=== PATIENT | male | born 1930 | race Caucasian/White ===

== ENCOUNTER 2016-05-17 06:50 | Inpatient (IN) | payer OTHER, MEDICARE ==
[2016-05-17] VITALS (10 sets, daily range): BP systolic 137–151; BP diastolic 64–86; PULSE 81–109; RESP 20–28; TEMP 98.9–102.7; O2SAT 94–98
[~2016-05-17] VITALS: Ht 172.7 cm; Wt 82.0 kg
[~2016-05-17 06:50] MED LIST: ATOR20TA PO; LANTINJ SQ; LISI-366 PO; METF500 PO; MULTCAP3; TIMO0.2525 EACH EYE
[2016-05-17] MEDS ORDERED: AMLO5TAB2 PO (09:50)
--- NOTE | 2016-05-17 10:28 | PD.CONS ---
HPI Service Neurosurgery Consult Requested By Medicine Reason for Consult acute SDH Primary Care Physician Non-Staff History of Present Illness 85 yr old gentleman fell at home going the bathroom around midnight last night. His heard him and called the neighbor to get him back to bed. This am he was aphasic and confused. His called 911. He is diabetic but otherwise with no other known chronic medical problems. He drinks daily beers, about 3 per day. GCS [id number] = 13 Review of Systems ROS Limitations: Altered Mental Status, Hearing Impaired Constitutional: COMPLAINS OF: Fatigue, Change in appetite Respiratory: COMPLAINS OF: Cough Musculoskeletal: COMPLAINS OF: Joint pain Psychiatric: COMPLAINS OF: Confusion Past Family Social History Allergies: Coded Allergies: Contrast Media (Verified Allergy, Unknown, 12/02/14) Past Medical History HTN Chronic alcohol use Arthritis Past Surgical History none Reported Medications Reported Meds & Active Scripts Active Reported Amlodipine (Amlodipine Besylate) 5 Mg Tab 5 Mg PO DAILY Timolol Maleate 0.25 % Tia 1 Drop EACH EYE BID Multivitamins Lisinopril 40 mg (Lisinopril) 40 Mg Tab 1 Tab PO DAILY Glucophage 500 mg (Metformin HCl) 500 Mg Tab 500 Mg PO DAILY Lantus Solostar Pen (Insulin Glargine) 100 Units/Ml Pen 12 Units SQ BID Atorvastatin 20 mg tab (Atorvastatin Calcium) 20 Mg Tab 20 Mg PO DAILY 30 Days Family History Mother of old age recently, father was killed in middle ages, no fx hx of DM Social History , retired, no tob, daily ETOH Physical Exam Vital Signs Vital Signs Date Time Temp Pulse Resp B/P Pulse Ox O2 Delivery O2 Flow Rate FiO2 05/17/16 10:00 103 05/17/16 09:21 99 Physical Exam Awake and aphasic with no ability to follow verbal commands but does follow motor commands if showed what is requested. Scalp abrasion noted on the right parietal region, no acute blood in the EAM Pupils 2mm, face symmetric, speech fluent but confused, Motor at least 4/5 in both upper and lower extremities Sensory intact in the upper and lower extremities. No Berg or Babinski signs. Laboratory Na 129, Hgb 11.6, alb 1.3 at the outside hospital , WBC 12.8, ptls 103INR 1.1, CR 0.77ETOH 26, lactate 4.0 Imaging CXR: Interstitial disease Head CT showed an acute left 8mm SDH with left fronto-temporal contusion extensive SAH; diffuse cerebral atrophy and mild left to right shift are noted Assessment and Plan Diagnosis: (1) Subdural hematoma, acute Plan: The bleed and cerebral contusion will be followed radiologically. Seizure prophylaxis, DVT and PUD prophylaxis is planned as well as OT/PT. Alcohol withdrawal prophylaxis is planned. . He is full code at this time but has requested anteriorly no aggressive prolonged ventilatory support. Devonte Dunham May 17, 2016 10:27
[2016-05-17] MEDS ORDERED: SODIUM CHLORIDE 0.9% FLUSH 5 ML FLUSH IVF PRN (10:30)
[2016-05-17] MEDS ORDERED: DOCUSATE SODIUM 100 MG CAP PO PRN (10:30)
[2016-05-17] MEDS ORDERED: SODIUM CHLOR 0.9% 1000 ML INJ 1,000 ML IV SCH (10:43)
[2016-05-17] MEDS ORDERED: LORazepam 2 MG/ML VIAL IV PUSH PRN ×2 (10:45)
[2016-05-17] MEDS ORDERED: SODIUM CHLORIDE 0.9% FLUSH 5 ML FLUSH IV FLUSH PRN (10:45)
[2016-05-17] MEDS ORDERED: CHLORHEXIDINE GLUCONATE 2 % 1 PACK (2 CLOTHS) TOP PRN (10:45)
[2016-05-17] MEDS ORDERED: LORazepam 1 MG TAB PO PRN (10:45)
[2016-05-17] MEDS ORDERED: MISCELLANEOUS NURSING INFORMATION XX SCH (10:45)
[2016-05-17] MEDS ORDERED: RESP: ALBUTEROL 2.5 MG/IPRATROPIUM 0.5 MG NEB (PRN) INH (10:45)
[2016-05-17] MEDS ORDERED: ACETAMINOPHEN 325 MG TAB PO PRN (10:45)
[2016-05-17] MEDS ORDERED: ONDANSETRON HCL 4 MG/2 ML VIAL IV PRN (10:45)
[2016-05-17] MEDS ORDERED: LORazepam 2 MG TAB PO PRN (10:45)
[2016-05-17] MEDS ORDERED: FLUMAZENIL 0.5 MG/5 ML VIAL IV PUSH PRN (10:45)
[2016-05-17] MEDS ORDERED: GLUCAGON 1 MG/ML VIAL OTHER PRN (11:15)
[2016-05-17] MEDS ORDERED: DEXTROSE 50% IN WATER 50 ML VIAL(D50) IV PUSH PRN (11:15)
[2016-05-17] MEDS: SODIUM CHLOR 0.9% 1000 ML INJ 1,000 ML IV SCH (11:19)
[2016-05-17] MEDS: FOLIC ACID 1 MG TAB PO SCH (11:31)
[2016-05-17] MEDS: levETIRAcetam INJ 500 MG in SODIUM CHLORIDE 0.9% INJ 100 ML IV SCH (11:31)
[2016-05-17] MEDS: THIAMINE INJ 100 MG in SODIUM CHLORIDE 0.9% INJ 100 ML IV SCH (11:56)
[2016-05-17] MEDS: INSULIN ASPART SUPPLEMENTAL SCALE SQ SCH ×2 (12:00→18:00)
[2016-05-17] MEDS: LORazepam 2 MG/ML VIAL IV PUSH PRN ×2 (13:05→17:49)
--- NOTE | 2016-05-17 17:55 | MH ---
cc: LUZMARIA UNGER MD DATE OF ADMISSION 05/17/2016 CHIEF COMPLAINT Transfer from [facility] with acute traumatic subdural hematoma. HISTORY OF PRESENT ILLNESS This 85-year-old gentleman fell of bed last night and hit his head. He developed aphasia and confusion pretty rapidly and was seen in the emergency department in [place] with a right facial droop. Subsequent CT scan evaluation confirmed an acute left subdural hemorrhage of approximately 8 mm in width with a associated subarachnoid hemorrhage. Additionally in the frontal lobe on the right side he had a 1 cm area of hemorrhage with surrounding vasogenic edema. There was intraventricular blood as well on the right side. I met him on his arrival to [facility]. What was immediately noticeable was that he was not able to express himself well and that he was not following commands correctly. With gestures he was able to follow commands but not with verbal orders. His review of systems was positive for basically generalized weakness and aphasia. ALLERGIES NONE. MEDICATIONS His home medications include: 1. Lisinopril 40 mg daily. 2. Metformin 500 mg daily. 3. Lantus insulin 12 units twice a day. 4. Atorvastatin 20 mg daily. 5. Norvasc 5 mg daily. 6. Timolol malleate ophthalmic solution 0.25% one drop to each eye twice a day. PERTINENT LABORATORY DATA Includes hemoglobin 11.6, platelet count 103,000. INR is 1.1 with a PTT of 28.7. Electrolytes: Sodium 129, potassium 4.4, glucose 143. Renal function tests creatinine is 0.77, BUN is 15. Magnesium 1.6. Troponin is less than 0.01. Alcohol and blood was 26, it is unclear what this is from. Oxygen saturation is 93% on room air. PHYSICAL EXAMINATION GENERAL: Physical examination reveals an alert, elderly, gentleman, frail-appearing, aphasic. VITAL SIGNS: Pulse is 108 and sinus, blood pressure is 151/67, respiratory rate is 22 and nonlabored, temperature is 98.9. HEAD: Contusion right side of his scalp, lateral. NECK: Chronically stiff but nontender. Airway is widely patent. LUNGS: Clear bilaterally. No wheezes or crackles. HEART: Regular rate and rhythm, normal S1-S2, no murmur, neck veins are not distended. ABDOMEN: Large, soft, no guarding. EXTREMITIES: Warm, well-perfused. NEUROLOGICAL: He tracks with his eyes appropriately. He speaks in repeated sentences. He does not answer questions specifically. He moves four extremities to command when demonstrated visually for him. Toes downgoing both sides. ASSESSMENT 1. Acute traumatic left-sided subdural hemorrhage. 2. Traumatic subarachnoid bleed. 3. Small frontal lobe contusion, right side. 4. Diabetes mellitus, type 2, controlled. 5. Mild hypertension. PLAN 1. Repeat CT scan head in a.m. or earlier if change in mental status. 2. Neurological checks q.1-hour. 3. Isotonic fluid only. 4. Head of bed up 30 degrees. 5. Bed rest tonight. 6. Labetalol for a blood pressure greater than 170. 7. Keppra for potential seizure complications. 8. Protonix for GI ulcer prophylaxis. 9. [facility] protocol for alcohol withdrawal OVERALL IMPRESSION This gentleman fell out of bed twice actually last night. The second time he had developed aphasia with a right facial droop and was seen in the emergency department [place] where a moderate size left subdural hemorrhage was evaluated, along with an adjacent right-sided frontal lobe contusion and some scattered subarachnoid blood. He was transferred here for neurosurgical evaluation and will be admitted to the Intensive Care Unit. He is hemodynamically stable at this time and protects his airway well. His potential for deterioration is high. P. Justice Unger MD [facility]/KK /5:09 PM /5:35 PM
[2016-05-17] MEDS: INSULIN DETEMIR 100 UNITS/ML VIAL SQ SCH (21:00)
[2016-05-17] MEDS: TIMOLOL MALEATE 0.25% OPHT SOLN 5 ML BTL EACH EYE SCH (21:00)
[2016-05-17] MEDS ORDERED: SODIUM CHLORIDE 0.9% FLUSH 5 ML FLUSH IV FLUSH SCH (21:00)
[2016-05-17] MEDS: SODIUM CHLORIDE 0.9% FLUSH 5 ML FLUSH IVF SCH (21:00)
[2016-05-17] MEDS: ACETAMINOPHEN 1000 MG/100 ML VIAL IV PRN (22:30)
[2016-05-17 23:30] LABS: BLOOD, URINE LARGE (NEG); GLUCOSE,URINE NEG (NEG); KETONE, URINE 10 mg/dL (NEG); MUCUS URINE FEW /lpf (OCC); NITRITE,URINE NEG (NEG); PH, URINE 5.5 (5.0-8.5); SQUAMOUS EPITHELIAL CELL URINE 1 /hpf (0-5); TRANSITIONAL EPI CELLS, URINE <1 /hpf; URINE COLOR YELLOW (YELLW/STRAW)
[2016-05-17 23:33] LABS: COMMENT (UR) CULTURE INDICATED; CULTURE IF INDICATED CULTURE INDICATED
[2016-05-18] VITALS (14 sets, daily range): BP systolic 113–154; BP diastolic 60–79; PULSE 78–118; RESP 18–30; TEMP 98.9–101.4; O2SAT 93–100
[2016-05-18] MEDS: niCARdipine INJ 25 MG in SODIUM CHLOR 0.9% 250 ML INJ 250 ML IV SCH ×3 (00:15→17:50)
[2016-05-18] MEDS: SODIUM CHLOR 0.9% 1000 ML INJ 1,000 ML IV SCH ×2 (00:41→13:19)
[2016-05-18] MEDS: LORazepam 2 MG/ML VIAL IV PUSH PRN ×3 (02:42→13:15)
[2016-05-18 03:33] LABS: AUTOMATED NEUTROPHIL # 10.4 TH/MM3 (1.8-7.7); BASOPHIL % 0.1 % (0.0-2.0); EOSINOPHIL % 0.1 % (0.0-4.0); HEMATOCRIT 29.4 % (39.0-51.0); HEMO FLAGS DIFF FINAL; LYMPH % 9.1 % (9.0-44.0); LYMPHOCYTE # 1.2 TH/MM3 (1.0-4.8); MEAN CELL VOLUME 92.5 FL (80.0-100.0); MEAN CORPUSCULAR HEMOGLOBIN 30.6 PG (27.0-34.0); MEAN CORPUSCULAR HGB CONC 33.1 % (32.0-36.0); MONO % 12.9 % (0.0-8.0); NEUT % 77.8 % (16.0-70.0); PLATELET COUNT 100 TH/MM3 (150-450); RED BLOOD COUNT 3.18 MIL/MM3 (4.50-5.90); RED CELL DISTRIBUTION WIDTH 13.4 % (11.6-17.2); WHITE BLOOD COUNT 13.3 TH/MM3 (4.0-11.0)
[2016-05-18 03:44] LABS: INTERNATIONAL NORMALIZED RATIO 1.1 RATIO; PROTHROMBIN TIME - PATIENT 11.8 SEC (9.8-11.6)
[2016-05-18 03:51] LABS: BICARBONATE 26.5 MEQ/L (21.0-32.0); MAGNESIUM 1.6 MG/DL (1.5-2.5); POTASSIUM 3.8 MEQ/L (3.5-5.1)
[2016-05-18 03:54] LABS: INDIRECT BILIRUBIN 0.7 MG/DL (0.0-0.8); TOTAL BILIRUBIN ADULT 0.9 MG/DL (0.2-1.0)
[2016-05-18] MEDS: CHLORHEXIDINE GLUCONATE 2 % 1 PACK (2 CLOTHS) TOP SCH (04:00)
[2016-05-18] MEDS: INSULIN ASPART SUPPLEMENTAL SCALE SQ SCH ×4 (05:50→18:00)
--- NOTE | 2016-05-18 06:49 | RADRPT ---
EXAM DATE/TIME: 05/18/2016 04:47 [facility] COMPARISON: No previous studies available for comparison. INDICATIONS : Fall last night, evaluate for hemorrhagic stroke. RADIATION DOSE: 44.43 CTDIvol (mGy) MEDICAL HISTORY : Hypertension. glaucoma SURGICAL HISTORY : None. ENCOUNTER: Initial ACUITY: 1 day PAIN SCALE: Non-responsive LOCATION: cranial TECHNIQUE: Multiple contiguous axial images were obtained of the head. Using automated exposure control and adj ustment of the mA and/or kV according to patient size, radiation dose was kept as low as reasonably a chievable to obtain optimal diagnostic quality images. FINDINGS: There is thin subdural hematoma overlying the left convexity with maximum thickness of about 6 mm. Pa tchy subarachnoid blood is present bilaterally most significantly in the left temporal region. Small right orbitofrontal contusions are present. There is minimal intraventricular blood in occipital horn s there is a there is no significant brain shift. No evidence of skull fracture. CONCLUSION: Multifocal intracranial hemorrhages. Valdez Rivera MD on May 18, 2016 at 6:45 Board Certified Radiologist. This report was verified electronically.
[2016-05-18] MEDS ORDERED: PANTOPRAZOLE SODIUM 40 MG VIAL IVP SCH (09:00)
[2016-05-18] MEDS: TIMOLOL MALEATE 0.25% OPHT SOLN 5 ML BTL EACH EYE SCH ×2 (09:00→21:41)
[2016-05-18] MEDS: ATORVASTATIN 20 MG TAB PO SCH (09:00)
[2016-05-18] MEDS: SODIUM CHLORIDE 0.9% FLUSH 5 ML FLUSH IVF SCH ×2 (09:00→21:00)
[2016-05-18] MEDS: amLODIPine BESYLATE 5 MG TAB PO SCH (09:00)
[2016-05-18] MEDS: FOLIC ACID 1 MG TAB PO SCH (09:00)
[2016-05-18] MEDS: LISINOPRIL 20 MG TAB PO SCH (09:00)
--- NOTE | 2016-05-18 09:02 | HHI.NSPN ---
Subjective History 85 yr old fell at home. He is generally very sedentary but alert and interactive. He suffered a significant left 8mm acute SDH with mass effect. He became very agitated and is delirious but the bleed has been stable. Vitals . Vital Signs Date Time Temp Pulse Resp B/P Pulse Ox O2 Delivery O2 Flow Rate FiO2 05/18/16 06:00 106 05/18/16 04:00 100.4 89 26 154/65 93 05/18/16 04:00 89 05/18/16 02:00 78 05/18/16 00:00 103 05/18/16 00:00 101.2 103 30 147/62 95 05/17/16 22:00 92 05/17/16 20:00 102.7 104 28 148/66 94 05/17/16 20:00 104 05/17/16 19:49 98 21 05/17/16 18:00 109 05/17/16 16:00 99.3 82 27 137/64 97 05/17/16 16:00 83 05/17/16 14:00 93 05/17/16 12:00 81 05/17/16 12:00 98.9 88 22 140/86 97 05/17/16 10:00 103 05/17/16 09:21 99 05/17/16 09:00 99.0 108 20 151/67 95 05/17/16 05/17/16 05/18/16 15:00 23:00 07:00 Intake Total 526 ml 711 ml 608 ml Output Total 875 ml 450 ml 500 ml Balance -349 ml 261 ml 108 ml Physical Exam Head Head: Abrasions (right parietal scalp abrasion) Eyes Eyes: Pupils Equal Neuro Mental Status: Confused, Agitated Pupils: Reactive Bilaterally [place] Coma Scale Best Eye Openin - To speech Best Verbal: 2 - Incomprehensible Best Motor: 5 - Localizes pain Respiratory Respiratory: Rhonchi Gastrointestinal Gastrointestinal: Soft Bowel Sounds: Present Genitourinary Genitourinary: Moreno Catheter In Place Musculoskeletal Musculoskeletal: Moves all extrem with 5/5 strength Extremities Upper Extremities Deltoid Bicep Tricep HI W. Ext Right Left Lower Extremeties Ilio Quad Plantar Dorsi EHL Right Left Objective Infectious Disease Cultures Microbiology Date/Time Procedure Status Source Growth 05/17/16 23:00 Urine Culture Received Urine Clean Catch Pending 05/18/16 03:19 Aerobic Blood Culture Received Blood Peripheral Pending 05/18/16 03:19 Anaerobic Blood Culture Received Blood Peripheral Pending 05/18/16 03:25 Aerobic Blood Culture Received Blood Peripheral Pending 05/18/16 03:25 Anaerobic Blood Culture Received Blood Peripheral Pending Labs Laboratory Tests 05/18/16 03:19 Laboratory Tests Test 05/18/16 03:19 Sodium Level 136 MEQ/L Potassium Level 3.8 MEQ/L Chloride Level 101 MEQ/L Carbon Dioxide Level 26.5 MEQ/L Anion Gap 9 MEQ/L Blood Urea Nitrogen 13 MG/DL Creatinine 0.77 MG/DL Estimat Glomerular Filtration 96 ML/MIN Rate Random Glucose 135 MG/DL Calcium Level 7.9 MG/DL Magnesium Level 1.6 MG/DL Total Bilirubin 0.9 MG/DL Direct Bilirubin 0.2 MG/DL Indirect Bilirubin 0.7 MG/DL Aspartate Amino Transf 22 U/L (AST/SGOT) Alanine Aminotransferase 20 U/L (ALT/SGPT) Alkaline Phosphatase 41 U/L Total Protein 6.4 GM/DL Albumin 3.3 GM/DL Imaging Remarks Last Impressions Head CT 05/18/16 0600 Signed Impressions: Service Date/Time: April 04:47 - CONCLUSION: Multifocal intracranial hemorrhages. Valdez Rivera MD Assessment & Plan Diagnosis: (1) Subdural hematoma, acute Plan: The bleed and cerebral contusion will be followed radiologically, they are mostly left hemispheric 8mm SDH and bilateral SAH. Seizure prophylaxis, DVT and PUD prophylaxis is planned as well as OT/PT. Alcohol withdrawal prophylaxis is planned. . He is full code at this time but has requested anteriorly no aggressive prolonged ventilatory support. Critical Care Time (minutes): 10 Devonte Dunham May 18, 2016 09:02
[2016-05-18] MEDS ORDERED: MIDAZOLAM 100 MG/ML INJ 100 ML IV SCH (09:15)
[2016-05-18] MEDS: PANTOPRAZOLE SODIUM 40 MG VIAL IV SCH (11:15)
[2016-05-18] MEDS: ACETAMINOPHEN 1000 MG/100 ML VIAL IV PRN (11:15)
[2016-05-18] MEDS: levETIRAcetam INJ 500 MG in SODIUM CHLORIDE 0.9% INJ 100 ML IV SCH ×3 (11:15)
[2016-05-18] MEDS: INSULIN DETEMIR 100 UNITS/ML VIAL SQ SCH ×2 (11:17→21:41)
[2016-05-18] MEDS: THIAMINE INJ 100 MG in SODIUM CHLORIDE 0.9% INJ 100 ML IV SCH (11:34)
--- NOTE | 2016-05-18 13:50 | HHI.CCPN ---
Subjective Remarks/Hospital Course Traumatic SDH. 05/17: This 85-year-old gentleman fell of bed last night and hit his head. He developed aphasia and confusion pretty rapidly and was seen in the emergency department in [place] with a right facial droop. Subsequent CT scan evaluation confirmed an acute left subdural hemorrhage of approximately 8 mm in width with a associated subarachnoid hemorrhage. Additionally in the frontal lobe on the right side he had a 1 cm area of hemorrhage with surrounding vasogenic edema. There was intraventricular blood as well on the right side. I met him on his arrival to [facility]. What was immediately noticeable was that he was not able to express himself well and that he was not following commands correctly. With gestures he was able to follow commands but not with verbal orders. 05/18: Deteriorating mental status, nasal trumpet placed for airway control, and will require intubation. Objective Vital Signs Date Time Temp Pulse Resp B/P Pulse Ox O2 Delivery O2 Flow Rate FiO2 05/18/16 12:00 118 05/18/16 12:00 99.8 28 142/67 94 05/17/16 19:49 21 Intake and Output 05/17/16 05/17/16 05/18/16 08:00 16:00 00:00 Intake Total 526 ml 711 ml Output Total 875 ml 450 ml Balance -349 ml 261 ml Result Diagram: 05/18/1631805/18/16318 Objective Remarks PHYSICAL EXAMINATION GENERAL: Physical examination reveals an obtunded, elderly, gentleman, frail-appearing. VITAL SIGNS: Pulse is 110 and sinus, blood pressure is 158/77, respiratory rate is 32 and nonlabored. HEAD: Contusion right side of his scalp, lateral. NECK: Chronically stiff but nontender. Airway is widely patent. LUNGS: Ptronounced snoring and obstruction. No wheezes or crackles. HEART: Regular rate and rhythm, normal S1-S2, no murmur, no JVD. ABDOMEN: Large, soft, no guarding. BS active. EXTREMITIES: Warm, well-perfused. NEUROLOGICAL: Unresponsive. Groans to painful stimulation. A/P Assessment and Plan ASSESSMENT: 1. Acute traumatic left-sided subdural hemorrhage. 2. Traumatic subarachnoid bleed. 3. Small frontal lobe contusion, right side. 4. Diabetes mellitus, type 2, controlled. 5. Mild hypertension. 6. Respiratory Failure PLAN: 1. nasal trumpet, probable intubation. 2. Neurological checks q.1-hour. 3. Isotonic fluid only. 4. Head of bed up 30 degrees. 5. Bed rest tonight. 6. Labetalol for a blood pressure greater than 170. 7. Keppra for potential seizure complications. 8. Protonix for GI ulcer prophylaxis. OVERALL IMPRESSION: Deteriorating mental status, now critically ill with hypoxemic respiratory failure requiring ventilator support. Critical care 44 mins aside from procedures Jong Abreu MD May 18, 2016 13:49
--- NOTE | 2016-05-18 13:50 | RADRPT ---
EXAM DATE/TIME: 05/18/2016 08:12 [facility] COMPARISON: No previous studies available for comparison. INDICATIONS : Intracranial hemorrhage. MEDICAL HISTORY : Hypertension. Arthritis. Glaucoma. Neurologic problems. Head trauma. Confusion. Renl disease. UTI. Diabetes. Chronic alcohol use. SURGICAL HISTORY : None. ENCOUNTER: Initial ACUITY: 2 days PAIN SCORE: Nonresponsive. LOCATION: Cranial. TIME -AVERAGED MAXIMAL VELOCITIES: MCA (1): Right: 55 Left: 26 MCA (2): Right: 44 Left: 36 ALENA (1): Right: 57 Left: 34 ALENA (2): Right: 28 Left: Unable to obtain. RABBIT FANCIER (1): Right: 57 Left: 81 RABBIT FANCIER (2): Right: 46 Left: 48 Opthalmic Artery: Right: 19 Left: 9 VERTEBRAL: Right: 22 antegrade Left: 22 antegrade BASILAR: 30 ICA: Right: 15 Left: 18 [place] Ratio: Right: 3.6 Left: 2.0 Solo Ratio: Right: 3.8 Left: 1.9 FINDINGS: Examination performed at bedside. Real-time ultrasound with the assistance of color and spectral Dop pler was utilized to evaluate the intracerebral circulation. Time-averaged maximal velocities are ca lculated in cm/s. The velocities are within normal limits and are no findings of vasospasm. CONCLUSION: 1. No evidence of vasospasm Bill Means MD on May 18, 2016 at 11:54 Board Certified Radiologist. This report was verified electronically.
[2016-05-18] MEDS ORDERED: ROCURONIUM INJ 100 MG/10 ML VIAL IV ONE (15:30)
[2016-05-18] MEDS ORDERED: MIDAZOLAM HCL 5 MG/ML VIAL (1 ML) IV ONE (15:30)
[2016-05-18] MEDS ORDERED: MIDAZOLAM HCL 5 MG/ML VIAL (1 ML) ONE (15:39)
[2016-05-18] MEDS ORDERED: ROCURONIUM INJ 50 MG/5 ML VIAL ONE (15:39)
[2016-05-18] MEDS ORDERED: ROCURONIUM INJ 50 MG/5 ML VIAL IV ONE (15:45)
[2016-05-18] MEDS ORDERED: PROPOFOL 1000 MG/100 ML INJ 100 ML ONE (15:58)
--- NOTE | 2016-05-18 16:16 | PD.PROCEDR ---
Procedure Note Procedure DX: Respiratory Failure (J96.01) OP: Orotracheal Intubation (09564) Procedure: Bag mask ventilation. Versed 5 mg and rocuronium 100 mg. Intubated orally with 8.0 tube. Position confirmed with CO2 detection, breath sounds Jong Abreu MD May 18, 2016 16:16
[2016-05-18 17:11] LABS: BLOOD GAS BASE EXCESS -3.1 mmol/L (-2-2); BLOOD GAS CARBOXYHEMOGLOBIN 1.2 % (0-4); BLOOD GAS HCO3 21 mmol/L (22-26); BLOOD GAS METHEMOGLOBIN 0.8 % (0-2); BLOOD GAS O2 HGB SATURATION 98 % (90-100); BLOOD GAS OXYGEN CONTENT 14.3 Vol % (12.0-20.0); BLOOD GAS PCO2 31 mmHg (38-42); BLOOD GAS PO2 257 mmHg (61-120); BLOOD GAS TOTAL HGB 9.9 G/DL (12.0-16.0); CRITICAL VALUE NO; DRAW SITE RT RADIAL; FIO2 100 %; NUMBER OF ARTERIAL PUNCTURES 1; OXYGEN DEVICE VENTILATOR; STAT NO; TEMP CORR TO 98.6; ULNAR PULSE PRESENT; VENT SETTINGS PRVC/AC
--- NOTE | 2016-05-18 17:25 | RADRPT ---
EXAM DATE/TIME: 05/18/2016 16:17 [facility] COMPARISON: No previous studies available for comparison. INDICATIONS : Evaluate ET tube placement MEDICAL HISTORY : Hypertension. glaucoma SURGICAL HISTORY : None. ENCOUNTER: Initial ACUITY: 1 day PAIN SCORE: Non-responsive. LOCATION: Bilateral chest FINDINGS: 2 AP portable views of the chest were obtained and demonstrate abnormal opacity at the left lung bas e with partial obscuration of left hemidiaphragm. The left costophrenic angle may be mildly blunted. The heart size is within normal limits. The right lung is clear. An endotracheal tube is present with the tip approximately 2 cm above the tony. CONCLUSION: 1. Endotracheal tube present with the tip 2 cm above the tony. 2. Hazy opacity in the left lung base which may represent infiltrate and/or effusion. The findings co uld indicate pneumonia. Donny Cabrera MD on May 18, 2016 at 17:22 Board Certified Radiologist. This report was verified electronically.
[2016-05-18] MEDS: PROPOFOL 1000 MG/100 ML INJ 100 ML IV SCH (17:50)
--- NOTE | 2016-05-18 19:04 | RADRPT ---
EXAM DATE/TIME: 05/18/2016 18:38 [facility] COMPARISON: CHEST SINGLE AP, May 18, 2016, 16:17. INDICATIONS : Evaluate OG tube placement MEDICAL HISTORY : Hypertension. glaucoma SURGICAL HISTORY : None. ENCOUNTER: Subsequent ACUITY: 1 day PAIN SCORE: Non-responsive. LOCATION: Bilateral chest FINDINGS: Perihilar and left base consolidation slightly worse in the interim. No large effusion seen. No pneum othorax. There is a nasogastric tube with tip at the gastric outlet. Patient remains intubated. Endotracheal t ube tip is about 4 cm above the tony. CONCLUSION: Gastric tube tip at the outlet. Unchanged endotracheal tube tip about 4 cm above the tony. Modest w orsening perihilar and left base consolidation. Valdez Solano MD on May 18, 2016 at 19:02 Board Certified Radiologist. This report was verified electronically.
[2016-05-18] MEDS: CHLORHEXIDINE 0.12% (ORAL KIT) 15 ML CUP MT SCH (20:00)
[2016-05-19] VITALS (19 sets, daily range): BP systolic 97–142; BP diastolic 59–85; PULSE 66–95; RESP 16–24; TEMP 99–101.1; O2SAT 99–100
[2016-05-19] MEDS: levETIRAcetam INJ 500 MG in SODIUM CHLORIDE 0.9% INJ 100 ML IV SCH ×2 (00:05→12:00)
[2016-05-19] MEDS: ACETAMINOPHEN 1000 MG/100 ML VIAL IV PRN (01:26)
[2016-05-19] MEDS: PROPOFOL 1000 MG/100 ML INJ 100 ML IV SCH ×3 (01:26→21:16)
[2016-05-19] MEDS: CHLORHEXIDINE GLUCONATE 2 % 1 PACK (2 CLOTHS) TOP SCH (04:00)
[2016-05-19 04:06] LABS: AUTOMATED NEUTROPHIL # 10.4 TH/MM3 (1.8-7.7); BASOPHIL % 0.1 % (0.0-2.0); EOSINOPHIL % 0.1 % (0.0-4.0); HEMATOCRIT 27.8 % (39.0-51.0); HEMO FLAGS DIFF FINAL; LYMPH % 9.1 % (9.0-44.0); LYMPHOCYTE # 1.2 TH/MM3 (1.0-4.8); MEAN CELL VOLUME 93.7 FL (80.0-100.0); MEAN CORPUSCULAR HGB CONC 33.1 % (32.0-36.0); NEUT % 79.7 % (16.0-70.0); PLATELET COUNT 100 TH/MM3 (150-450); RED BLOOD COUNT 2.97 MIL/MM3 (4.50-5.90); RED CELL DISTRIBUTION WIDTH 13.4 % (11.6-17.2)
[2016-05-19 04:33] LABS: MAGNESIUM 1.6 MG/DL (1.5-2.5); POTASSIUM 3.4 MEQ/L (3.5-5.1)
[2016-05-19 04:48] LABS: CALCIUM-PROTEIN CORRECTED 7.9 MG/DL (8.5-10.1)
[2016-05-19] MEDS: SODIUM CHLOR 0.9% 1000 ML INJ 1,000 ML IV SCH ×2 (05:23→19:41)
[2016-05-19] MEDS: INSULIN ASPART SUPPLEMENTAL SCALE SQ SCH ×4 (06:00→17:10)
[2016-05-19] MEDS ORDERED: POTASSIUM CHLOR 20 MEQ PREMIX 100 ML IV PRN (07:00)
[2016-05-19] MEDS ORDERED: POTASSIUM CL 40 MEQ/30 ML LIQ UDC PO/TUBE PRN (07:00)
[2016-05-19] MEDS ORDERED: POTASSIUM PHOSPHATE MONOBASIC 500 MG TAB PO/TUBE PRN (07:00)
[2016-05-19] MEDS ORDERED: POTASSIUM CHLOR 40 MEQ PREMIX 100 ML IV PRN ×2 (07:00)
[2016-05-19] MEDS ORDERED: SODIUM PHOSPHATE INJ 30 MMOL in SODIUM CHLOR 0.9% 250 ML INJ 240 ML IV PRN (07:00)
[2016-05-19] MEDS ORDERED: MAGNESIUM SULFATE INJ 2 GM in SODIUM CHLORIDE 0.9% INJ 96 ML IV PRN (07:00)
[2016-05-19] MEDS ORDERED: POTASSIUM PHOSPHATE MONOBASIC 500 MG TAB PO PRN (07:00)
[2016-05-19] MEDS ORDERED: MAGNESIUM OXIDE 400 MG TAB PO PRN (07:00)
[2016-05-19] MEDS ORDERED: MAGNESIUM SULFATE INJ 4 GM in SODIUM CHLORIDE 0.9% INJ 92 ML IV PRN (07:00)
[2016-05-19] MEDS ORDERED: POTASSIUM PHOSPHATE INJ 30 MMOL in SODIUM CHLOR 0.9% 250 ML INJ 250 ML IV PRN (07:00)
--- NOTE | 2016-05-19 07:07 | HHI.CCPN ---
Subjective Remarks/Hospital Course Traumatic SDH. 05/17: This 85-year-old gentleman fell of bed last night and hit his head. He developed aphasia and confusion pretty rapidly and was seen in the emergency department in [place] with a right facial droop. Subsequent CT scan evaluation confirmed an acute left subdural hemorrhage of approximately 8 mm in width with a associated subarachnoid hemorrhage. Additionally in the frontal lobe on the right side he had a 1 cm area of hemorrhage with surrounding vasogenic edema. There was intraventricular blood as well on the right side. I met him on his arrival to [facility]. What was immediately noticeable was that he was not able to express himself well and that he was not following commands correctly. With gestures he was able to follow commands but not with verbal orders. 05/18: Deteriorating mental status, nasal trumpet placed for airway control, and will require intubation. 05/19: Ventilator dependent now. Family needs to clarify goals if possible/ practical. Objective Vital Signs Date Time Temp Pulse Resp B/P Pulse Ox O2 Delivery O2 Flow Rate FiO2 05/19/16 06:00 66 05/19/16 04:18 100 40 05/19/16 04:00 99.0 24 97/64 Intake and Output 05/18/16 05/18/16 05/19/16 08:00 16:00 00:00 Intake Total 608 ml 1026 ml 998 ml Output Total 500 ml 450 ml 225 ml Balance 108 ml 576 ml 773 ml Result Diagram: 05/19/16 0246 05/19/16 0246 Other Results Laboratory Tests Test 05/18/16 17:02 Blood Gas Puncture Site RT RADIAL Blood Gas Patient Temperature 98.6 Blood Gas HCO3 21 mmol/L (22-26) Blood Gas Base Excess -3.1 mmol/L (-2-2) Blood Gas Oxygen Saturation 98 % (90-100) Arterial Blood pH 7.43 (7.380-7.420) Arterial Blood Partial 31 mmHg (38-42) Pressure CO2 Arterial Blood Partial 257 mmHg Pressure O2 (61-120) Arterial Blood Oxygen Content 14.3 Vol % (12.0-20.0) Arterial Blood 1.2 % (0-4) Carboxyhemoglobin Arterial Blood Methemoglobin 0.8 % (0-2) Blood Gas Hemoglobin 9.9 G/DL (12.0-16.0) Oxygen Delivery Device VENTILATOR Blood Gas Ventilator Setting PRVC/AC Blood Gas Inspired Oxygen 100 % Objective Remarks PHYSICAL EXAMINATION GENERAL: Physical examination reveals an obtunded, elderly, gentleman, frail-appearing. VITAL SIGNS: Pulse is 78 and sinus, blood pressure is 97/67, respiratory rate is 16. HEAD: Contusion right side of his scalp, lateral. NECK: Chronically stiff but nontender. Orally intubated. LUNGS: Good air movement. No wheezes or crackles. HEART: Regular rate and rhythm, normal S1-S2, no murmur, no JVD. ABDOMEN: Large, soft, no guarding. BS active. EXTREMITIES: Warm, well-perfused. NEUROLOGICAL: Unresponsive. A/P Assessment and Plan ASSESSMENT: 1. Acute traumatic left-sided subdural hemorrhage. 2. Traumatic subarachnoid bleed. 3. Small frontal lobe contusion, right side. 4. Diabetes mellitus, type 2, controlled. 5. Mild hypertension. 6. Respiratory Failure PLAN: 1. PRVC vent mode. 2. Neurological checks q.1-hour. 3. Isotonic fluid only. 4. Head of bed up 30 degrees. 5. No chemical DVT px. 6. Labetalol for a blood pressure greater than 170. 7. Keppra for potential seizure complications. 8. Protonix for GI ulcer prophylaxis. 9. SCDs. 10. Clarify family goals. 11. Start TFs. OVERALL IMPRESSION: Deteriorating mental status, now critically ill with hypoxemic respiratory failure requiring ventilator support. Unable to wean ventilator. Critical care 36 mins aside from procedures Jong Abreu MD May 19, 2016 07:07
[2016-05-19] MEDS: CHLORHEXIDINE 0.12% (ORAL KIT) 15 ML CUP MT SCH ×2 (08:00→20:00)
[2016-05-19] MEDS: TIMOLOL MALEATE 0.25% OPHT SOLN 5 ML BTL EACH EYE SCH ×2 (09:00→20:43)
[2016-05-19] MEDS: SODIUM CHLORIDE 0.9% FLUSH 5 ML FLUSH IVF SCH ×2 (09:00→20:00)
[2016-05-19] MEDS: THIAMINE INJ 100 MG in SODIUM CHLORIDE 0.9% INJ 100 ML IV SCH (09:00)
[2016-05-19] MEDS: LISINOPRIL 20 MG TAB PO SCH (09:12)
[2016-05-19] MEDS: FOLIC ACID 1 MG TAB PO SCH (09:12)
[2016-05-19] MEDS: amLODIPine BESYLATE 5 MG TAB PO SCH (09:12)
[2016-05-19] MEDS: PANTOPRAZOLE SODIUM 40 MG VIAL IV SCH (09:12)
[2016-05-19] MEDS: ATORVASTATIN 20 MG TAB PO SCH (09:13)
[2016-05-19] MEDS: INSULIN DETEMIR 100 UNITS/ML VIAL SQ SCH ×2 (09:13→20:44)
--- NOTE | 2016-05-19 16:17 | HHI.NSPN ---
Subjective History 85 yr old fell at home. He is generally very sedentary but alert and interactive. He suffered a significant left 8mm acute SDH with mass effect. He became very agitated and is delirious but the bleed has been stable. 05/19/16 He is intubated and sedated, appears peaceful at this time. Vitals . Vital Signs Date Time Temp Pulse Resp B/P Pulse Ox O2 Delivery O2 Flow Rate FiO2 05/19/16 14:00 87 05/19/16 12:03 100 40 05/19/16 12:00 60 05/19/16 12:00 99.3 81 17 136/71 100 05/19/16 12:00 88 05/19/16 10:00 81 05/19/16 08:00 60 05/19/16 08:00 75 05/19/16 08:00 99.7 85 18 124/59 100 05/19/16 07:48 99 40 05/19/16 06:00 66 05/19/16 04:18 100 40 05/19/16 04:00 99.0 78 24 97/64 100 05/19/16 04:00 40 05/19/16 04:00 78 05/19/16 02:00 76 05/19/16 01:10 100 50 05/19/16 00:00 101.1 85 20 125/85 100 05/19/16 00:00 85 05/19/16 00:00 60 05/18/16 22:00 94 05/18/16 20:00 99.7 99 19 116/60 100 05/18/16 20:00 99 05/18/16 20:00 60 05/18/16 19:45 97 60 05/18/16 18:00 91 05/18/16 05/18/16 05/19/16 15:00 23:00 07:00 Intake Total 1026 ml 998 ml 1003 ml Output Total 450 ml 225 ml 385 ml Balance 576 ml 773 ml 618 ml Maximum Temperature: 101.1 Physical Exam Eyes Eyes: Pupils Equal (1-2mm) Neuro Mental Status: Sedated Drips: Diprivan @ Face: Symmetric Tat[place] Coma Scale Best Eye Openin - None Best Verbal: 1 - None Best Motor: 5 - Localizes pain Total Glascow Coma Scale (GCS): 7 Cardiac Cardiac: Regular Rate & Rhythm Gastrointestinal Gastrointestinal: Soft Musculoskeletal Extremities Upper Extremities Deltoid Bicep Tricep HI W. Ext Right Left Lower Extremeties Ilio Quad Plantar Dorsi EHL Right Left Musculoskeletal Remarks Moves all extremities and is purposeful with the left hand. No Berg or Babinski noted Objective Infectious Disease Cultures Microbiology Date/Time Procedure Status Source Growth 05/18/16 21:00 Gram Stain - Final Resulted Sputum Expectorated Sputum 05/18/16 21:00 Sputum Culture - Preliminary Resulted Sputum Expectorated Sputum IMMATURE GROWTH - REINCUBATE Labs Laboratory Tests 05/19/16 02:46 Laboratory Tests Test 05/19/16 02:46 Sodium Level 137 MEQ/L Potassium Level 3.4 MEQ/L Chloride Level 105 MEQ/L Carbon Dioxide Level 21.0 MEQ/L Anion Gap 11 MEQ/L Blood Urea Nitrogen 19 MG/DL Creatinine 0.87 MG/DL Estimat Glomerular Filtration 83 ML/MIN Rate Random Glucose 121 MG/DL Calcium Level 7.3 MG/DL Protein Corrected Calcium 7.9 MG/DL Phosphorus Level 1.9 MG/DL Magnesium Level 1.6 MG/DL Total Protein 5.9 GM/DL Imaging Remarks Last Impressions Chest X-Ray 05/18/16 1823 Signed Impressions: Service Date/Time: April 18:38 - CONCLUSION: Gastric tube tip at the outlet. Unchanged endotracheal tube tip about 4 cm above the tony. Modest worsening perihilar and left base consolidation. Valdez Solano MD Transcranial Doppler Study Complete 05/18/16 0730 Signed Impressions: Service Date/Time: April 08:12 - CONCLUSION: 1. No evidence of vasospasm Bill Means MD Head CT 05/18/16 0600 Signed Impressions: Service Date/Time: April 04:47 - CONCLUSION: Multifocal intracranial hemorrhages. Valdez Rivera MD Assessment & Plan Diagnosis: (1) Subdural hematoma, acute Plan: The bleed and cerebral contusion will be followed radiologically, they are mostly left hemispheric 8mm SDH and bilateral SAH. Seizure prophylaxis, DVT and PUD prophylaxis is planned as well as OT/PT. Alcohol withdrawal prophylaxis is planned. . He is full code at this time but has requested anteriorly no aggressive prolonged ventilatory support. 05/19/16 Supportive care is continued, sedation holiday is planned in the morning. No new focal findings. Cultures are pending Critical Care Time (minutes): 10 Devonte Dunham May 19, 2016 16:17
[2016-05-19 21:34] LABS: POTASSIUM 3.6 MEQ/L (3.5-5.1)
[2016-05-19 21:42] LABS: MAGNESIUM 2.3 MG/DL (1.5-2.5)
--- NOTE | 2016-05-19 22:05 | PD.CONS ---
HPI Service Rehabilitation Medicine Consult Requested By [facility] Trauma Service Reason for Consult Comprehensive rehabilitation evaluation. Primary Care Physician Non-Staff History of Present Illness Ted Richard is an 85 year old male who sustained a fall out of bed 05/16/16. He was noted to be aphasic with right facial droop. Head CT showed left SDH and SAH and right frontal 1 cm hemorrhage with surrounding vasogenic edema. He required intubation and ventilation. Keppra was started for seizure prophylaxis. Review of Systems ROS Limitations: Intubated, Altered Mental Status Past Family Social History Allergies: Coded Allergies: Contrast Media (Verified Allergy, Unknown, 12/02/14) Past Medical History Diabetes Mellitus Type 2 Mild HTN Past Surgical History None noted Current Medications Current Medications Medications (Trade) Dose Ordered Sig/Gus Route Start Time Stop Time Status Last Admin (Norvasc) 5 mg DAILY PO 05/18/16 09:00 05/19/16 09:12 (Lipitor) 20 mg DAILY PO 05/18/16 09:00 05/19/16 09:13 (Timoptic 0.25% Opth Soln) 1 drop BID EACH EYE 05/17/16 21:00 05/19/16 20:43 Lisinopril 40 mg 40 mg DAILY PO 05/18/16 09:00 05/19/16 09:12 (NS 1000 ml Inj) 1,000 ml @ 70 mls/hr [id number] IV 05/17/16 10:29 05/19/16 19:41 (NS Flush) 2 ml UNSCH PRN IVF 05/17/16 10:30 IV Flush 2 ml 2 ml BID IVF 05/17/16 21:00 05/17/16 21:00 Nicardipine HCl 25 mg/Sodium Chloride 260 ml @ 0 mls/hr TITRATE IV 05/17/16 10:30 05/18/16 17:50 (Keppra Inj/NS Inj) 105 ml @ 400 mls/hr Q12H IV 05/17/16 12:00 05/19/16 12:00 (Colace) 100 mg BID PRN PO 05/17/16 10:30 (Ativan) 1 mg Q4H PRN PO 05/17/16 10:45 (Ativan Inj) 1 mg Q4H PRN IV PUSH 05/17/16 10:45 05/18/16 02:42 (Ativan) 2 mg Q2H PRN PO 05/17/16 10:45 (Ativan Inj) 2 mg Q2H PRN IV PUSH 05/17/16 10:45 05/18/16 13:15 (Ativan Inj) 2 mg Q1H PRN IV PUSH 05/17/16 10:45 Lorazepam 2 mg 2 mg Q15M PRN IV PUSH 05/17/16 10:45 (Thiamine Inj/NS Inj) 101 ml @ 101 mls/hr DAILY IV 05/17/16 12:00 05/19/16 09:00 (Folate) 1 mg DAILY PO 05/17/16 10:45 05/19/16 09:12 (Tylenol) 650 mg Q6H PRN PO 05/17/16 10:45 (Protonix Inj) 40 mg DAILY IV 05/18/16 09:00 05/19/16 09:12 (Zofran Inj) 4 mg Q6H PRN IV 05/17/16 10:45 Miscellaneous Information 1 [id number] XX 05/17/16 10:45 05/17/16 11:34 (Chlorhexidine 2% Cloth) 3 pack Taper DAILY@04 TOP 05/18/16 04:00 05/14/17 03:59 05/19/16 04:00 (Chlorhexidine 2% Cloth) 3 pack UNSCH PRN TOP 05/17/16 10:45 (Levemir Inj) 8 units Q12HR SQ 05/17/16 21:00 05/19/16 09:13 (D50w (Vial) Inj) 25 ml UNSCH PRN IV PUSH 05/17/16 11:15 (Glucagon Inj) 1 mg UNSCH PRN OTHER 05/17/16 11:15 (NovoLOG SUPPLEMENTAL SCALE) 1 Q6H SQ 05/17/16 12:00 05/18/16 05:50 Acetaminophen 1000 mg 1,000 mg Q8H PRN IV 05/17/16 22:00 05/19/16 01:26 (Versed Inj) 100 ml @ 0 mls/hr CONTINUOUS IV 05/18/16 09:15 Chlorhexidine Gluconate 15 ml 15 ml BID@08,20 MT 05/18/16 20:00 05/19/16 20:00 Propofol 100 ml @ 0 mls/hr TITRATE IV 05/18/16 16:15 05/19/16 21:16 Potassium Chloride 100 ml @ 50 mls/hr Q2H PRN IV 05/19/16 07:00 (KCl 20 Meq Premix Inj) 100 ml @ 50 mls/hr Q2H PRN IV 05/19/16 07:00 Potassium Chloride 40 meq 40 meq UNSCH PRN PO/TUBE 05/19/16 07:00 Potassium Chloride 100 ml @ 25 mls/hr UNSCH PRN IV 05/19/16 07:00 Potassium Chloride 100 ml @ 50 mls/hr Q2H PRN IV 05/19/16 07:00 (Magnesium Sulfate Inj/NS Inj) 100 ml @ 50 mls/hr UNSCH PRN IV 05/19/16 07:00 Magnesium Oxide 800 mg 800 mg UNSCH PRN PO 05/19/16 07:00 (Magnesium Sulfate Inj/NS Inj) 100 ml @ 50 mls/hr UNSCH PRN IV 05/19/16 07:00 05/19/16 13:49 Potassium Phosphate 2000 mg 2,000 mg Q4H PRN PO 05/19/16 07:00 (Sodium Phosphate Inj/NS 250 ml Inj) 250 ml @ 42 mls/hr UNSCH PRN IV 05/19/16 07:00 (KCl 40 Meq/30 ml Liq) 40 meq UNSCH PRN PO/TUBE 05/19/16 07:00 Potassium Phosphate 2000 mg 2,000 mg UNSCH PRN PO/TUBE 05/19/16 07:00 (Potassium Phosphate Inj/NS 250 ml Inj) 260 ml @ 42 mls/hr UNSCH PRN IV 05/19/16 07:00 Family History Unable to obtain Social History Prior to admission lived in [place], [place]. Positive ETOH use. Exam I&O / VS 05/18/16 05/18/16 05/19/16 15:00 23:00 07:00 Intake Total 1026 ml 998 ml 1003 ml Output Total 450 ml 225 ml 385 ml Balance 576 ml 773 ml 618 ml IV Total 1026 ml 998 ml 1003 ml Output Urine Total 450 ml 225 ml 185 ml Gastric Drainage Total 200 ml # Bowel Movements 0 0 0 Vital Signs Date Time Temp Pulse Resp B/P Pulse Ox O2 Delivery O2 Flow Rate FiO2 05/19/16 20:03 100 35 05/19/16 18:00 87 05/19/16 17:00 99 40 05/19/16 16:00 100.4 95 16 132/71 100 05/19/16 16:00 95 05/19/16 16:00 40 05/19/16 14:00 87 05/19/16 12:03 100 40 05/19/16 12:00 60 05/19/16 12:00 99.3 81 17 136/71 100 05/19/16 12:00 88 05/19/16 10:00 81 05/19/16 08:00 60 05/19/16 08:00 75 05/19/16 08:00 99.7 85 18 124/59 100 05/19/16 07:48 99 40 05/19/16 06:00 66 05/19/16 04:18 100 40 05/19/16 04:00 99.0 78 24 97/64 100 05/19/16 04:00 40 05/19/16 04:00 78 05/19/16 02:00 76 05/19/16 01:10 100 50 05/19/16 00:00 101.1 85 20 125/85 100 05/19/16 00:00 85 05/19/16 00:00 60 General: Intubated, Sedated Respiratory: Non-labored respirations, BS equal Gastrointestinal: Positive Bowel Sounds Cardiovascular: Normal rate, Regular Rhythm Musculoskeletal: Other (SCD's in place) Orientation: unable to asses Self, unable to asses Place, unable to asses Time , unable to asses Situation Neurologic: Pupils (PERRLA), Other (Withdraws both UE and left LE) DTRs: Normal (1+) Clonus: Negative Assessment and Plan Diagnosis: (1) Subdural hematoma, acute Assessment 1. Fall out of bed 05/16/15 with traumatic left SDH/SAH and right frontal hemorrhage treated nonsurgically 2. DM type 2 3. History of mild HTN Plan 1. PT providing ROM. Advance as medically and neurologically feasible 2. OT for ADL"s and currently dependent 3. ST following for swallow evaluation when appropriate 4. Case management addressing discharge planning including ongoing rehabilitation needs 5. Will follow while hospitalized and at discharge as appropriate. Thank you for this consult. Charity Hernandez MD May 19, 2016 22:05
[2016-05-20] VITALS (19 sets, daily range): BP systolic 117–165; BP diastolic 57–74; PULSE 70–103; RESP 14–20; TEMP 98.3–100.5; O2SAT 97–100
[2016-05-20] MEDS: levETIRAcetam INJ 500 MG in SODIUM CHLORIDE 0.9% INJ 100 ML IV SCH ×3 (00:22→23:56)
[2016-05-20] MEDS: PROPOFOL 1000 MG/100 ML INJ 100 ML IV SCH ×3 (00:31→18:54)
[2016-05-20] MEDS: CHLORHEXIDINE GLUCONATE 2 % 1 PACK (2 CLOTHS) TOP SCH (04:00)
[2016-05-20 04:35] LABS: AUTOMATED NEUTROPHIL # 9.1 TH/MM3 (1.8-7.7); BASOPHIL % 0.3 % (0.0-2.0); EOSINOPHIL % 0.3 % (0.0-4.0); HEMATOCRIT 27.3 % (39.0-51.0); HEMO FLAGS DIFF FINAL; LYMPHOCYTE # 1.2 TH/MM3 (1.0-4.8); MEAN CELL VOLUME 93.1 FL (80.0-100.0); MEAN CORPUSCULAR HGB CONC 33.3 % (32.0-36.0); MONO % 11.5 % (0.0-8.0); NEUT % 77.9 % (16.0-70.0); PLATELET COUNT 134 TH/MM3 (150-450); RED BLOOD COUNT 2.93 MIL/MM3 (4.50-5.90); RED CELL DISTRIBUTION WIDTH 13.4 % (11.6-17.2); WHITE BLOOD COUNT 11.7 TH/MM3 (4.0-11.0)
[2016-05-20 04:50] LABS: BICARBONATE 22.5 MEQ/L (21.0-32.0); POTASSIUM 3.5 MEQ/L (3.5-5.1)
[2016-05-20] MEDS: INSULIN ASPART SUPPLEMENTAL SCALE SQ SCH ×4 (06:00→18:00)
[2016-05-20] MEDS ORDERED: METOCLOPRAMIDE HCL 10 MG/2 ML VIAL IM SCH (06:30)
--- NOTE | 2016-05-20 06:41 | HHI.CCPN ---
Subjective Remarks/Hospital Course Traumatic SDH. 05/17: This 85-year-old gentleman fell of bed last night and hit his head. He developed aphasia and confusion pretty rapidly and was seen in the emergency department in [place] with a right facial droop. Subsequent CT scan evaluation confirmed an acute left subdural hemorrhage of approximately 8 mm in width with a associated subarachnoid hemorrhage. Additionally in the frontal lobe on the right side he had a 1 cm area of hemorrhage with surrounding vasogenic edema. There was intraventricular blood as well on the right side. I met him on his arrival to [facility]. What was immediately noticeable was that he was not able to express himself well and that he was not following commands correctly. With gestures he was able to follow commands but not with verbal orders. 05/18: Deteriorating mental status, nasal trumpet placed for airway control, and will require intubation. 05/19: Ventilator dependent now. Family needs to clarify goals if possible/ practical. 05/20: A little more alert. Breathes well on CPAP. Objective Vital Signs Date Time Temp Pulse Resp B/P Pulse Ox O2 Delivery O2 Flow Rate FiO2 05/20/16 04:00 40 05/20/16 03:53 98 05/20/16 02:00 76 05/20/16 00:00 98.6 16 117/58 Intake and Output 05/19/16 05/19/16 05/20/16 08:00 16:00 00:00 Intake Total 1003 ml 769 ml 1336 ml Output Total 385 ml 400 ml 525 ml Balance 618 ml 369 ml 811 ml Result Diagram: 05/20/16 0354 05/20/16 0354 Other Results Microbiology Date/Time Procedure Status Source Growth 05/17/16 23:00 Urine Culture - Final Complete Urine Clean Catch NO GROWTH IN 48 HOURS. Objective Remarks PHYSICAL EXAMINATION GENERAL: Physical examination reveals an obtunded, elderly, gentleman, frail-appearing. VITAL SIGNS: Pulse is 78 and sinus, blood pressure is 97/67, respiratory rate is 16. HEAD: Contusion right side of his scalp, lateral. NECK: Chronically stiff but nontender. Orally intubated. LUNGS: Good air movement. No wheezes or crackles. HEART: Regular rate and rhythm, normal S1-S2, no murmur, no JVD. ABDOMEN: Large, soft, no guarding. BS active. EXTREMITIES: Warm, well-perfused. NEUROLOGICAL: Opens eyes, moves extemities to stimulation. A/P Assessment and Plan ASSESSMENT: 1. Acute traumatic left-sided subdural hemorrhage. 2. Traumatic subarachnoid bleed. 3. Small frontal lobe contusion, right side. 4. Diabetes mellitus, type 2, controlled. 5. Mild hypertension. 6. Respiratory Failure PLAN: 1. PRVC vent mode. 2. Neurological checks q.1-hour. 3. Isotonic fluid only. 4. Head of bed up 30 degrees. 5. No chemical DVT px. 6. Labetalol for a blood pressure greater than 170. 7. Keppra for potential seizure complications. 8. Protonix for GI ulcer prophylaxis. 9. SCDs. 10. Clarify family goals. 11. Start TFs. 12. Daily SBTs. 13. RASS 0 OVERALL IMPRESSION: Improved mental status, try CPAP. Jong Abreu MD May 20, 2016 06:41
[2016-05-20] MEDS: SODIUM CHLORIDE 0.9% FLUSH 5 ML FLUSH IVF SCH ×2 (09:00→21:04)
[2016-05-20] MEDS: BENEPROTEIN POWDER 1 PACK G-TUBE SCH ×3 (09:00→17:58)
[2016-05-20] MEDS: LISINOPRIL 20 MG TAB PO SCH (09:04)
[2016-05-20] MEDS: PANTOPRAZOLE SODIUM 40 MG VIAL IV SCH (09:04)
[2016-05-20] MEDS: amLODIPine BESYLATE 5 MG TAB PO SCH (09:04)
[2016-05-20] MEDS: THIAMINE INJ 100 MG in SODIUM CHLORIDE 0.9% INJ 100 ML IV SCH (09:04)
[2016-05-20] MEDS: FOLIC ACID 1 MG TAB PO SCH (09:04)
[2016-05-20] MEDS: ATORVASTATIN 20 MG TAB PO SCH (09:04)
[2016-05-20] MEDS: SODIUM CHLOR 0.9% 1000 ML INJ 1,000 ML IV SCH (09:05)
[2016-05-20] MEDS: CHLORHEXIDINE 0.12% (ORAL KIT) 15 ML CUP MT SCH ×2 (09:05→20:00)
[2016-05-20] MEDS: TIMOLOL MALEATE 0.25% OPHT SOLN 5 ML BTL EACH EYE SCH ×2 (09:05→21:04)
[2016-05-20] MEDS: METOCLOPRAMIDE HCL 10 MG/2 ML VIAL IV SCH ×2 (13:41→20:59)
[2016-05-20] MEDS: POTASSIUM CL 40 MEQ/30 ML LIQ UDC PO/TUBE PRN (13:42)
[2016-05-21] VITALS (15 sets, daily range): BP systolic 130–154; BP diastolic 62–72; PULSE 75–104; RESP 16–28; TEMP 99.2–99.8; O2SAT 96–100
[2016-05-21] MEDS: SODIUM CHLOR 0.9% 1000 ML INJ 1,000 ML IV SCH ×2 (00:17→14:02)
[2016-05-21] MEDS: PROPOFOL 1000 MG/100 ML INJ 100 ML IV SCH ×3 (02:49→18:12)
[2016-05-21] MEDS: CHLORHEXIDINE GLUCONATE 2 % 1 PACK (2 CLOTHS) TOP SCH (04:00)
[2016-05-21 04:09] LABS: BASOPHIL # 0.1 TH/MM3 (0-0.2); BASOPHIL % 0.6 % (0.0-2.0); EOSINOPHIL % 0.4 % (0.0-4.0); HEMATOCRIT 28.7 % (39.0-51.0); HEMO FLAGS DIFF FINAL; LYMPH % 8.8 % (9.0-44.0); LYMPHOCYTE # 0.9 TH/MM3 (1.0-4.8); MEAN CELL VOLUME 91.8 FL (80.0-100.0); MEAN CORPUSCULAR HEMOGLOBIN 31.3 PG (27.0-34.0); MEAN CORPUSCULAR HGB CONC 34.1 % (32.0-36.0); MONO % 11.8 % (0.0-8.0); NEUT % 78.4 % (16.0-70.0); PLATELET COUNT 183 TH/MM3 (150-450); RED BLOOD COUNT 3.12 MIL/MM3 (4.50-5.90); RED CELL DISTRIBUTION WIDTH 13.6 % (11.6-17.2); WHITE BLOOD COUNT 10.2 TH/MM3 (4.0-11.0)
[2016-05-21 04:28] LABS: BICARBONATE 22.7 MEQ/L (21.0-32.0); POTASSIUM 4.1 MEQ/L (3.5-5.1)
[2016-05-21 04:32] LABS: BICARBONATE 22.6 MEQ/L (21.0-32.0)
--- NOTE | 2016-05-21 04:53 | RADRPT ---
EXAM DATE/TIME: 05/21/2016 04:17 [facility] COMPARISON: CT BRAIN W/O CONTRAST, May 18, 2016, 4:47. INDICATIONS : Follow up bleed. RADIATION DOSE: 56.35 CTDIvol (mGy) MEDICAL HISTORY : Hypertension. Diabetes mellitus type 2. SURGICAL HISTORY : None. ENCOUNTER: Subsequent ACUITY: 3 days PAIN SCALE: Non-responsive LOCATION: cranial TECHNIQUE: Multiple contiguous axial images were obtained of the head. Using automated exposure control and adj ustment of the mA and/or kV according to patient size, radiation dose was kept as low as reasonably a chievable to obtain optimal diagnostic quality images. FINDINGS: Stable size of the left subdural hematoma measuring up to 6 mm in thickness. This extends from tempo ral to high convexity. Diffuse subarachnoid hemorrhage in the left temporal and parietal region and in the right posterior occipital region is stable from prior. Parenchymal hemorrhages in the frontal orbital (bilateral and in the low convexity lateral temporal region is stable in size. Intraventric ular blood layering in the occipital horns and layering products in the superior for interhemispheric fissure. All these findings are stable when compared to prior. Ventricles are symmetric in size. No evidence of midline shift. No new blood products seen. The calvarium is intact. CONCLUSION: Stable multifocal hemorrhages including left subdural, bilateral subarachnoid, bifrontal and left tem poral parenchymal hemorrhages and intraventricular blood. Eleazar Solorio MD on May 21, 2016 at 4:47 Board Certified Radiologist. This report was verified electronically.
[2016-05-21] MEDS: niCARdipine INJ 25 MG in SODIUM CHLOR 0.9% 250 ML INJ 250 ML IV SCH ×6 (04:54→23:46)
[2016-05-21] MEDS: METOCLOPRAMIDE HCL 10 MG/2 ML VIAL IV SCH ×3 (05:05→20:40)
[2016-05-21] MEDS: INSULIN ASPART SUPPLEMENTAL SCALE SQ SCH ×5 (05:24→23:59)
--- NOTE | 2016-05-21 05:59 | HHI.CCPN ---
Subjective Remarks/Hospital Course Traumatic SDH. 05/17: This 85-year-old gentleman fell of bed last night and hit his head. He developed aphasia and confusion pretty rapidly and was seen in the emergency department in [place] with a right facial droop. Subsequent CT scan evaluation confirmed an acute left subdural hemorrhage of approximately 8 mm in width with a associated subarachnoid hemorrhage. Additionally in the frontal lobe on the right side he had a 1 cm area of hemorrhage with surrounding vasogenic edema. There was intraventricular blood as well on the right side. I met him on his arrival to [facility]. What was immediately noticeable was that he was not able to express himself well and that he was not following commands correctly. With gestures he was able to follow commands but not with verbal orders. 05/18: Deteriorating mental status, nasal trumpet placed for airway control, and will require intubation. 05/19: Ventilator dependent now. Family needs to clarify goals if possible/ practical. 05/20: A little more alert. Breathes well on CPAP. 05/21: Tolerating CPAP trials with good respiratory drive. Objective Vital Signs Date Time Temp Pulse Resp B/P Pulse Ox O2 Delivery O2 Flow Rate FiO2 05/21/16 04:30 100 40 05/21/16 02:00 75 05/21/16 00:00 99.3 18 147/67 Intake and Output 05/20/16 05/20/16 05/21/16 08:00 16:00 00:00 Intake Total 701 ml 652 ml 735 ml Output Total 400 ml 645 ml 450 ml Balance 301 ml 7 ml 285 ml Result Diagram: 05/21/16 0342 05/21/16 0342 Other Results Microbiology Date/Time Procedure Status Source Growth 05/18/16 21:00 Gram Stain - Final Complete Sputum Expectorated Sputum 05/18/16 21:00 Sputum Culture - Final Complete Sputum Expectorated Sputum HEAVY GROWTH NORMAL RESPIRATORY SANDRA Objective Remarks PHYSICAL EXAMINATION GENERAL: Physical examination reveals an obtunded, elderly, gentleman, frail-appearing. VITAL SIGNS: Pulse is 75 and sinus, blood pressure is 147/67, respiratory rate is 16. HEAD: Contusion right side of his scalp, lateral. Clean dry. NECK: Chronically stiff. Orally intubated. LUNGS: Good air movement. No wheezes or crackles. HEART: Regular rate and rhythm, normal S1-S2, no murmur, no JVD. ABDOMEN: Large, soft, no guarding. BS active. Nondistended. EXTREMITIES: Warm, well-perfused. NEUROLOGICAL: Opens eyes, moves extremities to stimulation. Squeezes hands to command weakly A/P Assessment and Plan ASSESSMENT: 1. Acute traumatic left-sided subdural hemorrhage. 2. Traumatic subarachnoid bleed. 3. Small frontal lobe contusion, right side. 4. Diabetes mellitus, type 2, controlled. 5. Mild hypertension. 6. Respiratory Failure PLAN: 1. PRVC vent mode. Daily PSV trials. 2. Neurological checks q.1-hour. 3. Isotonic fluid only. 4. Head of bed up 30 degrees. 5. No chemical DVT px. 6. Labetalol for a blood pressure greater than 170. 7. Keppra for potential seizure complications. 8. Protonix for GI ulcer prophylaxis. 9. SCDs. 10. Clarify family goals. 11. Goal TFs. 12. Daily SBTs. 13. RASS 0 14. Weaning trials. 15. Laxatives OVERALL IMPRESSION: Improved mental status, tolerating CPAP. Looking at long- term rehab. Jong Abreu MD May 21, 2016 05:59
--- NOTE | 2016-05-21 06:33 | RADRPT ---
EXAM DATE/TIME: 05/21/2016 04:04 [facility] COMPARISON: CHEST SINGLE AP, May 18, 2016, 18:38. INDICATIONS : Shortness of breath. MEDICAL HISTORY : Hypertension. SURGICAL HISTORY : None. ENCOUNTER: Subsequent ACUITY: 4 - 6 days PAIN SCORE: Non-responsive. LOCATION: Bilateral chest FINDINGS: Endotracheal tube tip well above the tony. Gastric tube traverses the [id number]. The small ar ea of consolidation in the medial left lung base, unchanged from prior. The remainder of the lungs a re clear. Moderate tortuosity descending thoracic aorta. Heart size is normal.. CONCLUSION: Stable medial left lower lung consolidation. Eleazra Solorio MD on May 21, 2016 at 6:30 Board Certified Radiologist. This report was verified electronically.
[2016-05-21] MEDS: CHLORHEXIDINE 0.12% (ORAL KIT) 15 ML CUP MT SCH ×2 (08:00→20:44)
[2016-05-21] MEDS: amLODIPine BESYLATE 5 MG TAB PO SCH (08:37)
[2016-05-21] MEDS: FOLIC ACID 1 MG TAB PO SCH (08:37)
[2016-05-21] MEDS: LISINOPRIL 20 MG TAB PO SCH (08:37)
[2016-05-21] MEDS: PANTOPRAZOLE SODIUM 40 MG VIAL IV SCH (08:37)
[2016-05-21] MEDS: ATORVASTATIN 20 MG TAB PO SCH (08:37)
[2016-05-21] MEDS: THIAMINE INJ 100 MG in SODIUM CHLORIDE 0.9% INJ 100 ML IV SCH (08:38)
[2016-05-21] MEDS: BENEPROTEIN POWDER 1 PACK G-TUBE SCH ×3 (08:38→18:00)
[2016-05-21] MEDS: LACTULOSE SYRUP 20 GM/30 ML CUP PO SCH ×2 (08:56→18:00)
[2016-05-21] MEDS: TIMOLOL MALEATE 0.25% OPHT SOLN 5 ML BTL EACH EYE SCH ×2 (09:00→20:44)
[2016-05-21] MEDS: SODIUM CHLORIDE 0.9% FLUSH 5 ML FLUSH IVF SCH ×2 (09:00→20:44)
--- NOTE | 2016-05-21 11:32 | HHI.NSPN ---
Subjective History 85 yr old fell at home. He is generally very sedentary but alert and interactive. He suffered a significant left 8mm acute SDH with mass effect. He became very agitated and is delirious but the bleed has been stable. 05/20/16 He is intubated and sedated, appears peaceful at this time. 05/21/16 He has a low grade fever but the sedation is being weaned. Vitals . Vital Signs Date Time Temp Pulse Resp B/P Pulse Ox O2 Delivery O2 Flow Rate FiO2 05/21/16 10:20 97 35 05/21/16 09:40 35 05/21/16 09:40 35 05/21/16 08:00 99.4 104 20 137/65 100 05/21/16 08:00 104 05/21/16 08:00 35 05/21/16 06:00 88 05/21/16 04:30 100 40 05/21/16 04:00 84 05/21/16 04:00 99.5 84 16 154/72 97 05/21/16 04:00 35 05/21/16 04:00 100 100 05/21/16 02:00 75 05/21/16 01:03 100 40 05/21/16 00:00 35 05/21/16 00:00 83 05/21/16 00:00 99.3 83 18 147/67 100 05/20/16 22:27 100 40 05/20/16 22:00 83 05/20/16 20:12 100 40 05/20/16 20:00 100.5 103 20 154/71 99 05/20/16 20:00 35 05/20/16 20:00 103 05/20/16 18:00 86 05/20/16 16:00 90 05/20/16 16:00 35 05/20/16 16:00 100.0 90 16 160/67 99 05/20/16 15:50 100 35 05/20/16 14:00 96 05/20/16 12:00 35 05/20/16 12:00 93 05/20/16 12:00 99.2 93 14 165/74 97 05/20/16 11:51 97 35 05/20/16 05/20/16 05/21/16 15:00 23:00 07:00 Intake Total 652 ml 735 ml 1016 ml Output Total 645 ml 450 ml 350 ml Balance 7 ml 285 ml 666 ml Maximum Temperature: 100.5 Physical Exam Eyes Eyes: Pupils Equal Neuro Mental Status: Sedated (lightly) Pupils: Reactive Bilaterally Face: Symmetric [place] Coma Scale Best Eye Openin - To pain Best Verbal: 1 - None Best Motor: 6 - Obeys Total Glascow Coma Scale (GCS): 9 Sensation: Intact Cardiac Cardiac: Regular Rate & Rhythm Respiratory Respiratory: CTA Gastrointestinal Gastrointestinal: Soft Genitourinary Genitourinary: Moreno Catheter In Place Musculoskeletal Extremities Upper Extremities Deltoid Bicep Tricep HI W. Ext Right Left Lower Extremeties Ilio Quad Plantar Dorsi EHL Right Left Musculoskeletal Remarks Moves all extremities and is purposeful with the left hand.He was able to grasp with both hands to commands. No Berg or Babinski noted Extremities Edema: Edematous, SCDs Objective Labs Laboratory Tests 05/21/16 03:42 Laboratory Tests Test 05/21/16 03:42 Sodium Level 141 MEQ/L Potassium Level 4.0 MEQ/L Chloride Level 110 MEQ/L Carbon Dioxide Level 22.6 MEQ/L Anion Gap 8 MEQ/L Blood Urea Nitrogen 23 MG/DL Creatinine 0.86 MG/DL Estimat Glomerular Filtration 84 ML/MIN Rate Random Glucose 200 MG/DL Calcium Level 7.9 MG/DL Imaging Remarks Last Impressions Head CT 05/21/16 0600 Signed Impressions: Service Date/Time: Saturday, May 21, 2016 04:17 - CONCLUSION: Stable multifocal hemorrhages including left subdural, bilateral subarachnoid, bifrontal and left temporal parenchymal hemorrhages and intraventricular blood. Eleazar Solorio MD Chest X-Ray 05/21/16 0400 Signed Impressions: Service Date/Time: Saturday, May 21, 2016 04:04 - CONCLUSION: Stable medial left lower lung consolidation. Eleazar Solorio MD Transcranial Doppler Study Complete 05/18/16 0730 Signed Impressions: Service Date/Time: April 08:12 - CONCLUSION: 1. No evidence of vasospasm Bill Means MD Assessment & Plan Diagnosis: (1) Subdural hematoma, acute Plan: The bleed and cerebral contusion will be followed radiologically, they are mostly left hemispheric 8mm SDH and bilateral SAH. Seizure prophylaxis, DVT and PUD prophylaxis is planned as well as OT/PT. Alcohol withdrawal prophylaxis is planned. . He is full code at this time but has requested anteriorly no aggressive prolonged ventilatory support. 05/20/16 Supportive care is continued, sedation holiday is planned in the morning. No new focal findings. Cultures are pending 05/21/16 The SDH is stable and he has small cerebral contusion in the gyri recti bilaterally and in the left frontal/inferior temporal regions. No increased bleeding or shift is appreciated. Supportive care is continued with the goal of extubation. Critical Care Time (minutes): 10 Devonte Dunham May 21, 2016 11:32
[2016-05-21] MEDS: levETIRAcetam INJ 500 MG in SODIUM CHLORIDE 0.9% INJ 100 ML IV SCH ×2 (11:45→23:46)
[2016-05-22] VITALS (20 sets, daily range): BP systolic 118–162; BP diastolic 56–72; PULSE 58–113; RESP 16–24; TEMP 98.8–101.6; O2SAT 93–98
[2016-05-22 03:44] LABS: AUTOMATED NEUTROPHIL # 7.8 TH/MM3 (1.8-7.7); BASOPHIL % 0.4 % (0.0-2.0); EOSINOPHIL # 0.1 TH/MM3 (0-0.4); EOSINOPHIL % 0.5 % (0.0-4.0); HEMO FLAGS DIFF FINAL; LYMPHOCYTE # 0.9 TH/MM3 (1.0-4.8); MEAN CORPUSCULAR HEMOGLOBIN 30.8 PG (27.0-34.0); MEAN CORPUSCULAR HGB CONC 33.2 % (32.0-36.0); MONO % 12.3 % (0.0-8.0); NEUT % 77.8 % (16.0-70.0); PLATELET COUNT 199 TH/MM3 (150-450); RED BLOOD COUNT 2.91 MIL/MM3 (4.50-5.90); RED CELL DISTRIBUTION WIDTH 13.6 % (11.6-17.2)
[2016-05-22] MEDS: PROPOFOL 1000 MG/100 ML INJ 100 ML IV SCH (03:53)
[2016-05-22 04:01] LABS: BICARBONATE 22.7 MEQ/L (21.0-32.0); POTASSIUM 3.9 MEQ/L (3.5-5.1)
[2016-05-22] MEDS: LACTULOSE SYRUP 20 GM/30 ML CUP PO SCH ×2 (05:56→18:20)
[2016-05-22] MEDS: CHLORHEXIDINE GLUCONATE 2 % 1 PACK (2 CLOTHS) TOP SCH (05:56)
[2016-05-22] MEDS: METOCLOPRAMIDE HCL 10 MG/2 ML VIAL IV SCH ×3 (05:57→20:58)
[2016-05-22] MEDS: INSULIN ASPART SUPPLEMENTAL SCALE SQ SCH ×4 (06:00→23:38)
[2016-05-22] MEDS: THIAMINE INJ 100 MG in SODIUM CHLORIDE 0.9% INJ 100 ML IV SCH (09:13)
[2016-05-22] MEDS: LISINOPRIL 20 MG TAB PO SCH (09:13)
[2016-05-22] MEDS: PANTOPRAZOLE SODIUM 40 MG VIAL IV SCH (09:13)
[2016-05-22] MEDS: FOLIC ACID 1 MG TAB PO SCH (09:14)
[2016-05-22] MEDS: SODIUM CHLORIDE 0.9% FLUSH 5 ML FLUSH IVF SCH ×2 (09:14→20:58)
[2016-05-22] MEDS: ATORVASTATIN 20 MG TAB PO SCH (09:14)
[2016-05-22] MEDS: amLODIPine BESYLATE 5 MG TAB PO SCH (09:14)
[2016-05-22] MEDS: CHLORHEXIDINE 0.12% (ORAL KIT) 15 ML CUP MT SCH ×2 (09:14→20:58)
[2016-05-22] MEDS: BENEPROTEIN POWDER 1 PACK G-TUBE SCH ×3 (09:15→18:21)
[2016-05-22] MEDS: TIMOLOL MALEATE 0.25% OPHT SOLN 5 ML BTL EACH EYE SCH ×2 (09:15→20:58)
[2016-05-22] MEDS: SODIUM CHLOR 0.9% 1000 ML INJ 1,000 ML IV SCH (09:15)
--- NOTE | 2016-05-22 09:15 | HHI.NSPN ---
Subjective History 85 yr old fell at home. He is generally very sedentary but alert and interactive. He suffered a significant left 8mm acute SDH with mass effect. He became very agitated and is delirious but the bleed has been stable. 05/20/16 He is intubated and sedated, appears peaceful at this time. 05/21/16 He has a low grade fever but the sedation is being weaned. 05/22/16 He is agitated on CPAP this am. He is moving all extremities but not following commands. Precedex is ordered. Vitals . Vital Signs Date Time Temp Pulse Resp B/P Pulse Ox O2 Delivery O2 Flow Rate FiO2 05/22/16 08:03 93 35 05/22/16 07:54 35 05/22/16 06:00 90 05/22/16 04:20 96 35 05/22/16 04:00 98.8 79 16 118/56 96 05/22/16 04:00 79 05/22/16 04:00 35 05/22/16 02:00 73 05/22/16 01:06 96 35 05/22/16 00:00 113 05/22/16 00:00 35 05/22/16 00:00 99.3 113 24 149/72 93 05/21/16 22:00 87 05/21/16 20:30 97 35 05/21/16 20:00 94 05/21/16 20:00 99.3 89 23 140/64 98 05/21/16 20:00 35 05/21/16 16:00 98 05/21/16 16:00 99.2 98 21 130/62 96 05/21/16 15:50 96 35 05/21/16 13:37 96 35 05/21/16 12:00 98 05/21/16 12:00 99.8 98 28 137/65 96 05/21/16 10:20 97 35 05/21/16 09:40 35 05/21/16 09:40 35 05/21/16 05/21/16 05/22/16 15:00 23:00 07:00 Intake Total 1439 ml 1141 ml 1246 ml Output Total 500 ml 320 ml 350 ml Balance 939 ml 821 ml 896 ml Physical Exam Eyes Eyes: Pupils Equal Neuro Mental Status: Agitated Pupils: Reactive Bilaterally [place] Coma Scale Best Eye Openin - Spontaneous Best Verbal: 1 - None Best Motor: 5 - Localizes pain Total [place] Coma Scale (GCS): 10 Cardiac Cardiac: Regular Rate & Rhythm Genitourinary Genitourinary: Moreno Catheter In Place Musculoskeletal Extremities Upper Extremities Deltoid Bicep Tricep HI W. Ext Right Left Lower Extremeties Ilio Quad Plantar Dorsi EHL Right Left Musculoskeletal Remarks Moves all extremities and is purposeful with the left hand.He was able to grasp with both hands to commands. No Berg or Babinski noted Extremities Edema: SCDs Objective Labs Laboratory Tests 05/22/16 03:20 Laboratory Tests Test 05/22/16 03:20 Sodium Level 144 MEQ/L Potassium Level 3.9 MEQ/L Chloride Level 113 MEQ/L Carbon Dioxide Level 22.7 MEQ/L Anion Gap 8 MEQ/L Blood Urea Nitrogen 24 MG/DL Creatinine 0.87 MG/DL Estimat Glomerular Filtration 83 ML/MIN Rate Random Glucose 201 MG/DL Calcium Level 7.7 MG/DL Assessment & Plan Diagnosis: (1) Subdural hematoma, acute Plan: The bleed and cerebral contusion will be followed radiologically, they are mostly left hemispheric 8mm SDH and bilateral SAH. Seizure prophylaxis, DVT and PUD prophylaxis is planned as well as OT/PT. Alcohol withdrawal prophylaxis is planned. He is full code at this time but has requested anteriorly no aggressive prolonged ventilatory support. 05/20/16 Supportive care is continued, sedation holiday is planned in the morning. No new focal findings. Cultures are pending 05/21/16 The SDH is stable and he has small cerebral contusion in the gyri recti bilaterally and in the left frontal/inferior temporal regions. No increased bleeding or shift is appreciated. Supportive care is continued with the goal of extubation. 05/22/16 CPAP trials are continued, sedation with precedex as tolerated. Critical Care Time (minutes): Devonte Staples May 22, 2016 09:15
[2016-05-22] MEDS ORDERED: DEXMEDETOMIDINE INJ 200 MCG in SODIUM CHLORIDE 0.9% INJ 48 ML IV SCH (10:00)
--- NOTE | 2016-05-22 10:04 | HHI.CCPN ---
Subjective Remarks/Hospital Course Traumatic SDH. 05/17: This 85-year-old gentleman fell of bed last night and hit his head. He developed aphasia and confusion pretty rapidly and was seen in the emergency department in [place] with a right facial droop. Subsequent CT scan evaluation confirmed an acute left subdural hemorrhage of approximately 8 mm in width with a associated subarachnoid hemorrhage. Additionally in the frontal lobe on the right side he had a 1 cm area of hemorrhage with surrounding vasogenic edema. There was intraventricular blood as well on the right side. I met him on his arrival to [facility]. What was immediately noticeable was that he was not able to express himself well and that he was not following commands correctly. With gestures he was able to follow commands but not with verbal orders. 05/18: Deteriorating mental status, nasal trumpet placed for airway control, and will require intubation. 05/19: Ventilator dependent now. Family needs to clarify goals if possible/ practical. 05/20: A little more alert. Breathes well on CPAP. 05/21: Tolerating CPAP trials with good respiratory drive. 05/22: Agitated. Start precedex for attempted weaning trial and possible extubation. Objective Vital Signs Date Time Temp Pulse Resp B/P Pulse Ox O2 Delivery O2 Flow Rate FiO2 05/22/16 08:03 93 35 05/22/16 06:00 90 05/22/16 04:00 98.8 16 118/56 Intake and Output 05/21/16 05/21/16 05/22/16 08:00 16:00 00:00 Intake Total 1016 ml 1439 ml 1141 ml Output Total 350.0 ml 500.0 ml 320 ml Balance 666.0 ml 939.0 ml 821 ml Result Diagram: 05/22/16 0320 05/22/16 0320 Objective Remarks PHYSICAL EXAMINATION GENERAL: Physical examination reveals an obtunded, elderly, gentleman, frail-appearing. VITAL SIGNS: Pulse is 78 and sinus, blood pressure is 156/69, respiratory rate is 17. HEAD: Contusion right side of his scalp, lateral. Clean dry. NECK: Orally intubated. LUNGS: Good air movement. No wheezes or crackles. Tachypnea. HEART: Regular rate and rhythm, normal S1-S2, no murmur, no JVD. ABDOMEN: Large, soft, no guarding. BS active. Nondistended. EXTREMITIES: Warm, well-perfused. No edema. NEUROLOGICAL: Opens eyes, moves extremities to stimulation. Squeezes hands to command weakly. Agitated using all 4 limbs today. A/P Assessment and Plan ASSESSMENT: 1. Acute traumatic left-sided subdural hemorrhage. 2. Traumatic subarachnoid bleed. 3. Small frontal lobe contusion, right side. 4. Diabetes mellitus, type 2, controlled. 5. Mild hypertension. 6. Respiratory Failure PLAN: 1. PRVC vent mode. Daily PSV trials. 2. Neurological checks q.1-hour. 3. Isotonic fluid only. 4. Head of bed up 30 degrees. 5. No chemical DVT px. 6. Labetalol for a blood pressure greater than 170. 7. Keppra for potential seizure complications. 8. Protonix for GI ulcer prophylaxis. 9. SCDs. 10. Clarify family goals. 11. Goal TFs. 12. Daily SBTs. 13. RASS 0 14. Weaning trials. 15. Laxatives 16. Precedex infusion. OVERALL IMPRESSION: Improved mental status, tolerating CPAP. Looking at long- term rehab. Requires sedation protocol. Jong Abreu MD May 22, 2016 10:03
[2016-05-22] MEDS: DEXMEDETOMIDINE 200 MCG/50 ML NS IV SCH ×5 (10:17→23:39)
[2016-05-22] MEDS: levETIRAcetam INJ 500 MG in SODIUM CHLORIDE 0.9% INJ 100 ML IV SCH ×2 (12:38→23:39)
[2016-05-22] MEDS: ACETAMINOPHEN 1000 MG/100 ML VIAL IV PRN (16:17)
[2016-05-22] MEDS: niCARdipine INJ 25 MG in SODIUM CHLOR 0.9% 250 ML INJ 250 ML IV SCH (16:45)
[2016-05-22] MEDS ORDERED: FUROSEMIDE 40 MG/4 ML VIAL IV PUSH ONE (17:45)
[2016-05-23] VITALS (20 sets, daily range): BP systolic 119–154; BP diastolic 59–72; PULSE 63–100; RESP 16–21; TEMP 99–101.8; O2SAT 93–100
[2016-05-23] MEDS: LORazepam 2 MG/ML VIAL IV PUSH PRN (02:40)
[2016-05-23] MEDS: CHLORHEXIDINE GLUCONATE 2 % 1 PACK (2 CLOTHS) TOP SCH (04:00)
[2016-05-23] MEDS: LACTULOSE SYRUP 20 GM/30 ML CUP PO SCH ×2 (05:31→17:19)
[2016-05-23] MEDS: METOCLOPRAMIDE HCL 10 MG/2 ML VIAL IV SCH ×3 (05:31→21:04)
[2016-05-23] MEDS: niCARdipine INJ 25 MG in SODIUM CHLOR 0.9% 250 ML INJ 250 ML IV SCH ×5 (05:32→21:04)
[2016-05-23] MEDS: INSULIN ASPART SUPPLEMENTAL SCALE SQ SCH ×4 (05:43→23:57)
[2016-05-23] MEDS: DEXMEDETOMIDINE 200 MCG/50 ML NS IV SCH ×3 (06:20→21:05)
[2016-05-23] MEDS: TIMOLOL MALEATE 0.25% OPHT SOLN 5 ML BTL EACH EYE SCH ×2 (09:00→21:05)
[2016-05-23] MEDS: BENEPROTEIN POWDER 1 PACK G-TUBE SCH ×3 (09:00→17:19)
[2016-05-23] MEDS: FOLIC ACID 1 MG TAB PO SCH (09:00)
[2016-05-23] MEDS: PANTOPRAZOLE SODIUM 40 MG VIAL IV SCH (09:21)
[2016-05-23] MEDS: CHLORHEXIDINE 0.12% (ORAL KIT) 15 ML CUP MT SCH ×2 (09:21→21:04)
[2016-05-23] MEDS: SODIUM CHLORIDE 0.9% FLUSH 5 ML FLUSH IVF SCH ×2 (09:21→21:05)
[2016-05-23] MEDS: ATORVASTATIN 20 MG TAB PO SCH (09:22)
[2016-05-23] MEDS: LISINOPRIL 20 MG TAB PO SCH (09:22)
[2016-05-23] MEDS: amLODIPine BESYLATE 5 MG TAB PO SCH (09:23)
--- NOTE | 2016-05-23 09:23 | HHI.CCPN ---
Subjective Remarks/Hospital Course Traumatic SDH. 05/17: This 85-year-old gentleman fell of bed last night and hit his head. He developed aphasia and confusion pretty rapidly and was seen in the emergency department in [place] with a right facial droop. Subsequent CT scan evaluation confirmed an acute left subdural hemorrhage of approximately 8 mm in width with a associated subarachnoid hemorrhage. Additionally in the frontal lobe on the right side he had a 1 cm area of hemorrhage with surrounding vasogenic edema. There was intraventricular blood as well on the right side. I met him on his arrival to [facility]. What was immediately noticeable was that he was not able to express himself well and that he was not following commands correctly. With gestures he was able to follow commands but not with verbal orders. 05/18: Deteriorating mental status, nasal trumpet placed for airway control, and will require intubation. 05/19: Ventilator dependent now. Family needs to clarify goals if possible/ practical. 05/20: A little more alert. Breathes well on CPAP. 05/21: Tolerating CPAP trials with good respiratory drive. 05/22: Agitated. Start precedex for attempted weaning trial and possible extubation. 05/23: Attempt weaning trial again today with low dose precedex for control of agitation. Objective Vital Signs Date Time Temp Pulse Resp B/P Pulse Ox O2 Delivery O2 Flow Rate FiO2 05/23/16 07:45 96 40 05/23/16 06:00 67 05/23/16 04:00 99.0 16 144/71 Intake and Output 05/22/16 05/22/16 05/23/16 08:00 16:00 00:00 Intake Total 1246 ml 1231 ml 1171 ml Output Total 350 ml 380 ml 900 ml Balance 896 ml 851 ml 271 ml Result Diagram: 05/22/16 0320 05/22/16 0320 Objective Remarks PHYSICAL EXAMINATION GENERAL: Intermittently agitated, elderly, gentleman. VITAL SIGNS: Pulse is 67 and sinus, blood pressure is 144/71, respiratory rate is 16. HEAD: Contusion right side of his scalp, lateral. Clean dry. NECK: Orally intubated. Supple. LUNGS: Good air movement. No wheezes or crackles. Tachypnea. HEART: Regular rate and rhythm, normal S1-S2, no murmur, no JVD. ABDOMEN: Large, soft, no guarding. BS active. Nondistended. EXTREMITIES: Warm, well-perfused. No edema. NEUROLOGICAL: Opens eyes, moves extremities to stimulation. Squeezes hands to command weakly. A/P Assessment and Plan ASSESSMENT: 1. Acute traumatic left-sided subdural hemorrhage. 2. Traumatic subarachnoid bleed. 3. Small frontal lobe contusion, right side. 4. Diabetes mellitus, type 2, controlled. 5. Mild hypertension. 6. Respiratory Failure PLAN: 1. PRVC vent mode. Daily PSV trials. 2. Neurological checks. 3. Isotonic fluid only. 4. Head of bed up 30 degrees. 5. No chemical DVT px. 6. Labetalol for a blood pressure greater than 170. 7. Keppra for potential seizure complications. 8. Protonix for GI ulcer prophylaxis. 9. SCDs. 10. Clarify family goals. 11. Goal TFs. 12. Daily SBTs. 13. RASS 0 14. Weaning trials. 15. Laxatives 16. Precedex infusion. 17. Sputum culture. OVERALL IMPRESSION: Improved mental status, tolerating CPAP but gets agitated. Looking at long-term rehab. Requires sedation protocol. Jong Abreu MD May 23, 2016 09:22
[2016-05-23] MEDS: THIAMINE INJ 100 MG in SODIUM CHLORIDE 0.9% INJ 100 ML IV SCH (09:33)
[2016-05-23] MEDS: levETIRAcetam INJ 500 MG in SODIUM CHLORIDE 0.9% INJ 100 ML IV SCH ×2 (10:58→23:58)
[2016-05-23] MEDS: ACETAMINOPHEN 1000 MG/100 ML VIAL IV PRN ×2 (10:58→21:49)
[2016-05-23] MEDS: POLYETHYLENE GLYCOL 17 GM PKG PO SCH (11:33)
--- NOTE | 2016-05-23 11:50 | HHI.NSPN ---
Subjective History 85 yr old fell at home. He is generally very sedentary but alert and interactive. He suffered a significant left 8mm acute SDH with mass effect. He became very agitated and is delirious but the bleed has been stable. 05/20/16 He is intubated and sedated, appears peaceful at this time. 05/21/16 He has a low grade fever but the sedation is being weaned. 05/22/16 He is agitated on CPAP this am. He is moving all extremities but not following commands. Precedex is ordered. 05/23/16 He is less agitated on precedex. there is no evidence of DT Vitals . Vital Signs Date Time Temp Pulse Resp B/P Pulse Ox O2 Delivery O2 Flow Rate FiO2 05/23/16 09:47 100 40 05/23/16 09:47 40 05/23/16 07:45 96 40 05/23/16 06:00 67 05/23/16 04:10 100 40 05/23/16 04:00 99.0 70 16 144/71 98 05/23/16 04:00 65 05/23/16 04:00 40 05/23/16 02:00 66 05/23/16 00:33 99 40 05/23/16 00:00 40 05/23/16 00:00 67 05/23/16 00:00 99.3 63 16 154/72 99 05/22/16 22:00 66 05/22/16 20:04 96 40 05/22/16 20:00 99.3 58 16 146/63 98 05/22/16 20:00 40 05/22/16 20:00 58 05/22/16 18:00 62 05/22/16 16:09 96 40 05/22/16 16:00 84 05/22/16 16:00 101.6 84 23 131/60 96 05/22/16 16:00 40 05/22/16 14:00 81 05/22/16 13:30 40 05/22/16 13:26 93 40 05/22/16 13:01 95 55 05/22/16 13:00 55 05/22/16 12:26 95 35 05/22/16 12:00 75 05/22/16 12:00 35 05/22/16 12:00 100.1 75 16 162/71 94 05/22/16 05/22/16 05/23/16 15:00 23:00 07:00 Intake Total 1231 ml 1171 ml 753 ml Output Total 380 ml 900 ml 800 ml Balance 851 ml 271 ml -47 ml Physical Exam Eyes Eyes: Pupils Equal Neuro Mental Status: Sedated Pupils: Reactive Bilaterally [place] Coma Scale Best Eye Openin - To speech Best Verbal: 1 - None Best Motor: 5 - Localizes pain Cardiac Cardiac: Regular Rate & Rhythm Respiratory Respiratory: Rhonchi Gastrointestinal Gastrointestinal: Soft Genitourinary Genitourinary: Moreno Catheter In Place Musculoskeletal Extremities Upper Extremities Deltoid Bicep Tricep HI W. Ext Right Left Lower Extremeties Ilio Quad Plantar Dorsi EHL Right Left Musculoskeletal Remarks Moves all extremities and is purposeful with the left hand.He was able to grasp with both hands to commands. No Berg or Babinski noted Objective Infectious Disease Cultures Microbiology Date/Time Procedure Status Source Growth 05/22/16 19:38 Gram Stain - Final Resulted Sputum Endotracheal 05/22/16 19:38 Sputum Culture Resulted Sputum Endotracheal Pending 05/22/16 19:38 Urine Culture Received Urine Catheterized Urine Pending 05/22/16 20:20 Aerobic Blood Culture - Preliminary Resulted Blood Peripheral NO GROWTH IN 1 DAY 05/22/16 20:20 Anaerobic Blood Culture - Preliminary Resulted Blood Peripheral NO GROWTH IN 1 DAY 05/22/16 20:25 Aerobic Blood Culture - Preliminary Resulted Blood Peripheral NO GROWTH IN 1 DAY 05/22/16 20:25 Anaerobic Blood Culture - Preliminary Resulted Blood Peripheral NO GROWTH IN 1 DAY Labs Na 144 Assessment & Plan Diagnosis: (1) Subdural hematoma, acute Plan: The bleed and cerebral contusion will be followed radiologically, they are mostly left hemispheric 8mm SDH and bilateral SAH. Seizure prophylaxis, DVT and PUD prophylaxis is planned as well as OT/PT. Alcohol withdrawal prophylaxis is planned. He is full code at this time but has requested anteriorly no aggressive prolonged ventilatory support. 05/20/16 Supportive care is continued, sedation holiday is planned in the morning. No new focal findings. Cultures are pending 05/21/16 The SDH is stable and he has small cerebral contusion in the gyri recti bilaterally and in the left frontal/inferior temporal regions. No increased bleeding or shift is appreciated. Supportive care is continued with the goal of extubation. 05/22/16 CPAP trials are continued, sedation with precedex as tolerated. 05/23/16 Evolving cerebral contusions and left small SDH, weaning with the goal of extubation today. Rehab services will follow. Pulmonary toilet, DVT and PUD as well as seizure prophylaxis is continued. Plan 10 Devonte Dunham May 23, 2016 11:50
--- NOTE | 2016-05-23 11:58 | PD.HHIRCNE ---
Patient History Record/History Review Medical Information Review: Pre-episode setting, Hx of present illness, Prior Medical Hx Reason for Referral: The patient is a 85 year old right handed male status post traumatic injury secondary to a fall sustained on 05/17/2016, from which he developed language impairment, confusion and right facial droop. Head CT showed acute left subdural hematoma and associated subarachnoid hemorrhage. Initially, he was tracking with his eyes and would speak in repeated sentences, and since his admission, he has developed agitation, moving all his extremities and recently was reported to have a GCS score of 10. He was referred for baseline neurobehavioral evaluation per Trauma protocol to assess cognitive, behavioral and emotional aspects of the injury. Past Surgical/Medical History Past Surgery: Yes Major surgery in last 100 days: Unknown Hx Anesthesia Reactions: No Hx Orthopedic Surgery: No Hx Cardiac Surgery: No Hx Chest Surgery: No Hx Abdominal Surgery: No Hx Genitourinary Surgery: No Hx Endocrine Surgery: No Hx Eye Surgery: Yes (Cataract) Hx Ear Surgery: No Hx Oral Surgery: No History of Transplant: No Hx of Neuro Prob: Yes Hx Seizures: No Cephalgia (Headaches): No Hx Migraines: No Hx Head Injury: Yes (Fall ) Hx Falls: Yes Hx Cerebrovascular Accident: No Hx Dizziness: No Hx Numbness: No Hx of Musculoskeletal Pro: Yes Hx Arthritis: Yes Hx Osteoporosis: No Hx Neck Problems: No Hx Back Problem: No Hx of Cardiovascular Prob: Yes Hypertension (High Blood Press: Yes Hx Clotting Problems: No Venous Thromboembolism Present: No Hx Chest Pain: No Hx Lightheadedness: No Hx Congestive Heart Failure: No Syncope (Fainting): No Hx of Respiratory Problem: No Hx of GI Problems: No Hx Heartburn: No Hx Gastroesophageal Reflux: No Hx Hiatal Hernia: No Hx Ulcer: No Hx Liver Disease: No Hx Gallbladder Disease: No Hx Inflammatory Bowel Disease: No Hx of Problems: No Hx of Immuno Disor: Yes 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) Hx of Endocrine Problems: Yes (Diabetes) Hx Thyroid Disease: No Hx Diabetes: Yes Does Patient Currently Take Gl: No Diabetic Diagnosed 3 Months Or: No Hx of Eye Probl: Yes (Cataracts) Hx of Glaucoma: Bilateral Hx of Cataracts: Bilateral Hx of Hearing or Ear Problems: No Hx Dental Problems: No Hx Psychiatric Problems: No Hx Anxiety: No Hx Depression: No Hx Blood Dyscrasias: No Hx of MDRO: No Hx of MRSA: No Hx of VRE: No Hx of CDIFF: No Hx of Tuberculosis: No Hx Chicken Pox: Yes If No, Have You Been Exposed W: No Hx Measles: Yes Hx of Body/Medical Devices: No Blood Transfusion History Will receive Blood /Blood prod: Yes Hx Blood Transfusions: No Medication Active Medications Furosemide (Lasix Inj) 40 mg NOW ONCE IV PUSH Last administered on 05/22/16 18 :21; Admin Dose 40 MG; Start 05/22/16 at 17:45; Stop 05/22/16 at 17:46; Status DC Polyethylene Glycol (Miralax) 17 gm DAILY PO Last administered on 05/23/16 11: 33; Admin Dose 17 GM; Start 05/23/16 at 10:45 Mental Status Assessment Orientation: unable to asses Self, unable to asses Place, unable to asses Time , unable to asses Situation Observation The patient is unresponsive and intubated at present, and thus was unable to be evaluated at this time. Adjustment/Coping Assessment Adjustment/Coping: Not Assessed: Depression, Anxiety, Pain, Apathy, Awareness, Insight Observation Unable to be assessed at this time. LTG Status: Deferred STG Status: Deferred Team Members: Neuropsychologist Behavior Assessment Agitation: Mild Observation Unable to be assessed at this time. 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 It is anticipated that as he improves medically, he will improve in terms of his ability to use and understand language. Diagnosis: (1) Major neurocognitive disorder as late effect of traumatic brain injury with behavioral disturbance Status: Acute [facility] Level: IV:Confused/Agitated-maximal assist Maximizing acute care outcome It is recommended that the patient be monitored for emergent behavioral impulsivity as the medical condition evolves. This patients neuropathological challenges may limit their rehabilitation potential going forward, and these challenges will require specialized therapeutic skills to maximize outcome. Additionally, the patients family is experiencing ongoing issues of adjustment given the traumatic nature of the injury, and they may benefit from ongoing psychological assistance, for which I will provide. Discharge Planning Anticipated Problems Ongoing areas of concern will include behavioral impulsivity, lack of insight and judgment, which is expected to improve with time and treatment. Treatment Plan This clinician will continue to follow with you throughout the course of this patients rehabilitation treatment, and I will be available to meet with the patients family/support system to facilitate their understanding and the ongoing care of their family member. The goals of neuropsychological intervention shall be both educational and supportive to the family/support system as is deemed clinically appropriate. I have spoken at length with the patient's and daughter about diagnosis and expected prognosis issues from a neurobehavioral standpoint. I will continue to follow with you. Discharge Needs To be determined. Session Attendance Variance 1 hour, which included record review, behavioral observations, discussions with family, and report write up. Thank you Thank you for the opportunity to assist in this patients care. Shemar Dudley, Ph.D., ABPP Board Certified in Clinical Neuropsychology [place] [employer] [place] Licensed Psychologist #[id number] Shemar Dudley PhD May 23, 2016 11:58 am
[2016-05-23] MEDS ORDERED: MIDAZOLAM HCL 5 MG/ML VIAL (1 ML) ONE (14:44)
[2016-05-23] MEDS ORDERED: ROCURONIUM INJ 50 MG/5 ML VIAL ONE (14:45)
--- NOTE | 2016-05-23 16:22 | RADRPT ---
EXAM DATE/TIME: 05/23/2016 15:38 [facility] COMPARISON: CHEST SINGLE AP, May 21, 2016, 4:04. INDICATIONS : ET and OG tube placement. MEDICAL HISTORY : Hypertension. Diabetes mellitus type 2. SURGICAL HISTORY : None. ENCOUNTER: Subsequent ACUITY: 3 days PAIN SCORE: Non-responsive. LOCATION: Bilateral chest FINDINGS: Portable AP views of the chest demonstrate a normal-sized cardiac silhouette. Endotracheal tube has m gafrield since the prior examination and distal tip extends slightly into the right main bronchus. Nasoga stric tube courses beyond the GE junction and distal tip is in the distal stomach. There is a moderat e size left basilar pleural-parenchymal opacity and hazy opacity at the right lung base. No pneumotho rax is visualized. CONCLUSION: 1. The endotracheal tube tip slightly extends into the right main bronchus and should be retracted at least 4 cm. 2. Small left pleural effusion with associated volume loss and/or airspace consolidation. 3. Hazy opacity at the right lung base could represent mild airspace consolidation versus a small ple ural effusion. The above findings concerning endotracheal tube location were discussed with the patient's nurse, Sheree , via telephone at 4: 20 PM. Valdez Richardson MD on May 23, 2016 at 16:17 Board Certified Radiologist. This report was verified electronically.
[2016-05-23] MEDS: cefTRIAXone INJ 1,000 MG in SODIUM CHLORIDE 0.9% INJ 100 ML IV SCH (16:29)
[2016-05-24] VITALS (20 sets, daily range): BP systolic 112–159; BP diastolic 56–74; PULSE 55–75; RESP 14–19; TEMP 98.8–101.3; O2SAT 93–100
[2016-05-24] MEDS: DEXMEDETOMIDINE 200 MCG/50 ML NS IV SCH ×5 (03:44→20:48)
[2016-05-24] MEDS: CHLORHEXIDINE GLUCONATE 2 % 1 PACK (2 CLOTHS) TOP SCH (03:44)
[2016-05-24] MEDS: INSULIN ASPART SUPPLEMENTAL SCALE SQ SCH ×4 (05:17→23:25)
[2016-05-24] MEDS: METOCLOPRAMIDE HCL 10 MG/2 ML VIAL IV SCH ×3 (05:18→20:47)
[2016-05-24] MEDS: LACTULOSE SYRUP 20 GM/30 ML CUP PO SCH ×2 (05:18→17:22)
--- NOTE | 2016-05-24 07:05 | HHI.CCPN ---
Subjective Remarks/Hospital Course Traumatic SDH. 05/17: This 85-year-old gentleman fell of bed last night and hit his head. He developed aphasia and confusion pretty rapidly and was seen in the emergency department in [place] with a right facial droop. Subsequent CT scan evaluation confirmed an acute left subdural hemorrhage of approximately 8 mm in width with a associated subarachnoid hemorrhage. Additionally in the frontal lobe on the right side he had a 1 cm area of hemorrhage with surrounding vasogenic edema. There was intraventricular blood as well on the right side. I met him on his arrival to [facility]. What was immediately noticeable was that he was not able to express himself well and that he was not following commands correctly. With gestures he was able to follow commands but not with verbal orders. 05/18: Deteriorating mental status, nasal trumpet placed for airway control, and will require intubation. 05/19: Ventilator dependent now. Family needs to clarify goals if possible/ practical. 05/20: A little more alert. Breathes well on CPAP. 05/21: Tolerating CPAP trials with good respiratory drive. 05/22: Agitated. Start precedex for attempted weaning trial and possible extubation. 05/23: Attempt weaning trial again today with low dose precedex for control of agitation. 05/24: Extubated yesterday but could not protect his airway, could not cough up secretions. Quickly failed and required re-intubation. Objective Vital Signs Date Time Temp Pulse Resp B/P Pulse Ox O2 Delivery O2 Flow Rate FiO2 05/24/16 06:00 57 05/24/16 04:13 100 55 05/24/16 04:00 99.0 16 112/56 05/23/16 14:13 Non-Rebreather 15 Intake and Output 05/23/16 05/23/16 05/24/16 08:00 16:00 00:00 Intake Total 753 ml 1412 ml 1468 ml Output Total 800 ml 375 ml 400 ml Balance -47 ml 1037 ml 1068 ml Result Diagram: 05/22/16 0320 05/22/16 0320 Objective Remarks PHYSICAL EXAMINATION GENERAL: Intermittently agitated, elderly, gentleman. VITAL SIGNS: Pulse is 60 and sinus, blood pressure is 147/75, respiratory rate is 16. HEAD: Clean dry incision/laceration. NECK: Orally intubated. Supple. LUNGS: Good air movement. No wheezes or crackles. Few mobile secretions. HEART: Regular rate and rhythm, normal S1-S2, no murmur, no JVD. ABDOMEN: Large, soft, no guarding. BS active. Nondistended. EXTREMITIES: Warm, well-perfused. 1+ generalized edema. NEUROLOGICAL: Opens eyes, moves extremities to stimulation. Nonverbal when extubated. A/P Assessment and Plan ASSESSMENT: 1. Acute traumatic left-sided subdural hemorrhage. 2. Traumatic subarachnoid bleed. 3. Small frontal lobe contusion, right side. 4. Diabetes mellitus, type 2, controlled. 5. Mild hypertension. 6. Respiratory Failure, ventilator dependent. PLAN: 1. PRVC vent mode. Daily PSV trials. 2. Neurological checks. 3. Isotonic fluid only. 4. Head of bed up 30 degrees. 5. No chemical DVT px. 6. Labetalol for a blood pressure greater than 170. 7. Keppra for potential seizure complications. 8. Protonix for GI ulcer prophylaxis. 9. SCDs. 10. Clarify family goals. 11. Increase goal TFs to 55.. 12. Daily SBTs. 13. RASS 0 14. Weaning trials. 15. Laxatives 16. Precedex infusion. 17. Sputum culture -> pending 18. Probable tracheostomy. OVERALL IMPRESSION: Improved mental status, tolerating CPAP but gets agitated. Looking at long-term rehab. Will need trach if family elects to continue aggressive care. Jong Abreu MD May 24, 2016 07:05
[2016-05-24] MEDS: PANTOPRAZOLE SODIUM 40 MG VIAL IV SCH (08:53)
[2016-05-24] MEDS: ATORVASTATIN 20 MG TAB PO SCH (08:54)
[2016-05-24] MEDS: amLODIPine BESYLATE 5 MG TAB PO SCH ×2 (08:54→20:48)
[2016-05-24] MEDS: FOLIC ACID 1 MG TAB PO SCH (08:54)
[2016-05-24] MEDS: LISINOPRIL 20 MG TAB PO SCH (08:54)
[2016-05-24] MEDS: BENEPROTEIN POWDER 1 PACK G-TUBE SCH ×3 (08:56→17:19)
[2016-05-24] MEDS: TIMOLOL MALEATE 0.25% OPHT SOLN 5 ML BTL EACH EYE SCH ×2 (08:56→20:48)
[2016-05-24] MEDS: SODIUM CHLORIDE 0.9% FLUSH 5 ML FLUSH IVF SCH ×2 (08:56→20:48)
[2016-05-24] MEDS: FUROSEMIDE 40 MG/4 ML VIAL IV PUSH SCH ×2 (08:56→17:22)
[2016-05-24] MEDS: CHLORHEXIDINE 0.12% (ORAL KIT) 15 ML CUP MT SCH ×2 (08:56→20:48)
[2016-05-24] MEDS: POLYETHYLENE GLYCOL 17 GM PKG PO SCH (09:00)
[2016-05-24] MEDS: THIAMINE INJ 100 MG in SODIUM CHLORIDE 0.9% INJ 100 ML IV SCH (09:00)
[2016-05-24 09:22] LABS: AUTOMATED NEUTROPHIL # 10.9 TH/MM3 (1.8-7.7); BASOPHIL # 0.1 TH/MM3 (0-0.2); BASOPHIL % 1.1 % (0.0-2.0); EOSINOPHIL # 0.2 TH/MM3 (0-0.4); EOSINOPHIL % 1.5 % (0.0-4.0); HEMATOCRIT 27.5 % (39.0-51.0); HEMO FLAGS DIFF FINAL; LYMPH % 7.9 % (9.0-44.0); LYMPHOCYTE # 1.1 TH/MM3 (1.0-4.8); MEAN CELL VOLUME 91.7 FL (80.0-100.0); MEAN CORPUSCULAR HEMOGLOBIN 30.2 PG (27.0-34.0); MONO % 11.1 % (0.0-8.0); NEUT % 78.4 % (16.0-70.0); PLATELET COUNT 273 TH/MM3 (150-450); RED CELL DISTRIBUTION WIDTH 13.4 % (11.6-17.2); WHITE BLOOD COUNT 13.9 TH/MM3 (4.0-11.0)
[2016-05-24 10:14] LABS: BICARBONATE 22.5 MEQ/L (21.0-32.0)
[2016-05-24 10:33] LABS: CALCIUM-PROTEIN CORRECTED 8.6 MG/DL (8.5-10.1)
--- NOTE | 2016-05-24 11:59 | HHI.PR ---
Neuropsych Emotional Emotional: UnabletoAssess: Emotional, Anxious/Fearful, Depressed/Sad, Hostile/ Resentful, Irritable/Angry/Frustrate, Labile, Constricted/Blunted Behavior Behavior: Unable to Asses: Behavior, Coping/Acceptance, Cooperative w/ Treatment, Motivation, Frustration Tolerance/[place], Impulsive/Agitated, Suicidal/ Homicidal Risk Cognitive Cognitive: Unable to Asses: Cognitive, Attention/Concentration, Confused/ Orientation, Insight/Awareness, Judgement/Problem-Solving, Memory Psychosocial Psychosocial: Intact: Psychosocial, Family/Other Adjustment, Realistic Expectation Progress Notes/Response to Tx Contents of Sessions: Adjustment, Level of Consciousness Time with Patient: 15 minutes Premorbid psychological status Premorbid Cognitive, Emotional and Behavioral Status: Stable. The patient is retired from a solid work history and long-term . The patient has no psychiatric difficulties. Substance abuse history is unremarkable. Behavioral Reactions of Patient and Family/Support System: Stable. The patient s family has a clear understanding of the issues inherent in his present medical condition. As expected, the family is experiencing ongoing issues of adjustment given the nature of the injury, and this aspect of recovery will require ongoing monitoring. Emotional/Behavioral Status of Patient and Family/Support System: Stable. Pertinent issues, if appropriate to this patients clinical care, are described in detail above. Maximizing acute care outcome This patient's present needs are respiratory in nature. His neurobehavioral impairments stemming from his injury is not able to be fully appreciated at this point in time. Anticipated Problems Ongoing areas of concern will include expressive and possible receptive language impairment, which would be expected to improve with time and treatment. Presently, the patient is inconsistently following commands. Treatment Plan This clinician will continue to follow with you throughout the course of this patients rehabilitation treatment, and I will be available to meet with the patients family/support system to facilitate their understanding and the ongoing care of their family member. The goals of neuropsychological intervention shall be both educational and supportive to the family/support system as is deemed clinically appropriate. 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 It is anticipated that as he improves medically, he will improve in terms of his ability to use and understand language. Diagnosis: (1) Major neurocognitive disorder as late effect of traumatic brain injury with behavioral disturbance Status: Acute Progress Note Narrative Ongoing follow-up of patient, who was receiving physical therapy treatments at the time. I met with his to provide neuropsychological support. The patient's expresses good understanding of the issues related to his respiratory challenges. I will continue to follow with you. Shemar Dudley PhD May 24, 2016 11:59 am
[2016-05-24] MEDS: hydrALAZINE HCL 25 MG TAB PO SCH ×2 (12:12→20:47)
[2016-05-24] MEDS: levETIRAcetam INJ 500 MG in SODIUM CHLORIDE 0.9% INJ 100 ML IV SCH ×2 (12:12→23:26)
[2016-05-24] MEDS: cefTRIAXone INJ 1,000 MG in SODIUM CHLORIDE 0.9% INJ 100 ML IV SCH (14:19)
[2016-05-24] MEDS: ACETAMINOPHEN 1000 MG/100 ML VIAL IV PRN (20:47)
[2016-05-25] VITALS (17 sets, daily range): BP systolic 139–158; BP diastolic 63–72; PULSE 59–75; RESP 16–23; TEMP 98.2–100.9; O2SAT 94–100
[2016-05-25] MEDS: CHLORHEXIDINE GLUCONATE 2 % 1 PACK (2 CLOTHS) TOP SCH (04:00)
[2016-05-25 04:41] LABS: AUTOMATED NEUTROPHIL # 9.8 TH/MM3 (1.8-7.7); BASOPHIL % 0.3 % (0.0-2.0); EOSINOPHIL # 0.4 TH/MM3 (0-0.4); HEMATOCRIT 27.6 % (39.0-51.0); HEMO FLAGS DIFF FINAL; LYMPHOCYTE # 1.1 TH/MM3 (1.0-4.8); MEAN CELL VOLUME 90.9 FL (80.0-100.0); MEAN CORPUSCULAR HEMOGLOBIN 30.9 PG (27.0-34.0); MONO % 10.3 % (0.0-8.0); NEUT % 77.4 % (16.0-70.0); PLATELET COUNT 283 TH/MM3 (150-450); RED BLOOD COUNT 3.04 MIL/MM3 (4.50-5.90); RED CELL DISTRIBUTION WIDTH 13.3 % (11.6-17.2); WHITE BLOOD COUNT 12.6 TH/MM3 (4.0-11.0)
[2016-05-25 04:56] LABS: BICARBONATE 25.7 MEQ/L (21.0-32.0); MAGNESIUM 2.1 MG/DL (1.5-2.5); POTASSIUM 3.3 MEQ/L (3.5-5.1)
[2016-05-25] MEDS: LACTULOSE SYRUP 20 GM/30 ML CUP PO SCH ×2 (05:39→18:00)
[2016-05-25] MEDS: hydrALAZINE HCL 25 MG TAB PO SCH ×3 (05:39→22:17)
[2016-05-25] MEDS: METOCLOPRAMIDE HCL 10 MG/2 ML VIAL IV SCH ×3 (05:39→22:17)
[2016-05-25] MEDS: INSULIN ASPART SUPPLEMENTAL SCALE SQ SCH ×4 (05:40→23:32)
[2016-05-25] MEDS: FUROSEMIDE 40 MG/4 ML VIAL IV PUSH SCH ×2 (06:21→18:00)
[2016-05-25] MEDS: CHLORHEXIDINE 0.12% (ORAL KIT) 15 ML CUP MT SCH ×2 (08:08→19:57)
[2016-05-25] MEDS: PANTOPRAZOLE SODIUM 40 MG VIAL IV SCH (08:08)
[2016-05-25] MEDS: FOLIC ACID 1 MG TAB PO SCH (08:08)
[2016-05-25] MEDS: ATORVASTATIN 20 MG TAB PO SCH (08:08)
[2016-05-25] MEDS: amLODIPine BESYLATE 5 MG TAB PO SCH ×2 (08:08→19:56)
[2016-05-25] MEDS: BENEPROTEIN POWDER 1 PACK G-TUBE SCH ×3 (08:09→17:01)
[2016-05-25] MEDS: LISINOPRIL 20 MG TAB PO SCH (08:09)
[2016-05-25] MEDS: THIAMINE INJ 100 MG in SODIUM CHLORIDE 0.9% INJ 100 ML IV SCH (08:09)
[2016-05-25] MEDS: POLYETHYLENE GLYCOL 17 GM PKG PO SCH (08:09)
[2016-05-25] MEDS: SODIUM CHLORIDE 0.9% FLUSH 5 ML FLUSH IVF SCH ×2 (08:10→19:57)
[2016-05-25] MEDS: TIMOLOL MALEATE 0.25% OPHT SOLN 5 ML BTL EACH EYE SCH ×2 (08:10→19:57)
[2016-05-25] MEDS: POTASSIUM CL 40 MEQ/30 ML LIQ UDC PO/TUBE PRN (08:19)
[2016-05-25] MEDS: DEXMEDETOMIDINE INJ 1,000 MCG in SODIUM CHLOR 0.9% 250 ML INJ 250 ML IV SCH ×2 (10:20→18:38)
--- NOTE | 2016-05-25 11:42 | HHI.PR ---
Neuropsych Emotional Emotional: UnabletoAssess: Emotional, Anxious/Fearful, Depressed/Sad, Hostile/ Resentful, Irritable/Angry/Frustrate, Labile, Constricted/Blunted Behavior Behavior: Unable to Asses: Behavior, Coping/Acceptance, Cooperative w/ Treatment, Motivation, Frustration Tolerance/[place], Impulsive/Agitated, Suicidal/ Homicidal Risk Cognitive Cognitive: Severe: Confused/Orientation Psychosocial Psychosocial: Intact: Psychosocial, Family/Other Adjustment, Realistic Expectation Progress Notes/Response to Tx Contents of Sessions: Level of Consciousness Time with Patient: 15 minutes Premorbid psychological status Premorbid Cognitive, Emotional and Behavioral Status: Stable. The patient is retired from a solid work history and long-term . The patient has no psychiatric difficulties. Substance abuse history is unremarkable. Behavioral Reactions of Patient and Family/Support System: Stable. The patient s family has a clear understanding of the issues inherent in his present medical condition. As expected, the family is experiencing ongoing issues of adjustment given the nature of the injury, and this aspect of recovery will require ongoing monitoring. Emotional/Behavioral Status of Patient and Family/Support System: Stable. Pertinent issues, if appropriate to this patients clinical care, are described in detail above. Maximizing acute care outcome This patient's present needs are respiratory in nature. His neurobehavioral impairments stemming from his injury is not able to be fully appreciated at this point in time. Anticipated Problems Ongoing areas of concern will include expressive and possible receptive language impairment, which would be expected to improve with time and treatment. Presently, the patient is inconsistently following commands. Treatment Plan This clinician will continue to follow with you throughout the course of this patients rehabilitation treatment, and I will be available to meet with the patients family/support system to facilitate their understanding and the ongoing care of their family member. The goals of neuropsychological intervention shall be both educational and supportive to the family/support system as is deemed clinically appropriate. 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 It is anticipated that as he improves medically, he will improve in terms of his ability to use and understand language. Diagnosis: (1) Major neurocognitive disorder as late effect of traumatic brain injury with behavioral disturbance Status: Acute Progress Note Narrative Ongoing follow-up of patient, who was seen bedside with patient's . Patient was able to be awakened, grasps hand when requested. Unclear his ability to understand verbal commands in light of his neuropathology. I discussed patient's care with his , and provided psychosocial support. I will continue to follow with you. Shemar Dudley PhD May 25, 2016 11:42 am
[2016-05-25] MEDS: levETIRAcetam INJ 500 MG in SODIUM CHLORIDE 0.9% INJ 100 ML IV SCH ×2 (12:25→23:32)
--- NOTE | 2016-05-25 12:40 | HHI.CCPN ---
Subjective Remarks/Hospital Course Traumatic SDH. 05/17: This 85-year-old gentleman fell of bed last night and hit his head. He developed aphasia and confusion pretty rapidly and was seen in the emergency department in [place] with a right facial droop. Subsequent CT scan evaluation confirmed an acute left subdural hemorrhage of approximately 8 mm in width with a associated subarachnoid hemorrhage. Additionally in the frontal lobe on the right side he had a 1 cm area of hemorrhage with surrounding vasogenic edema. There was intraventricular blood as well on the right side. I met him on his arrival to [facility]. What was immediately noticeable was that he was not able to express himself well and that he was not following commands correctly. With gestures he was able to follow commands but not with verbal orders. 05/18: Deteriorating mental status, nasal trumpet placed for airway control, and will require intubation. 05/19: Ventilator dependent now. Family needs to clarify goals if possible/ practical. 05/20: A little more alert. Breathes well on CPAP. 05/21: Tolerating CPAP trials with good respiratory drive. 05/22: Agitated. Start precedex for attempted weaning trial and possible extubation. 05/23: Attempt weaning trial again today with low dose precedex for control of agitation. 05/24: Extubated yesterday but could not protect his airway, could not cough up secretions. Quickly failed and required re-intubation. 05/25: Will need trach if family wishes to continue with aggressive care. Worsening glucose intolerance. Will start BID levemir Objective Vital Signs Date Time Temp Pulse Resp B/P Pulse Ox O2 Delivery O2 Flow Rate FiO2 05/25/16 12:00 35 05/25/16 12:00 99.0 66 23 144/65 96 05/23/16 14:13 Non-Rebreather 15 Intake and Output 05/24/16 05/24/16 05/25/16 08:00 16:00 00:00 Intake Total 997 ml 798 ml 973 ml Output Total 400 ml 1450 ml 2000 ml Balance 597 ml -652 ml -1027 ml Result Diagram: 05/25/16 0355 05/25/16 0355 Other Results Microbiology Date/Time Procedure Status Source Growth 05/22/16 19:38 Gram Stain - Final Complete Sputum Endotracheal 05/22/16 19:38 Sputum Culture - Final Complete Beta Strep Not Group A 05/22/16 19:38 Urine Culture - Final Complete Urine Catheterized Urine Escherichia Coli Enterococcus Faecalis 05/23/16 15:40 Gram Stain - Final Complete Sputum Endotracheal 05/23/16 15:40 Sputum Culture - Final Complete Strep Not A,B D Objective Remarks PHYSICAL EXAMINATION GENERAL: Intermittently agitated, elderly, gentleman. VITAL SIGNS: Pulse is 62 and sinus, blood pressure is 142/75, respiratory rate is 17. HEAD: Clean dry incision/laceration. NECK: Orally intubated. Supple. LUNGS: Good air movement. No wheezes or crackles. HEART: Regular rate and rhythm, normal S1-S2, no murmur, no JVD. ABDOMEN: Large, soft, no guarding. BS active. Nondistended. EXTREMITIES: Warm, well-perfused. 1+ generalized edema. NEUROLOGICAL: Opens eyes, moves extremities to stimulation. A/P Assessment and Plan ASSESSMENT: 1. Acute traumatic left-sided subdural hemorrhage. 2. Traumatic subarachnoid bleed. 3. Small frontal lobe contusion, right side. 4. Diabetes mellitus, type 2, controlled. 5. Mild hypertension. 6. Respiratory Failure, ventilator dependent. PLAN: 1. PRVC vent mode. Daily PSV trials. 2. Neurological checks. 3. Isotonic fluid only. 4. Head of bed up 30 degrees. 5. No chemical DVT px. 6. Labetalol for a blood pressure greater than 170. 7. Keppra for potential seizure complications. 8. Protonix for GI ulcer prophylaxis. 9. SCDs. 10. Clarify family goals. 11. Increase goal TFs to 55.. 12. Daily SBTs. 13. RASS 0 14. Weaning trials. 15. Laxatives 16. Precedex infusion. 17. Sputum culture -> pending 18. Probable tracheostomy. 19. Levemir 5 sq q12h OVERALL IMPRESSION: Improved mental status, tolerating CPAP but gets agitated. Looking at long-term rehab. Will need trach if family elects to continue aggressive care. Jong Abreu MD May 25, 2016 12:40
[2016-05-25] MEDS: INSULIN DETEMIR 100 UNITS/ML VIAL SQ SCH ×2 (13:24→19:56)
--- NOTE | 2016-05-25 14:16 | HHI.NSPN ---
Subjective History 85 yr old fell at home. He is generally very sedentary but alert and interactive. He suffered a significant left 8mm acute SDH with mass effect. He became very agitated and is delirious but the bleed has been stable. 05/20/16 He is intubated and sedated, appears peaceful at this time. 05/21/16 He has a low grade fever but the sedation is being weaned. 05/22/16 He is agitated on CPAP this am. He is moving all extremities but not following commands. Precedex is ordered. 05/23/16 He is less agitated on precedex. there is no evidence of DT 05/25/16 On precedex, exam limited, awaiting decision for tracheostomy Vitals . Vital Signs Date Time Temp Pulse Resp B/P Pulse Ox O2 Delivery O2 Flow Rate FiO2 05/25/16 12:00 35 05/25/16 12:00 99.0 66 23 144/65 96 05/25/16 12:00 66 05/25/16 11:41 94 35 05/25/16 10:00 72 05/25/16 08:19 100 35 05/25/16 08:00 65 05/25/16 08:00 99.3 64 19 141/68 99 05/25/16 08:00 35 05/25/16 06:00 64 05/25/16 04:27 97 35 05/25/16 04:00 99.8 62 16 144/64 98 05/25/16 04:00 35 05/25/16 04:00 62 05/25/16 02:00 59 05/25/16 01:30 98 35 05/25/16 00:00 35 05/25/16 00:00 63 05/25/16 00:00 99.0 63 16 145/67 98 05/24/16 23:20 97 35 05/24/16 22:00 60 05/24/16 20:24 97 35 05/24/16 20:00 35 05/24/16 20:00 67 05/24/16 20:00 101.3 67 18 159/74 98 05/24/16 18:00 75 05/24/16 16:00 64 05/24/16 16:00 35 05/24/16 16:00 98.8 69 19 142/65 96 05/24/16 15:53 93 35 05/24/16 05/24/16 05/25/16 15:00 23:00 07:00 Intake Total 798 ml 973 ml 894 ml Output Total 1450 ml 2000 ml 600 ml Balance -652 ml -1027 ml 294 ml Physical Exam Eyes Eyes: Pupils Equal Neuro Mental Status: Sedated Pupils: Reactive Bilaterally Tatiana Coma Scale Best Eye Openin - None Best Verbal: 1 - None Best Motor: 5 - Localizes pain Total Glascow Coma Scale (GCS): 7 Cardiac Cardiac: Regular Rate & Rhythm Respiratory Respiratory: CTA Gastrointestinal Gastrointestinal: Soft Genitourinary Genitourinary: Moreno Catheter In Place Musculoskeletal Extremities Upper Extremities Deltoid Bicep Tricep HI W. Ext Right Left Lower Extremeties Ilio Quad Plantar Dorsi EHL Right Left Musculoskeletal Remarks Moves purposefully with the right hand, does not follow commands Extremities Edema: SCDs Objective Labs Laboratory Tests 05/25/16 03:55 Laboratory Tests Test 05/25/16 03:55 Sodium Level 143 MEQ/L Potassium Level 3.3 MEQ/L Chloride Level 109 MEQ/L Carbon Dioxide Level 25.7 MEQ/L Anion Gap 8 MEQ/L Blood Urea Nitrogen 28 MG/DL Creatinine 0.92 MG/DL Estimat Glomerular Filtration 78 ML/MIN Rate Random Glucose 248 MG/DL Calcium Level 7.6 MG/DL Phosphorus Level 3.4 MG/DL Magnesium Level 2.1 MG/DL Assessment & Plan Diagnosis: (1) Subdural hematoma, acute Plan: The bleed and cerebral contusion will be followed radiologically, they are mostly left hemispheric 8mm SDH and bilateral SAH. Seizure prophylaxis, DVT and PUD prophylaxis is planned as well as OT/PT. Alcohol withdrawal prophylaxis is planned. He is full code at this time but has requested anteriorly no aggressive prolonged ventilatory support. 05/20/16 Supportive care is continued, sedation holiday is planned in the morning. No new focal findings. Cultures are pending 05/21/16 The SDH is stable and he has small cerebral contusion in the gyri recti bilaterally and in the left frontal/inferior temporal regions. No increased bleeding or shift is appreciated. Supportive care is continued with the goal of extubation. 05/22/16 CPAP trials are continued, sedation with precedex as tolerated. 05/23/16 Evolving cerebral contusions and left small SDH, weaning with the goal of extubation today. Rehab services will follow. Pulmonary toilet, DVT and PUD as well as seizure prophylaxis is continued. 05/25/16 Extubated failed 2 days ago, sedated on precedex, awaiting decision for trachostomy. Plan 10 Devonte Dunham May 25, 2016 14:16
[2016-05-25] MEDS: cefTRIAXone INJ 1,000 MG in SODIUM CHLORIDE 0.9% INJ 100 ML IV SCH (17:01)
[2016-05-25] MEDS: ACETAMINOPHEN 1000 MG/100 ML VIAL IV PRN (19:56)
[2016-05-26] VITALS (17 sets, daily range): BP systolic 96–163; BP diastolic 51–73; PULSE 63–104; RESP 16–27; TEMP 98.9–102.7; O2SAT 93–99
[2016-05-26] MEDS: DEXMEDETOMIDINE INJ 1,000 MCG in SODIUM CHLOR 0.9% 250 ML INJ 250 ML IV SCH ×2 (03:01→09:58)
[2016-05-26] MEDS: CHLORHEXIDINE GLUCONATE 2 % 1 PACK (2 CLOTHS) TOP SCH ×2 (03:03→23:28)
[2016-05-26] MEDS: ACETAMINOPHEN 1000 MG/100 ML VIAL IV PRN ×2 (04:22→22:03)
[2016-05-26 04:38] LABS: BICARBONATE 27.6 MEQ/L (21.0-32.0); POTASSIUM 3.1 MEQ/L (3.5-5.1)
[2016-05-26] MEDS: LACTULOSE SYRUP 20 GM/30 ML CUP PO SCH ×2 (05:06→18:00)
[2016-05-26] MEDS: METOCLOPRAMIDE HCL 10 MG/2 ML VIAL IV SCH ×3 (05:06→22:00)
[2016-05-26] MEDS: hydrALAZINE HCL 25 MG TAB PO SCH ×3 (05:07→22:00)
[2016-05-26] MEDS: INSULIN ASPART SUPPLEMENTAL SCALE SQ SCH ×3 (05:10→18:30)
[2016-05-26] MEDS: POTASSIUM CHLOR 20 MEQ PREMIX 100 ML IV PRN ×4 (05:48→20:04)
[2016-05-26] MEDS: FUROSEMIDE 40 MG/4 ML VIAL IV PUSH SCH ×2 (06:05→18:31)
[2016-05-26] MEDS: SODIUM CHLORIDE 0.9% FLUSH 5 ML FLUSH IVF SCH ×2 (08:34→21:00)
[2016-05-26] MEDS: TIMOLOL MALEATE 0.25% OPHT SOLN 5 ML BTL EACH EYE SCH ×2 (08:34→20:04)
[2016-05-26] MEDS: CHLORHEXIDINE 0.12% (ORAL KIT) 15 ML CUP MT SCH ×2 (08:34→20:03)
[2016-05-26] MEDS: PANTOPRAZOLE SODIUM 40 MG VIAL IV SCH (08:34)
[2016-05-26] MEDS: FOLIC ACID 1 MG TAB PO SCH (08:36)
[2016-05-26] MEDS: ATORVASTATIN 20 MG TAB PO SCH (08:38)
[2016-05-26] MEDS: LISINOPRIL 20 MG TAB PO SCH (08:38)
[2016-05-26] MEDS: POLYETHYLENE GLYCOL 17 GM PKG PO SCH (08:38)
[2016-05-26] MEDS: amLODIPine BESYLATE 5 MG TAB PO SCH ×2 (08:38→21:00)
[2016-05-26] MEDS: BENEPROTEIN POWDER 1 PACK G-TUBE SCH ×3 (08:39→18:00)
[2016-05-26] MEDS: INSULIN DETEMIR 100 UNITS/ML VIAL SQ SCH ×2 (08:39→21:00)
[2016-05-26] MEDS: THIAMINE INJ 100 MG in SODIUM CHLORIDE 0.9% INJ 100 ML IV SCH (08:39)
[2016-05-26] MEDS: levETIRAcetam INJ 500 MG in SODIUM CHLORIDE 0.9% INJ 100 ML IV SCH (10:10)
--- NOTE | 2016-05-26 11:03 | PD.CONS ---
Consult Service Palliative Care Consult Requested By Dr. Abreu Primary Care Physician Non-Staff Reason for Consultation a. To assist with evaluation and management of symptoms including: Dyspnea, malnutrition, agitation b. To assist medical decision maker(s) with: better understanding of current medical conditions; weighing benefits/burdens of medical treatment options; making medical treatment decisions. HPI History of Present Illness Patient was apparently found in his bed unresponsive/with worsening mental status at [facility]. He presented to that facility after sustaining a fall in restroom of his home around midnight 05/17/16. At that time reported him to be aphasic, confused., notified EMS. He then went to [facility]. Findings there were : + subdural hematoma with subarachnoid hemorrhage right frontal parietal junction with right to left midline shift, EMS /transfer activated due to acute decompensation. Patient was transferred for direct admission from [facility] to [facility]. Patient arrived to [facility] around 8:30 AM 05/17/16. HOSPITAL COURSE: * At arrival noted to have small scalp abrasion right parietal. He was awake, aphasic did not follow verbal commands but could follow motor commands if demonstrated. Weakness noted to all 4 extremities. Sensation intact. CXR notable for interstitial disease. Head CT= acute left 8mm SDH with left fronto -temporal contusion extensive SAH; diffuse cerebral atrophy and mild left to right shift are noted. Patient was initiated on seizure prophylaxis, EtOH withdrawal prophylaxis, neurosurgery plan to follow imaging, clinical exam. Apparently requested to remain full code but also no prolonged ventilator support. * Initial speech therapy evaluation 05/17; tolerated liquids and solids without signs or symptoms of aspiration recommended for mechanical soft diet with chopped meat. * 05/18 transcranial ultrasound Doppler completed--no evidence of vasospasm. with deteriorating mental status, requiring nasal trumpet for airway management, + hypoxemic respiratory failure--- required intubation. * 05/19 Critical care recommends family to clarify goals of treatment; feels patient will may not be able to wean from ventilator. * 05/22-- tolerating some episodes of CPAP trials. Periods of alertness alternating with agitation. 05/22 requiring Precedex drip to attempt weaning trial and possible extubation. Patient will likely require long-term rehabilitation. Moves all 4 extremities. Not following commands. Per repeat imaging SDH stable. * 05/23 extubated, was requiring some Precedex for agitation low-dose, extubated but then later unable to protect his airway coughing up secretionsquickly required reintubation. Patient will require tracheostomy if ongoing aggressive interventions are desired/requested. CXR = Small left pleural effusion with associated volume loss and/or airspace consolidation. 3. Hazy opacity at the right lung base could represent mild airspace consolidation versus a small pleural effusion. Patient seen in room with daughters, at bedside. Met with them at length, see family conference for additional detail. Discuss with Dr. Dunham of neurosurgery. From neurological standpoint feels prognosis is good for meaningful neurologic recovery. Discussed with primary nurse. Patient has been intermittently following commands though has not followed for him today. Patient tentatively scheduled for a tracheostomy today or in the coming days. Tolerating CPAP today, not on continuous sedation today. Function/Cognitive Trajectory Lives at home with his . Independent with all ADLs. Very physically active. Was chopping wood in the backyard with an ax the week before this admission. Has not "needed" to see a doctor in 40+ years. Review of Systems ROS Limitations: Intubated, Altered Mental Status Past Family Social History Coded Allergies: Contrast Media (Verified Allergy, Unknown, 12/02/14) Past Medical History Hypertension Chronic alcohol use Arthritis Past Surgical History None . Reported Medications Amlodipine (Amlodipine Besylate) 5 Mg Tab 5 Mg PO DAILY Timolol Maleate 0.25 % Tia 1 Drop EACH EYE BID Multivitamins Lisinopril 40 mg (Lisinopril) 40 Mg Tab 1 Tab PO DAILY Glucophage 500 mg (Metformin HCl) 500 Mg Tab 500 Mg PO DAILY Lantus Solostar Pen (Insulin Glargine) 100 Units/Ml Pen 12 Units SQ BID Atorvastatin 20 mg tab (Atorvastatin Calcium) 20 Mg Tab 20 Mg PO DAILY 30 Days Current Medications Medications (Trade) Dose Ordered Sig/Gus Route Start Time Stop Time Status Last Admin (Lipitor) 20 mg DAILY PO 05/18/16 09:00 05/26/16 08:38 (Timoptic 0.25% Opth Soln) 1 drop BID EACH EYE 05/17/16 21:00 05/26/16 08:34 (Prinivil) 40 mg DAILY PO 05/18/16 09:00 05/26/16 08:38 (NS Flush) 2 ml UNSCH PRN IVF 05/17/16 10:30 IV Flush 2 ml 2 ml BID IVF 05/17/16 21:00 05/26/16 08:34 Nicardipine HCl 25 mg/Sodium Chloride 260 ml @ 0 mls/hr TITRATE IV 05/17/16 10:30 05/23/16 21:04 (Keppra Inj/NS Inj) 105 ml @ 400 mls/hr Q12H IV 05/17/16 12:00 05/26/16 10:10 Docusate Sodium 100 mg 100 mg BID PRN PO 05/17/16 10:30 (Thiamine Inj/NS Inj) 101 ml @ 101 mls/hr DAILY IV 05/17/16 12:00 05/26/16 08:39 (Folate) 1 mg DAILY PO 05/17/16 10:45 05/26/16 08:36 (Tylenol) 650 mg Q6H PRN PO 05/17/16 10:45 (Protonix Inj) 40 mg DAILY IV 05/18/16 09:00 05/26/16 08:34 (Zofran Inj) 4 mg Q6H PRN IV 05/17/16 10:45 Miscellaneous Information 1 Q361D XX 05/17/16 10:45 05/17/16 11:34 (Chlorhexidine 2% Cloth) Taper DAILY@04 TOP 05/18/16 04:00 05/14/17 03:59 05/26/16 03:03 (Chlorhexidine 2% Cloth) 3 pack UNSCH PRN TOP 05/17/16 10:45 (D50w (Vial) Inj) 25 ml UNSCH PRN IV PUSH 05/17/16 11:15 (Glucagon Inj) 1 mg UNSCH PRN OTHER 05/17/16 11:15 (NovoLOG SUPPLEMENTAL SCALE) 1 Q6H SQ 05/17/16 12:00 05/25/16 23:32 (Ofirmev Inj) 1,000 mg Q8H PRN IV 05/17/16 22:00 05/26/16 04:22 Chlorhexidine Gluconate 15 ml 15 ml BID@08,20 MT 05/18/16 20:00 05/26/16 08:34 Propofol 100 ml @ 0 mls/hr TITRATE IV 05/18/16 16:15 05/22/16 03:53 Potassium Chloride 100 ml @ 50 mls/hr Q2H PRN IV 05/19/16 07:00 (KCl 20 Meq Premix Inj) 100 ml @ 50 mls/hr Q2H PRN IV 05/19/16 07:00 05/26/16 06:51 Potassium Chloride 40 meq 40 meq UNSCH PRN PO/TUBE 05/19/16 07:00 05/25/16 08:19 Potassium Chloride 100 ml @ 25 mls/hr UNSCH PRN IV 05/19/16 07:00 Potassium Chloride 100 ml @ 50 mls/hr Q2H PRN IV 05/19/16 07:00 (Magnesium Sulfate Inj/NS Inj) 100 ml @ 50 mls/hr UNSCH PRN IV 05/19/16 07:00 Magnesium Oxide 800 mg 800 mg UNSCH PRN PO 05/19/16 07:00 (Magnesium Sulfate Inj/NS Inj) 100 ml @ 50 mls/hr UNSCH PRN IV 05/19/16 07:00 05/19/16 13:49 Potassium Phosphate 2000 mg 2,000 mg Q4H PRN PO 05/19/16 07:00 (Sodium Phosphate Inj/NS 250 ml Inj) 250 ml @ 42 mls/hr UNSCH PRN IV 05/19/16 07:00 05/20/16 01:46 (KCl 40 Meq/30 ml Liq) 40 meq UNSCH PRN PO/TUBE 05/19/16 07:00 Potassium Phosphate 2000 mg 2,000 mg UNSCH PRN PO/TUBE 05/19/16 07:00 (Potassium Phosphate Inj/NS 250 ml Inj) 260 ml @ 42 mls/hr UNSCH PRN IV 05/19/16 07:00 (Beneprotein Powder) 1 pack TID G-TUBE 05/20/16 09:00 05/26/16 08:39 (Reglan Inj) 10 mg Q8HR IV 05/20/16 14:00 05/26/16 05:06 (Lactulose Liq) 30 ml Q12H PO 05/21/16 06:00 05/26/16 05:06 Polyethylene Glycol 17 gm 17 gm DAILY PO 05/23/16 10:45 05/25/16 08:09 (Rocephin Inj/NS Inj) 100 ml @ 200 mls/hr DAILY@16 IV 05/23/16 16:00 05/25/16 17:01 (Norvasc) 5 mg Q12H PO 05/24/16 09:00 05/26/16 08:38 (Apresoline) 25 mg Q8HR PO 05/24/16 06:45 05/26/16 05:07 (Apresoline Inj) 10 mg Q4H PRN IV PUSH 05/24/16 06:45 (Lasix Inj) 40 mg BID@07,18 IV PUSH 05/24/16 07:00 05/27/16 12:00 05/26/16 06:05 Insulin Detemir 5 units 5 units Q12HR SQ 05/25/16 13:00 05/26/16 08:39 (Precedex Inj/NS 250 ml Inj) 250 ml @ 0 mls/hr TITRATE IV 05/26/16 10:12 Family History Mother recently of old age, father was killed at middle-age, no family history of diabetes Substance Use Tobacco: Nonsmoker Alcohol: Daily alcohol, reported 3 beers per day Prescription med abuse: None Illicits:none . Psychosocial History , lives at home with spouse. Retired. Has lived in [place] for 20+ years, many of those years lived in [place], originally from [facility] [place] [facility]. 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 Supported by 3 adult children, as well as his . Living Will: Copy in medical record (standard living will verbiage requesting no artificial/aggressive measures and the presence of terminal or end-stage condition) Health Care Surrogate: Copy in medical record (designates Nazanin) Ethical and Legal Issues Patient unable to participate in decision-making. Not clear if or when he will regain that ability. His Nazanin is designated as healthcare surrogate as per his living will documentation. Physical Exam Vital Signs Date Time Temp Pulse Resp B/P Pulse Ox O2 Delivery O2 Flow Rate FiO2 05/26/16 09:14 95 35 05/26/16 09:14 35 05/26/16 08:00 64 05/26/16 08:00 100.8 64 16 147/66 98 05/26/16 08:00 35 05/26/16 06:00 97 05/26/16 04:01 97 35 05/26/16 04:00 71 05/26/16 04:00 35 05/26/16 04:00 100.2 63 16 96/51 98 05/26/16 02:00 71 05/26/16 00:00 35 05/26/16 00:00 65 05/26/16 00:00 98.9 65 16 152/67 98 05/26/16 00:00 99 35 05/25/16 22:00 64 05/25/16 20:00 98 35 05/25/16 20:00 67 05/25/16 20:00 100.9 67 16 158/72 98 05/25/16 20:00 35 05/25/16 18:00 73 05/25/16 16:00 35 05/25/16 16:00 98.2 75 22 139/63 95 05/25/16 16:00 75 05/25/16 15:38 100 35 05/25/16 14:00 68 05/25/16 12:00 35 05/25/16 12:00 99.0 66 23 144/65 96 05/25/16 12:00 66 05/25/16 11:41 94 35 05/25/16 05/26/16 19:00 07:00 Intake Total 853 ml 1404 ml Output Total 1650 ml 1900 ml Balance -797 ml -496 ml Intake Oral 0 ml IV Total 471 ml 648 ml Tube Feeding 282 ml 636 ml Tube Irrigant 40 ml 120 ml Other 60 ml Output Urine Total 1650 ml 1900 ml # Bowel Movements 1 2 Exam CONSTITUTIONAL/GENERAL: This is an adequately nourished patient, on mechanical vent, no distress TUBES/LINES/DRAINS: Peripheral IV bilateral upper extremities, ET tube, OG tube , Moreno catheter, restraints, SCDs SKIN: No jaundice, rashes, or lesions. Notable areas of ecchymosis bilateral upper extremities. No wounds seen anteriorly. Skin temperature appropriate. Not diaphoretic. HEAD: Atraumatic. Normocephalic. EYES: Pupils equal and round and reactive. Extraocular motions intact. No scleral icterus. No injection or drainage. Fundi not examined. ENT: Nose without bleeding or purulent drainage. Unable to visualize oropharynx due to ET tube, OG tube. NECK: Trachea midline. Short thick neck. Supple, nontender. No palpable thyroid enlargement or nodularity. CARDIOVASCULAR: Regular rate and rhythm, no murmurs, observe sinus bradycardia on bedside monitor rate in the 50s. Peripheral pulses symmetric. RESPIRATORY/CHEST: Symmetric, unlabored respirations via mechanical vent. On CPAP,+ spontaneous respirations. Clear to auscultation, decreased air movement throughout. Breath sounds equal bilaterally. GASTROINTESTINAL: Abdomen soft, round, non-tender, nondistended. No hepato- splenomegaly, or palpable masses. No guarding. Bowel sounds hyperactive. GENITOURINARY: Without palpable bladder distension. Moreno catheter in place clear yellow urine. MUSCULOSKELETAL: Extremities without clubbing, cyanosis.trace generalized edema. No joint effusion noted. No mottling or clubbing. NEUROLOGICAL: Alert with eyes open to at times however does not remain alert for entirety of exam. Does not track examiner-- however does seem to track family members when they speak to him. Does not follow commands for me. Moves left upper, left lower spontaneously, appears to wave& gesture with left upper extremity however does not follow commands. Does not move right upper, right lower spontaneously however does withdraw all 4 extremities to pain. PSYCHIATRIC: No obvious anxiety/depression--limited assessment due to clinical condition/ventilation/unable to communicate Diagnostic Tests Laboratory Laboratory Tests Test 05/24/16 05/25/16 05/26/16 09:01 03:55 03:15 White Blood Count 13.9 TH/MM3 12.6 TH/MM3 (4.0-11.0) (4.0-11.0) Red Blood Count 3.00 MIL/MM3 3.04 MIL/MM3 (4.50-5.90) (4.50-5.90) Hemoglobin 9.1 GM/DL 9.4 GM/DL (13.0-17.0) (13.0-17.0) Hematocrit 27.5 % 27.6 % (39.0-51.0) (39.0-51.0) Mean Corpuscular Volume 91.7 FL 90.9 FL (80.0-100.0) (80.0-100.0) Mean Corpuscular Hemoglobin 30.2 PG 30.9 PG (27.0-34.0) (27.0-34.0) Mean Corpuscular Hemoglobin 33.0 % 34.0 % Concent (32.0-36.0) (32.0-36.0) Red Cell Distribution Width 13.4 % 13.3 % (11.6-17.2) (11.6-17.2) Platelet Count 273 TH/MM3 283 TH/MM3 (150-450) (150-450) Mean Platelet Volume 9.0 FL 9.0 FL (7.0-11.0) (7.0-11.0) Neutrophils (%) (Auto) 78.4 % 77.4 % (16.0-70.0) (16.0-70.0) Lymphocytes (%) (Auto) 7.9 % 9.0 % (9.0-44.0) (9.0-44.0) Monocytes (%) (Auto) 11.1 % 10.3 % (0.0-8.0) (0.0-8.0) Eosinophils (%) (Auto) 1.5 % (0.0-4.0) 3.0 % (0.0-4.0) Basophils (%) (Auto) 1.1 % (0.0-2.0) 0.3 % (0.0-2.0) Neutrophils # (Auto) 10.9 TH/MM3 9.8 TH/MM3 (1.8-7.7) (1.8-7.7) Lymphocytes # (Auto) 1.1 TH/MM3 1.1 TH/MM3 (1.0-4.8) (1.0-4.8) Monocytes # (Auto) 1.5 TH/MM3 1.3 TH/MM3 (0-0.9) (0-0.9) Eosinophils # (Auto) 0.2 TH/MM3 0.4 TH/MM3 (0-0.4) (0-0.4) Basophils # (Auto) 0.1 TH/MM3 0.0 TH/MM3 (0-0.2) (0-0.2) CBC Comment DIFF FINAL DIFF FINAL Differential Comment Sodium Level 145 MEQ/L 143 MEQ/L 145 MEQ/L (136-145) (136-145) (136-145) Potassium Level 4.0 MEQ/L 3.3 MEQ/L 3.1 MEQ/L (3.5-5.1) (3.5-5.1) (3.5-5.1) Chloride Level 113 MEQ/L 109 MEQ/L 109 MEQ/L (98-107) (98-107) (98-107) Carbon Dioxide Level 22.5 MEQ/L 25.7 MEQ/L 27.6 MEQ/L (21.0-32.0) (21.0-32.0) (21.0-32.0) Anion Gap 10 MEQ/L (5-15) 8 MEQ/L (5-15) 8 MEQ/L (5-15) Blood Urea Nitrogen 29 MG/DL (7-18) 28 MG/DL (7-18) 24 MG/DL (7-18) Creatinine 0.88 MG/DL 0.92 MG/DL 0.90 MG/DL (0.60-1.30) (0.60-1.30) (0.60-1.30) Estimat Glomerular Filtration 82 ML/MIN (>89) 78 ML/MIN (>89) 80 ML/MIN (>89) Rate Random Glucose 226 MG/DL 248 MG/DL 115 MG/DL (74-106) (74-106) (74-106) Calcium Level 7.4 MG/DL 7.6 MG/DL 7.9 MG/DL (8.5-10.1) (8.5-10.1) (8.5-10.1) Protein Corrected Calcium 8.6 MG/DL (8.5-10.1) Total Protein 4.9 GM/DL (6.4-8.2) Phosphorus Level 3.4 MG/DL 3.3 MG/DL (2.5-4.9) (2.5-4.9) Magnesium Level 2.1 MG/DL 2.0 MG/DL (1.5-2.5) (1.5-2.5) Result Diagram: 05/25/16 0355 05/26/16 0315 Microbiology Microbiology Date/Time Procedure Status Source Growth 05/23/16 15:40 Gram Stain - Final Complete Sputum Endotracheal 05/23/16 15:40 Sputum Culture - Final Complete Strep Not A,B D Imaging Last Impressions Chest X-Ray 05/23/16 2166 Signed Impressions: Service Date/Time: Monday, May 23, 2016 15:38 - CONCLUSION: 1. The endotracheal tube tip slightly extends into the right main bronchus and should be retracted at least 4 cm. 2. Small left pleural effusion with associated volume loss and/or airspace consolidation. 3. Hazy opacity at the right lung base could represent mild airspace consolidation versus a small pleural effusion. The above findings concerning endotracheal tube location were discussed with the patient's nurse, Sheree, via telephone at 4: 20 PM. Valdez Richardson MD Head CT 05/21/16 0600 Signed Impressions: Service Date/Time: Saturday, May 21, 2016 04:17 - CONCLUSION: Stable multifocal hemorrhages including left subdural, bilateral subarachnoid, bifrontal and left temporal parenchymal hemorrhages and intraventricular blood. Eleazar Solorio MD Transcranial Doppler Study Complete 05/18/16 0730 Signed Impressions: Service Date/Time: April 08:12 - CONCLUSION: 1. No evidence of vasospasm Bill Means MD Procedures 05/18intubated 05/23extubatedreintubated shortly after, same day Patient/Family Conference Present at Family Conference: To daughter's Cathi Thompson, Radha . Family Conference Time (mins): 45 Family Conference Location: Bedside, Consult Room Issues Discussed: Met with daughters, at length. Discussion included: * Palliative care role, purpose, approach * Additional medical, psychosocial, and spiritual history * Patients general health, functional status, and cognitive changes in the months leading up to the current hospitalization-they endorse he was physically active, very fit and had no cognitive deficits. * Patient/family understanding of the current medical problems-review of clinical course thus far, diagnostics, treatments in place * Patient/family understanding of prognosis--review of possible long-term trajectory that neurosurgery does feel he may make a good recovery however review potential risks/complications/setbacks related to other health issues that may affect this recovery * Patients goals of care as best understood from advance directives and/or conversations and/or values-family indicates if the patient could make a meaningful neurologic recovery would want to continue course * Current medical treatment options and benefits/burdens of those options-- review of tracheostomy, PEG, also review of long-term trajectory which may include rehabilitation though rehabilitation placement will be pending patient' s ability to participate as well as whether or not he can wean off of tracheostomy * Likely scenarios comparing ongoing aggressive care with a transition to comfort measures only- -briefly explore that if patient were family did not desire ongoing aggressive measures then they have the right to not proceed with aggressive interventions; did not further explore as patient family not open to this, goals aggressive * Questions answered to the best of my ability * Palliative care contact information provided In summary: family details that patient was very active, strong, with no medical issues prior to this admission. They understand from neurosurgery that he has a good chance of recovery from brain injury; however I have reviewed with them at length that due to the complexity including age, comorbidities, prolonged hospitalization that he does remain high risk for complications/ setbacks which might impact or decrease his ability to fully recover. All questions answered. Goals are aggressive they wish to proceed with tracheostomy and PEG and whatever measures may be indicated at this time to help patient make a full of a recovery as possible. Assessment and Plan Disease Oriented Problem List: (1) Subdural hematoma, acute (2) Arthritis (3) Hypertension (4) Acute respiratory failure (5) Diabetes type 2, controlled Symptom Scale: (1) Dyspnea (2) Agitation (3) Malnutrition Pertinent Non-Medical Issues Psychosocial:, lives at home with spouse. Retired. Has lived in [place] for 20+ years, many of those years lived in [place], originally from [facility]. 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 Supported by 3 adult children, as well as his . Spiritual: Legal:Patient unable to participate in decision-making. Not clear if or when he will regain that ability. His Nazanin is designated as healthcare surrogate as per his living will documentation. Ethical issues impacting care: Important Contacts Radha Blackman [phone] . Prognosis Suffered mechanical fall, patient sustained subdural hemorrhage with midline shift. Has not required neurosurgical intervention. Has required intubation and mechanical ventilation for airway protection, has had ongoing episodes of agitation. Neurosurgery feels patient has a good chance of functional neurologic recovery based on imaging, SDH. However, patient does remain high risk for complications/setbacks which may slow or impair any recovery and rehabilitation. Code Status: Full Code Plan * Legal decision maker: Patient is currently not capacitated to make medical decisions. Not clear if or when he will regain his ability. He has advanced directives naming his Nazanin as legal decision maker. * Goals: Met with family at length today.In summary: family details that patient was very active, strong, with no medical issues prior to this admission. They understand from neurosurgery that he has a good chance of recovery from brain injury; however I have reviewed with them at length that due to the complexity including age, comorbidities, prolonged hospitalization that he does remain high risk for complications/setbacks which might impact or decrease his ability to fully recover. All questions answered. Goals are aggressive they wish to proceed with tracheostomy and PEG and whatever measures may be indicated at this time to help patient make a full of a recovery as possible. They are hopeful for him to be placed in aggressive rehabilitation following hospitalization. * CODE STATUS: FULL * SYMPTOMS: --Dyspnea-emergently intubated for airway protection, extubated and then I emergently intubated due to unable to manage secretions; tolerating CPAP however given fluctuating mental status and concern regarding airway protection appears will require tracheostomy for ongoing aggressive treatment--planned possibly for today or the coming days. --Agitation-intermittent episodes of agitation, this is likely multifactorial both metabolic as well as related to SDH; patient with a history of daily alcohol use which likely affected the first few days of hospitalization -Malnutrition: Risk for related to prolonged hospitalization, alternative feeding required, will require PEG for long-term caloric needs * Palliative care will continue to follow during hospital course as condition evolves, to assist patient/decision-maker with understanding of medical conditions, weighing benefits/burdens of treatment options, for clarification of goals of treatment. Additionally will assist with any symptoms of palliative concern . Time Spent Total Floor Time (mins): 70 Face to Face Time (mins): 50 >50% Counseling/Coord of Care: Yes (d/w receiving barn custodian, neurosurgery, RN) Thank you for the opportunity to participate in the care of Mr. Blackman. Attestation To help prompt me to consider important information that might be impacting today's encounter and assessment, information from prior notes written by myself or my colleagues may have been "brought forward" into today's note. My signature on this note, however, is an attestation that I personally performed the exam, history, and/or decision-making noted today, and, unless otherwise indicated, the interactions with patient, family, and staff as well as the review of records all occurred today. I also attest that the listed assessment and stated plan reflect my best clinical judgment today based on the combination of historical information, prior notes, and today's exam/ interactions. When time spent is documented, it refers only to time spent today by the signer, or if indicated, combined time spent today by collaborating physician/nurse practitioner. Luciana Haro May 26, 2016 11:03
--- NOTE | 2016-05-26 11:10 | HHI.PR ---
Neuropsych Emotional Emotional: UnabletoAssess: Emotional, Anxious/Fearful, Depressed/Sad, Hostile/ Resentful, Irritable/Angry/Frustrate, Labile, Constricted/Blunted Behavior Behavior: Unable to Asses: Behavior, Coping/Acceptance, Cooperative w/ Treatment, Motivation, Frustration Tolerance/[place]aver[place], Impulsive/Agitated, Suicidal/ Homicidal Risk Cognitive Cognitive: Severe: Attention/Concentration Psychosocial Psychosocial: Mild: Psychosocial, Family/Other Adjustment, Realistic Expectation Progress Notes/Response to Tx Contents of Sessions: Level of Consciousness Time with Patient: 15 minutes Premorbid psychological status Premorbid Cognitive, Emotional and Behavioral Status: Stable. The patient is retired from a solid work history and long-term . The patient has no psychiatric difficulties. Substance abuse history is unremarkable. Behavioral Reactions of Patient and Family/Support System: Stable. The patient s family has a clear understanding of the issues inherent in his present medical condition. As expected, the family is experiencing ongoing issues of adjustment given the nature of the injury, and this aspect of recovery will require ongoing monitoring. Emotional/Behavioral Status of Patient and Family/Support System: Stable. Pertinent issues, if appropriate to this patients clinical care, are described in detail above. Maximizing acute care outcome This patient's present needs are respiratory in nature. His neurobehavioral impairments stemming from his injury is not able to be fully appreciated at this point in time. Anticipated Problems Ongoing areas of concern will include expressive and possible receptive language impairment, which would be expected to improve with time and treatment. Presently, the patient is inconsistently following commands. Treatment Plan This clinician will continue to follow with you throughout the course of this patients rehabilitation treatment, and I will be available to meet with the patients family/support system to facilitate their understanding and the ongoing care of their family member. The goals of neuropsychological intervention shall be both educational and supportive to the family/support system as is deemed clinically appropriate. 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 It is anticipated that as he improves medically, he will improve in terms of his ability to use and understand language. Diagnosis: (1) Major neurocognitive disorder as late effect of traumatic brain injury with behavioral disturbance Status: Acute Progress Note Narrative This patient is now awake, confused and appears intermittently agitated. It remains unclear the extent of any language disorder (expressive, receptive or both) stemming from his neuropathology. I spoke with the patient's and daughter, and provided support and encouragement. I will continue to follow with you. Shemar Dudley PhD May 26, 2016 11:10 am
--- NOTE | 2016-05-26 11:44 | HHI.CCPN ---
Subjective Remarks/Hospital Course Traumatic SDH. 05/17: This 85-year-old gentleman fell of bed last night and hit his head. He developed aphasia and confusion pretty rapidly and was seen in the emergency department in [place] with a right facial droop. Subsequent CT scan evaluation confirmed an acute left subdural hemorrhage of approximately 8 mm in width with a associated subarachnoid hemorrhage. Additionally in the frontal lobe on the right side he had a 1 cm area of hemorrhage with surrounding vasogenic edema. There was intraventricular blood as well on the right side. I met him on his arrival to [facility]. What was immediately noticeable was that he was not able to express himself well and that he was not following commands correctly. With gestures he was able to follow commands but not with verbal orders. 05/18: Deteriorating mental status, nasal trumpet placed for airway control, and will require intubation. 05/19: Ventilator dependent now. Family needs to clarify goals if possible/ practical. 05/20: A little more alert. Breathes well on CPAP. 05/21: Tolerating CPAP trials with good respiratory drive. 05/22: Agitated. Start precedex for attempted weaning trial and possible extubation. 05/23: Attempt weaning trial again today with low dose precedex for control of agitation. 05/24: Extubated yesterday but could not protect his airway, could not cough up secretions. Quickly failed and required re-intubation. 05/25: Will need trach if family wishes to continue with aggressive care. Worsening glucose intolerance. Will start BID levemir 05/26: No improvement in neurological function. Glucose control much improved. The family feels quite strongly about continued aggressive rehab. Therefore we will perform tracheostomy. Risk and benefits presented to and she wished to proceed. Objective Vital Signs Date Time Temp Pulse Resp B/P Pulse Ox O2 Delivery O2 Flow Rate FiO2 05/26/16 09:14 95 35 05/26/16 08:00 64 05/26/16 08:00 100.8 16 147/66 05/23/16 14:13 Non-Rebreather 15 Intake and Output 05/25/16 05/25/16 05/26/16 08:00 16:00 00:00 Intake Total 894 ml 853 ml 789 ml Output Total 600 ml 1650 ml 1000 ml Balance 294 ml -797 ml -211 ml Result Diagram: 05/25/16 0355 05/26/16 0315 Other Results Microbiology Date/Time Procedure Status Source Growth 05/23/16 15:40 Gram Stain - Final Complete Sputum Endotracheal 05/23/16 15:40 Sputum Culture - Final Complete Strep Not A,B D Objective Remarks PHYSICAL EXAMINATION GENERAL: Intermittently agitated, elderly, gentleman. VITAL SIGNS: Pulse is 63 and sinus, blood pressure is 132/74, respiratory rate is 16. HEAD: Clean dry incision/laceration clean. NECK: Orally intubated. Supple. Some oral secretions. LUNGS: Good air movement. No wheezes or crackles. Weak cough to stimulation. HEART: Regular rate and rhythm, normal S1-S2, no murmur, no JVD. ABDOMEN: Large, soft, no guarding. BS active. Nondistended. Benign. EXTREMITIES: Warm, well-perfused. tr+ generalized edema. NEUROLOGICAL: Opens eyes, moves extremities to stimulation. ? awareness. A/P Assessment and Plan ASSESSMENT: 1. Acute traumatic left-sided subdural hemorrhage. 2. Traumatic subarachnoid bleed. 3. Small frontal lobe contusion, right side. 4. Diabetes mellitus, type 2, controlled. 5. Mild hypertension. 6. Respiratory Failure, ventilator dependent. PLAN: 1. PRVC vent mode. Daily PSV trials. 2. Neurological checks. 3. Isotonic fluid only. 4. Head of bed up 30 degrees. 5. No chemical DVT px. 6. Labetalol for a blood pressure greater than 170. 7. Keppra for potential seizure complications. 8. Protonix for GI ulcer prophylaxis. 9. SCDs. 10. Clarify family goals. 11. Increase goal TFs to 55.. 12. Daily SBTs. 13. RASS 0 15. Laxatives 16. Precedex infusion, taper 17. Sputum culture -> pending 18. Probable tracheostomy. 19. Levemir 5 sq q12h 20. PT/OT OVERALL IMPRESSION: Improved mental status, tolerating CPAP but gets agitated. Looking at long-term rehab. Will need trach if family elects to continue aggressive care. Jong Abreu MD May 26, 2016 11:44
[2016-05-26] MEDS ORDERED: MIDAZOLAM HCL 5 MG/ML VIAL (1 ML) IV ONE (14:00)
[2016-05-26] MEDS ORDERED: VECURONIUM BROMIDE 10 MG VIAL IV PUSH ONE (14:00)
[2016-05-26] MEDS ORDERED: HYOSCYAMINE 0.5 MG/ML AMP IVP ONE (14:00)
--- NOTE | 2016-05-26 16:26 | PD.PROCEDR ---
Procedure Note Procedure Percutaneous Dilation Tracheostomy Tube Placement Diagnosis: Respiratory failure Indications: failure to wean Anesthesia: Midazolam, fentanyl, Neuromuscular Blockade: Vecuronium Anesthesia was provided by the bedside RN Description of the Procedure: The patient was sedated and paralyzed. The patient was positioned in the supine position with a chest roll. The patient's neck was slightly extended. Landmarks were palpated and the anatomy of the anterior neck was deemed normal. A time out procedure was performed. The patient was placed on a volume control mode of ventilation, on 100% FiO2. The patient was prepped and draped sterilely. A bronchoscope was inserted into the endotracheal tube for endoscopic guidance ( see separate bronchoscopy procedure note). After negative aspiration, 1% lidocaine with 1:100k epinephrine was injected subcutaneously in the midline neck using a 21g needle for local anesthesia. An approximately 2cm skin incision was made using a #15 blade. The cricoid cartilage, thyroid tissue, and tracheal rings were palpated in the midline. Under direct bronchoscopic guidance , the cuff of the endotracheal tube was deflated and the endotracheal tube was retracted to a level above the level of the skin incision. At this point, a 15g introducer needle/catheter was advanced midline under negative aspiration with saline filled syringe until bubbles were seen and the needle and catheter were visualized in the lumen of the trachea. The needle was withdrawn leaving the catheter in place. A 0.052 in diameter J-shaped guidewire was advanced through the catheter into the lumen of the trachea, under direct bronchoscopic visualization. Using a modified Seldinger technique, a 14 Fr, 4.5 cm introducer dilator was used, followed by a Blue Rhino Percutaneous Tracheostomy Dilator, and finally a 28 Fr tracheostomy loading catheter with 8.0 Cuffed Shiley tracheostomy tube. The loading catheter and guidewire were removed and the tracheostomy tube was confirmed in the lumen of the trachea with bronchoscopy, end-tidal CO2, and returning volumes on the ventilator. The tracheostomy was sewn to the skin with interrupted 2.0 Prolene sutures, and a tracheostomy tie was applied to the skin. There were no immediate complications. There was minimal EBL. A chest x-ray has been ordered. Citrus Fruit Packer: Justice Abreu MD I personally performed the procedure. Rut Bolden MD May 26, 2016 16:26
[2016-05-26] MEDS: cefTRIAXone INJ 1,000 MG in SODIUM CHLORIDE 0.9% INJ 100 ML IV SCH (17:04)
--- NOTE | 2016-05-26 18:26 | PD.PROCEDR ---
Procedure Note Procedure Procedure date 05/23/16 DX: Respiratory Failure OP: Orotracheal Intubation Procedure: Bag mask ventilation. Versed 5 mg and rocuronium 50 mg iv. Intubated orally with 8.0 tube. Position confirmed with CO2 detection, breath sounds, improved sats. CXR with tube in good position. Jong Abreu MD May 26, 2016 18:26
--- NOTE | 2016-05-26 18:31 | PD.PROCEDR ---
Procedure Note Procedure DX: Respiratory Failure OP: Flexible Fiberoptic Bronchoscopy Procedure: Scope passed through elbow in ventilation circuit while patient on mechanical ventilation in ICU. Tracheobronchial tree is mildly inflamed but otherwise normal. Endotracheal tube withdrawn to 15 cm from teeth while surgeon performed percutaneous tracheostomy. Insertion guided under direct visualization. Ventilation converted to new trach site when procedure completed. Sats maintained > 90% throughout procedure. Jong Abreu MD May 26, 2016 18:30
[2016-05-26] MEDS: hydrALAZINE HCL 20 MG/ML VIAL IV PUSH PRN (20:03)
--- NOTE | 2016-05-26 21:13 | RADRPT ---
EXAM DATE/TIME: 05/26/2016 20:28 [facility] COMPARISON: No previous studies available for comparison. INDICATIONS : Dobb al placement. MEDICAL HISTORY : None. SURGICAL HISTORY : None. ENCOUNTER: Initial ACUITY: 1 day PAIN SCORE: Non-responsive. LOCATION: Bilateral abdomen. FINDINGS: The tip of the Dobbhoff tube projects over the right lower chest in the right lower lobe bronchus. CONCLUSION: The tip of the Dobbhoff tube is in the right lower lobe bronchus. Findings were discussed with Afsaneh the patient's nurse on 05/26/2016 at 21:11 hours at the time of this dictation. Deanna Brennan MD on May 26, 2016 at 21:06 Board Certified Radiologist. This report was verified electronically.
[2016-05-26] MEDS: DEXMEDETOMIDINE INJ 1,000 MCG in SODIUM CHLOR 0.9% 250 ML INJ 240 ML IV SCH (22:35)
--- NOTE | 2016-05-26 22:48 | RADRPT ---
EXAM DATE/TIME: 05/26/2016 22:28 [facility] COMPARISON: ABDOMEN KUB ONLY, May 26, 2016, 20:28. INDICATIONS : Dobb al placement. MEDICAL HISTORY : None. SURGICAL HISTORY : None. ENCOUNTER: Initial ACUITY: 1 day PAIN SCORE: Non-responsive. LOCATION: Bilateral abdomen. FINDINGS: The bowel gas is nonspecific. There are no signs of obstruction or free air for technique. No defini te calcified stones are identified for technique. Dobbhoff tube is present with tip in the stomach. CONCLUSION: Nonspecific abdomen. Deanna Brennan MD on May 26, 2016 at 22:46 Board Certified Radiologist. This report was verified electronically.
[2016-05-26] MEDS: MORPHINE SULFATE 4 MG/ML INJ IV PUSH PRN (23:19)
[2016-05-27] VITALS (17 sets, daily range): BP systolic 110–162; BP diastolic 43–70; PULSE 62–91; RESP 15–21; TEMP 98.8–103.1; O2SAT 91–98
[2016-05-27] MEDS: levETIRAcetam INJ 500 MG in SODIUM CHLORIDE 0.9% INJ 100 ML IV SCH ×2 (00:23→13:20)
[2016-05-27] MEDS: INSULIN ASPART SUPPLEMENTAL SCALE SQ SCH ×4 (00:24→18:26)
[2016-05-27] MEDS: MORPHINE SULFATE 4 MG/ML INJ IV PUSH PRN ×2 (03:54→21:09)
--- NOTE | 2016-05-27 06:30 | HHI.CCPN ---
Subjective Remarks/Hospital Course Traumatic SDH. 05/17: This 85-year-old gentleman fell of bed last night and hit his head. He developed aphasia and confusion pretty rapidly and was seen in the emergency department in [place] with a right facial droop. Subsequent CT scan evaluation confirmed an acute left subdural hemorrhage of approximately 8 mm in width with a associated subarachnoid hemorrhage. Additionally in the frontal lobe on the right side he had a 1 cm area of hemorrhage with surrounding vasogenic edema. There was intraventricular blood as well on the right side. I met him on his arrival to [facility]. What was immediately noticeable was that he was not able to express himself well and that he was not following commands correctly. With gestures he was able to follow commands but not with verbal orders. 05/18: Deteriorating mental status, nasal trumpet placed for airway control, and will require intubation. 05/19: Ventilator dependent now. Family needs to clarify goals if possible/ practical. 05/20: A little more alert. Breathes well on CPAP. 05/21: Tolerating CPAP trials with good respiratory drive. 05/22: Agitated. Start precedex for attempted weaning trial and possible extubation. 05/23: Attempt weaning trial again today with low dose precedex for control of agitation. 05/24: Extubated yesterday but could not protect his airway, could not cough up secretions. Quickly failed and required re-intubation. 05/25: Will need trach if family wishes to continue with aggressive care. Worsening glucose intolerance. Will start BID levemir 05/26: No improvement in neurological function. Glucose control much improved. The family feels quite strongly about continued aggressive rehab. Therefore we will perform tracheostomy. Risk and benefits presented to and she wished to proceed. 05/27: Tracheostomy performed 05/26 at family request after discussion with Palliative Care service. Dobbhoff placed and we are now working on LTAC/rehab placement. He looks around the room and appears to recognize his family. Weak limb movements/hand grasps. Objective Vital Signs Date Time Temp Pulse Resp B/P Pulse Ox O2 Delivery O2 Flow Rate FiO2 05/27/16 04:00 69 05/27/16 04:00 50 05/27/16 03:27 97 05/27/16 00:00 103.1 16 114/58 05/23/16 14:13 Non-Rebreather 15 Intake and Output 05/26/16 05/26/16 05/27/16 08:00 16:00 00:00 Intake Total 615 ml 904 ml 824 ml Output Total 900 ml 1300 ml 2000 ml Balance -285 ml -396 ml -1176 ml Result Diagram: 05/25/16 0355 05/26/16 0315 Objective Remarks PHYSICAL EXAMINATION GENERAL: Intermittently agitated, elderly, gentleman. VITAL SIGNS: Pulse is 69 and sinus, blood pressure is 122/73, respiratory rate is 16. Tmax 103.3 HEAD: Clean dry incision/laceration clean. NECK: Orally intubated. Supple. Some oral secretions. LUNGS: Good air movement. No wheezes or crackles. Weak cough to stimulation. HEART: Regular rate and rhythm, normal S1-S2, no murmur, no JVD. ABDOMEN: Large, soft, no guarding. BS active. Nondistended. Benign. EXTREMITIES: Warm, well-perfused. tr+ generalized edema. NEUROLOGICAL: Opens eyes, moves extremities to stimulation. ? awareness. A/P Assessment and Plan ASSESSMENT: 1. Acute traumatic left-sided subdural hemorrhage. 2. Traumatic subarachnoid bleed. 3. Small frontal lobe contusion, right side. 4. Diabetes mellitus, type 2, controlled. 5. Mild hypertension. 6. Respiratory Failure, ventilator dependent. 7. UTI - Klebsiella, Enterococcus 8. Bronchitis - Strep PLAN: 1. PRVC vent mode. Daily PSV trials. 2. Neurological checks. 3. Isotonic fluid only. 4. Head of bed up 30 degrees. 5. No chemical DVT px. 6. Labetalol for a blood pressure greater than 170. 7. Keppra for potential seizure complications. 8. Protonix for GI ulcer prophylaxis. 9. SCDs. 10. Clarify family goals -> full code. 11. Increase goal TFs to 55.. 12. Daily SBTs. 13. RASS 0 15. Laxatives 16. Precedex infusion, taper 17. Sputum culture -> Strep 18. Probable tracheostomy. 19. Levemir 5 sq q12h 20. PT/OT 21: Continue ceftriaxone, add cipro OVERALL IMPRESSION: Improved mental status, tolerating CPAP but gets agitated. Looking at long-term rehab. Trach placed at family request, will work on transfer. Jong Abreu MD May 27, 2016 06:30
[2016-05-27] MEDS: LACTULOSE SYRUP 20 GM/30 ML CUP PO SCH ×2 (06:35→18:28)
[2016-05-27] MEDS: METOCLOPRAMIDE HCL 10 MG/2 ML VIAL IV SCH ×3 (06:35→22:49)
[2016-05-27] MEDS: hydrALAZINE HCL 25 MG TAB PO SCH ×3 (06:35→22:00)
--- NOTE | 2016-05-27 06:56 | RADRPT ---
EXAM DATE/TIME: 05/27/2016 06:43 [facility] COMPARISON: CHEST SINGLE AP, May 23, 2016, 15:38. INDICATIONS : Evaluate after respiratory failure. MEDICAL HISTORY : Hypertension. Diabetes mellitus type II. SURGICAL HISTORY : None. ENCOUNTER: Subsequent ACUITY: 4 - 6 days PAIN SCORE: Non-responsive. LOCATION: Bilateral chest FINDINGS: There is stable cardiomegaly. Tracheostomy tube is now placed. Feeding tube courses beneath the diaph ragm. EKG leads overlie the chest. There is consolidation in the left lower lobe. The right lung is c lear. CONCLUSION: Stable appearance of the lungs. Jv Parikh MD on May 27, 2016 at 6:54 Board Certified Radiologist. This report was verified electronically.
[2016-05-27] MEDS: FUROSEMIDE 40 MG/4 ML VIAL IV PUSH SCH (07:35)
[2016-05-27] MEDS: CIPROFLOXACIN 400 MG PREMIX 200 ML IV SCH ×2 (07:35→18:24)
[2016-05-27] MEDS: CHLORHEXIDINE 0.12% (ORAL KIT) 15 ML CUP MT SCH ×2 (08:23→21:07)
--- NOTE | 2016-05-27 08:24 | HHI.NSPN ---
Subjective History 85 yr old fell at home. He is generally very sedentary but alert and interactive. He suffered a significant left 8mm acute SDH with mass effect. He became very agitated and is delirious but the bleed has been stable. 05/20/16 He is intubated and sedated, appears peaceful at this time. 05/21/16 He has a low grade fever but the sedation is being weaned. 05/22/16 He is agitated on CPAP this am. He is moving all extremities but not following commands. Precedex is ordered. 05/23/16 He is less agitated on precedex. there is no evidence of DT 05/25/16 On precedex, exam limited, awaiting decision for tracheostomy 05/27/16 Day 1 after tracheostomy, awake and gestures to be left alone. Rhonchi present but secretions are thinner. He moves all extremities and follows with the eyes but does not follow commands. Vitals . Vital Signs Date Time Temp Pulse Resp B/P Pulse Ox O2 Delivery O2 Flow Rate FiO2 05/27/16 07:42 95 50 05/27/16 06:45 50 05/27/16 06:00 69 05/27/16 04:00 69 05/27/16 04:00 99.0 69 20 162/70 93 05/27/16 04:00 50 05/27/16 03:27 97 50 05/27/16 02:00 62 05/27/16 00:40 97 50 05/27/16 00:00 69 05/27/16 00:00 50 05/27/16 00:00 103.1 69 16 114/58 95 05/26/16 22:00 104 05/26/16 20:00 86 05/26/16 20:00 65 05/26/16 20:00 102.7 90 27 163/68 93 05/26/16 19:57 94 50 05/26/16 18:20 96 40 05/26/16 18:00 91 05/26/16 16:00 100.6 72 20 160/73 95 05/26/16 16:00 99 100 05/26/16 16:00 72 05/26/16 16:00 35 05/26/16 14:00 65 05/26/16 13:28 95 35 05/26/16 12:00 68 05/26/16 12:00 35 05/26/16 12:00 99.1 68 16 132/62 95 05/26/16 10:00 68 05/26/16 09:14 95 35 05/26/16 09:14 35 05/26/16 05/26/16 05/27/16 15:00 23:00 07:00 Intake Total 904 ml 824 ml 506 ml Output Total 1300 ml 2000 ml 350 ml Balance -396 ml -1176 ml 156 ml Maximum Temperature: 103 Physical Exam Eyes Eyes: Pupils Equal Neuro Mental Status: Lethargic Pupils: Reactive Bilaterally Face: Symmetric Tatiana Coma Scale Best Eye Openin - To speech Best Verbal: 1 - None Best Motor: 5 - Localizes pain Total Glascow Coma Scale (GCS): 9 Cardiac Cardiac: Regular Rate & Rhythm Respiratory Respiratory: Rhonchi Gastrointestinal Gastrointestinal: Soft Musculoskeletal Extremities Upper Extremities Deltoid Bicep Tricep HI W. Ext Right Left Lower Extremeties Ilio Quad Plantar Dorsi EHL Right Left Musculoskeletal Remarks Moves purposefully with the right hand, withdraws lower extremities to stimulation, no spasticity, does not follow commands Extremities Edema: SCDs Assessment & Plan Diagnosis: (1) Subdural hematoma, acute Plan: The bleed and cerebral contusion will be followed radiologically, they are mostly left hemispheric 8mm SDH and bilateral SAH. Seizure prophylaxis, DVT and PUD prophylaxis is planned as well as OT/PT. Alcohol withdrawal prophylaxis is planned. He is full code at this time but has requested anteriorly no aggressive prolonged ventilatory support. 05/20/16 Supportive care is continued, sedation holiday is planned in the morning. No new focal findings. Cultures are pending 05/21/16 The SDH is stable and he has small cerebral contusion in the gyri recti bilaterally and in the left frontal/inferior temporal regions. No increased bleeding or shift is appreciated. Supportive care is continued with the goal of extubation. 05/22/16 CPAP trials are continued, sedation with precedex as tolerated. 05/23/16 Evolving cerebral contusions and left small SDH, weaning with the goal of extubation today. Rehab services will follow. Pulmonary toilet, DVT and PUD as well as seizure prophylaxis is continued. 05/25/16 Extubated failed 2 days ago, sedated on precedex, awaiting decision for tracheostomy. 05/27/16 Day 1 after tracheostomy, more alert but does not want to be bothered. Plan weaning of sedation, sit up in bed as tolerated, OT/PT Plan 10 Devonte Dunham May 27, 2016 08:24
[2016-05-27] MEDS: BENEPROTEIN POWDER 1 PACK G-TUBE SCH ×3 (09:00→18:12)
[2016-05-27] MEDS: TIMOLOL MALEATE 0.25% OPHT SOLN 5 ML BTL EACH EYE SCH ×2 (09:00→21:08)
[2016-05-27] MEDS: LISINOPRIL 20 MG TAB PO SCH ×2 (09:00→20:00)
[2016-05-27] MEDS: INSULIN DETEMIR 100 UNITS/ML VIAL SQ SCH ×2 (09:35→21:10)
[2016-05-27] MEDS: PANTOPRAZOLE SODIUM 40 MG VIAL IV SCH (09:35)
[2016-05-27] MEDS: FOLIC ACID 1 MG TAB PO SCH (09:36)
[2016-05-27] MEDS: ATORVASTATIN 20 MG TAB PO SCH (09:36)
[2016-05-27] MEDS: POLYETHYLENE GLYCOL 17 GM PKG PO SCH (09:36)
[2016-05-27] MEDS: SODIUM CHLORIDE 0.9% FLUSH 5 ML FLUSH IVF SCH ×2 (09:36→21:08)
[2016-05-27] MEDS: amLODIPine BESYLATE 5 MG TAB PO SCH ×2 (09:36→21:00)
[2016-05-27] MEDS: DEXMEDETOMIDINE INJ 1,000 MCG in SODIUM CHLOR 0.9% 250 ML INJ 240 ML IV SCH ×2 (09:54→21:34)
[2016-05-27 10:48] LABS: BICARBONATE 27.7 MEQ/L (21.0-32.0); MAGNESIUM 2.1 MG/DL (1.5-2.5); POTASSIUM 3.9 MEQ/L (3.5-5.1)
[2016-05-27] MEDS: THIAMINE INJ 100 MG in SODIUM CHLORIDE 0.9% INJ 100 ML IV SCH (11:43)
[2016-05-27] MEDS ORDERED: MIDAZOLAM HCL 5 MG/ML VIAL (1 ML) ONE ×2 (14:37)
--- NOTE | 2016-05-27 15:12 | PD.PROCEDR ---
Procedure Note Procedure DX: Hypoxemic Respiratory Failure (J96.01) OP: Insertion Right Radial Artery Line (88860) Procedure: Raphael test normal right hand. Wrist supinated and prepped, draped. Right radial artery cannulated with 20 gauge needle and cannula easily introduced. Good waveform observed. Dressing applied. Circulation to hand intact after procedure. Jong Abreu MD May 27, 2016 15:12
[2016-05-27 15:32] LABS: AUTOMATED NEUTROPHIL # 16.5 TH/MM3 (1.8-7.7); BASOPHIL % 0.2 % (0.0-2.0); EOSINOPHIL # 0.1 TH/MM3 (0-0.4); EOSINOPHIL % 0.5 % (0.0-4.0); LYMPH % 3.7 % (9.0-44.0); LYMPHOCYTE # 0.7 TH/MM3 (1.0-4.8); MEAN CELL VOLUME 90.1 FL (80.0-100.0); MEAN CORPUSCULAR HEMOGLOBIN 30.2 PG (27.0-34.0); MEAN CORPUSCULAR HGB CONC 33.5 % (32.0-36.0); MONO % 6.2 % (0.0-8.0); NEUT % 89.4 % (16.0-70.0); PLATELET COUNT 317 TH/MM3 (150-450); RED BLOOD COUNT 2.78 MIL/MM3 (4.50-5.90); RED CELL DISTRIBUTION WIDTH 13.7 % (11.6-17.2); WHITE BLOOD COUNT 18.4 TH/MM3 (4.0-11.0)
[2016-05-27 15:32] LABS: BLOOD GAS BASE EXCESS 4.1 mmol/L (-2-2); BLOOD GAS CARBOXYHEMOGLOBIN 1.1 % (0-4); BLOOD GAS HCO3 27 mmol/L (22-26); BLOOD GAS METHEMOGLOBIN 0.7 % (0-2); BLOOD GAS O2 HGB SATURATION 95 % (90-100); BLOOD GAS OXYGEN CONTENT 13.2 Vol % (12.0-20.0); BLOOD GAS PCO2 36 mmHg (38-42); BLOOD GAS PO2 87 mmHg (61-120); BLOOD GAS TOTAL HGB 9.8 G/DL (12.0-16.0); CRITICAL VALUE NO; DRAW SITE ALINE; FIO2 70 %; OXYGEN DEVICE VENTILATOR; STAT YES; TEMP CORR TO 98.6; VENT SETTINGS PRVC/AC
[2016-05-27 15:36] LABS: HEMO FLAGS AUTO DIFF
[2016-05-27] MEDS ORDERED: MIDAZOLAM HCL 5 MG/5 ML VIAL IV ONE (16:00)
[2016-05-27 16:04] LABS: BANDS 13 % (0-6); BASOPHILS 1 % (0-2); EOSINOPHILS 1 % (0-4); NEUTROPHIL # MANUAL DIFF 16.4 TH/MM3 (1.8-7.7); POLYS (SEG NEUTROPHILS) 76 % (16-70); WBC DIFF SAMPLE 100
[2016-05-27 16:05] LABS: HOWELL-JOLLY BODIES PRESENT (NONE SEEN); PLATELET ESTIMATE SMEAR NORMAL (NORMAL); PLATELET MORPHOLOGY NORMAL (NORMAL)
[2016-05-27 16:06] LABS: SCAN/DIFF FINAL DIFF MANUAL
[2016-05-27] MEDS: cefTRIAXone INJ 1,000 MG in SODIUM CHLORIDE 0.9% INJ 100 ML IV SCH (17:01)
--- NOTE | 2016-05-27 18:57 | RADRPT ---
EXAM DATE/TIME: 05/27/2016 18:24 [facility] COMPARISON: ABDOMEN SINGLE VIEW, May 26, 2016, 22:28. INDICATIONS : Evaluate for dobbhoff placement. MEDICAL HISTORY : None. SURGICAL HISTORY : None. ENCOUNTER: Subsequent ACUITY: 1 day PAIN SCORE: Non-responsive. LOCATION: Abdomen FINDINGS: The metallic tip of the Dobbhoff catheter projects in the lower chest to the right of the thoracic sp ine. The tip of the tube is at least 5 cm above the expected location of the diaphragm. CONCLUSION: Tip of the Dobbhoff catheter is still intrathoracic. Eleazar Solorio MD on May 27, 2016 at 18:55 Board Certified Radiologist. This report was verified electronically.
--- NOTE | 2016-05-27 20:19 | RADRPT ---
EXAM DATE/TIME: 05/27/2016 19:50 [facility] COMPARISON: ABDOMEN SINGLE VIEW, May 27, 2016, 18:24. INDICATIONS : Dobbhoff advancement. MEDICAL HISTORY : Diabetes mellitus type II. SURGICAL HISTORY : None. ENCOUNTER: Subsequent ACUITY: 2 days PAIN SCORE: Non-responsive. LOCATION: Bilateral abdomen. FINDINGS: The Dobbhoff tube has been repositioned and the tip is now in the right upper quadrant 10 cm to the r ight of the spine, either in the proximal duodenum or distal stomach. CONCLUSION: Dobbhoff catheter has been advanced and is now either in the distal stomach or proximal duodenum. Eleazar Solorio MD on May 27, 2016 at 20:17 Board Certified Radiologist. This report was verified electronically.
[2016-05-27] MEDS: ACETAMINOPHEN 1000 MG/100 ML VIAL IV PRN (21:11)
[2016-05-28] VITALS (21 sets, daily range): BP systolic 100–136; BP diastolic 6–70; PULSE 57–102; RESP 14–24; TEMP 98.3–99.5; O2SAT 95–100
[2016-05-28] MEDS: CHLORHEXIDINE GLUCONATE 2 % 1 PACK (2 CLOTHS) TOP SCH ×2 (00:20→22:16)
[2016-05-28] MEDS: levETIRAcetam INJ 500 MG in SODIUM CHLORIDE 0.9% INJ 100 ML IV SCH ×3 (00:25→23:21)
[2016-05-28] MEDS: INSULIN ASPART SUPPLEMENTAL SCALE SQ SCH ×5 (00:26→23:21)
[2016-05-28] MEDS ORDERED: ATROPINE SULFATE 1 MG/10 ML SYRINGE ONE (03:44)
[2016-05-28] MEDS ORDERED: EPINEPHrine HCL (1:10,000) 1 MG/10 ML SYRINGE ONE (03:44)
[2016-05-28] MEDS ORDERED: LIDOCAINE HCL 2% 100 MG/5 ML SYRINGE ONE (03:45)
[2016-05-28 03:53] LABS: AUTOMATED NEUTROPHIL # 13.3 TH/MM3 (1.8-7.7); BASOPHIL # 0.1 TH/MM3 (0-0.2); BASOPHIL % 0.9 % (0.0-2.0); EOSINOPHIL # 0.3 TH/MM3 (0-0.4); EOSINOPHIL % 2.1 % (0.0-4.0); HEMATOCRIT 24.7 % (39.0-51.0); HEMO FLAGS DIFF FINAL; LYMPH % 7.3 % (9.0-44.0); LYMPHOCYTE # 1.2 TH/MM3 (1.0-4.8); MEAN CELL VOLUME 91.2 FL (80.0-100.0); MEAN CORPUSCULAR HEMOGLOBIN 30.7 PG (27.0-34.0); MEAN CORPUSCULAR HGB CONC 33.7 % (32.0-36.0); MONO % 5.6 % (0.0-8.0); NEUT % 84.1 % (16.0-70.0); PLATELET COUNT 281 TH/MM3 (150-450); RED BLOOD COUNT 2.71 MIL/MM3 (4.50-5.90); RED CELL DISTRIBUTION WIDTH 13.9 % (11.6-17.2); WHITE BLOOD COUNT 15.8 TH/MM3 (4.0-11.0)
[2016-05-28 04:06] LABS: BLOOD GAS BASE EXCESS 2.6 mmol/L (-2-2); BLOOD GAS CARBOXYHEMOGLOBIN 0.8 % (0-4); BLOOD GAS HCO3 26 mmol/L (22-26); BLOOD GAS METHEMOGLOBIN 0.8 % (0-2); BLOOD GAS O2 HGB SATURATION 96 % (90-100); BLOOD GAS OXYGEN CONTENT 13.3 Vol % (12.0-20.0); BLOOD GAS PCO2 38 mmHg (38-42); BLOOD GAS PO2 104 mmHg (61-120); BLOOD GAS TOTAL HGB 9.8 G/DL (12.0-16.0); CRITICAL VALUE NO; OXYGEN DEVICE VENTILATOR; TEMP CORR TO 98.6
[2016-05-28 04:07] LABS: DRAW SITE ART LINE; FIO2 60 %; STAT NO; VENT SETTINGS PRVC/AC
[2016-05-28 04:28] LABS: BICARBONATE 28.5 MEQ/L (21.0-32.0); POTASSIUM 3.7 MEQ/L (3.5-5.1)
--- NOTE | 2016-05-28 04:41 | RADRPT ---
EXAM DATE/TIME: 05/28/2016 04:15 [place] COMPARISON: CT BRAIN W/O CONTRAST, May 21, 2016, 4:17. INDICATIONS : Follow up bleed. RADIATION DOSE: 40.94 CTDIvol (mGy) MEDICAL HISTORY : Hypertension. Cardiovascular disease Diabetes mellitus type 2.Renal disease. SURGICAL HISTORY : None. ENCOUNTER: Subsequent ACUITY: 1 week PAIN SCALE: Non-responsive LOCATION: cranial TECHNIQUE: Multiple contiguous axial images were obtained of the head. Using automated exposure control and adj ustment of the mA and/or kV according to patient size, radiation dose was kept as low as reasonably a chievable to obtain optimal diagnostic quality images. FINDINGS: Previous examination demonstrated left occipital contusion, subarachnoid and subdural hemorrhage. On the current study there are bilateral hypodense subdural collections as well as a decrease in size of the hyperdense subdural hematoma on the left. There is intraventricular hemorrhage again seen in the posterior horns which is stable, and subarachnoid hemorrhage and cortical sulci is also present thou gh decreased. There are no new areas of hemorrhage seen. No midline shift. There is slight mass effec t on the frontal lobes. CONCLUSION: Bilateral subdural hematomas becoming less dense today and decreased in size on the left. Subarachnoi d and intraventricular hemorrhage again seen. Mild mass effect on the frontal lobes is present. Jv Parikh MD on May 28, 2016 at 4:38 Board Certified Radiologist. This report was verified electronically.
[2016-05-28] MEDS: hydrALAZINE HCL 25 MG TAB PO SCH ×3 (06:00→22:10)
[2016-05-28] MEDS: METOCLOPRAMIDE HCL 10 MG/2 ML VIAL IV SCH ×3 (06:34→21:15)
[2016-05-28] MEDS: CIPROFLOXACIN 400 MG PREMIX 200 ML IV SCH ×2 (06:34→17:34)
[2016-05-28] MEDS: LACTULOSE SYRUP 20 GM/30 ML CUP PO SCH ×2 (06:35→17:35)
[2016-05-28] MEDS: POLYETHYLENE GLYCOL 17 GM PKG PO SCH (09:00)
[2016-05-28] MEDS: LISINOPRIL 20 MG TAB PO SCH ×2 (09:00→19:21)
[2016-05-28] MEDS: SODIUM CHLORIDE 0.9% FLUSH 5 ML FLUSH IVF SCH ×2 (09:00→21:11)
[2016-05-28] MEDS: amLODIPine BESYLATE 5 MG TAB PO SCH ×2 (09:00→21:15)
--- NOTE | 2016-05-28 09:30 | HHI.NSPN ---
Subjective History 85 yr old fell at home. He is generally very sedentary but alert and interactive. He suffered a significant left 8mm acute SDH with mass effect. He became very agitated and is delirious but the bleed has been stable. 05/20/16 He is intubated and sedated, appears peaceful at this time. 05/21/16 He has a low grade fever but the sedation is being weaned. 05/22/16 He is agitated on CPAP this am. He is moving all extremities but not following commands. Precedex is ordered. 05/23/16 He is less agitated on precedex. there is no evidence of DT 05/25/16 On precedex, exam limited, awaiting decision for tracheostomy 05/27/16 Day 1 after tracheostomy, awake and gestures to be left alone. Rhonchi present but secretions are thinner. He moves all extremities and follows with the eyes but does not follow commands. 05/28/16 Day 2 after tracheostomy, more alert and now following commands. He pulled his a line Vitals . Vital Signs Date Time Temp Pulse Resp B/P Pulse Ox O2 Delivery O2 Flow Rate FiO2 05/28/16 09:05 99 50 05/28/16 06:00 75 05/28/16 04:41 100 100 05/28/16 04:32 98 60 05/28/16 04:00 65 05/28/16 04:00 99.2 72 16 112/53 100 134/63 05/28/16 04:00 72 05/28/16 02:00 57 05/28/16 01:52 99 60 05/28/16 00:00 65 05/28/16 00:00 99.0 63 14 100/33 98 100/51 05/28/16 00:00 63 05/27/16 22:40 65 05/27/16 22:35 98 65 05/27/16 22:00 67 05/27/16 20:00 103.0 75 15 129/43 98 110/54 05/27/16 20:00 70 05/27/16 20:00 74 05/27/16 19:32 95 70 05/27/16 18:00 70 05/27/16 18:00 75 05/27/16 17:18 98 70 05/27/16 16:00 75 05/27/16 16:00 99.1 73 18 139/43 98 05/27/16 12:17 94 50 05/27/16 10:00 71 05/27/16 05/27/16 05/28/16 15:00 23:00 07:00 Intake Total 1325 ml 987 ml Output Total 2250 ml 325 ml Balance -925 ml 662 ml Physical Exam Eyes Eyes: Pupils Equal Neuro Mental Status: Awake, Alert Pupils: Reactive Bilaterally [place] Coma Scale Best Eye Openin - Spontaneous Best Verbal: 4 - Confused Best Motor: 6 - Obeys Total [place] Coma Scale (GCS): 14 Cardiac Cardiac: Regular Rate & Rhythm Respiratory Respiratory: Rhonchi Gastrointestinal Gastrointestinal: Soft Bowel Sounds: Present Genitourinary Genitourinary: Moreno Catheter In Place Musculoskeletal Extremities Upper Extremities Deltoid Bicep Tricep HI W. Ext Right Left Lower Extremeties Ilio Quad Plantar Dorsi EHL Right Left Musculoskeletal Remarks Moves purposefully and follows commands with both hands, withdraws lower extremities to stimulation, no spasticity Objective Infectious Disease Cultures Microbiology Date/Time Procedure Status Source Growth 05/27/16 09:39 Aerobic Blood Culture Received Blood Peripheral Pending 05/27/16 09:39 Anaerobic Blood Culture Received Blood Peripheral Pending 05/27/16 09:45 Aerobic Blood Culture Received Blood Peripheral Pending 05/27/16 09:45 Anaerobic Blood Culture Received Blood Peripheral Pending Labs Laboratory Tests 05/27/16 09:39 05/27/16 15:10 05/28/16 03:10 Laboratory Tests Test 05/27/16 05/27/16 05/28/16 09:39 15:10 03:10 Sodium Level 143 MEQ/L 142 MEQ/L Potassium Level 3.9 MEQ/L 3.7 MEQ/L Chloride Level 106 MEQ/L 105 MEQ/L Carbon Dioxide Level 27.7 MEQ/L 28.5 MEQ/L Anion Gap 9 MEQ/L 9 MEQ/L Blood Urea Nitrogen 27 MG/DL 32 MG/DL Creatinine 1.00 MG/DL 1.06 MG/DL Estimat Glomerular Filtration 71 ML/MIN 66 ML/MIN Rate Random Glucose 197 MG/DL 224 MG/DL Calcium Level 7.8 MG/DL 7.7 MG/DL Phosphorus Level 3.7 MG/DL Magnesium Level 2.1 MG/DL Lactic Acid Level 0.9 mmol/L Imaging Remarks Last Impressions Head CT 05/28/16 0600 Signed Impressions: Service Date/Time: Saturday, May 28, 2016 04:15 - CONCLUSION: Bilateral subdural hematomas becoming less dense today and decreased in size on the left. Subarachnoid and intraventricular hemorrhage again seen. Mild mass effect on the frontal lobes is present. Jv Parikh MD Chest X-Ray 05/27/16 0000 Signed Impressions: Service Date/Time: Friday, May 27, 2016 06:43 - CONCLUSION: Stable appearance of the lungs. Jv Parikh MD Abdomen X-Ray 05/27/16 0000 Signed Impressions: Service Date/Time: Friday, May 27, 2016 19:50 - CONCLUSION: Dobbhoff catheter has been advanced and is now either in the distal stomach or proximal duodenum. Eleazar Solorio MD Transcranial Doppler Study Complete 05/18/16 0730 Signed Impressions: Service Date/Time: April 08:12 - CONCLUSION: 1. No evidence of vasospasm Bill Means MD Assessment & Plan Diagnosis: (1) Subdural hematoma, acute Plan: The bleed and cerebral contusion will be followed radiologically, they are mostly left hemispheric 8mm SDH and bilateral SAH. Seizure prophylaxis, DVT and PUD prophylaxis is planned as well as OT/PT. Alcohol withdrawal prophylaxis is planned. He is full code at this time but has requested anteriorly no aggressive prolonged ventilatory support. 05/20/16 Supportive care is continued, sedation holiday is planned in the morning. No new focal findings. Cultures are pending 05/21/16 The SDH is stable and he has small cerebral contusion in the gyri recti bilaterally and in the left frontal/inferior temporal regions. No increased bleeding or shift is appreciated. Supportive care is continued with the goal of extubation. 05/22/16 CPAP trials are continued, sedation with precedex as tolerated. 05/23/16 Evolving cerebral contusions and left small SDH, weaning with the goal of extubation today. Rehab services will follow. Pulmonary toilet, DVT and PUD as well as seizure prophylaxis is continued. 05/25/16 Extubated failed 2 days ago, sedated on precedex, awaiting decision for tracheostomy. 05/27/16 Day 1 after tracheostomy, more alert but does not want to be bothered. Plan weaning of sedation, sit up in bed as tolerated, OT/PT 05/28/16 The SAH is resolving. Small bilateral subdural hygromas are forming but without mass effect. He is ready to resume CPAP trials Plan 10 Devonte Dunham May 28, 2016 09:30
[2016-05-28] MEDS: THIAMINE INJ 100 MG in SODIUM CHLORIDE 0.9% INJ 100 ML IV SCH (09:45)
[2016-05-28] MEDS: ATORVASTATIN 20 MG TAB PO SCH (09:46)
[2016-05-28] MEDS: PANTOPRAZOLE SODIUM 40 MG VIAL IV SCH (09:46)
[2016-05-28] MEDS: FOLIC ACID 1 MG TAB PO SCH (09:47)
[2016-05-28] MEDS: INSULIN DETEMIR 100 UNITS/ML VIAL SQ SCH ×2 (09:47→21:11)
[2016-05-28] MEDS: TIMOLOL MALEATE 0.25% OPHT SOLN 5 ML BTL EACH EYE SCH ×2 (09:47→20:31)
[2016-05-28] MEDS: CHLORHEXIDINE 0.12% (ORAL KIT) 15 ML CUP MT SCH ×2 (09:47→19:21)
[2016-05-28] MEDS: BENEPROTEIN POWDER 1 PACK G-TUBE SCH ×3 (09:48→17:35)
[2016-05-28] MEDS: MORPHINE SULFATE 4 MG/ML INJ IV PUSH PRN ×2 (10:00→20:10)
--- NOTE | 2016-05-28 10:03 | HHI.CCPN ---
Subjective Remarks/Hospital Course Traumatic SDH. 05/17: This 85-year-old gentleman fell of bed last night and hit his head. He developed aphasia and confusion pretty rapidly and was seen in the emergency department in [place] with a right facial droop. Subsequent CT scan evaluation confirmed an acute left subdural hemorrhage of approximately 8 mm in width with a associated subarachnoid hemorrhage. Additionally in the frontal lobe on the right side he had a 1 cm area of hemorrhage with surrounding vasogenic edema. There was intraventricular blood as well on the right side. I met him on his arrival to [facility]. What was immediately noticeable was that he was not able to express himself well and that he was not following commands correctly. With gestures he was able to follow commands but not with verbal orders. 05/18: Deteriorating mental status, nasal trumpet placed for airway control, and will require intubation. 05/19: Ventilator dependent now. Family needs to clarify goals if possible/ practical. 05/20: A little more alert. Breathes well on CPAP. 05/21: Tolerating CPAP trials with good respiratory drive. 05/22: Agitated. Start precedex for attempted weaning trial and possible extubation. 05/23: Attempt weaning trial again today with low dose precedex for control of agitation. 05/24: Extubated yesterday but could not protect his airway, could not cough up secretions. Quickly failed and required re-intubation. 05/25: Will need trach if family wishes to continue with aggressive care. Worsening glucose intolerance. Will start BID levemir 05/26: No improvement in neurological function. Glucose control much improved. The family feels quite strongly about continued aggressive rehab. Therefore we will perform tracheostomy. Risk and benefits presented to and she wished to proceed. 05/27: Tracheostomy performed 05/26 at family request after discussion with Palliative Care service. Dobbhoff placed and we are now working on LTAC/rehab placement. He looks around the room and appears to recognize his family. Weak limb movements/hand grasps. 05/28: Remains on mechanical ventilation via tracheostomy. Start daily C Pap trials and will attempt transitioned to trach collar if tolerated. Objective Vital Signs Date Time Temp Pulse Resp B/P Pulse Ox O2 Delivery O2 Flow Rate FiO2 05/28/16 09:05 99 50 05/28/16 06:00 75 05/28/16 04:00 99.2 16 112/53 134/63 Intake and Output 05/27/16 05/27/16 05/28/16 08:00 16:00 00:00 Intake Total 506 ml 1325 ml Output Total 350 ml 2250 ml Balance 156 ml -925 ml Result Diagram: 05/28/16 0310 05/28/16309 Other Results Laboratory Tests Test 05/27/16 05/27/16 05/28/16 05/28/16 15:10 15:28 03:10 03:55 White Blood Count 18.4 TH/MM3 15.8 TH/MM3 Red Blood Count 2.78 MIL/MM3 2.71 MIL/MM3 Hemoglobin 8.4 GM/DL 8.3 GM/DL Hematocrit 25.0 % 24.7 % Mean Corpuscular Volume 90.1 FL 91.2 FL Mean Corpuscular Hemoglobin 30.2 PG 30.7 PG Mean Corpuscular Hemoglobin 33.5 % 33.7 % Concent Red Cell Distribution Width 13.7 % 13.9 % Platelet Count 317 TH/MM3 281 TH/MM3 Mean Platelet Volume 8.9 FL 9.5 FL Neutrophils (%) (Auto) 89.4 % 84.1 % Lymphocytes (%) (Auto) 3.7 % 7.3 % Monocytes (%) (Auto) 6.2 % 5.6 % Eosinophils (%) (Auto) 0.5 % 2.1 % Basophils (%) (Auto) 0.2 % 0.9 % Neutrophils # (Auto) 16.5 TH/MM3 13.3 TH/MM3 Lymphocytes # (Auto) 0.7 TH/MM3 1.2 TH/MM3 Monocytes # (Auto) 1.1 TH/MM3 0.9 TH/MM3 Eosinophils # (Auto) 0.1 TH/MM3 0.3 TH/MM3 Basophils # (Auto) 0.0 TH/MM3 0.1 TH/MM3 CBC Comment AUTO DIFF DIFF FINAL Differential Total Cells 100 Counted Neutrophils % (Manual) 76 % Band Neutrophils % 13 % Lymphocytes % 5 % Monocytes % 4 % Eosinophils % 1 % Basophils % 1 % Neutrophils # (Manual) 16.4 TH/MM3 Differential Comment FINAL DIFF MANUAL Platelet Estimate NORMAL Platelet Morphology Comment NORMAL [place] Bodies PRESENT Lactic Acid Level 0.9 mmol/L Blood Gas Puncture Site PATRICIA ART LINE Blood Gas Patient Temperature 98.6 98.6 Blood Gas HCO3 27 mmol/L 26 mmol/L Blood Gas Base Excess 4.1 mmol/L 2.6 mmol/L Blood Gas Oxygen Saturation 95 % 96 % Arterial Blood pH 7.50 7.46 Arterial Blood Partial 36 mmHg 38 mmHg Pressure CO2 Arterial Blood Partial 87 mmHg 104 mmHg Pressure O2 Arterial Blood Oxygen Content 13.2 Vol % 13.3 Vol % Arterial Blood 1.1 % 0.8 % Carboxyhemoglobin Arterial Blood Methemoglobin 0.7 % 0.8 % Blood Gas Hemoglobin 9.8 G/DL 9.8 G/DL Oxygen Delivery Device VENTILATOR VENTILATOR Blood Gas Ventilator Setting PRVC/AC PRVC/AC Blood Gas Inspired Oxygen 70 % 60 % Sodium Level 142 MEQ/L Potassium Level 3.7 MEQ/L Chloride Level 105 MEQ/L Carbon Dioxide Level 28.5 MEQ/L Anion Gap 9 MEQ/L Blood Urea Nitrogen 32 MG/DL Creatinine 1.06 MG/DL Estimat Glomerular Filtration 66 ML/MIN Rate Random Glucose 224 MG/DL Calcium Level 7.7 MG/DL Imaging Last [address] 05/28/16 0600 Signed Impressions: Service Date/Time: Saturday, May 28, 2016 04:15 - CONCLUSION: Bilateral subdural hematomas becoming less dense today and decreased in size on the left. Subarachnoid and intraventricular hemorrhage again seen. Mild mass effect on the frontal lobes is present. Jv Parikh MD Chest X-Ray 05/27/16 0000 Signed Impressions: Service Date/Time: Friday, May 27, 2016 06:43 - CONCLUSION: Stable appearance of the lungs. Jv Parikh MD Abdomen X-Ray 05/27/16 0000 Signed Impressions: Service Date/Time: Friday, May 27, 2016 19:50 - CONCLUSION: Dobbhoff catheter has been advanced and is now either in the distal stomach or proximal duodenum. Eleazar Solorio MD Abdomen X-Ray 05/27/16 0000 Signed Impressions: Service Date/Time: Friday, May 27, 2016 18:24 - CONCLUSION: Tip of the Dobbhoff catheter is still intrathoracic. Eleazar Solorio MD Objective Remarks PHYSICAL EXAMINATION GENERAL: Intermittently agitated, elderly, gentleman. VITAL SIGNS: Pulse is 69 and sinus, blood pressure is 122/73, respiratory rate is 16. Tmax 103.3 HEAD: Clean dry incision/laceration clean. NECK: Orally intubated. Supple. Some oral secretions. LUNGS: Good air movement. No wheezes or crackles. Weak cough to stimulation. HEART: Regular rate and rhythm, normal S1-S2, no murmur, no JVD. ABDOMEN: Large, soft, no guarding. BS active. Nondistended. Benign. EXTREMITIES: Warm, well-perfused. tr+ generalized edema. NEUROLOGICAL: Opens eyes, moves extremities to stimulation. ? awareness. A/P Assessment and Plan ASSESSMENT: 1. Acute traumatic left-sided subdural hemorrhage. 2. Traumatic subarachnoid bleed. 3. Small frontal lobe contusion, right side. 4. Diabetes mellitus, type 2, controlled. 5. Mild hypertension. 6. Respiratory Failure, ventilator dependent. 7. UTI - Klebsiella, Enterococcus 8. Bronchitis - Strep PLAN: 1. PRVC vent mode. Daily PSV trials. 2. Neurological checks. 3. Isotonic fluid only. 4. Head of bed up 30 degrees. 5. No chemical DVT px. 6. Labetalol for a blood pressure greater than 170. 7. Keppra for potential seizure complications. 8. Protonix for GI ulcer prophylaxis. 9. SCDs. 10. Clarify family goals -> full code. 11. Increase goal TFs to 55.. 12. Daily SBTs. 13. RASS 0 15. Laxatives 16. Precedex infusion, taper 17. Sputum culture -> Strep 18. Probable tracheostomy. 19. Levemir 5 sq q12h 20. PT/OT 21: Continue ceftriaxone, cipro OVERALL IMPRESSION: Improved mental status, tolerating CPAP but gets agitated. Looking at long-term rehab. Trach placed at family request, will work on transfer. Bolivar Parks MD May 28, 2016 10:02
[2016-05-28] MEDS: DEXMEDETOMIDINE INJ 1,000 MCG in SODIUM CHLOR 0.9% 250 ML INJ 240 ML IV SCH (13:23)
[2016-05-28] MEDS: cefTRIAXone INJ 1,000 MG in SODIUM CHLORIDE 0.9% INJ 100 ML IV SCH (16:12)
[2016-05-29] VITALS (18 sets, daily range): BP systolic 123–158; BP diastolic 59–67; PULSE 65–128; RESP 16–23; TEMP 98.9–103; O2SAT 77–100
[2016-05-29] MEDS: MORPHINE SULFATE 4 MG/ML INJ IV PUSH PRN ×2 (01:30→18:42)
[2016-05-29 03:46] LABS: BLOOD GAS BASE EXCESS 3.3 mmol/L (-2-2); BLOOD GAS CARBOXYHEMOGLOBIN 1.2 % (0-4); BLOOD GAS HCO3 27 mmol/L (22-26); BLOOD GAS METHEMOGLOBIN 0.8 % (0-2); BLOOD GAS O2 HGB SATURATION 93 % (90-100); BLOOD GAS OXYGEN CONTENT 11.8 Vol % (12.0-20.0); BLOOD GAS PCO2 37 mmHg (38-42); BLOOD GAS PO2 72 mmHg (61-120); CRITICAL VALUE NO; OXYGEN DEVICE VENTILATOR; TEMP CORR TO 98.6
[2016-05-29 03:47] LABS: DRAW SITE RT RADIAL; FIO2 40 %; NUMBER OF ARTERIAL PUNCTURES 1; STAT NO; ULNAR PULSE PRESENT; VENT SETTINGS PRVC/AC
[2016-05-29] MEDS: ACETAMINOPHEN 1000 MG/100 ML VIAL IV PRN ×2 (04:07→21:55)
[2016-05-29] MEDS: CIPROFLOXACIN 400 MG PREMIX 200 ML IV SCH ×2 (05:47→18:16)
[2016-05-29] MEDS: LACTULOSE SYRUP 20 GM/30 ML CUP PO SCH ×2 (05:48→17:56)
[2016-05-29] MEDS: DEXMEDETOMIDINE INJ 1,000 MCG in SODIUM CHLOR 0.9% 250 ML INJ 240 ML IV SCH (05:48)
[2016-05-29] MEDS: METOCLOPRAMIDE HCL 10 MG/2 ML VIAL IV SCH ×3 (05:48→21:24)
[2016-05-29] MEDS: hydrALAZINE HCL 25 MG TAB PO SCH ×3 (05:48→22:05)
[2016-05-29] MEDS: INSULIN ASPART SUPPLEMENTAL SCALE SQ SCH ×4 (05:49→23:58)
[2016-05-29] MEDS: CHLORHEXIDINE 0.12% (ORAL KIT) 15 ML CUP MT SCH ×2 (08:31→21:05)
[2016-05-29] MEDS: POLYETHYLENE GLYCOL 17 GM PKG PO SCH (09:00)
[2016-05-29] MEDS: PANTOPRAZOLE SODIUM 40 MG VIAL IV SCH (09:42)
[2016-05-29] MEDS: LISINOPRIL 20 MG TAB PO SCH ×2 (09:43→21:00)
[2016-05-29] MEDS: ATORVASTATIN 20 MG TAB PO SCH (09:43)
[2016-05-29] MEDS: FOLIC ACID 1 MG TAB PO SCH (09:43)
[2016-05-29] MEDS: amLODIPine BESYLATE 5 MG TAB PO SCH ×2 (09:43→21:00)
[2016-05-29] MEDS: INSULIN DETEMIR 100 UNITS/ML VIAL SQ SCH ×2 (09:44→21:24)
[2016-05-29] MEDS: TIMOLOL MALEATE 0.25% OPHT SOLN 5 ML BTL EACH EYE SCH ×2 (09:49→21:23)
[2016-05-29] MEDS: SODIUM CHLORIDE 0.9% FLUSH 5 ML FLUSH IVF SCH ×2 (09:50→21:24)
[2016-05-29] MEDS: BENEPROTEIN POWDER 1 PACK G-TUBE SCH ×3 (09:50→18:16)
[2016-05-29] MEDS: THIAMINE INJ 100 MG in SODIUM CHLORIDE 0.9% INJ 100 ML IV SCH (10:06)
--- NOTE | 2016-05-29 10:24 | HHI.CCPN ---
Subjective Remarks/Hospital Course Traumatic SDH. 05/17: This 85-year-old gentleman fell of bed last night and hit his head. He developed aphasia and confusion pretty rapidly and was seen in the emergency department in [place] with a right facial droop. Subsequent CT scan evaluation confirmed an acute left subdural hemorrhage of approximately 8 mm in width with a associated subarachnoid hemorrhage. Additionally in the frontal lobe on the right side he had a 1 cm area of hemorrhage with surrounding vasogenic edema. There was intraventricular blood as well on the right side. I met him on his arrival to [facility]. What was immediately noticeable was that he was not able to express himself well and that he was not following commands correctly. With gestures he was able to follow commands but not with verbal orders. 05/18: Deteriorating mental status, nasal trumpet placed for airway control, and will require intubation. 05/19: Ventilator dependent now. Family needs to clarify goals if possible/ practical. 05/20: A little more alert. Breathes well on CPAP. 05/21: Tolerating CPAP trials with good respiratory drive. 05/22: Agitated. Start precedex for attempted weaning trial and possible extubation. 05/23: Attempt weaning trial again today with low dose precedex for control of agitation. 05/24: Extubated yesterday but could not protect his airway, could not cough up secretions. Quickly failed and required re-intubation. 05/25: Will need trach if family wishes to continue with aggressive care. Worsening glucose intolerance. Will start BID levemir 05/26: No improvement in neurological function. Glucose control much improved. The family feels quite strongly about continued aggressive rehab. Therefore we will perform tracheostomy. Risk and benefits presented to and she wished to proceed. 05/27: Tracheostomy performed 05/26 at family request after discussion with Palliative Care service. Dobbhoff placed and we are now working on LTAC/rehab placement. He looks around the room and appears to recognize his family. Weak limb movements/hand grasps. 05/28: Remains on mechanical ventilation via tracheostomy. Start daily C Pap trials and will attempt transition to trach collar if tolerated. 05/29: Awake, on mechanical ventilation via tracheostomy. Tolerated CPAP trial yesterday. We will attempt T piece today. Objective Vital Signs Date Time Temp Pulse Resp B/P Pulse Ox O2 Delivery O2 Flow Rate FiO2 05/29/16 07:51 40 05/29/16 07:51 96 Ventilator 05/29/16 06:00 71 05/29/16 04:00 103.0 18 134/65 Intake and Output 05/28/16 05/28/16 05/29/16 08:00 16:00 00:00 Intake Total 987 ml 995 ml 1011 ml Output Total 325 ml 350 ml 325 ml Balance 662 ml 645 ml 686 ml Result Diagram: 05/28/16 0310 05/28/16 0310 Imaging Last [address] 05/28/16 0600 Signed Impressions: Service Date/Time: Saturday, May 28, 2016 04:15 - CONCLUSION: Bilateral subdural hematomas becoming less dense today and decreased in size on the left. Subarachnoid and intraventricular hemorrhage again seen. Mild mass effect on the frontal lobes is present. Jv Parikh MD Chest X-Ray 05/27/16 0000 Signed Impressions: Service Date/Time: Friday, May 27, 2016 06:43 - CONCLUSION: Stable appearance of the lungs. Jv Parikh MD Abdomen X-Ray 05/27/16 0000 Signed Impressions: Service Date/Time: Friday, May 27, 2016 19:50 - CONCLUSION: Dobbhoff catheter has been advanced and is now either in the distal stomach or proximal duodenum. Eleazar Solorio MD Abdomen X-Ray 05/27/16 0000 Signed Impressions: Service Date/Time: Friday, May 27, 2016 18:24 - CONCLUSION: Tip of the Dobbhoff catheter is still intrathoracic. Eleazar Solorio MD Objective Remarks PHYSICAL EXAMINATION GENERAL: Intermittently agitated, elderly, gentleman. HEAD: Clean dry incision/laceration clean. NECK: tracheostomy in place LUNGS: on mech ventilation, Good air movement. No wheezes or crackles. HEART: Regular rate and rhythm, normal S1-S2, no murmur, no JVD. ABDOMEN: Large, soft, no guarding. BS active. Nondistended. Benign. EXTREMITIES: Warm, well-perfused. tr+ generalized edema. NEUROLOGICAL: Opens eyes, moves extremities to stimulation. A/P Assessment and Plan ASSESSMENT: 1. Acute traumatic left-sided subdural hemorrhage. 2. Traumatic subarachnoid bleed. 3. Small frontal lobe contusion, right side. 4. Diabetes mellitus, type 2, controlled. 5. Mild hypertension. 6. Respiratory Failure, ventilator dependent. 7. UTI - Klebsiella, Enterococcus 8. Bronchitis - Strep PLAN: 1. PRVC vent mode. Daily PSV trials. 2. Neurological checks. 3. Isotonic fluid only. 4. Head of bed up 30 degrees. 5. No chemical DVT px till cleared by neurosurgery. 6. Labetalol for a blood pressure greater than 170. 7. Keppra for potential seizure complications. 8. Protonix for GI ulcer prophylaxis. 9. SCDs. 10. Clarify family goals -> full code. 11. Increase goal TFs to 55. 12. Daily CPAP trials, if tolerated then attempt T piece. 13. RASS 0 15. Laxatives 16. Precedex infusion, taper 17. Sputum culture -> Strep 18. s/p tracheostomy. 19. Levemir 5 sq q12h 20. PT/OT 21: Continue ceftriaxone, cipro OVERALL IMPRESSION: Improved mental status, tolerating CPAP but gets agitated. Looking at long-term rehab. Trach placed at family request, will work on transfer. Bolivar Parks MD May 29, 2016 10:24
[2016-05-29 11:12] LABS: AUTOMATED NEUTROPHIL # 11.2 TH/MM3 (1.8-7.7); BASOPHIL % 0.3 % (0.0-2.0); EOSINOPHIL # 0.4 TH/MM3 (0-0.4); HEMATOCRIT 26.4 % (39.0-51.0); HEMO FLAGS DIFF FINAL; LYMPH % 5.9 % (9.0-44.0); LYMPHOCYTE # 0.8 TH/MM3 (1.0-4.8); MEAN CELL VOLUME 90.8 FL (80.0-100.0); MEAN CORPUSCULAR HEMOGLOBIN 30.2 PG (27.0-34.0); MEAN CORPUSCULAR HGB CONC 33.3 % (32.0-36.0); MONO % 7.4 % (0.0-8.0); NEUT % 83.4 % (16.0-70.0); PLATELET COUNT 308 TH/MM3 (150-450); RED BLOOD COUNT 2.91 MIL/MM3 (4.50-5.90); RED CELL DISTRIBUTION WIDTH 13.6 % (11.6-17.2); WHITE BLOOD COUNT 13.4 TH/MM3 (4.0-11.0)
--- NOTE | 2016-05-29 11:13 | HHI.NSPN ---
Subjective History 85 yr old fell at home. He is generally very sedentary but alert and interactive. He suffered a significant left 8mm acute SDH with mass effect. He became very agitated and is delirious but the bleed has been stable. 05/20/16 He is intubated and sedated, appears peaceful at this time. 05/21/16 He has a low grade fever but the sedation is being weaned. 05/22/16 He is agitated on CPAP this am. He is moving all extremities but not following commands. Precedex is ordered. 05/23/16 He is less agitated on precedex. there is no evidence of DT 05/25/16 On precedex, exam limited, awaiting decision for tracheostomy 05/27/16 Day 1 after tracheostomy, awake and gestures to be left alone. Rhonchi present but secretions are thinner. He moves all extremities and follows with the eyes but does not follow commands. 05/28/16 Day 2 after tracheostomy, more alert and now following commands. He pulled his a line 05/29/15 Day 3 after tracheostomy, successful CPAP, ready to be weaned from sedation and mobilized. Vitals . Vital Signs Date Time Temp Pulse Resp B/P Pulse Ox O2 Delivery O2 Flow Rate FiO2 05/29/16 08:00 40 05/29/16 08:00 98.9 83 16 128/61 94 05/29/16 07:51 40 05/29/16 07:51 96 Ventilator 40 05/29/16 07:51 96 40 05/29/16 06:00 71 05/29/16 04:47 98 40 05/29/16 04:00 99 05/29/16 04:00 40 05/29/16 04:00 103.0 99 18 134/65 99 05/29/16 02:00 76 05/29/16 00:00 86 05/29/16 00:00 99.5 86 20 140/63 100 05/29/16 00:00 40 05/28/16 23:46 100 40 05/28/16 22:00 82 05/28/16 20:00 99.1 90 21 112/70 98 05/28/16 20:00 83 05/28/16 20:00 40 05/28/16 19:49 95 40 05/28/16 18:00 86 05/28/16 16:00 90 05/28/16 16:00 98.3 90 24 106/57 96 05/28/16 16:00 40 05/28/16 14:54 40 05/28/16 14:52 100 40 05/28/16 14:49 100 50 05/28/16 14:00 93 05/28/16 12:00 99.3 99 19 136/6 96 05/28/16 12:00 65 05/28/16 12:00 102 05/28/16 05/28/16 05/29/16 15:00 23:00 07:00 Intake Total 995 ml 1011 ml 1020 ml Output Total 350 ml 325 ml 300 ml Balance 645 ml 686 ml 720 ml Physical Exam Eyes Eyes: Pupils Equal Neuro Mental Status: Awake, Sedated Pupils: Reactive Bilaterally [place] Coma Scale Best Eye Openin - Spontaneous Best Verbal: 2 - Incomprehensible Best Motor: 6 - Obeys Total Glascow Coma Scale (GCS): 12 Cardiac Cardiac: Regular Rate & Rhythm Respiratory Respiratory: CTA Gastrointestinal Gastrointestinal: Soft Bowel Sounds: Present Musculoskeletal Extremities Upper Extremities Deltoid Bicep Tricep HI W. Ext Right Left Lower Extremeties Ilio Quad Plantar Dorsi EHL Right Left Musculoskeletal Remarks Moves purposefully and follows commands with both hands, withdraws lower extremities to stimulation, no spasticity Extremities Edema: Edematous, SCDs Objective Labs Laboratory Tests Test 05/29/16 03:35 Blood Gas Puncture Site RT RADIAL Blood Gas Patient Temperature 98.6 Blood Gas HCO3 27 mmol/L Blood Gas Base Excess 3.3 mmol/L Blood Gas Oxygen Saturation 93 % Arterial Blood pH 7.47 Arterial Blood Partial 37 mmHg Pressure CO2 Arterial Blood Partial 72 mmHg Pressure O2 Arterial Blood Oxygen Content 11.8 Vol % Arterial Blood 1.2 % Carboxyhemoglobin Arterial Blood Methemoglobin 0.8 % Blood Gas Hemoglobin 9.0 G/DL Oxygen Delivery Device VENTILATOR Blood Gas Ventilator Setting PRVC/AC Blood Gas Inspired Oxygen 40 % Assessment & Plan Diagnosis: (1) Subdural hematoma, acute Plan: The bleed and cerebral contusion will be followed radiologically, they are mostly left hemispheric 8mm SDH and bilateral SAH. Seizure prophylaxis, DVT and PUD prophylaxis is planned as well as OT/PT. Alcohol withdrawal prophylaxis is planned. He is full code at this time but has requested anteriorly no aggressive prolonged ventilatory support. 05/20/16 Supportive care is continued, sedation holiday is planned in the morning. No new focal findings. Cultures are pending 05/21/16 The SDH is stable and he has small cerebral contusion in the gyri recti bilaterally and in the left frontal/inferior temporal regions. No increased bleeding or shift is appreciated. Supportive care is continued with the goal of extubation. 05/22/16 CPAP trials are continued, sedation with precedex as tolerated. 05/23/16 Evolving cerebral contusions and left small SDH, weaning with the goal of extubation today. Rehab services will follow. Pulmonary toilet, DVT and PUD as well as seizure prophylaxis is continued. 05/25/16 Extubated failed 2 days ago, sedated on precedex, awaiting decision for tracheostomy. 05/27/16 Day 1 after tracheostomy, more alert but does not want to be bothered. Plan weaning of sedation, sit up in bed as tolerated, OT/PT 05/28/16 The SAH is resolving. Small bilateral subdural hygromas are forming but without mass effect. He is ready to resume CPAP trials 05/29/16 Improved on CPAP, less agitated, weaning from precedex. He is ready to restart PT/OT/speech rx. Plan 10 Devonte Dunham May 29, 2016 11:13
[2016-05-29 11:23] LABS: ANION GAP 8 MEQ/L (5-15); BLOOD UREA NITROGEN 27 MG/DL (7-18); CHLORIDE 101 MEQ/L (98-107); GLOMERULAR FILTRATION RATE 74 ML/MIN (>89); POTASSIUM 3.6 MEQ/L (3.5-5.1); SODIUM (NA) 136 MEQ/L (136-145)
[2016-05-29 11:27] LABS: ALKALINE PHOSPHATASE 70 U/L (45-117); ALT (GPT) 45 U/L (12-78); AST (GOT) 47 U/L (15-37); TOTAL BILIRUBIN ADULT 0.4 MG/DL (0.2-1.0)
--- NOTE | 2016-05-29 11:45 | HHI.PR ---
Neuropsych Emotional Emotional: Moderate: Depressed/Sad, Irritable/Angry/Frustrate Cognitive Cognitive: Unable to Asses: Cognitive, Attention/Concentration, Confused/ Orientation, Insight/Awareness, Judgement/Problem-Solving, Memory Psychosocial Psychosocial: Mild: Psychosocial, Family/Other Adjustment, Realistic Expectation Progress Notes/Response to Tx Contents of Sessions: Adjustment Time with Patient: 15 minutes Premorbid psychological status Premorbid Cognitive, Emotional and Behavioral Status: Stable. The patient is retired from a solid work history and long-term . The patient has no psychiatric difficulties. Substance abuse history is unremarkable. Behavioral Reactions of Patient and Family/Support System: Stable. The patient s family has a clear understanding of the issues inherent in his present medical condition. As expected, the family is experiencing ongoing issues of adjustment given the nature of the injury, and this aspect of recovery will require ongoing monitoring. Emotional/Behavioral Status of Patient and Family/Support System: Stable. Pertinent issues, if appropriate to this patients clinical care, are described in detail above. Maximizing acute care outcome This patient's present needs are respiratory in nature. His neurobehavioral impairments stemming from his injury is not able to be fully appreciated at this point in time. Anticipated Problems Ongoing areas of concern will include expressive and possible receptive language impairment, which would be expected to improve with time and treatment. Presently, the patient is inconsistently following commands. Treatment Plan This clinician will continue to follow with you throughout the course of this patients rehabilitation treatment, and I will be available to meet with the patients family/support system to facilitate their understanding and the ongoing care of their family member. The goals of neuropsychological intervention shall be both educational and supportive to the family/support system as is deemed clinically appropriate. 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 It is anticipated that as he improves medically, he will improve in terms of his ability to use and understand language. Diagnosis: (1) Major neurocognitive disorder as late effect of traumatic brain injury with behavioral disturbance Status: Acute Progress Note Narrative Ongoing follow-up of patient, who was seen bedside. Patient is awake, but it is unclear to what extent he understands language in the form of verbal commands , which appear to this professional, inconsistent at best. I had the opportunity to speak with the patient's , and asked her to address these concerns with the patient through trying to get him to respond consistently, first with responding to oral commands in a "one finger, yes; two finger, no" responding, and also to attempt to see if he will follow written commands. The patient's demonstrated good understanding of this approach. Too, the patient does appear frustrated, perhaps dysphoric, and he may have an adjustment disorder for which I will confer with his attending physician. Shemar Dudley PhD May 29, 2016 11:45 am
[2016-05-29] MEDS: levETIRAcetam INJ 500 MG in SODIUM CHLORIDE 0.9% INJ 100 ML IV SCH ×2 (12:26→23:57)
--- NOTE | 2016-05-29 13:50 | HHI.HCPN ---
Reason for visit a. To assist with evaluation and management of symptoms including: Dyspnea, malnutrition, agitation b. To assist medical decision maker(s) with: better understanding of current medical conditions; weighing benefits/burdens of medical treatment options; making medical treatment decisions. Subjective/Interval History Call received this morning (before my arrival to unit) from patient's requesting update, follow-up meeting today. Patient has remained stable over the weekend, status post tracheostomy done . Tolerated well. Tolerated CPAP trials over the weekend. Today planned for T piece trial. Has remained on and off of Precedex drip due to ongoing agitation. Over the weekend reported to pull out arterial line. Case management working on discharge placement, patient being evaluated by [facility]. Orders for PT, ST, OT. Currently receiving artificial nutrition via Dobbhoff feeding tube. If patient unable to take adequate oral diet will likely require placement of a PEG tube before discharge. CBC unremarkable, white count trending down 13.4. Chemistry unremarkable, albumin low 1.9. Patient with low- grade fevers over the past 1-2 days 99s, earlier this morning 100.3. Repeat blood culture sent. Ordered for repeat sputum culture today. Blood cultures from 05/27 negative. CXR from 05/27 stable. Nursing reports suctioning for large amounts of sputum today. Patient seen in room with and daughter present. At time of my exam is on T piece. Appears restless at times. Attempting to mouth words though very difficult to understand the most I can understand is "going out, Go" somewhere. Otherwise unable to tell what he is mouthing. Does not follow any simple commands for me even when demonstrated. When his request him to follow simple commands like opening mouth, stick out your tongue he clenches his mouth closed tightly. Does move all 4 extremities spontaneously, also localizes to touch and pain however does not follow any commands for me. Met with and daughter at length approximately 25 minutes. Explore them past few days assessments, diagnostics, neuro status. Again review with them possible trajectory and prognosis going forward tracheostomy weaning including possibility for Passy-Aura valve, capping , weaning off trach completely. They have questions regarding when patient neuro function will be maximized and he will be as recovered as he can be expected to be, review with them that the rehabilitation process would be expected to be long in the period of weeks to months not over just a few days. Review with them recent diagnostics including fever, cultures. Review with them patient still does remain at risk for potential outpatient/setbacks which could impact rehabilitation/recovery. Review with them pending ST evaluation, and that pulmonary status is still somewhat labile/fragile, and that if patient not taking in adequate orally in the coming days would expect to need PEG tube to continue aggressive course. All questions answered, they are appreciative ongoing updates. * * * * Met with family today to follow-up, goals remain aggressive. Advance Directives Living Will: Copy in medical record (standard living will verbiage requesting no artificial/aggressive measures and the presence of terminal or end-stage condition) Health Care Surrogate: Copy in medical record (designates Nazanin) Objective Vital Signs Date Time Temp Pulse Resp B/P Pulse Ox O2 Delivery O2 Flow Rate FiO2 05/29/16 08:00 40 05/29/16 08:00 98.9 83 16 128/61 94 05/29/16 07:51 40 05/29/16 07:51 96 Ventilator 40 05/29/16 07:51 96 40 05/29/16 06:00 71 05/29/16 04:47 98 40 05/29/16 04:00 99 05/29/16 04:00 40 05/29/16 04:00 103.0 99 18 134/65 99 05/29/16 02:00 76 05/29/16 00:00 86 05/29/16 00:00 99.5 86 20 140/63 100 05/29/16 00:00 40 05/28/16 23:46 100 40 05/28/16 22:00 82 05/28/16 20:00 99.1 90 21 112/70 98 05/28/16 20:00 83 05/28/16 20:00 40 05/28/16 19:49 95 40 05/28/16 18:00 86 05/28/16 16:00 90 05/28/16 16:00 98.3 90 24 106/57 96 05/28/16 16:00 40 05/28/16 14:54 40 05/28/16 14:52 100 40 05/28/16 14:49 100 50 05/28/16 14:00 93 Intake & Output 05/29/16 05/29/16 07:00 19:00 Intake Total 2031 ml Output Total 625 ml Balance 1406 ml IV Total 845 ml Tube Feeding 736 ml Tube Irrigant 450 ml Output Urine Total 625 ml # Bowel Movements 0 Physical Exam CONSTITUTIONAL/GENERAL: This is an adequately nourished patient, on mechanical vent, no distress TUBES/LINES/DRAINS: Peripheral IV bilateral upper extremities, NG tube, tracheostomy, Moreno catheter, restraints, SCDs SKIN: No jaundice, rashes, or lesions. ++ ecchymosis bilateral upper extremities. No wounds seen anteriorly. Skin temperature appropriate. Not diaphoretic. EYES: Pupils equal and round and reactive. Extraocular motions intact. No scleral icterus. No injection or drainage. Fundi not examined. ENT: Nose without bleeding or purulent drainage. Does not open mouth for oropharynx exam. CARDIOVASCULAR: Regular rate and rhythm, no murmurs, observe sinus bradycardia on bedside monitor rate in the 50s. Peripheral pulses symmetric. RESPIRATORY/CHEST: Symmetric, unlabored respirations via trach to T piece. Coarse air movement throughout. Breath sounds equal bilaterally. GASTROINTESTINAL: Abdomen soft, round, non-tender, nondistended. No hepato- splenomegaly, or palpable masses. No guarding. Bowel sounds normoactive. Tube feeding infusing via NG tube. GENITOURINARY: Without palpable bladder distension. Moreno catheter in place clear yellow urine. NEUROLOGICAL: Alert with eyes open, appears to track examiner. Mouths words though very difficult to understand. Not follow any simple commands even when demonstrated. Not follow commands when requested to do so by his . Does move all 4 extremities spontaneously, localizes to touch and pain. PSYCHIATRIC: + Restlessness, struggling against restraints and mouthing words which I cannot understand. Diagnostic Tests Laboratory Laboratory Tests Test 05/27/16 05/27/16 05/27/16 05/28/16 09:39 15:10 15:28 03:10 Sodium Level 143 MEQ/L 142 MEQ/L (136-145) (136-145) Potassium Level 3.9 MEQ/L 3.7 MEQ/L (3.5-5.1) (3.5-5.1) Chloride Level 106 MEQ/L 105 MEQ/L (98-107) (98-107) Carbon Dioxide Level 27.7 MEQ/L 28.5 MEQ/L (21.0-32.0) (21.0-32.0) Anion Gap 9 MEQ/L (5-15) 9 MEQ/L (5-15) Blood Urea Nitrogen 27 MG/DL (7-18) 32 MG/DL (7-18) Creatinine 1.00 MG/DL 1.06 MG/DL (0.60-1.30) (0.60-1.30) Estimat Glomerular Filtration 71 ML/MIN (>89) 66 ML/MIN (>89) Rate Random Glucose 197 MG/DL 224 MG/DL (74-106) (74-106) Calcium Level 7.8 MG/DL 7.7 MG/DL (8.5-10.1) (8.5-10.1) Phosphorus Level 3.7 MG/DL (2.5-4.9) Magnesium Level 2.1 MG/DL (1.5-2.5) White Blood Count 18.4 TH/MM3 15.8 TH/MM3 (4.0-11.0) (4.0-11.0) Red Blood Count 2.78 MIL/MM3 2.71 MIL/MM3 (4.50-5.90) (4.50-5.90) Hemoglobin 8.4 GM/DL 8.3 GM/DL (13.0-17.0) (13.0-17.0) Hematocrit 25.0 % 24.7 % (39.0-51.0) (39.0-51.0) Mean Corpuscular Volume 90.1 FL 91.2 FL (80.0-100.0) (80.0-100.0) Mean Corpuscular Hemoglobin 30.2 PG 30.7 PG (27.0-34.0) (27.0-34.0) Mean Corpuscular Hemoglobin 33.5 % 33.7 % Concent (32.0-36.0) (32.0-36.0) Red Cell Distribution Width 13.7 % 13.9 % (11.6-17.2) (11.6-17.2) Platelet Count 317 TH/MM3 281 TH/MM3 (150-450) (150-450) Mean Platelet Volume 8.9 FL 9.5 FL (7.0-11.0) (7.0-11.0) Neutrophils (%) (Auto) 89.4 % 84.1 % (16.0-70.0) (16.0-70.0) Lymphocytes (%) (Auto) 3.7 % 7.3 % (9.0-44.0) (9.0-44.0) Monocytes (%) (Auto) 6.2 % (0.0-8.0) 5.6 % (0.0-8.0) Eosinophils (%) (Auto) 0.5 % (0.0-4.0) 2.1 % (0.0-4.0) Basophils (%) (Auto) 0.2 % (0.0-2.0) 0.9 % (0.0-2.0) Neutrophils # (Auto) 16.5 TH/MM3 13.3 TH/MM3 (1.8-7.7) (1.8-7.7) Lymphocytes # (Auto) 0.7 TH/MM3 1.2 TH/MM3 (1.0-4.8) (1.0-4.8) Monocytes # (Auto) 1.1 TH/MM3 0.9 TH/MM3 (0-0.9) (0-0.9) Eosinophils # (Auto) 0.1 TH/MM3 0.3 TH/MM3 (0-0.4) (0-0.4) Basophils # (Auto) 0.0 TH/MM3 0.1 TH/MM3 (0-0.2) (0-0.2) CBC Comment AUTO DIFF DIFF FINAL Differential Total Cells 100 Counted Neutrophils % (Manual) 76 % (16-70) Band Neutrophils % 13 % (0-6) Lymphocytes % 5 % (9-44) Monocytes % 4 % (0-8) Eosinophils % 1 % (0-4) Basophils % 1 % (0-2) Neutrophils # (Manual) 16.4 TH/MM3 (1.8-7.7) Differential Comment FINAL DIFF MANUAL Platelet Estimate NORMAL (NORMAL) Platelet Morphology Comment NORMAL (NORMAL) Sae[place] Bodies PRESENT (NONE SEEN) Lactic Acid Level 0.9 mmol/L (0.4-2.0) Blood Gas Puncture Site PATRICIA Blood Gas Patient Temperature 98.6 Blood Gas HCO3 27 mmol/L (22-26) Blood Gas Base Excess 4.1 mmol/L (-2-2) Blood Gas Oxygen Saturation 95 % (90-100) Arterial Blood pH 7.50 (7.380-7.420) Arterial Blood Partial 36 mmHg (38-42) Pressure CO2 Arterial Blood Partial 87 mmHg Pressure O2 (61-120) Arterial Blood Oxygen Content 13.2 Vol % (12.0-20.0) Arterial Blood 1.1 % (0-4) Carboxyhemoglobin Arterial Blood Methemoglobin 0.7 % (0-2) Blood Gas Hemoglobin 9.8 G/DL (12.0-16.0) Oxygen Delivery Device VENTILATOR Blood Gas Ventilator Setting PRVC/AC Blood Gas Inspired Oxygen 70 % Test 05/28/16 05/29/16 05/29/16 03:55 03:35 10:19 Blood Gas Puncture Site ART LINE RT RADIAL Blood Gas Patient Temperature 98.6 98.6 Blood Gas HCO3 26 mmol/L 27 mmol/L (22-26) (22-26) Blood Gas Base Excess 2.6 mmol/L 3.3 mmol/L (-2-2) (-2-2) Blood Gas Oxygen Saturation 96 % (90-100) 93 % (90-100) Arterial Blood pH 7.46 7.47 (7.380-7.420) (7.380-7.420) Arterial Blood Partial 38 mmHg (38-42) 37 mmHg (38-42) Pressure CO2 Arterial Blood Partial 104 mmHg 72 mmHg Pressure O2 (61-120) (61-120) Arterial Blood Oxygen Content 13.3 Vol % 11.8 Vol % (12.0-20.0) (12.0-20.0) Arterial Blood 0.8 % (0-4) 1.2 % (0-4) Carboxyhemoglobin Arterial Blood Methemoglobin 0.8 % (0-2) 0.8 % (0-2) Blood Gas Hemoglobin 9.8 G/DL 9.0 G/DL (12.0-16.0) (12.0-16.0) Oxygen Delivery Device VENTILATOR VENTILATOR Blood Gas Ventilator Setting PRVC/AC PRVC/AC Blood Gas Inspired Oxygen 60 % 40 % White Blood Count 13.4 TH/MM3 (4.0-11.0) Red Blood Count 2.91 MIL/MM3 (4.50-5.90) Hemoglobin 8.8 GM/DL (13.0-17.0) Hematocrit 26.4 % (39.0-51.0) Mean Corpuscular Volume 90.8 FL (80.0-100.0) Mean Corpuscular Hemoglobin 30.2 PG (27.0-34.0) Mean Corpuscular Hemoglobin 33.3 % Concent (32.0-36.0) Red Cell Distribution Width 13.6 % (11.6-17.2) Platelet Count 308 TH/MM3 (150-450) Mean Platelet Volume 9.3 FL (7.0-11.0) Neutrophils (%) (Auto) 83.4 % (16.0-70.0) Lymphocytes (%) (Auto) 5.9 % (9.0-44.0) Monocytes (%) (Auto) 7.4 % (0.0-8.0) Eosinophils (%) (Auto) 3.0 % (0.0-4.0) Basophils (%) (Auto) 0.3 % (0.0-2.0) Neutrophils # (Auto) 11.2 TH/MM3 (1.8-7.7) Lymphocytes # (Auto) 0.8 TH/MM3 (1.0-4.8) Monocytes # (Auto) 1.0 TH/MM3 (0-0.9) Eosinophils # (Auto) 0.4 TH/MM3 (0-0.4) Basophils # (Auto) 0.0 TH/MM3 (0-0.2) CBC Comment DIFF FINAL Differential Comment Sodium Level 136 MEQ/L (136-145) Potassium Level 3.6 MEQ/L (3.5-5.1) Chloride Level 101 MEQ/L (98-107) Carbon Dioxide Level 27.0 MEQ/L (21.0-32.0) Anion Gap 8 MEQ/L (5-15) Blood Urea Nitrogen 27 MG/DL (7-18) Creatinine 0.96 MG/DL (0.60-1.30) Estimat Glomerular Filtration 74 ML/MIN (>89) Rate Random Glucose 211 MG/DL (74-106) Calcium Level 7.9 MG/DL (8.5-10.1) Total Bilirubin 0.4 MG/DL (0.2-1.0) Aspartate Amino Transf 47 U/L (15-37) (AST/SGOT) Alanine Aminotransferase 45 U/L (12-78) (ALT/SGPT) Alkaline Phosphatase 70 U/L (45-117) Total Protein 6.3 GM/DL (6.4-8.2) Albumin 1.9 GM/DL (3.4-5.0) Result Diagram: 05/29/16 1019 05/29/16 1019 Microbiology Microbiology Date/Time Procedure Status Source Growth 05/27/16 09:00 Gram Stain - Final Complete Sputum Endotracheal 05/27/16 09:00 Sputum Culture - Final Complete Sputum Endotracheal LIGHT GROWTH NORMAL RESPIRATORY SANDRA 05/27/16 09:39 Aerobic Blood Culture - Preliminary Resulted Blood Peripheral NO GROWTH IN 2 DAYS 05/27/16 09:39 Anaerobic Blood Culture - Preliminary Resulted Blood Peripheral NO GROWTH IN 2 DAYS 05/27/16 09:45 Aerobic Blood Culture - Preliminary Resulted Blood Peripheral NO GROWTH IN 2 DAYS 05/27/16 09:45 Anaerobic Blood Culture - Preliminary Resulted Blood Peripheral NO GROWTH IN 2 DAYS Imaging Last Impressions Head CT 05/28/16 0600 Signed Impressions: Service Date/Time: Saturday, May 28, 2016 04:15 - CONCLUSION: Bilateral subdural hematomas becoming less dense today and decreased in size on the left. Subarachnoid and intraventricular hemorrhage again seen. Mild mass effect on the frontal lobes is present. Jv Parikh MD Chest X-Ray 05/27/16 0000 Signed Impressions: Service Date/Time: Friday, May 27, 2016 06:43 - CONCLUSION: Stable appearance of the lungs. Jv Parikh MD Abdomen X-Ray 05/27/16 0000 Signed Impressions: Service Date/Time: Friday, May 27, 2016 19:50 - CONCLUSION: Dobbhoff catheter has been advanced and is now either in the distal stomach or proximal duodenum. Eleazar Solorio MD Transcranial Doppler Study Complete 05/18/16 0730 Signed Impressions: Service Date/Time: April 08:12 - CONCLUSION: 1. No evidence of vasospasm Bill Means MD Procedures 05/18intubated 05/23extubatedreintubated shortly after, same day Assessment and Plan Disease Oriented Problem List: (1) Subdural hematoma, acute (2) Arthritis (3) Hypertension (4) Acute respiratory failure (5) Diabetes type 2, controlled Symptom Scale: (1) Dyspnea (2) Agitation (3) Malnutrition Pertinent Non-Medical Issues Psychosocial:, lives at home with spouse. Retired. Has lived in [place] for 20+ years, many of those years lived in [place], originally from [facility] [place]. 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 Supported by 3 adult children, as well as his . Spiritual: Legal:Patient unable to participate in decision-making. Not clear if or when he will regain that ability. His Nazanin is designated as healthcare surrogate as per his living will documentation. Ethical issues impacting care: Important Contacts Radha Cole [phone] . Prognosis Suffered mechanical fall, patient sustained subdural hemorrhage with midline shift. Has not required neurosurgical intervention. Has required intubation and mechanical ventilation for airway protection, has had ongoing episodes of agitation. Neurosurgery feels patient has a good chance of functional neurologic recovery based on imaging, SDH. However, patient does remain high risk for complications/setbacks which may slow or impair any recovery and rehabilitation. Code Status: Full Code Plan * Legal decision maker: Patient is currently not capacitated to make medical decisions. Not clear if or when he will regain his ability. He has advanced directives naming his Nazanin as legal decision maker. * Goals: Met with family at length 05/26 .In summary: family details that patient was very active, strong, with no medical issues prior to this admission. They understand from neurosurgery that he has a good chance of recovery from brain injury; however I have reviewed with them at length that due to the complexity including age, comorbidities, prolonged hospitalization that he does remain high risk for complications/setbacks which might impact or decrease his ability to fully recover. Goals are aggressive they wish to proceed with tracheostomy and PEG. They are hopeful for him to be placed in aggressive rehabilitation following hospitalization. 05/19 -- follow-up with patient , daughter per their request. provided review of current conditions, diagnostics, trajectory and prognosis. They have many questions regarding full neurologic recovery, timeframe to reach maximum neurological recovery, explored with them that recovery process would be expected in the terms of weeks and months, possibly many months not a few days. Goals remain aggressive. * CODE STATUS: FULL * SYMPTOMS: --Dyspnea-emergently intubated for airway protection, extubated and then emergently intubated due to unable to manage secretions; status post tracheostomy 05/26. Tolerating CPAP --today on T piece trials --Agitation-intermittent episodes of agitation, this is likely multifactorial both metabolic as well as related to SDH; patient with a history of daily alcohol use which likely affected the first few days of hospitalization. Currently still requiring intermittent use of Precedex drip. Goal to maximize alertness/participation in rehabilitation. Could consider low dose PRN lorazepam via NGT, 0.25mg Ativan q 6 PRN -Malnutrition: Risk for related to prolonged hospitalization, alternative feeding required, will require likely PEG for long-term caloric needs, currently receiving tube feeding, plus protein supplement, via NG tube. Speech therapy evaluation pending. Not clear that he will be able to take in enough calories by mouth even if does well with ST evaluation. * Palliative care will continue to follow during hospital course as condition evolves, to assist patient/decision-maker with understanding of medical conditions, weighing benefits/burdens of treatment options, for clarification of goals of treatment. Additionally will assist with any symptoms of palliative concern . Time Spent Total Floor Time (mins): 35 Face to Face Time (mins): 30 >50% Counseling/Coord of Care: Yes (d/w primary nurse, critical care) Attestation To help prompt me to consider important information that might be impacting today's encounter and assessment, information from prior notes written by myself or my colleagues may have been "brought forward" into today's note. My signature on this note, however, is an attestation that I personally performed the exam, history, and/or decision-making noted today, and, unless otherwise indicated, the interactions with patient, family, and staff as well as the review of records all occurred today. I also attest that the listed assessment and stated plan reflect my best clinical judgment today based on the combination of historical information, prior notes, and today's exam/ interactions. When time spent is documented, it refers only to time spent today by the signer, or if indicated, combined time spent today by collaborating physician/nurse practitioner. Luciana Haro May 29, 2016 13:50
[2016-05-29] MEDS: cefTRIAXone INJ 1,000 MG in SODIUM CHLORIDE 0.9% INJ 100 ML IV SCH (16:44)
[2016-05-30] VITALS (19 sets, daily range): BP systolic 91–165; BP diastolic 50–80; PULSE 66–102; RESP 14–24; TEMP 99.2–100.4; O2SAT 91–100
[2016-05-30 03:42] LABS: AUTOMATED NEUTROPHIL # 10.9 TH/MM3 (1.8-7.7); BASOPHIL # 0.1 TH/MM3 (0-0.2); BASOPHIL % 0.9 % (0.0-2.0); EOSINOPHIL # 0.2 TH/MM3 (0-0.4); EOSINOPHIL % 1.8 % (0.0-4.0); HEMATOCRIT 23.7 % (39.0-51.0); HEMO FLAGS DIFF FINAL; LYMPH % 7.2 % (9.0-44.0); MEAN CELL VOLUME 90.9 FL (80.0-100.0); MEAN CORPUSCULAR HEMOGLOBIN 30.5 PG (27.0-34.0); MEAN CORPUSCULAR HGB CONC 33.6 % (32.0-36.0); MONO % 7.9 % (0.0-8.0); NEUT % 82.2 % (16.0-70.0); PLATELET COUNT 318 TH/MM3 (150-450); RED BLOOD COUNT 2.61 MIL/MM3 (4.50-5.90); RED CELL DISTRIBUTION WIDTH 13.4 % (11.6-17.2); WHITE BLOOD COUNT 13.3 TH/MM3 (4.0-11.0)
[2016-05-30] MEDS: CHLORHEXIDINE GLUCONATE 2 % 1 PACK (2 CLOTHS) TOP SCH (03:58)
[2016-05-30 04:11] LABS: ALT (GPT) 43 U/L (12-78); ANION GAP 5 MEQ/L (5-15); AST (GOT) 40 U/L (15-37); BICARBONATE 29.1 MEQ/L (21.0-32.0); BLOOD UREA NITROGEN 30 MG/DL (7-18); CHLORIDE 104 MEQ/L (98-107); GLOMERULAR FILTRATION RATE 67 ML/MIN (>89); POTASSIUM 3.8 MEQ/L (3.5-5.1); SODIUM (NA) 138 MEQ/L (136-145)
[2016-05-30 04:13] LABS: ALKALINE PHOSPHATASE 64 U/L (45-117); TOTAL BILIRUBIN ADULT 0.3 MG/DL (0.2-1.0)
[2016-05-30] MEDS: LACTULOSE SYRUP 20 GM/30 ML CUP PO SCH ×2 (05:28→18:00)
[2016-05-30] MEDS: hydrALAZINE HCL 25 MG TAB PO SCH ×3 (05:28→22:23)
[2016-05-30 06:07] LABS: BLOOD GAS BASE EXCESS 1.3 mmol/L (-2-2); BLOOD GAS CARBOXYHEMOGLOBIN 1.2 % (0-4); BLOOD GAS HCO3 25 mmol/L (22-26); BLOOD GAS METHEMOGLOBIN 0.8 % (0-2); BLOOD GAS O2 HGB SATURATION 94 % (90-100); BLOOD GAS OXYGEN CONTENT 11.7 Vol % (12.0-20.0); BLOOD GAS PCO2 36 mmHg (38-42); BLOOD GAS PO2 82 mmHg (61-120); BLOOD GAS TOTAL HGB 8.8 G/DL (12.0-16.0); CRITICAL VALUE NO; OXYGEN DEVICE VENTILATOR; TEMP CORR TO 98.6
[2016-05-30 06:09] LABS: DRAW SITE LT BRACHIAL; FIO2 40 %; NUMBER OF ARTERIAL PUNCTURES 1; STAT NO; ULNAR PULSE PRESENT
[2016-05-30] MEDS: CIPROFLOXACIN 400 MG PREMIX 200 ML IV SCH ×2 (07:05→19:01)
[2016-05-30] MEDS: DEXMEDETOMIDINE INJ 1,000 MCG in SODIUM CHLOR 0.9% 250 ML INJ 240 ML IV SCH (07:05)
[2016-05-30] MEDS: METOCLOPRAMIDE HCL 10 MG/2 ML VIAL IV SCH ×3 (07:06→21:48)
[2016-05-30] MEDS: INSULIN ASPART SUPPLEMENTAL SCALE SQ SCH ×3 (07:06→19:01)
[2016-05-30] MEDS: CHLORHEXIDINE 0.12% (ORAL KIT) 15 ML CUP MT SCH ×2 (08:37→20:00)
[2016-05-30] MEDS: amLODIPine BESYLATE 5 MG TAB PO SCH ×2 (09:00→21:22)
[2016-05-30] MEDS: LISINOPRIL 20 MG TAB PO SCH ×2 (09:00→20:00)
[2016-05-30] MEDS: POLYETHYLENE GLYCOL 17 GM PKG PO SCH (09:00)
[2016-05-30] MEDS: PANTOPRAZOLE SODIUM 40 MG VIAL IV SCH (09:57)
[2016-05-30] MEDS: BENEPROTEIN POWDER 1 PACK G-TUBE SCH ×3 (09:57→19:00)
[2016-05-30] MEDS: THIAMINE INJ 100 MG in SODIUM CHLORIDE 0.9% INJ 100 ML IV SCH (09:58)
[2016-05-30] MEDS: ATORVASTATIN 20 MG TAB PO SCH (09:58)
[2016-05-30] MEDS: FOLIC ACID 1 MG TAB PO SCH (09:58)
[2016-05-30] MEDS: SODIUM CHLORIDE 0.9% FLUSH 5 ML FLUSH IVF SCH ×2 (09:58→21:21)
[2016-05-30] MEDS: TIMOLOL MALEATE 0.25% OPHT SOLN 5 ML BTL EACH EYE SCH ×2 (09:59→21:21)
[2016-05-30] MEDS: INSULIN DETEMIR 100 UNITS/ML VIAL SQ SCH ×2 (09:59→21:22)
--- NOTE | 2016-05-30 10:04 | HHI.CCPN ---
Subjective Remarks/Hospital Course Traumatic SDH. 05/17: This 85-year-old gentleman fell of bed last night and hit his head. He developed aphasia and confusion pretty rapidly and was seen in the emergency department in [place] with a right facial droop. Subsequent CT scan evaluation confirmed an acute left subdural hemorrhage of approximately 8 mm in width with a associated subarachnoid hemorrhage. Additionally in the frontal lobe on the right side he had a 1 cm area of hemorrhage with surrounding vasogenic edema. There was intraventricular blood as well on the right side. I met him on his arrival to [facility]. What was immediately noticeable was that he was not able to express himself well and that he was not following commands correctly. With gestures he was able to follow commands but not with verbal orders. 05/18: Deteriorating mental status, nasal trumpet placed for airway control, and will require intubation. 05/19: Ventilator dependent now. Family needs to clarify goals if possible/ practical. 05/20: A little more alert. Breathes well on CPAP. 05/21: Tolerating CPAP trials with good respiratory drive. 05/22: Agitated. Start precedex for attempted weaning trial and possible extubation. 05/23: Attempt weaning trial again today with low dose precedex for control of agitation. 05/24: Extubated yesterday but could not protect his airway, could not cough up secretions. Quickly failed and required re-intubation. 05/25: Will need trach if family wishes to continue with aggressive care. Worsening glucose intolerance. Will start BID levemir 05/26: No improvement in neurological function. Glucose control much improved. The family feels quite strongly about continued aggressive rehab. Therefore we will perform tracheostomy. Risk and benefits presented to and she wished to proceed. 05/27: Tracheostomy performed 05/26 at family request after discussion with Palliative Care service. Dobbhoff placed and we are now working on LTAC/rehab placement. He looks around the room and appears to recognize his family. Weak limb movements/hand grasps. 05/28: Remains on mechanical ventilation via tracheostomy. Start daily C Pap trials and will attempt transition to trach collar if tolerated. 05/29: Awake, on mechanical ventilation via tracheostomy. Tolerated CPAP trial yesterday. We will attempt T piece today. 05/30: Awake, on mechanical ventilation via tracheostomy. Tolerated T piece for 2 hours yesterday. Objective Vital Signs Date Time Temp Pulse Resp B/P Pulse Ox O2 Delivery O2 Flow Rate FiO2 05/30/16 07:26 92 40 05/30/16 07:26 Ventilator 05/30/16 06:00 82 05/30/16 04:00 99.3 14 91/52 Intake and Output 05/29/16 05/29/16 05/30/16 08:00 16:00 00:00 Intake Total 1020 ml 1095 ml 892 ml Output Total 300 ml 675 ml 275 ml Balance 720 ml 420 ml 617 ml Result Diagram: 05/30/1631605/30/16316 Other Results Laboratory Tests Test 05/29/16 05/30/16 05/30/16 10:19 03:17 05:54 White Blood Count 13.4 TH/MM3 13.3 TH/MM3 Red Blood Count 2.91 MIL/MM3 2.61 MIL/MM3 Hemoglobin 8.8 GM/DL 8.0 GM/DL Hematocrit 26.4 % 23.7 % Mean Corpuscular Volume 90.8 FL 90.9 FL Mean Corpuscular Hemoglobin 30.2 PG 30.5 PG Mean Corpuscular Hemoglobin 33.3 % 33.6 % Concent Red Cell Distribution Width 13.6 % 13.4 % Platelet Count 308 TH/MM3 318 TH/MM3 Mean Platelet Volume 9.3 FL 9.0 FL Neutrophils (%) (Auto) 83.4 % 82.2 % Lymphocytes (%) (Auto) 5.9 % 7.2 % Monocytes (%) (Auto) 7.4 % 7.9 % Eosinophils (%) (Auto) 3.0 % 1.8 % Basophils (%) (Auto) 0.3 % 0.9 % Neutrophils # (Auto) 11.2 TH/MM3 10.9 TH/MM3 Lymphocytes # (Auto) 0.8 TH/MM3 1.0 TH/MM3 Monocytes # (Auto) 1.0 TH/MM3 1.1 TH/MM3 Eosinophils # (Auto) 0.4 TH/MM3 0.2 TH/MM3 Basophils # (Auto) 0.0 TH/MM3 0.1 TH/MM3 CBC Comment DIFF FINAL DIFF FINAL Differential Comment Sodium Level 136 MEQ/L 138 MEQ/L Potassium Level 3.6 MEQ/L 3.8 MEQ/L Chloride Level 101 MEQ/L 104 MEQ/L Carbon Dioxide Level 27.0 MEQ/L 29.1 MEQ/L Anion Gap 8 MEQ/L 5 MEQ/L Blood Urea Nitrogen 27 MG/DL 30 MG/DL Creatinine 0.96 MG/DL 1.05 MG/DL Estimat Glomerular Filtration 74 ML/MIN 67 ML/MIN Rate Random Glucose 211 MG/DL 182 MG/DL Calcium Level 7.9 MG/DL 8.1 MG/DL Total Bilirubin 0.4 MG/DL 0.3 MG/DL Aspartate Amino Transf 47 U/L 40 U/L (AST/SGOT) Alanine Aminotransferase 45 U/L 43 U/L (ALT/SGPT) Alkaline Phosphatase 70 U/L 64 U/L Total Protein 6.3 GM/DL 5.8 GM/DL Albumin 1.9 GM/DL 1.9 GM/DL Blood Gas Puncture Site LT BRACHIAL Blood Gas Patient Temperature 98.6 Blood Gas HCO3 25 mmol/L Blood Gas Base Excess 1.3 mmol/L Blood Gas Oxygen Saturation 94 % Arterial Blood pH 7.46 Arterial Blood Partial 36 mmHg Pressure CO2 Arterial Blood Partial 82 mmHg Pressure O2 Arterial Blood Oxygen Content 11.7 Vol % Arterial Blood 1.2 % Carboxyhemoglobin Arterial Blood Methemoglobin 0.8 % Blood Gas Hemoglobin 8.8 G/DL Oxygen Delivery Device VENTILATOR Blood Gas Ventilator Setting COMMENT Blood Gas Inspired Oxygen 40 % Imaging Last [address] 05/28/16 0600 Signed Impressions: Service Date/Time: Saturday, May 28, 2016 04:15 - CONCLUSION: Bilateral subdural hematomas becoming less dense today and decreased in size on the left. Subarachnoid and intraventricular hemorrhage again seen. Mild mass effect on the frontal lobes is present. Jv Parikh MD Chest X-Ray 05/27/16 0000 Signed Impressions: Service Date/Time: Friday, May 27, 2016 06:43 - CONCLUSION: Stable appearance of the lungs. Jv Parikh MD Abdomen X-Ray 05/27/16 0000 Signed Impressions: Service Date/Time: Friday, May 27, 2016 19:50 - CONCLUSION: Dobbhoff catheter has been advanced and is now either in the distal stomach or proximal duodenum. Eleazar Solorio MD Abdomen X-Ray 05/27/16 0000 Signed Impressions: Service Date/Time: Friday, May 27, 2016 18:24 - CONCLUSION: Tip of the Dobbhoff catheter is still intrathoracic. Eleazar Solorio MD Objective Remarks PHYSICAL EXAMINATION GENERAL: Elderly gentleman, laying in bed on vent via trach. . HEAD: Clean dry incision/laceration clean. NECK: tracheostomy in place LUNGS: on mech ventilation, Good air movement. No wheezes or crackles. HEART: Regular rate and rhythm, normal S1-S2, no murmur, no JVD. ABDOMEN: Large, soft, no guarding. BS active. Nondistended. Benign. EXTREMITIES: Warm, well-perfused. tr+ generalized edema. NEUROLOGICAL: Opens eyes, moves extremities to stimulation. A/P Assessment and Plan ASSESSMENT: 1. Acute traumatic left-sided subdural hemorrhage. 2. Traumatic subarachnoid bleed. 3. Small frontal lobe contusion, right side. 4. Diabetes mellitus, type 2, controlled. 5. Mild hypertension. 6. Respiratory Failure, ventilator dependent. 7. UTI - Klebsiella, Enterococcus 8. Bronchitis - Strep PLAN: 1. PRVC vent mode. Daily PSV trials/ T piece as tolerated. 2. Neurological checks. 3. Isotonic fluid only. 4. Head of bed up 30 degrees. 5. No chemical DVT px till cleared by neurosurgery. 6. Labetalol for a blood pressure greater than 170. 7. Keppra for potential seizure complications. 8. Protonix for GI ulcer prophylaxis. 9. SCDs. 10. Clarify family goals -> full code. 11. Increase goal TFs to 55. 12. Daily CPAP trials/ T piece trials. 13. RASS 0 15. Laxatives 16. Precedex infusion, taper 17. Sputum culture -> Strep 18. s/p tracheostomy. 19. Levemir 5 sq q12h 20. PT/OT 21: Continue ceftriaxone, cipro. F/u cultures sent on 05/29 for fever OVERALL IMPRESSION: Improved mental status, tolerating CPAP but gets agitated. Looking at long-term rehab. Trach placed at family request, will work on transfer. Bolivar Parks MD May 30, 2016 10:04
--- NOTE | 2016-05-30 12:41 | HHI.PR ---
Neuropsych Emotional Emotional: UnabletoAssess: Emotional, Anxious/Fearful, Depressed/Sad, Hostile/ Resentful, Irritable/Angry/Frustrate, Labile, Constricted/Blunted Behavior Behavior: Moderate: Frustration Tolerance/[place] Cognitive Cognitive: Unable to Asses: Cognitive, Attention/Concentration, Confused/ Orientation, Insight/Awareness, Judgement/Problem-Solving, Memory Psychosocial Psychosocial: Mild: Psychosocial, Family/Other Adjustment Progress Notes/Response to Tx Contents of Sessions: Adjustment Time with Patient: 15 minutes Premorbid psychological status Premorbid Cognitive, Emotional and Behavioral Status: Stable. The patient is retired from a solid work history and long-term . The patient has no psychiatric difficulties. Substance abuse history is unremarkable. Behavioral Reactions of Patient and Family/Support System: Stable. The patient s family has a clear understanding of the issues inherent in his present medical condition. As expected, the family is experiencing ongoing issues of adjustment given the nature of the injury, and this aspect of recovery will require ongoing monitoring. Emotional/Behavioral Status of Patient and Family/Support System: Stable. Pertinent issues, if appropriate to this patients clinical care, are described in detail above. Maximizing acute care outcome This patient's present needs are respiratory in nature. His neurobehavioral impairments stemming from his injury is not able to be fully appreciated at this point in time. Anticipated Problems Ongoing areas of concern will include expressive and possible receptive language impairment, which would be expected to improve with time and treatment. Presently, the patient is inconsistently following commands. Treatment Plan This clinician will continue to follow with you throughout the course of this patients rehabilitation treatment, and I will be available to meet with the patients family/support system to facilitate their understanding and the ongoing care of their family member. The goals of neuropsychological intervention shall be both educational and supportive to the family/support system as is deemed clinically appropriate. 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 It is anticipated that as he improves medically, he will improve in terms of his ability to use and understand language. Diagnosis: (1) Major neurocognitive disorder as late effect of traumatic brain injury with behavioral disturbance Status: Acute Progress Note Narrative Ongoing follow-up of patient with discussions with patient's and daughter. The patient was able to read and follow a simple command, but not verbal commands, which in addition to any possible underlying aphasic issues, could also be related to hearing impairment, as noted by the patient's family. I will continue to follow. Shemar Dudley PhD May 30, 2016 12:41 pm
[2016-05-30] MEDS ORDERED: ACETAMINOPHEN 650 MG/20.3 ML UDC PO PRN (15:00)
--- NOTE | 2016-05-30 15:44 | HHI.HCPN ---
Reason for visit a. To assist with evaluation and management of symptoms including: Dyspnea, malnutrition, agitation b. To assist medical decision maker(s) with: better understanding of current medical conditions; weighing benefits/burdens of medical treatment options; making medical treatment decisions. Subjective/Interval History Patient seen today to follow-up on comfort, goals. Seen yesterday, met at length with and daughter yesterday. Patient tolerated T piece presently 2 hours yesterday and then required resumption of ventilation with rate. Tolerating CPAP today. Nursing reports copious amount of secretions requiring suctioning. CBC today stable, no significant changes H& H continues to trend down 12/20.7. Sputum, blood Cultures sent, pending. No new imaging. ST evaluated patient notes patient with limited communication/ limited participation secondary to cognitive, unable to complete swallowing component due to copious secretions. Patient seen in room no visitors present. Seen with MICHELLE Sanchez medical student. he is awake, eyes open. Smiles at examiner. Intermittently follows commands, appears to follow better when demonstrated. Follows commands to show thumbs on upper extremities. Attempts to mouth words though I am unable to understand. Does not follow commands to open mouth or sick out tongue but does smile when requested to do this. Slower extremities some to command. + expressive aphasia. Appears comfortable no distress or restlessness observed today. . Advance Directives Living Will: Copy in medical record (standard living will verbiage requesting no artificial/aggressive measures and the presence of terminal or end-stage condition) Health Care Surrogate: Copy in medical record (designates Nazanin) Objective Vital Signs Date Time Temp Pulse Resp B/P Pulse Ox O2 Delivery O2 Flow Rate FiO2 05/30/16 12:00 40 05/30/16 12:00 99.2 100 21 118/57 92 05/30/16 12:00 100 05/30/16 11:15 92 40 05/30/16 11:15 40 05/30/16 11:15 40 05/30/16 10:00 100 05/30/16 08:00 40 05/30/16 08:00 66 05/30/16 08:00 99.7 66 14 97/50 92 05/30/16 07:26 92 40 05/30/16 07:26 92 Ventilator 40 05/30/16 06:00 82 05/30/16 04:02 99 40 05/30/16 04:00 67 05/30/16 04:00 99.3 67 14 91/52 98 05/30/16 04:00 40 05/30/16 02:00 68 05/30/16 01:43 98 40 05/30/16 00:00 84 05/30/16 00:00 100.0 84 17 91/53 100 05/30/16 00:00 40 05/29/16 22:29 97 40 05/29/16 22:00 80 05/29/16 20:00 40 05/29/16 20:00 101.7 110 23 158/63 94 05/29/16 20:00 110 05/29/16 19:52 97 40 05/29/16 18:00 115 05/29/16 16:19 100 40 05/29/16 16:00 99.5 101 21 123/59 100 05/29/16 16:00 101 05/29/16 16:00 40 Intake & Output 05/30/16 05/30/16 07:00 19:00 Intake Total 1506 ml Output Total 450 ml 0 ml Balance 1056 ml 0 ml IV Total 698 ml Tube Feeding 748 ml Tube Irrigant 60 ml Output Urine Total 450 ml Tube Feeding Residual Discard 0 ml # Bowel Movements 0 Physical Exam CONSTITUTIONAL/GENERAL: This is an adequately nourished patient, on mechanical vent, no distress TUBES/LINES/DRAINS: Peripheral IV bilateral upper extremities, NG tube, tracheostomy, Moreno catheter, restraints, SCDs SKIN: No jaundice, rashes, or lesions. ++ ecchymosis bilateral upper extremities. No wounds seen anteriorly. Skin temperature appropriate. Not diaphoretic. CARDIOVASCULAR: Regular rate and rhythm, no murmurs. Peripheral pulses symmetric. RESPIRATORY/CHEST: Symmetric, unlabored respirations via trach ventilator. Coarse air movement throughout. Breath sounds equal bilaterally. GASTROINTESTINAL: Abdomen soft, round, non-tender, nondistended. No hepato- splenomegaly, or palpable masses. No guarding. Bowel sounds normoactive. Tube feeding infusing via NG tube. GENITOURINARY: Without palpable bladder distension. Moreno catheter in place clear yellow urine. NEUROLOGICAL: Alert with eyes open, smiles at examiner, tracks examiner . Mouths words though very difficult to understand. Follows simple commands when demonstrated to do so though inconsistently. Does move all 4 extremities spontaneously, localizes to touch and pain. PSYCHIATRIC: No restlessness or obvious anxiety observed. Diagnostic Tests Laboratory Laboratory Tests Test 05/28/16 05/28/16 05/29/16 05/29/16 03:10 03:55 03:35 10:19 White Blood Count 15.8 TH/MM3 13.4 TH/MM3 (4.0-11.0) (4.0-11.0) Red Blood Count 2.71 MIL/MM3 2.91 MIL/MM3 (4.50-5.90) (4.50-5.90) Hemoglobin 8.3 GM/DL 8.8 GM/DL (13.0-17.0) (13.0-17.0) Hematocrit 24.7 % 26.4 % (39.0-51.0) (39.0-51.0) Mean Corpuscular Volume 91.2 FL 90.8 FL (80.0-100.0) (80.0-100.0) Mean Corpuscular Hemoglobin 30.7 PG 30.2 PG (27.0-34.0) (27.0-34.0) Mean Corpuscular Hemoglobin 33.7 % 33.3 % Concent (32.0-36.0) (32.0-36.0) Red Cell Distribution Width 13.9 % 13.6 % (11.6-17.2) (11.6-17.2) Platelet Count 281 TH/MM3 308 TH/MM3 (150-450) (150-450) Mean Platelet Volume 9.5 FL 9.3 FL (7.0-11.0) (7.0-11.0) Neutrophils (%) (Auto) 84.1 % 83.4 % (16.0-70.0) (16.0-70.0) Lymphocytes (%) (Auto) 7.3 % 5.9 % (9.0-44.0) (9.0-44.0) Monocytes (%) (Auto) 5.6 % (0.0-8.0) 7.4 % (0.0-8.0) Eosinophils (%) (Auto) 2.1 % (0.0-4.0) 3.0 % (0.0-4.0) Basophils (%) (Auto) 0.9 % (0.0-2.0) 0.3 % (0.0-2.0) Neutrophils # (Auto) 13.3 TH/MM3 11.2 TH/MM3 (1.8-7.7) (1.8-7.7) Lymphocytes # (Auto) 1.2 TH/MM3 0.8 TH/MM3 (1.0-4.8) (1.0-4.8) Monocytes # (Auto) 0.9 TH/MM3 1.0 TH/MM3 (0-0.9) (0-0.9) Eosinophils # (Auto) 0.3 TH/MM3 0.4 TH/MM3 (0-0.4) (0-0.4) Basophils # (Auto) 0.1 TH/MM3 0.0 TH/MM3 (0-0.2) (0-0.2) CBC Comment DIFF FINAL DIFF FINAL Differential Comment Sodium Level 142 MEQ/L 136 MEQ/L (136-145) (136-145) Potassium Level 3.7 MEQ/L 3.6 MEQ/L (3.5-5.1) (3.5-5.1) Chloride Level 105 MEQ/L 101 MEQ/L (98-107) (98-107) Carbon Dioxide Level 28.5 MEQ/L 27.0 MEQ/L (21.0-32.0) (21.0-32.0) Anion Gap 9 MEQ/L (5-15) 8 MEQ/L (5-15) Blood Urea Nitrogen 32 MG/DL (7-18) 27 MG/DL (7-18) Creatinine 1.06 MG/DL 0.96 MG/DL (0.60-1.30) (0.60-1.30) Estimat Glomerular Filtration 66 ML/MIN (>89) 74 ML/MIN (>89) Rate Random Glucose 224 MG/DL 211 MG/DL (74-106) (74-106) Calcium Level 7.7 MG/DL 7.9 MG/DL (8.5-10.1) (8.5-10.1) Blood Gas Puncture Site ART LINE RT RADIAL Blood Gas Patient Temperature 98.6 98.6 Blood Gas HCO3 26 mmol/L 27 mmol/L (22-26) (22-26) Blood Gas Base Excess 2.6 mmol/L 3.3 mmol/L (-2-2) (-2-2) Blood Gas Oxygen Saturation 96 % (90-100) 93 % (90-100) Arterial Blood pH 7.46 7.47 (7.380-7.420) (7.380-7.420) Arterial Blood Partial 38 mmHg (38-42) 37 mmHg (38-42) Pressure CO2 Arterial Blood Partial 104 mmHg 72 mmHg Pressure O2 (61-120) (61-120) Arterial Blood Oxygen Content 13.3 Vol % 11.8 Vol % (12.0-20.0) (12.0-20.0) Arterial Blood 0.8 % (0-4) 1.2 % (0-4) Carboxyhemoglobin Arterial Blood Methemoglobin 0.8 % (0-2) 0.8 % (0-2) Blood Gas Hemoglobin 9.8 G/DL 9.0 G/DL (12.0-16.0) (12.0-16.0) Oxygen Delivery Device VENTILATOR VENTILATOR Blood Gas Ventilator Setting PRVC/AC PRVC/AC Blood Gas Inspired Oxygen 60 % 40 % Total Bilirubin 0.4 MG/DL (0.2-1.0) Aspartate Amino Transf 47 U/L (15-37) (AST/SGOT) Alanine Aminotransferase 45 U/L (12-78) (ALT/SGPT) Alkaline Phosphatase 70 U/L (45-117) Total Protein 6.3 GM/DL (6.4-8.2) Albumin 1.9 GM/DL (3.4-5.0) Test 05/30/16 05/30/16 03:17 05:54 White Blood Count 13.3 TH/MM3 (4.0-11.0) Red Blood Count 2.61 MIL/MM3 (4.50-5.90) Hemoglobin 8.0 GM/DL (13.0-17.0) Hematocrit 23.7 % (39.0-51.0) Mean Corpuscular Volume 90.9 FL (80.0-100.0) Mean Corpuscular Hemoglobin 30.5 PG (27.0-34.0) Mean Corpuscular Hemoglobin 33.6 % Concent (32.0-36.0) Red Cell Distribution Width 13.4 % (11.6-17.2) Platelet Count 318 TH/MM3 (150-450) Mean Platelet Volume 9.0 FL (7.0-11.0) Neutrophils (%) (Auto) 82.2 % (16.0-70.0) Lymphocytes (%) (Auto) 7.2 % (9.0-44.0) Monocytes (%) (Auto) 7.9 % (0.0-8.0) Eosinophils (%) (Auto) 1.8 % (0.0-4.0) Basophils (%) (Auto) 0.9 % (0.0-2.0) Neutrophils # (Auto) 10.9 TH/MM3 (1.8-7.7) Lymphocytes # (Auto) 1.0 TH/MM3 (1.0-4.8) Monocytes # (Auto) 1.1 TH/MM3 (0-0.9) Eosinophils # (Auto) 0.2 TH/MM3 (0-0.4) Basophils # (Auto) 0.1 TH/MM3 (0-0.2) CBC Comment DIFF FINAL Differential Comment Sodium Level 138 MEQ/L (136-145) Potassium Level 3.8 MEQ/L (3.5-5.1) Chloride Level 104 MEQ/L (98-107) Carbon Dioxide Level 29.1 MEQ/L (21.0-32.0) Anion Gap 5 MEQ/L (5-15) Blood Urea Nitrogen 30 MG/DL (7-18) Creatinine 1.05 MG/DL (0.60-1.30) Estimat Glomerular Filtration 67 ML/MIN (>89) Rate Random Glucose 182 MG/DL (74-106) Calcium Level 8.1 MG/DL (8.5-10.1) Total Bilirubin 0.3 MG/DL (0.2-1.0) Aspartate Amino Transf 40 U/L (15-37) (AST/SGOT) Alanine Aminotransferase 43 U/L (12-78) (ALT/SGPT) Alkaline Phosphatase 64 U/L (45-117) Total Protein 5.8 GM/DL (6.4-8.2) Albumin 1.9 GM/DL (3.4-5.0) Blood Gas Puncture Site LT BRACHIAL Blood Gas Patient Temperature 98.6 Blood Gas HCO3 25 mmol/L (22-26) Blood Gas Base Excess 1.3 mmol/L (-2-2) Blood Gas Oxygen Saturation 94 % (90-100) Arterial Blood pH 7.46 (7.380-7.420) Arterial Blood Partial 36 mmHg (38-42) Pressure CO2 Arterial Blood Partial 82 mmHg Pressure O2 (61-120) Arterial Blood Oxygen Content 11.7 Vol % (12.0-20.0) Arterial Blood 1.2 % (0-4) Carboxyhemoglobin Arterial Blood Methemoglobin 0.8 % (0-2) Blood Gas Hemoglobin 8.8 G/DL (12.0-16.0) Oxygen Delivery Device VENTILATOR Blood Gas Ventilator Setting COMMENT Blood Gas Inspired Oxygen 40 % Result Diagram: 05/30/1631605/30/16316 Microbiology Microbiology Date/Time Procedure Status Source Growth 05/29/16 22:20 Gram Stain - Final Resulted Sputum Endotracheal 05/29/16 22:20 Sputum Culture - Preliminary Resulted Sputum Endotracheal NO GROWTH IN 24 HOURS. 05/30/16 03:17 Aerobic Blood Culture Received Blood Peripheral Pending 05/30/16 03:17 Anaerobic Blood Culture Received Blood Peripheral Pending 05/30/16 03:26 Aerobic Blood Culture Received Blood Peripheral Pending 05/30/16 03:26 Anaerobic Blood Culture Received Blood Peripheral Pending Imaging Last Impressions Head CT 05/28/16 0600 Signed Impressions: Service Date/Time: Saturday, May 28, 2016 04:15 - CONCLUSION: Bilateral subdural hematomas becoming less dense today and decreased in size on the left. Subarachnoid and intraventricular hemorrhage again seen. Mild mass effect on the frontal lobes is present. Jv Parikh MD Chest X-Ray 05/27/16 0000 Signed Impressions: Service Date/Time: Friday, May 27, 2016 06:43 - CONCLUSION: Stable appearance of the lungs. Jv Parikh MD Abdomen X-Ray 05/27/16 0000 Signed Impressions: Service Date/Time: Friday, May 27, 2016 19:50 - CONCLUSION: Dobbhoff catheter has been advanced and is now either in the distal stomach or proximal duodenum. Eleazar Solorio MD Transcranial Doppler Study Complete 05/18/16 0730 Signed Impressions: Service Date/Time: April 08:12 - CONCLUSION: 1. No evidence of vasospasm Bill Means MD Procedures 05/18intubated 05/23extubatedreintubated shortly after, same day Assessment and Plan Disease Oriented Problem List: (1) Subdural hematoma, acute (2) Arthritis (3) Hypertension (4) Acute respiratory failure (5) Diabetes type 2, controlled Symptom Scale: (1) Dyspnea (2) Agitation (3) Malnutrition Pertinent Non-Medical Issues Psychosocial:, lives at home with spouse. Retired. Has lived in [place] for 20+ years, many of those years lived in [place], originally from [facility]. 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 Supported by 3 adult children, as well as his . Spiritual: Legal:Patient unable to participate in decision-making. Not clear if or when he will regain that ability. His Nazanin is designated as healthcare surrogate as per his living will documentation. Ethical issues impacting care: Important Contacts Radha Cole [phone] . Prognosis Suffered mechanical fall, patient sustained subdural hemorrhage with midline shift. Has not required neurosurgical intervention. Has required intubation and mechanical ventilation for airway protection, has had ongoing episodes of agitation. Neurosurgery feels patient has a good chance of functional neurologic recovery based on imaging, SDH. However, patient does remain high risk for complications/setbacks which may slow or impair any recovery and rehabilitation. Code Status: Full Code Plan * Legal decision maker: Patient is currently not capacitated to make medical decisions. Not clear if or when he will regain his ability. He has advanced directives naming his Nazanin as legal decision maker. * Goals: Met with family at length 05/26 .In summary: family details that patient was very active, strong, with no medical issues prior to this admission. They understand from neurosurgery that he has a good chance of recovery from brain injury; however I have reviewed with them at length that due to the complexity including age, comorbidities, prolonged hospitalization that he does remain high risk for complications/setbacks which might impact or decrease his ability to fully recover. Goals are aggressive they wish to proceed with tracheostomy and PEG. They are hopeful for him to be placed in aggressive rehabilitation following hospitalization. 05/29 -- follow-up with patient , daughter per their request. provided review of current conditions, diagnostics, trajectory and prognosis. They have many questions regarding full neurologic recovery, timeframe to reach maximum neurological recovery, explored with them that recovery process would be expected in the terms of weeks and months, possibly many months not a few days. Goals remain aggressive. 05/30no family present at time of my exam. Goals have been expressed as aggressive thus far. * CODE STATUS: FULL * SYMPTOMS: --Dyspnea-emergently intubated for airway protection, extubated and then emergently intubated due to unable to manage secretions; status post tracheostomy 05/26. Tolerating CPAP --today on T piece trials --Agitation-intermittent episodes of agitation, this is likely multifactorial both metabolic as well as related to SDH; patient with a history of daily alcohol use which likely affected the first few days of hospitalization. Currently still requiring intermittent use of Precedex drip. Goal to maximize alertness/participation in rehabilitation. Could consider low dose PRN lorazepam via NGT, 0.25mg Ativan q 6 PRN . calmer, less agitation today. -Malnutrition: Risk for related to prolonged hospitalization, alternative feeding required, will require likely PEG for long-term caloric needs, currently receiving tube feeding, plus protein supplement, via NG tube. Speech therapy evaluation ongoing, limited participation today. Not clear that he will be able to take in enough calories by mouth even if does well with ST evaluation. * Palliative care will continue to follow during hospital course as condition evolves, to assist patient/decision-maker with understanding of medical conditions, weighing benefits/burdens of treatment options, for clarification of goals of treatment. Additionally will assist with any symptoms of palliative concern . Time Spent Total Floor Time (mins): 20 Attestation To help prompt me to consider important information that might be impacting today's encounter and assessment, information from prior notes written by myself or my colleagues may have been "brought forward" into today's note. My signature on this note, however, is an attestation that I personally performed the exam, history, and/or decision-making noted today, and, unless otherwise indicated, the interactions with patient, family, and staff as well as the review of records all occurred today. I also attest that the listed assessment and stated plan reflect my best clinical judgment today based on the combination of historical information, prior notes, and today's exam/ interactions. When time spent is documented, it refers only to time spent today by the signer, or if indicated, combined time spent today by collaborating physician/nurse practitioner. Luciana Haro May 30, 2016 15:44
[2016-05-30] MEDS: cefTRIAXone INJ 1,000 MG in SODIUM CHLORIDE 0.9% INJ 100 ML IV SCH (15:45)
[2016-05-30] MEDS: MORPHINE SULFATE 4 MG/ML INJ IV PUSH PRN (21:49)
[2016-05-31] VITALS (17 sets, daily range): BP systolic 102–165; BP diastolic 51–91; PULSE 66–124; RESP 15–35; TEMP 99–101; O2SAT 91–100
[2016-05-31] MEDS: INSULIN ASPART SUPPLEMENTAL SCALE SQ SCH ×3 (01:54→12:00)
[2016-05-31] MEDS: CHLORHEXIDINE GLUCONATE 2 % 1 PACK (2 CLOTHS) TOP SCH (04:58)
[2016-05-31] MEDS: METOCLOPRAMIDE HCL 10 MG/2 ML VIAL IV SCH (07:02)
[2016-05-31] MEDS: LACTULOSE SYRUP 20 GM/30 ML CUP PO SCH ×2 (07:02→17:59)
[2016-05-31] MEDS: hydrALAZINE HCL 25 MG TAB PO SCH ×3 (07:02→22:00)
[2016-05-31] MEDS: CIPROFLOXACIN 400 MG PREMIX 200 ML IV SCH ×2 (07:20→18:12)
[2016-05-31] MEDS: POLYETHYLENE GLYCOL 17 GM PKG PO SCH (09:00)
[2016-05-31] MEDS: CHLORHEXIDINE 0.12% (ORAL KIT) 15 ML CUP MT SCH ×2 (09:19→20:00)
[2016-05-31] MEDS: BENEPROTEIN POWDER 1 PACK G-TUBE SCH ×3 (09:20→18:12)
[2016-05-31] MEDS: TIMOLOL MALEATE 0.25% OPHT SOLN 5 ML BTL EACH EYE SCH ×2 (09:20→20:07)
[2016-05-31] MEDS: PANTOPRAZOLE SODIUM 40 MG VIAL IV SCH (09:27)
[2016-05-31] MEDS: SODIUM CHLORIDE 0.9% FLUSH 5 ML FLUSH IVF SCH ×2 (09:28→20:07)
[2016-05-31] MEDS: LISINOPRIL 20 MG TAB PO SCH ×2 (09:28→20:06)
[2016-05-31] MEDS: FOLIC ACID 1 MG TAB PO SCH (09:28)
[2016-05-31] MEDS: ATORVASTATIN 20 MG TAB PO SCH (09:28)
[2016-05-31] MEDS: amLODIPine BESYLATE 5 MG TAB PO SCH ×2 (09:28→21:27)
[2016-05-31] MEDS: INSULIN DETEMIR 100 UNITS/ML VIAL SQ SCH ×2 (09:29→21:28)
[2016-05-31] MEDS: THIAMINE INJ 100 MG in SODIUM CHLORIDE 0.9% INJ 100 ML IV SCH (09:29)
--- NOTE | 2016-05-31 11:35 | HHI.PR ---
Neuropsych Emotional Emotional: Moderate: Anxious/Fearful, Irritable/Angry/Frustrate Cognitive Cognitive: Unable to Asses: Cognitive, Attention/Concentration, Confused/ Orientation, Insight/Awareness, Judgement/Problem-Solving, Memory Psychosocial Psychosocial: Intact: Psychosocial, Family/Other Adjustment, Realistic Expectation Progress Notes/Response to Tx Contents of Sessions: Level of Consciousness Time with Patient: 15 minutes Premorbid psychological status Premorbid Cognitive, Emotional and Behavioral Status: Stable. The patient is retired from a solid work history and long-term . The patient has no psychiatric difficulties. Substance abuse history is unremarkable. Behavioral Reactions of Patient and Family/Support System: Stable. The patient s family has a clear understanding of the issues inherent in his present medical condition. As expected, the family is experiencing ongoing issues of adjustment given the nature of the injury, and this aspect of recovery will require ongoing monitoring. Emotional/Behavioral Status of Patient and Family/Support System: Stable. Pertinent issues, if appropriate to this patients clinical care, are described in detail above. Maximizing acute care outcome This patient's present needs are respiratory in nature. His neurobehavioral impairments stemming from his injury is not able to be fully appreciated at this point in time. Anticipated Problems Ongoing areas of concern will include expressive and possible receptive language impairment, which would be expected to improve with time and treatment. Presently, the patient is inconsistently following commands. Treatment Plan This clinician will continue to follow with you throughout the course of this patients rehabilitation treatment, and I will be available to meet with the patients family/support system to facilitate their understanding and the ongoing care of their family member. The goals of neuropsychological intervention shall be both educational and supportive to the family/support system as is deemed clinically appropriate. 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 It is anticipated that as he improves medically, he will improve in terms of his ability to use and understand language. 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 Patient was awake and alert, but it is unclear to what extent his language expression and language comprehension is compromised from his neuropathology. I discussed with his some possibilities of bridging that gap for staff members in terms of assessing through written and oral approaches to determining just what he understands and how he may communicate. I will continue to follow. Shemar Dudley PhD May 31, 2016 11:35 am
[2016-05-31] MEDS ORDERED: DEXTROSE 50% IN WATER 50 ML VIAL(D50) IV PUSH PRN (12:15)
--- NOTE | 2016-05-31 12:34 | HHI.CCPN ---
Subjective Remarks/Hospital Course Traumatic SDH. 05/17: This 85-year-old gentleman fell of bed last night and hit his head. He developed aphasia and confusion pretty rapidly and was seen in the emergency department in [place] with a right facial droop. Subsequent CT scan evaluation confirmed an acute left subdural hemorrhage of approximately 8 mm in width with a associated subarachnoid hemorrhage. Additionally in the frontal lobe on the right side he had a 1 cm area of hemorrhage with surrounding vasogenic edema. There was intraventricular blood as well on the right side. I met him on his arrival to [facility]. What was immediately noticeable was that he was not able to express himself well and that he was not following commands correctly. With gestures he was able to follow commands but not with verbal orders. 05/18: Deteriorating mental status, nasal trumpet placed for airway control, and will require intubation. 05/19: Ventilator dependent now. Family needs to clarify goals if possible/ practical. 05/20: A little more alert. Breathes well on CPAP. 05/21: Tolerating CPAP trials with good respiratory drive. 05/22: Agitated. Start precedex for attempted weaning trial and possible extubation. 05/23: Attempt weaning trial again today with low dose precedex for control of agitation. 05/24: Extubated yesterday but could not protect his airway, could not cough up secretions. Quickly failed and required re-intubation. 05/25: Will need trach if family wishes to continue with aggressive care. Worsening glucose intolerance. Will start BID levemir 05/26: No improvement in neurological function. Glucose control much improved. The family feels quite strongly about continued aggressive rehab. Therefore we will perform tracheostomy. Risk and benefits presented to and she wished to proceed. 05/27: Tracheostomy performed 05/26 at family request after discussion with Palliative Care service. Dobbhoff placed and we are now working on LTAC/rehab placement. He looks around the room and appears to recognize his family. Weak limb movements/hand grasps. 05/28: Remains on mechanical ventilation via tracheostomy. Start daily C Pap trials and will attempt transition to trach collar if tolerated. 05/29: Awake, on mechanical ventilation via tracheostomy. Tolerated CPAP trial yesterday. We will attempt T piece today. 05/30: Awake, on mechanical ventilation via tracheostomy. Tolerated T piece for 2 hours yesterday. 05/31: off precedex. awake. still failing t-piece for tachypnea. agitated at times. may be storming from cerebral insult. still low grade temps, but cultures have been persistently negative. Objective Vital Signs Date Time Temp Pulse Resp B/P Pulse Ox O2 Delivery O2 Flow Rate FiO2 05/31/16 10:50 91 45 05/31/16 10:00 120 05/31/16 08:00 99.0 26 165/70 05/30/16 07:26 Ventilator Intake and Output 05/30/16 05/30/16 05/30/16 07:59 15:59 23:59 Intake Total 614 ml 1350 ml 678 ml Output Total 175 ml 350 ml 500 ml Balance 439 ml 1000 ml 178 ml Result Diagram: 05/30/1631605/30/16316 Other Results Microbiology Date/Time Procedure Status Source Growth 05/29/16 22:20 Gram Stain - Final Complete Sputum Endotracheal 05/29/16 22:20 Sputum Culture - Final Complete Sputum Endotracheal MODERATE GROWTH NORMAL RESPIRATORY SANDRA Imaging Last [address] 05/28/16 0600 Signed Impressions: Service Date/Time: Saturday, May 28, 2016 04:15 - CONCLUSION: Bilateral subdural hematomas becoming less dense today and decreased in size on the left. Subarachnoid and intraventricular hemorrhage again seen. Mild mass effect on the frontal lobes is present. Jv Parikh MD Chest X-Ray 05/27/16 0000 Signed Impressions: Service Date/Time: Friday, May 27, 2016 06:43 - CONCLUSION: Stable appearance of the lungs. Jv Parikh MD Abdomen X-Ray 05/27/16 0000 Signed Impressions: Service Date/Time: Friday, May 27, 2016 19:50 - CONCLUSION: Dobbhoff catheter has been advanced and is now either in the distal stomach or proximal duodenum. Eleazar Solorio MD Abdomen X-Ray 05/27/16 0000 Signed Impressions: Service Date/Time: Friday, May 27, 2016 18:24 - CONCLUSION: Tip of the Dobbhoff catheter is still intrathoracic. Eleazar Solorio MD Objective Remarks PHYSICAL EXAMINATION GENERAL: Elderly gentleman, laying in bed on vent via trach. . HEAD: Clean dry incision/laceration clean. NECK: tracheostomy in place LUNGS: on [facility] ventilation, Good air movement. No wheezes or crackles. HEART: Regular rate and rhythm, normal S1-S2, no murmur, no JVD. ABDOMEN: Large, soft, no guarding. BS active. Nondistended. Benign. EXTREMITIES: Warm, well-perfused. tr+ generalized edema. NEUROLOGICAL: Opens eyes, moves extremities to stimulation. A/P Assessment and Plan ASSESSMENT: 1. Acute traumatic left-sided subdural hemorrhage. 2. Traumatic subarachnoid bleed. 3. Small frontal lobe contusion, right side. 4. Agitated Delirium 5. possible cerebral storming 6. Diabetes mellitus, type 2, controlled. 7. Mild hypertension. 8. Respiratory Failure, ventilator dependent. 9. UTI - Klebsiella, Enterococcus 10. Bronchitis - Strep PLAN: 1. PRVC vent mode. Daily PSV trials/ T piece as tolerated. 2. Neurological checks. 3. Head of bed up 30 degrees. 4. start SQH 5000 q12h. SCDs. 5. Labetalol for a blood pressure greater than 170. 6. start clonidine 0.3mg po TID for agitation as we wean precedex 7. start propranolol 10mg po q8h for hypertension/tachycardia and possible cerebral storming. 8. d/c iv protonix and start per tube pepcid. 9. continue goal TFs to 55. 10. increase Levemir to 8 units SQ q12h 11. increase SSI to high scale, q6h. 12. lasix 40mg iv x 1 for volume overload. will check afternoon BMP. goal 1L negative/24h. 13. Sputum culture -> Strep 14. s/p tracheostomy. 15. PT/OT 16: Continue ceftriaxone, cipro. F/u cultures sent on 05/30 for fever. if persistently negative by 2/2, will d/c abx. OVERALL IMPRESSION: Improved mental status, tolerating CPAP but gets agitated. Looking at long-term rehab. Trach placed at family request, will work on transfer. Domenico Harding MD May 31, 2016 12:34
[2016-05-31] MEDS ORDERED: FUROSEMIDE 40 MG/4 ML VIAL IV PUSH ONE ×2 (13:00→18:45)
[2016-05-31] MEDS: cloNIDine HCL 0.3 MG TAB PO SCH ×2 (13:08→21:27)
[2016-05-31] MEDS: PROPRANOLOL HCL 10 MG TAB PO SCH ×2 (14:00→22:00)
[2016-05-31] MEDS: METOCLOPRAMIDE HCL SYRUP 10 MG/10 ML UDC PO SCH ×2 (14:00→23:41)
--- NOTE | 2016-05-31 14:13 | HHI.HCPN ---
Reason for visit a. To assist with evaluation and management of symptoms including: Dyspnea, malnutrition, agitation b. To assist medical decision maker(s) with: better understanding of current medical conditions; weighing benefits/burdens of medical treatment options; making medical treatment decisions. Subjective/Interval History Patient seen today to follow-up on comfort, goals--received call from before my arrival to unit with questions, requesting follow up. PT initially seen in room no family present. He has been weaned off the Precedex since earlier this morning. Tolerating CPAP, possible T piece trial again. No new labs today. Continues to have fever, MAXIMUM TEMPERATURE 101. Culture obtained 05/29 with normal adam. Cultures obtained 05/30 pending. Remains on Cipro, ceftriaxone. Nursing reports intermittently following commands, more alert today. To my exam he is awake, mouthing words, though I cannot understand what he is trying to communicate. He does follow simple commands but only when demonstrated such as showing a thumb. He does not follow all simple commands such as stick out your tongue. He does not appear to be in pain or distress but he will not nod to these questions. Breathing comfortably on trach to ventilator. --- Nursing to notify when family arrives Returned to unit later in the afternoon when family present. Met at bedside with patient as well as [id number]. Review with them current assessments, rehabilitation therapies in process, discharge planning to LTAC in process, ventilator weaning, prognosis thus far, and the patient still remains at risk for complications/setbacks. [id number] request [facility] paperwork be completed for her who is taking off work to travel to [place] to support family, I will complete this for them. All questions answered, goals remain very aggressive, patient family very supportive of whatever he needs to make a full recovery. . Advance Directives Living Will: Copy in medical record (standard living will verbiage requesting no artificial/aggressive measures and the presence of terminal or end-stage condition) Health Care Surrogate: Copy in medical record (designates Nazanin) Objective Vital Signs Date Time Temp Pulse Resp B/P Pulse Ox O2 Delivery O2 Flow Rate FiO2 05/31/16 10:50 91 45 05/31/16 10:00 120 05/31/16 08:00 93 05/31/16 08:00 99.0 120 26 165/70 92 05/31/16 08:00 40 2/1/17 07:55 97 40 05/31/16 06:00 109 05/31/16 04:01 94 40 05/31/16 04:00 68 05/31/16 04:00 40 05/31/16 04:00 100.3 66 15 102/51 95 05/31/16 02:00 74 05/31/16 00:00 40 05/31/16 00:00 74 05/31/16 00:00 101.0 74 16 111/56 98 05/30/16 23:44 100 40 05/30/16 22:00 100 05/30/16 20:30 100 40 05/30/16 20:00 40 05/30/16 20:00 86 05/30/16 20:00 100.4 86 22 151/69 95 05/30/16 18:00 97 05/30/16 16:00 102 05/30/16 16:00 40 05/30/16 16:00 99.9 102 24 165/80 92 05/30/16 15:43 91 40 Intake & Output 05/31/16 05/31/16 07:00 19:00 Intake Total 1438 ml Output Total 725 ml Balance 713 ml IV Total 249 ml Tube Feeding 789 ml Tube Irrigant 400 ml Output Urine Total 725 ml # Bowel Movements 0 Physical Exam CONSTITUTIONAL/GENERAL: This is an adequately nourished patient, on mechanical vent, no distress TUBES/LINES/DRAINS: Peripheral IV bilateral upper extremities, NG tube, tracheostomy, Moreno catheter, restraints, SCDs SKIN: No jaundice, rashes, or lesions. ++ ecchymosis bilateral upper extremities. No wounds seen anteriorly. Skin temperature appropriate. Not diaphoretic. CARDIOVASCULAR: Regular rate and rhythm, no murmurs. Peripheral pulses symmetric. RESPIRATORY/CHEST: Symmetric, unlabored respirations via trach ventilator. Coarse air movement throughout. Breath sounds equal bilaterally. GASTROINTESTINAL: Abdomen soft, round, non-tender, nondistended. No hepato- splenomegaly, or palpable masses. No guarding. Bowel sounds normoactive. Tube feeding infusing via NG tube. NEUROLOGICAL: Alert with eyes open, smiles at examiner, tracks examiner . Mouths words though very difficult to understand. Follows simple commands when demonstrated to do so though inconsistently. Does move all 4 extremities spontaneously, localizes to touch and pain. Does not nod to questions PSYCHIATRIC: No restlessness or obvious anxiety observed. Diagnostic Tests Laboratory Laboratory Tests Test 05/29/16 05/29/16 05/30/16 05/30/16 03:35 10:19 03:17 05:54 Blood Gas Puncture Site RT RADIAL LT BRACHIAL Blood Gas Patient Temperature 98.6 98.6 Blood Gas HCO3 27 mmol/L 25 mmol/L (22-26) (22-26) Blood Gas Base Excess 3.3 mmol/L 1.3 mmol/L (-2-2) (-2-2) Blood Gas Oxygen Saturation 93 % (90-100) 94 % (90-100) Arterial Blood pH 7.47 7.46 (7.380-7.420) (7.380-7.420) Arterial Blood Partial 37 mmHg (38-42) 36 mmHg (38-42) Pressure CO2 Arterial Blood Partial 72 mmHg 82 mmHg Pressure O2 (61-120) (61-120) Arterial Blood Oxygen Content 11.8 Vol % 11.7 Vol % (12.0-20.0) (12.0-20.0) Arterial Blood 1.2 % (0-4) 1.2 % (0-4) Carboxyhemoglobin Arterial Blood Methemoglobin 0.8 % (0-2) 0.8 % (0-2) Blood Gas Hemoglobin 9.0 G/DL 8.8 G/DL (12.0-16.0) (12.0-16.0) Oxygen Delivery Device VENTILATOR VENTILATOR Blood Gas Ventilator Setting PRVC/AC COMMENT Blood Gas Inspired Oxygen 40 % 40 % Sodium Level 136 MEQ/L 138 MEQ/L (136-145) (136-145) Potassium Level 3.6 MEQ/L 3.8 MEQ/L (3.5-5.1) (3.5-5.1) Chloride Level 101 MEQ/L 104 MEQ/L (98-107) (98-107) Carbon Dioxide Level 27.0 MEQ/L 29.1 MEQ/L (21.0-32.0) (21.0-32.0) Anion Gap 8 MEQ/L (5-15) 5 MEQ/L (5-15) Blood Urea Nitrogen 27 MG/DL (7-18) 30 MG/DL (7-18) Creatinine 0.96 MG/DL 1.05 MG/DL (0.60-1.30) (0.60-1.30) Estimat Glomerular Filtration 74 ML/MIN (>89) 67 ML/MIN (>89) Rate Random Glucose 211 MG/DL 182 MG/DL (74-106) (74-106) Calcium Level 7.9 MG/DL 8.1 MG/DL (8.5-10.1) (8.5-10.1) Total Bilirubin 0.4 MG/DL 0.3 MG/DL (0.2-1.0) (0.2-1.0) Aspartate Amino Transf 47 U/L (15-37) 40 U/L (15-37) (AST/SGOT) Alanine Aminotransferase 45 U/L (12-78) 43 U/L (12-78) (ALT/SGPT) Alkaline Phosphatase 70 U/L (45-117) 64 U/L (45-117) Total Protein 6.3 GM/DL 5.8 GM/DL (6.4-8.2) (6.4-8.2) Albumin 1.9 GM/DL 1.9 GM/DL (3.4-5.0) (3.4-5.0) White Blood Count 13.4 TH/MM3 13.3 TH/MM3 (4.0-11.0) (4.0-11.0) Red Blood Count 2.91 MIL/MM3 2.61 MIL/MM3 (4.50-5.90) (4.50-5.90) Hemoglobin 8.8 GM/DL 8.0 GM/DL (13.0-17.0) (13.0-17.0) Hematocrit 26.4 % 23.7 % (39.0-51.0) (39.0-51.0) Mean Corpuscular Volume 90.8 FL 90.9 FL (80.0-100.0) (80.0-100.0) Mean Corpuscular Hemoglobin 30.2 PG 30.5 PG (27.0-34.0) (27.0-34.0) Mean Corpuscular Hemoglobin 33.3 % 33.6 % Concent (32.0-36.0) (32.0-36.0) Red Cell Distribution Width 13.6 % 13.4 % (11.6-17.2) (11.6-17.2) Platelet Count 308 TH/MM3 318 TH/MM3 (150-450) (150-450) Mean Platelet Volume 9.3 FL 9.0 FL (7.0-11.0) (7.0-11.0) Neutrophils (%) (Auto) 83.4 % 82.2 % (16.0-70.0) (16.0-70.0) Lymphocytes (%) (Auto) 5.9 % 7.2 % (9.0-44.0) (9.0-44.0) Monocytes (%) (Auto) 7.4 % (0.0-8.0) 7.9 % (0.0-8.0) Eosinophils (%) (Auto) 3.0 % (0.0-4.0) 1.8 % (0.0-4.0) Basophils (%) (Auto) 0.3 % (0.0-2.0) 0.9 % (0.0-2.0) Neutrophils # (Auto) 11.2 TH/MM3 10.9 TH/MM3 (1.8-7.7) (1.8-7.7) Lymphocytes # (Auto) 0.8 TH/MM3 1.0 TH/MM3 (1.0-4.8) (1.0-4.8) Monocytes # (Auto) 1.0 TH/MM3 1.1 TH/MM3 (0-0.9) (0-0.9) Eosinophils # (Auto) 0.4 TH/MM3 0.2 TH/MM3 (0-0.4) (0-0.4) Basophils # (Auto) 0.0 TH/MM3 0.1 TH/MM3 (0-0.2) (0-0.2) CBC Comment DIFF FINAL DIFF FINAL Differential Comment Result Diagram: 05/30/1631605/30/16316 Microbiology Microbiology Date/Time Procedure Status Source Growth 05/29/16 22:20 Gram Stain - Final Complete Sputum Endotracheal 05/29/16 22:20 Sputum Culture - Final Complete Sputum Endotracheal MODERATE GROWTH NORMAL RESPIRATORY ADAM 05/30/16 03:17 Aerobic Blood Culture - Preliminary Resulted Blood Peripheral NO GROWTH IN 1 DAY 05/30/16 03:17 Anaerobic Blood Culture - Preliminary Resulted Blood Peripheral NO GROWTH IN 1 DAY 05/30/16 03:26 Aerobic Blood Culture - Preliminary Resulted Blood Peripheral NO GROWTH IN 1 DAY 05/30/16 03:26 Anaerobic Blood Culture - Preliminary Resulted Blood Peripheral NO GROWTH IN 1 DAY Imaging Last Impressions Head CT 05/28/16 0600 Signed Impressions: Service Date/Time: Saturday, May 28, 2016 04:15 - CONCLUSION: Bilateral subdural hematomas becoming less dense today and decreased in size on the left. Subarachnoid and intraventricular hemorrhage again seen. Mild mass effect on the frontal lobes is present. Jv Parikh MD Chest X-Ray 05/27/16 0000 Signed Impressions: Service Date/Time: Friday, May 27, 2016 06:43 - CONCLUSION: Stable appearance of the lungs. Jv Parikh MD Abdomen X-Ray 05/27/16 0000 Signed Impressions: Service Date/Time: Friday, May 27, 2016 19:50 - CONCLUSION: Dobbhoff catheter has been advanced and is now either in the distal stomach or proximal duodenum. Eleazar Solorio MD Transcranial Doppler Study Complete 05/18/16 0730 Signed Impressions: Service Date/Time: April 08:12 - CONCLUSION: 1. No evidence of vasospasm Bill Means MD Procedures 05/18intubated 05/23extubatedreintubated shortly after, same day Assessment and Plan Disease Oriented Problem List: (1) Subdural hematoma, acute (2) Arthritis (3) Hypertension (4) Acute respiratory failure (5) Diabetes type 2, controlled Symptom Scale: (1) Dyspnea (2) Agitation (3) Malnutrition Pertinent Non-Medical Issues Psychosocial:, lives at home with spouse. Retired. Has lived in [place] for 20+ years, many of those years lived in [place], originally from [facility]. 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 Supported by 3 adult children, as well as his . Spiritual: Legal:Patient unable to participate in decision-making. Not clear if or when he will regain that ability. His Nazanin is designated as healthcare surrogate as per his living will documentation. Ethical issues impacting care: Important Contacts Radha Cole [phone] . Prognosis Suffered mechanical fall, patient sustained subdural hemorrhage with midline shift. Has not required neurosurgical intervention. Has required intubation and mechanical ventilation for airway protection, has had ongoing episodes of agitation. Neurosurgery feels patient has a good chance of functional neurologic recovery based on imaging, SDH. However, patient does remain high risk for complications/setbacks which may slow or impair any recovery and rehabilitation. Code Status: Full Code Plan * Legal decision maker: Patient is currently not capacitated to make medical decisions. Not clear if or when he will regain his ability. He has advanced directives naming his Nazanin as legal decision maker. * Goals: Met with family at length 05/26 .In summary: family details that patient was very active, strong, with no medical issues prior to this admission. They understand from neurosurgery that he has a good chance of recovery from brain injury; however I have reviewed with them at length that due to the complexity including age, comorbidities, prolonged hospitalization that he does remain high risk for complications/setbacks which might impact or decrease his ability to fully recover. Goals are aggressive they wish to proceed with tracheostomy and PEG. They are hopeful for him to be placed in aggressive rehabilitation following hospitalization. 05/29 -- follow-up with patient , daughter per their request. provided review of current conditions, diagnostics, trajectory and prognosis. They have many questions regarding full neurologic recovery, timeframe to reach maximum neurological recovery, explored with them that recovery process would be expected in the terms of weeks and months, possibly many months not a few days. Goals remain aggressive. 05/31/16- goals remain aggressive, family hopeful for full recovery, continue with all available treatments. Family requested completion of [facility] paperwork for their leave of absence to assist patient, palliative completed this for them. * CODE STATUS: FULL * SYMPTOMS: --Dyspnea-emergently intubated for airway protection, extubated and then emergently intubated due to unable to manage secretions; status post tracheostomy 05/26. Tolerating CPAP, intermittent T piece trials --Agitation-intermittent episodes of agitation, this is likely multifactorial both metabolic as well as related to SDH; patient with a history of daily alcohol use which likely affected the first few days of hospitalization. Had been on Precedex, weaned off this morning. Goal to maximize alertness/participation in rehabilitation. Could consider low dose PRN lorazepam via NGT, 0.25mg Ativan q 6 PRN . calm, less agitation today. -Malnutrition: Risk for related to prolonged hospitalization, alternative feeding required, will require likely PEG for long-term caloric needs, currently receiving tube feeding, plus protein supplement, via NG tube. Speech therapy evaluation ongoing, limited participation today. Not clear that he will be able to take in enough calories by mouth even if does well with ST evaluation--may still ultimately require PEG tube for rehabilitation placement * Palliative care will continue to follow during hospital course as condition evolves, to assist patient/decision-maker with understanding of medical conditions, weighing benefits/burdens of treatment options, for clarification of goals of treatment. Additionally will assist with any symptoms of palliative concern . Time Spent Total Floor Time (mins): 40 >50% Counseling/Coord of Care: Yes (discussed with critical care, RN) Attestation To help prompt me to consider important information that might be impacting today's encounter and assessment, information from prior notes written by myself or my colleagues may have been "brought forward" into today's note. My signature on this note, however, is an attestation that I personally performed the exam, history, and/or decision-making noted today, and, unless otherwise indicated, the interactions with patient, family, and staff as well as the review of records all occurred today. I also attest that the listed assessment and stated plan reflect my best clinical judgment today based on the combination of historical information, prior notes, and today's exam/ interactions. When time spent is documented, it refers only to time spent today by the signer, or if indicated, combined time spent today by collaborating physician/nurse practitioner. Luciana Haro May 31, 2016 14:13
[2016-05-31] MEDS: FREE WATER G-TUBE SCH ×2 (14:42→22:20)
[2016-05-31] MEDS: cefTRIAXone INJ 1,000 MG in SODIUM CHLORIDE 0.9% INJ 100 ML IV SCH (16:00)
[2016-05-31] MEDS: INSULIN NovoLIN REGULAR SUPPLEMENTAL SCALE SQ SCH ×2 (18:00→23:49)
[2016-05-31] MEDS: MORPHINE SULFATE 4 MG/ML INJ IV PUSH PRN (20:09)
[2016-05-31] MEDS: FAMOTIDINE SUSP 40 MG/5 ML NG SCH (21:00)
[2016-05-31] MEDS: MELATONIN 5 MG TAB PO SCH (21:27)
[2016-05-31] MEDS: HEPARIN SODIUM - SQ 10,000 UNITS/ML VIAL SQ SCH (21:28)
[2016-06-01] VITALS (17 sets, daily range): BP systolic 90–148; BP diastolic 50–68; PULSE 72–110; RESP 21–25; TEMP 97.6–100.6; O2SAT 94–100
[2016-06-01] MEDS: CHLORHEXIDINE GLUCONATE 2 % 1 PACK (2 CLOTHS) TOP SCH (03:49)
[2016-06-01] MEDS: cloNIDine HCL 0.3 MG TAB PO SCH ×3 (04:34→20:11)
[2016-06-01 04:56] LABS: MEAN CELL VOLUME 89.9 FL (80.0-100.0); MEAN CORPUSCULAR HGB CONC 33.4 % (32.0-36.0); PLATELET COUNT 346 TH/MM3 (150-450); RED BLOOD COUNT 2.56 MIL/MM3 (4.50-5.90); RED CELL DISTRIBUTION WIDTH 13.2 % (11.6-17.2); REVIEW FLAG FINAL; WHITE BLOOD COUNT 15.6 TH/MM3 (4.0-11.0)
[2016-06-01 05:03] LABS: BICARBONATE 28.6 MEQ/L (21.0-32.0); POTASSIUM 3.9 MEQ/L (3.5-5.1)
[2016-06-01] MEDS: PROPRANOLOL HCL 10 MG TAB PO SCH ×3 (06:00→20:11)
[2016-06-01] MEDS: hydrALAZINE HCL 25 MG TAB PO SCH ×3 (06:00→20:12)
[2016-06-01] MEDS: FREE WATER G-TUBE SCH ×3 (06:42→21:29)
[2016-06-01] MEDS: METOCLOPRAMIDE HCL SYRUP 10 MG/10 ML UDC PO SCH ×3 (06:42→20:11)
[2016-06-01] MEDS: LACTULOSE SYRUP 20 GM/30 ML CUP PO SCH ×2 (06:42→18:00)
[2016-06-01] MEDS: INSULIN NovoLIN REGULAR SUPPLEMENTAL SCALE SQ SCH ×4 (06:43→23:54)
[2016-06-01] MEDS: CIPROFLOXACIN 400 MG PREMIX 200 ML IV SCH ×2 (07:03→18:45)
[2016-06-01] MEDS: CHLORHEXIDINE 0.12% (ORAL KIT) 15 ML CUP MT SCH ×2 (08:00→20:11)
[2016-06-01] MEDS: FAMOTIDINE SUSP 40 MG/5 ML NG SCH ×2 (09:00→21:00)
[2016-06-01] MEDS: BENEPROTEIN POWDER 1 PACK G-TUBE SCH ×3 (09:00→18:00)
[2016-06-01] MEDS: SODIUM CHLORIDE 0.9% FLUSH 5 ML FLUSH IVF SCH ×2 (09:00→20:11)
[2016-06-01] MEDS: TIMOLOL MALEATE 0.25% OPHT SOLN 5 ML BTL EACH EYE SCH ×2 (09:00→20:32)
[2016-06-01] MEDS: LISINOPRIL 20 MG TAB PO SCH (09:00)
[2016-06-01] MEDS: amLODIPine BESYLATE 5 MG TAB PO SCH (09:00)
[2016-06-01] MEDS: FOLIC ACID 1 MG TAB PO SCH (09:45)
[2016-06-01] MEDS: INSULIN DETEMIR 100 UNITS/ML VIAL SQ SCH ×2 (09:45→20:11)
[2016-06-01] MEDS: THIAMINE HCL 100 MG TAB PO SCH (09:45)
[2016-06-01] MEDS: ATORVASTATIN 20 MG TAB PO SCH (09:45)
[2016-06-01] MEDS: HEPARIN SODIUM - SQ 10,000 UNITS/ML VIAL SQ SCH ×2 (09:46→20:11)
[2016-06-01] MEDS: POLYETHYLENE GLYCOL 17 GM PKG PO SCH (09:46)
[2016-06-01] MEDS ORDERED: FUROSEMIDE 40 MG/4 ML VIAL IV PUSH ONE (10:30)
--- NOTE | 2016-06-01 10:42 | HHI.CCPN ---
Subjective Remarks/Hospital Course Traumatic SDH. 05/17: This 85-year-old gentleman fell of bed last night and hit his head. He developed aphasia and confusion pretty rapidly and was seen in the emergency department in [place] with a right facial droop. Subsequent CT scan evaluation confirmed an acute left subdural hemorrhage of approximately 8 mm in width with a associated subarachnoid hemorrhage. Additionally in the frontal lobe on the right side he had a 1 cm area of hemorrhage with surrounding vasogenic edema. There was intraventricular blood as well on the right side. I met him on his arrival to [facility]. What was immediately noticeable was that he was not able to express himself well and that he was not following commands correctly. With gestures he was able to follow commands but not with verbal orders. 05/18: Deteriorating mental status, nasal trumpet placed for airway control, and will require intubation. 05/19: Ventilator dependent now. Family needs to clarify goals if possible/ practical. 05/20: A little more alert. Breathes well on CPAP. 05/21: Tolerating CPAP trials with good respiratory drive. 05/22: Agitated. Start precedex for attempted weaning trial and possible extubation. 05/23: Attempt weaning trial again today with low dose precedex for control of agitation. 05/24: Extubated yesterday but could not protect his airway, could not cough up secretions. Quickly failed and required re-intubation. 05/25: Will need trach if family wishes to continue with aggressive care. Worsening glucose intolerance. Will start BID levemir 05/26: No improvement in neurological function. Glucose control much improved. The family feels quite strongly about continued aggressive rehab. Therefore we will perform tracheostomy. Risk and benefits presented to and she wished to proceed. 05/27: Tracheostomy performed 05/26 at family request after discussion with Palliative Care service. Dobbhoff placed and we are now working on LTAC/rehab placement. He looks around the room and appears to recognize his family. Weak limb movements/hand grasps. 05/28: Remains on mechanical ventilation via tracheostomy. Start daily C Pap trials and will attempt transition to trach collar if tolerated. 05/29: Awake, on mechanical ventilation via tracheostomy. Tolerated CPAP trial yesterday. We will attempt T piece today. 05/30: Awake, on mechanical ventilation via tracheostomy. Tolerated T piece for 2 hours yesterday. 05/31: off precedex. awake. still failing t-piece for tachypnea. agitated at times. may be storming from cerebral insult. still low grade temps, but cultures have been persistently negative. 06/01: low grade fevers persist. cultures still negative. Objective Vital Signs Date Time Temp Pulse Resp B/P Pulse Ox O2 Delivery O2 Flow Rate FiO2 06/01/16 07:30 50 06/01/16 07:30 99 06/01/16 06:00 98 06/01/16 04:00 100.6 23 105/65 05/30/16 07:26 Ventilator Intake and Output 05/31/16 05/31/16 06/01/16 08:00 16:00 00:00 Intake Total 760 ml 741 ml 1140 ml Output Total 225 ml 1425 ml 2550 ml Balance 535 ml -684 ml -1410 ml Result Diagram: 06/01/16 0408 06/01/16 0408 Other Results Microbiology Date/Time Procedure Status Source Growth 05/29/16 22:20 Gram Stain - Final Complete Sputum Endotracheal 05/29/16 22:20 Sputum Culture - Final Complete Sputum Endotracheal MODERATE GROWTH NORMAL RESPIRATORY SANDRA Imaging Last [address] 05/28/16 0600 Signed Impressions: Service Date/Time: Saturday, May 28, 2016 04:15 - CONCLUSION: Bilateral subdural hematomas becoming less dense today and decreased in size on the left. Subarachnoid and intraventricular hemorrhage again seen. Mild mass effect on the frontal lobes is present. Jv Parikh MD Chest X-Ray 05/27/16 0000 Signed Impressions: Service Date/Time: Friday, May 27, 2016 06:43 - CONCLUSION: Stable appearance of the lungs. Jv Parikh MD Abdomen X-Ray 05/27/16 0000 Signed Impressions: Service Date/Time: Friday, May 27, 2016 19:50 - CONCLUSION: Dobbhoff catheter has been advanced and is now either in the distal stomach or proximal duodenum. Eleazar Solorio MD Abdomen X-Ray 05/27/16 0000 Signed Impressions: Service Date/Time: Friday, May 27, 2016 18:24 - CONCLUSION: Tip of the Dobbhoff catheter is still intrathoracic. Eleazar Solorio MD Objective Remarks PHYSICAL EXAMINATION GENERAL: Elderly gentleman, laying in bed on vent via trach. . HEAD: Clean dry incision/laceration clean. NECK: tracheostomy in place LUNGS: on mech ventilation, Good air movement. No wheezes or crackles. HEART: Regular rate and rhythm, normal S1-S2, no murmur, no JVD. ABDOMEN: Large, soft, no guarding. BS active. Nondistended. Benign. EXTREMITIES: Warm, well-perfused. tr+ generalized edema. NEUROLOGICAL: Opens eyes, moves extremities to stimulation. A/P Assessment and Plan ASSESSMENT: 1. Acute traumatic left-sided subdural hemorrhage. 2. Traumatic subarachnoid bleed. 3. Small frontal lobe contusion, right side. 4. Agitated Delirium 5. possible cerebral storming 6. Diabetes mellitus, type 2, controlled. 7. Mild hypertension. 8. Respiratory Failure, ventilator dependent. 9. UTI - Klebsiella, Enterococcus 10. Bronchitis - Strep PLAN: 1. PRVC vent mode. Daily PSV trials/ T piece as tolerated. 2. Neurological checks. 3. Head of bed up 30 degrees. 4. SQH 5000 q12h. SCDs. 5. Labetalol for a blood pressure greater than 170. 6. clonidine 0.3mg po TID for agitation as we wean precedex 7. propranolol 10mg po q8h for hypertension/tachycardia and possible cerebral storming. 8. per tube pepcid. 9. continue goal TFs to 55. 10. Levemir to 8 units SQ q12h 11. SSI high scale, q6h. 12. lasix 40mg iv x 1 for volume overload. goal 500cc negative/24h. 13. Sputum culture -> Strep 05/23, s/p full course of ceftriaxone. 14. s/p tracheostomy. 15. daily SBT/trach collar trials. fails for tachypnea daily. will continue to try. 16. PT/OT 17: if cutlures are negative today, will d/c abx. culture for new fever or clinical decline. 18. speech therapy. - working on LTAC placement. OVERALL IMPRESSION: Improved mental status, tolerating CPAP but gets agitated. Looking at long-term rehab. Trach placed at family request, will work on transfer. Domenico Harding MD Jun 01, 2016 10:42
[2016-06-01] MEDS: cefTRIAXone INJ 1,000 MG in SODIUM CHLORIDE 0.9% INJ 100 ML IV SCH (16:46)
--- NOTE | 2016-06-01 17:44 | HHI.HCPN ---
Reason for visit a. To assist with evaluation and management of symptoms including: Dyspnea, malnutrition, agitation b. To assist medical decision maker(s) with: better understanding of current medical conditions; weighing benefits/burdens of medical treatment options; making medical treatment decisions. Subjective/Interval History Patient seen and examined today to follow-up on comfort and goals. No family at bedside during my visit. He is awake and alert. He does not speak to me, smiles and holds my hand. He remains on oxygen via t-piece. Some low grade temp, Tmax 100.6. Adequate UOP. LBM 06/01/16. WBC 15.6, hemoglobin 7.7, platelets 346. Creatinine 0.94. Albumin 1.9. Tolerating tube feeding via Dobbhoff. Culture obtained 05/29 with normal adam. Cultures negative to date. Remains on Cipro, ceftriaxone. . Family/friend interactions No family at bedside. Left message for to return call should she have any questions or concerns. . Advance Directives Living Will: Copy in medical record (standard living will verbiage requesting no artificial/aggressive measures and the presence of terminal or end-stage condition) Health Care Surrogate: Copy in medical record (designates Nazanin) Advance Directive Specifics Significant change in goals: FULL CODE. Goals remain aggressive. . Objective Vital Signs Date Time Temp Pulse Resp B/P Pulse Ox O2 Delivery O2 Flow Rate FiO2 06/01/16 16:00 98.6 72 24 136/65 98 06/01/16 16:00 75 06/01/16 16:00 50 06/01/16 15:14 100 50 06/01/16 14:00 85 06/01/16 12:54 50 06/01/16 12:51 100 50 06/01/16 12:50 50 06/01/16 12:00 88 06/01/16 12:00 55 06/01/16 12:00 99.3 91 21 147/66 98 06/01/16 10:00 93 06/01/16 08:00 55 06/01/16 08:00 81 06/01/16 08:00 97.6 81 24 90/50 99 06/01/16 07:30 50 06/01/16 07:30 99 50 06/01/16 06:00 98 06/01/16 04:18 100 60 06/01/16 04:00 100.6 80 23 105/65 98 06/01/16 04:00 80 06/01/16 04:00 55 06/01/16 02:00 87 06/01/16 00:20 100 60 06/01/16 00:00 55 06/01/16 00:00 76 06/01/16 00:00 99.8 76 23 94/52 94 05/31/16 22:00 103 05/31/16 20:00 99.7 124 35 162/73 96 05/31/16 20:00 124 05/31/16 20:00 55 05/31/16 19:33 100 60 05/31/16 18:00 103 Intake & Output 06/01/16 06/01/16 07:00 19:00 Intake Total 1749 ml 540 ml Output Total 2000 ml 650 ml Balance -251 ml -110 ml IV Total 328 ml 252 ml Tube Feeding 821 ml 288 ml Tube Irrigant 200 ml Other 400 ml Output Urine Total 2000 ml 650 ml # Bowel Movements 1 2 Physical Exam CONSTITUTIONAL/GENERAL: This is an adequately nourished patient, on mechanical vent, no distress TUBES/LINES/DRAINS: Peripheral IV bilateral upper extremities, NG tube, tracheostomy, Moreno catheter, restraints, SCDs SKIN: No jaundice, rashes, or lesions. ++ ecchymosis bilateral upper extremities. No wounds seen anteriorly. Skin temperature appropriate. Not diaphoretic. CARDIOVASCULAR: Regular rate and rhythm, no murmurs. Peripheral pulses symmetric. RESPIRATORY/CHEST: Symmetric, unlabored respirations via trach ventilator. Coarse air movement throughout. Breath sounds equal bilaterally. GASTROINTESTINAL: Abdomen soft, round, non-tender, nondistended. No hepato- splenomegaly, or palpable masses. No guarding. Bowel sounds normoactive. Tube feeding infusing via NG tube. NEUROLOGICAL: Alert with eyes open, smiles at examiner, tracks examiner. DOes not mouth words for me today. Does move all 4 extremities spontaneously, localizes to touch and pain. Does not nod to questions. PSYCHIATRIC: No restlessness or obvious anxiety observed. . Diagnostic Tests Laboratory Laboratory Tests Test 05/30/16 05/30/16 05/31/16 06/01/16 03:17 05:54 17:10 04:08 White Blood Count 13.3 TH/MM3 15.6 TH/MM3 (4.0-11.0) (4.0-11.0) Red Blood Count 2.61 MIL/MM3 2.56 MIL/MM3 (4.50-5.90) (4.50-5.90) Hemoglobin 8.0 GM/DL 7.7 GM/DL (13.0-17.0) (13.0-17.0) Hematocrit 23.7 % 23.0 % (39.0-51.0) (39.0-51.0) Mean Corpuscular Volume 90.9 FL 89.9 FL (80.0-100.0) (80.0-100.0) Mean Corpuscular Hemoglobin 30.5 PG 30.0 PG (27.0-34.0) (27.0-34.0) Mean Corpuscular Hemoglobin 33.6 % 33.4 % Concent (32.0-36.0) (32.0-36.0) Red Cell Distribution Width 13.4 % 13.2 % (11.6-17.2) (11.6-17.2) Platelet Count 318 TH/MM3 346 TH/MM3 (150-450) (150-450) Mean Platelet Volume 9.0 FL 8.9 FL (7.0-11.0) (7.0-11.0) Neutrophils (%) (Auto) 82.2 % (16.0-70.0) Lymphocytes (%) (Auto) 7.2 % (9.0-44.0) Monocytes (%) (Auto) 7.9 % (0.0-8.0) Eosinophils (%) (Auto) 1.8 % (0.0-4.0) Basophils (%) (Auto) 0.9 % (0.0-2.0) Neutrophils # (Auto) 10.9 TH/MM3 (1.8-7.7) Lymphocytes # (Auto) 1.0 TH/MM3 (1.0-4.8) Monocytes # (Auto) 1.1 TH/MM3 (0-0.9) Eosinophils # (Auto) 0.2 TH/MM3 (0-0.4) Basophils # (Auto) 0.1 TH/MM3 (0-0.2) CBC Comment DIFF FINAL Differential Comment Sodium Level 138 MEQ/L 138 MEQ/L 136 MEQ/L (136-145) (136-145) (136-145) Potassium Level 3.8 MEQ/L 4.0 MEQ/L 3.9 MEQ/L (3.5-5.1) (3.5-5.1) (3.5-5.1) Chloride Level 104 MEQ/L 102 MEQ/L 100 MEQ/L (98-107) (98-107) (98-107) Carbon Dioxide Level 29.1 MEQ/L 28.0 MEQ/L 28.6 MEQ/L (21.0-32.0) (21.0-32.0) (21.0-32.0) Anion Gap 5 MEQ/L (5-15) 8 MEQ/L (5-15) 7 MEQ/L (5-15) Blood Urea Nitrogen 30 MG/DL (7-18) 24 MG/DL (7-18) 25 MG/DL (7-18) Creatinine 1.05 MG/DL 0.87 MG/DL 0.94 MG/DL (0.60-1.30) (0.60-1.30) (0.60-1.30) Estimat Glomerular Filtration 67 ML/MIN (>89) 83 ML/MIN (>89) 76 ML/MIN (>89) Rate Random Glucose 182 MG/DL 144 MG/DL 175 MG/DL (74-106) (74-106) (74-106) Calcium Level 8.1 MG/DL 8.3 MG/DL 7.8 MG/DL (8.5-10.1) (8.5-10.1) (8.5-10.1) Total Bilirubin 0.3 MG/DL (0.2-1.0) Aspartate Amino Transf 40 U/L (15-37) (AST/SGOT) Alanine Aminotransferase 43 U/L (12-78) (ALT/SGPT) Alkaline Phosphatase 64 U/L (45-117) Total Protein 5.8 GM/DL (6.4-8.2) Albumin 1.9 GM/DL (3.4-5.0) Blood Gas Puncture Site LT BRACHIAL Blood Gas Patient Temperature 98.6 Blood Gas HCO3 25 mmol/L (22-26) Blood Gas Base Excess 1.3 mmol/L (-2-2) Blood Gas Oxygen Saturation 94 % (90-100) Arterial Blood pH 7.46 (7.380-7.420) Arterial Blood Partial 36 mmHg (38-42) Pressure CO2 Arterial Blood Partial 82 mmHg Pressure O2 (61-120) Arterial Blood Oxygen Content 11.7 Vol % (12.0-20.0) Arterial Blood 1.2 % (0-4) Carboxyhemoglobin Arterial Blood Methemoglobin 0.8 % (0-2) Blood Gas Hemoglobin 8.8 G/DL (12.0-16.0) Oxygen Delivery Device VENTILATOR Blood Gas Ventilator Setting COMMENT Blood Gas Inspired Oxygen 40 % Result Diagram: 06/01/168 06/01/168 Microbiology Microbiology Date/Time Procedure Status Source Growth 05/29/16 22:20 Gram Stain - Final Complete Sputum Endotracheal 05/29/16 22:20 Sputum Culture - Final Complete Sputum Endotracheal MODERATE GROWTH NORMAL RESPIRATORY ADAM 05/30/16 03:17 Aerobic Blood Culture - Preliminary Resulted Blood Peripheral NO GROWTH IN 2 DAYS 05/30/16 03:17 Anaerobic Blood Culture - Preliminary Resulted Blood Peripheral NO GROWTH IN 2 DAYS 05/30/16 03:26 Aerobic Blood Culture - Preliminary Resulted Blood Peripheral NO GROWTH IN 2 DAYS 05/30/16 03:26 Anaerobic Blood Culture - Preliminary Resulted Blood Peripheral NO GROWTH IN 2 DAYS . Imaging Last Impressions Head CT 05/28/16 0600 Signed Impressions: Service Date/Time: Saturday, May 28, 2016 04:15 - CONCLUSION: Bilateral subdural hematomas becoming less dense today and decreased in size on the left. Subarachnoid and intraventricular hemorrhage again seen. Mild mass effect on the frontal lobes is present. Jv Parikh MD Chest X-Ray 05/27/16 0000 Signed Impressions: Service Date/Time: Friday, May 27, 2016 06:43 - CONCLUSION: Stable appearance of the lungs. Jv Parikh MD Abdomen X-Ray 05/27/16 0000 Signed Impressions: Service Date/Time: Friday, May 27, 2016 19:50 - CONCLUSION: Dobbhoff catheter has been advanced and is now either in the distal stomach or proximal duodenum. Eleazar Solorio MD Transcranial Doppler Study Complete 05/18/16 0730 Signed Impressions: Service Date/Time: April 08:12 - CONCLUSION: 1. No evidence of vasospasm Bill Means MD . Procedures 05/18intubated 1/24extubatedreintubated shortly after, same day Assessment and Plan Disease Oriented Problem List: (1) Subdural hematoma, acute (2) Arthritis (3) Hypertension (4) Acute respiratory failure (5) Diabetes type 2, controlled Symptom Scale: (1) Dyspnea 0-10 Scale: Unable to quantify (2) Agitation 0-10 Scale: Unable to quantify (3) Malnutrition 0-10 Scale: Unable to quantify Pertinent Non-Medical Issues Psychosocial:, lives at home with spouse. Retired. Has lived in [place] for 20+ years, many of those years lived in [place], originally from [facility] [place]. 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 Supported by 3 adult children, as well as his . Spiritual: Legal:Patient unable to participate in decision-making. Not clear if or when he will regain that ability. His Nazanin is designated as healthcare surrogate as per his living will documentation. Ethical issues impacting care: Important Contacts Radha Cole [phone] . Prognosis Suffered mechanical fall, patient sustained subdural hemorrhage with midline shift. Has not required neurosurgical intervention. Has required intubation and mechanical ventilation for airway protection, has had ongoing episodes of agitation. Neurosurgery feels patient has a good chance of functional neurologic recovery based on imaging, SDH. However, patient does remain high risk for complications/setbacks which may slow or impair any recovery and rehabilitation. Code Status: Full Code Plan * Legal decision maker: Patient is currently not capacitated to make medical decisions. Not clear if or when he will regain his ability. He has advanced directives naming his Nazanin as legal decision maker. * Goals: Goals remain aggressive. 05/31/16- goals remain aggressive, family hopeful for full recovery, continue with all available treatments. Family requested completion of [facility] paperwork for their leave of absence to assist patient, palliative completed this for them. 06/01/16 - left message for . * FULL CODE * SYMPTOMS: Dyspnea-emergently intubated for airway protection, extubated and then emergently intubated due to unable to manage secretions; status post tracheostomy 05/26. Tolerating CPAP, intermittent T piece trials. Agitation- intermittent episodes of agitation, this is likely multifactorial both metabolic as well as related to SDH; patient with a history of daily alcohol use which likely affected the first few days of hospitalization. Goal to maximize alertness/participation in rehabilitation. Could consider low dose PRN lorazepam via NGT, 0.25mg Ativan q 6 PRN. calm, less agitation today. Malnutrition: Risk for related to prolonged hospitalization, alternative feeding required, will require likely PEG for long-term caloric needs, currently receiving tube feeding, plus protein supplement, via NG tube. Speech therapy evaluation ongoing, limited participation today. Not clear that he will be able to take in enough calories by mouth even if does well with ST evaluation--may still ultimately require PEG tube for rehabilitation placement. * Palliative care will continue to follow during hospital course as condition evolves, to assist patient/decision-maker with understanding of medical conditions, weighing benefits/burdens of treatment options, for clarification of goals of treatment. Additionally will assist with any symptoms of palliative concern . Attestation To help prompt me to consider important information that might be impacting today's encounter and assessment, information from prior notes written by myself or my colleagues may have been "brought forward" into today's note. My signature on this note, however, is an attestation that I personally performed the exam, history, and/or decision-making noted today, and, unless otherwise indicated, the interactions with patient, family, and staff as well as the review of records all occurred today. I also attest that the listed assessment and stated plan reflect my best clinical judgment today based on the combination of historical information, prior notes, and today's exam/ interactions. When time spent is documented, it refers only to time spent today by the signer, or if indicated, combined time spent today by collaborating physician/nurse practitioner. FELTON COSBY Jun 01, 2016 17:44
[2016-06-01] MEDS: MELATONIN 5 MG TAB PO SCH (20:12)
[2016-06-02] VITALS (17 sets, daily range): BP systolic 104–146; BP diastolic 55–91; PULSE 71–95; RESP 17–26; TEMP 98.5–99.4; O2SAT 97–100
[2016-06-02] MEDS: CHLORHEXIDINE GLUCONATE 2 % 1 PACK (2 CLOTHS) TOP SCH (04:00)
[2016-06-02 04:32] LABS: HEMATOCRIT 23.6 % (39.0-51.0); MEAN CELL VOLUME 89.9 FL (80.0-100.0); MEAN CORPUSCULAR HEMOGLOBIN 29.4 PG (27.0-34.0); MEAN CORPUSCULAR HGB CONC 32.7 % (32.0-36.0); PLATELET COUNT 346 TH/MM3 (150-450); RED BLOOD COUNT 2.63 MIL/MM3 (4.50-5.90); RED CELL DISTRIBUTION WIDTH 13.6 % (11.6-17.2); REVIEW FLAG FINAL; WHITE BLOOD COUNT 15.9 TH/MM3 (4.0-11.0)
[2016-06-02] MEDS: FREE WATER G-TUBE SCH ×3 (04:49→21:04)
[2016-06-02] MEDS: PROPRANOLOL HCL 10 MG TAB PO SCH ×3 (04:50→21:03)
[2016-06-02] MEDS: LACTULOSE SYRUP 20 GM/30 ML CUP PO SCH ×2 (04:50→17:51)
[2016-06-02] MEDS: METOCLOPRAMIDE HCL SYRUP 10 MG/10 ML UDC PO SCH ×3 (04:50→21:03)
[2016-06-02 04:58] LABS: BICARBONATE 29.1 MEQ/L (21.0-32.0); POTASSIUM 4.1 MEQ/L (3.5-5.1)
[2016-06-02] MEDS: cloNIDine HCL 0.3 MG TAB PO SCH ×3 (05:00→21:03)
[2016-06-02] MEDS: hydrALAZINE HCL 25 MG TAB PO SCH ×3 (06:00→21:03)
[2016-06-02] MEDS: INSULIN NovoLIN REGULAR SUPPLEMENTAL SCALE SQ SCH ×4 (06:00→23:34)
--- NOTE | 2016-06-02 07:15 | HHI.CCPN ---
Subjective Remarks/Hospital Course Traumatic SDH. 05/17: This 85-year-old gentleman fell of bed last night and hit his head. He developed aphasia and confusion pretty rapidly and was seen in the emergency department in [place] with a right facial droop. Subsequent CT scan evaluation confirmed an acute left subdural hemorrhage of approximately 8 mm in width with a associated subarachnoid hemorrhage. Additionally in the frontal lobe on the right side he had a 1 cm area of hemorrhage with surrounding vasogenic edema. There was intraventricular blood as well on the right side. I met him on his arrival to [facility]. What was immediately noticeable was that he was not able to express himself well and that he was not following commands correctly. With gestures he was able to follow commands but not with verbal orders. 05/18: Deteriorating mental status, nasal trumpet placed for airway control, and will require intubation. 05/19: Ventilator dependent now. Family needs to clarify goals if possible/ practical. 05/20: A little more alert. Breathes well on CPAP. 05/21: Tolerating CPAP trials with good respiratory drive. 05/22: Agitated. Start precedex for attempted weaning trial and possible extubation. 05/23: Attempt weaning trial again today with low dose precedex for control of agitation. 05/24: Extubated yesterday but could not protect his airway, could not cough up secretions. Quickly failed and required re-intubation. 05/25: Will need trach if family wishes to continue with aggressive care. Worsening glucose intolerance. Will start BID levemir 05/26: No improvement in neurological function. Glucose control much improved. The family feels quite strongly about continued aggressive rehab. Therefore we will perform tracheostomy. Risk and benefits presented to and she wished to proceed. 05/27: Tracheostomy performed 05/26 at family request after discussion with Palliative Care service. Dobbhoff placed and we are now working on LTAC/rehab placement. He looks around the room and appears to recognize his family. Weak limb movements/hand grasps. 05/28: Remains on mechanical ventilation via tracheostomy. Start daily C Pap trials and will attempt transition to trach collar if tolerated. 05/29: Awake, on mechanical ventilation via tracheostomy. Tolerated CPAP trial yesterday. We will attempt T piece today. 05/30: Awake, on mechanical ventilation via tracheostomy. Tolerated T piece for 2 hours yesterday. 05/31: off precedex. awake. still failing t-piece for tachypnea. agitated at times. may be storming from cerebral insult. still low grade temps, but cultures have been persistently negative. 06/01: low grade fevers persist. cultures still negative. 06/02: WBC count stable. UO adequate. Follows commands x4 extremities. No fever Objective Vital Signs Date Time Temp Pulse Resp B/P Pulse Ox O2 Delivery O2 Flow Rate FiO2 06/02/16 04:58 100 50 06/02/16 04:00 98.7 75 23 113/55 05/30/16 07:26 Ventilator Intake and Output 06/01/16 06/01/16 06/02/16 08:00 16:00 00:00 Intake Total 709 ml 540 ml 788 ml Output Total 275 ml 650 ml 950 ml Balance 434 ml -110 ml -162 ml Result Diagram: 06/02/16 0406 06/02/16 0406 Imaging Last [address] 05/28/16 0600 Signed Impressions: Service Date/Time: Saturday, May 28, 2016 04:15 - CONCLUSION: Bilateral subdural hematomas becoming less dense today and decreased in size on the left. Subarachnoid and intraventricular hemorrhage again seen. Mild mass effect on the frontal lobes is present. Jv Parikh MD Chest X-Ray 05/27/16 0000 Signed Impressions: Service Date/Time: Friday, May 27, 2016 06:43 - CONCLUSION: Stable appearance of the lungs. Jv Parikh MD Abdomen X-Ray 05/27/16 0000 Signed Impressions: Service Date/Time: Friday, May 27, 2016 19:50 - CONCLUSION: Dobbhoff catheter has been advanced and is now either in the distal stomach or proximal duodenum. Eleazar Solorio MD Abdomen X-Ray 05/27/16 0000 Signed Impressions: Service Date/Time: Friday, May 27, 2016 18:24 - CONCLUSION: Tip of the Dobbhoff catheter is still intrathoracic. Eleazar Solorio MD Objective Remarks PHYSICAL EXAMINATION GENERAL: Elderly gentleman, laying in bed on vent via trach. . HEAD: Clean dry incision/laceration clean. ENT/NECK: tracheostomy in place, NGT in place LUNGS: on mech ventilation, Good air movement. No wheezes or crackles. HEART: Regular rate and rhythm, normal S1-S2, no murmur, no JVD. ABDOMEN: Large, soft, no guarding. BS active. Nondistended. Benign. EXTREMITIES: Warm, well-perfused. trace generalized edema. NEUROLOGICAL: Opens eyes, moves extremities to stimulation. Following commands in all 4 extremities Urinary Catheter: Yes Assessment to: Continue A/P Assessment and Plan ASSESSMENT: 1. Acute traumatic left-sided subdural hemorrhage. 2. Traumatic subarachnoid bleed. 3. Small frontal lobe contusion, right side. 4. Agitated Delirium 5. Possible cerebral storming 6. Diabetes mellitus, type 2, controlled. 7. Mild hypertension. 8. Respiratory Failure, ventilator dependent. 9. UTI - Klebsiella, Enterococcus 10. Bronchitis - Strep PLAN: 1. PRVC vent mode. Daily PSV trials/ T piece trial today 2-4 hours, check CXR. 2. Neurological checks. 3. Head of bed up 30 degrees. 4. SQH 5000 q12h. SCDs. 5. Labetalol for a blood pressure greater than 170. 6. clonidine 0.3mg po TID for agitation to facilitate Precedex wean 7. propranolol 10mg po q8h for hypertension/tachycardia and possible cerebral storming. 8. per tube pepcid. 9. continue goal TFs to 55. 10. Levemir to 8 units SQ q12h 11. SSI high scale, q6h. 12. lasix 40mg iv for volume overload as needed. goal 500cc negative/24h. 13. Sputum culture -> Strep 05/23, s/p full course of ceftriaxone. 14. s/p tracheostomy. 15. daily SBT/trach collar trials. fails for tachypnea daily. will continue to try. 16. PT/OT 17: Cutlures 05/29 sputum and 05/30 blood negative to date 18. speech therapy. - working on LTAC placement. OVERALL IMPRESSION: Improved mental status, following commands, tolerating CPAP but gets agitated. Looking at long-term rehab. palliative care following Daisy Kellogg MD Jun 02, 2016 07:15
[2016-06-02] MEDS: CHLORHEXIDINE 0.12% (ORAL KIT) 15 ML CUP MT SCH ×2 (08:00→20:00)
--- NOTE | 2016-06-02 08:29 | RADRPT ---
EXAM DATE/TIME: 06/02/2016 07:59 [facility] COMPARISON: CHEST SINGLE AP, May 27, 2016, 6:43. INDICATIONS : Respiratory Disease. MEDICAL HISTORY : Hypertension. Diabetes mellitus type 2. SURGICAL HISTORY : None. ENCOUNTER: Subsequent ACUITY: 2 weeks PAIN SCORE: Non-responsive. LOCATION: Bilateral chest FINDINGS: A tracheostomy tube has its tip 6 mm above the tony. A feeding tube is noted below the diaphragm, but the tip is not identified on this view. The heart is mildly prominent. Scattered patchiness is noted within the left mid and lower lung field consistent with atelectasis and/or infiltrates. A sma ll left pleural effusion is noted. CONCLUSION: 1. Scattered patchiness within the left mid and lower lung field consistent with atelectasis and/or i nfiltrate. Clinical correlation is recommended. 2. Cardiomegaly. Jabari De La Cruz MD on June 02, 2016 at 8:13 Board Certified Radiologist. This report was verified electronically.
[2016-06-02] MEDS: POLYETHYLENE GLYCOL 17 GM PKG PO SCH (08:44)
[2016-06-02] MEDS: BENEPROTEIN POWDER 1 PACK G-TUBE SCH ×3 (08:45→17:51)
[2016-06-02] MEDS: INSULIN DETEMIR 100 UNITS/ML VIAL SQ SCH ×2 (08:45→21:04)
[2016-06-02] MEDS: TIMOLOL MALEATE 0.25% OPHT SOLN 5 ML BTL EACH EYE SCH ×2 (08:45→21:00)
[2016-06-02] MEDS: HEPARIN SODIUM - SQ 10,000 UNITS/ML VIAL SQ SCH ×2 (08:46→21:03)
[2016-06-02] MEDS: THIAMINE HCL 100 MG TAB PO SCH (08:46)
[2016-06-02] MEDS: FOLIC ACID 1 MG TAB PO SCH (08:46)
[2016-06-02] MEDS: ATORVASTATIN 20 MG TAB PO SCH (08:46)
[2016-06-02] MEDS: LISINOPRIL 20 MG TAB PO SCH (08:47)
[2016-06-02] MEDS: SODIUM CHLORIDE 0.9% FLUSH 5 ML FLUSH IVF SCH ×2 (08:47→21:04)
[2016-06-02] MEDS: FAMOTIDINE SUSP 40 MG/5 ML NG SCH ×2 (08:47→21:00)
--- NOTE | 2016-06-02 11:30 | RADRPT ---
EXAM DATE/TIME: 06/02/2016 11:13 [facility] COMPARISON: ABDOMEN KUB ONLY, May 26, 2016, 20:28. INDICATIONS : Check dobhoff placement. MEDICAL HISTORY : Diabetes mellitus type II. SURGICAL HISTORY : None. ENCOUNTER: Initial ACUITY: 1 day PAIN SCORE: Non-responsive. LOCATION: Abdomen. FINDINGS: The bowel gas pattern appears normal. No free air is identified. No organomegaly is evident. Dobbhoff tube is in the region of the distal stomach. CONCLUSION: 1. Dobbhoff tube in the antrum of the stomach Bill Means MD on June 02, 2016 at 11:28 Board Certified Radiologist. This report was verified electronically.
--- NOTE | 2016-06-02 13:40 | HHI.HCPN ---
Reason for visit a. To assist with evaluation and management of symptoms including: Dyspnea, malnutrition, agitation b. To assist medical decision maker(s) with: better understanding of current medical conditions; weighing benefits/burdens of medical treatment options; making medical treatment decisions. Subjective/Interval History Patient seen and examined today to follow-up on comfort and goals. Remains in ICU, on mech vent, ongoing CPAP trials, alt w t-piece. No further fevers (MAXIMUM TEMPERATURE 99.4) BC from 05/30 NGTD. CXR today = left mid to lower atelectasis/infiltrate. Patient pulled out Dobbhoff feeding tube, nursing reinserted, abdominal imaging obtained to verify placement. Speech therapy evaluated earlier today, patient participated for 1-2 bites however then further refused open mouth for evaluation. No evidence of dye in secretions; however very limited exam speech therapy continues to recommend NPO. Patient seen in room at bedside. Respiratory therapy preparing to transition from CPAP to T piece. Patient in upright position in bed. He is alert he waves at examiner. He does follow simple commands when demonstrated to do so. Moves all 4 extremities. Spoke with at length at bedside review current clinical assessments, recent diagnostics, continued clinical course. Family continues to support ongoing treatments for as full of a recovery as possible. . Advance Directives Living Will: Copy in medical record (standard living will verbiage requesting no artificial/aggressive measures and the presence of terminal or end-stage condition) Health Care Surrogate: Copy in medical record (designates Nazanin) Objective Vital Signs Date Time Temp Pulse Resp B/P Pulse Ox O2 Delivery O2 Flow Rate FiO2 06/02/16 12:10 97 T-piece 6.00 40 06/02/16 12:00 99.4 74 26 141/69 98 06/02/16 12:00 28 06/02/16 12:00 73 06/02/16 11:21 98 40 06/02/16 10:00 76 06/02/16 08:00 72 06/02/16 08:00 50 06/02/16 08:00 99.2 75 25 104/63 98 06/02/16 07:40 100 40 06/02/16 07:40 40 06/02/16 04:58 100 50 06/02/16 04:00 98.7 75 23 113/55 100 06/02/16 04:00 50 06/02/16 00:44 99 50 06/02/16 00:00 98.9 71 21 117/57 100 06/02/16 00:00 50 06/01/16 20:57 97 50 06/01/16 20:00 50 06/01/16 20:00 99.3 110 25 148/68 96 06/01/16 18:00 80 06/01/16 16:00 98.6 72 24 136/65 98 06/01/16 16:00 75 06/01/16 16:00 50 06/01/16 15:14 100 50 06/01/16 14:00 85 Intake & Output 06/02/16 06/02/16 07:00 19:00 Intake Total 1384 ml Output Total 1200 ml Balance 184 ml IV Total 398 ml Tube Feeding 586 ml Other 400 ml Output Urine Total 1200 ml # Bowel Movements 0 Physical Exam CONSTITUTIONAL/GENERAL: This is an adequately nourished patient, on T piece, no distress TUBES/LINES/DRAINS: Peripheral IV bilateral upper extremities, NG tube, tracheostomy, Moreno catheter, restraints, SCDs SKIN: No jaundice, rashes, or lesions. ++ ecchymosis bilateral upper extremities. No wounds seen anteriorly. Skin temperature appropriate. Not diaphoretic. CARDIOVASCULAR: Regular rate and rhythm, no murmurs. Peripheral pulses symmetric. RESPIRATORY/CHEST: Symmetric, unlabored respirations via trach ventilator--RT in and changed to T piece. Coarse air movement throughout. Breath sounds equal bilaterally. GASTROINTESTINAL: Abdomen soft, round, non-tender, nondistended. No guarding. Bowel sounds normoactive. Tube feeding infusing via NG tube. NEUROLOGICAL: Alert with eyes open, smiles at examiner, tracks examiner. Q waves at examiner. Follows simple commands when demonstrated. Does move all 4 extremities spontaneously.Does not nod to questions. PSYCHIATRIC: No restlessness or obvious anxiety observed. . Diagnostic Tests Laboratory Laboratory Tests Test 05/31/16 06/01/16 06/02/16 17:10 04:08 04:06 Sodium Level 138 MEQ/L 136 MEQ/L 134 MEQ/L (136-145) (136-145) (136-145) Potassium Level 4.0 MEQ/L 3.9 MEQ/L 4.1 MEQ/L (3.5-5.1) (3.5-5.1) (3.5-5.1) Chloride Level 102 MEQ/L 100 MEQ/L 98 MEQ/L (98-107) (98-107) (98-107) Carbon Dioxide Level 28.0 MEQ/L 28.6 MEQ/L 29.1 MEQ/L (21.0-32.0) (21.0-32.0) (21.0-32.0) Anion Gap 8 MEQ/L (5-15) 7 MEQ/L (5-15) 7 MEQ/L (5-15) Blood Urea Nitrogen 24 MG/DL (7-18) 25 MG/DL (7-18) 24 MG/DL (7-18) Creatinine 0.87 MG/DL 0.94 MG/DL 0.81 MG/DL (0.60-1.30) (0.60-1.30) (0.60-1.30) Estimat Glomerular Filtration 83 ML/MIN (>89) 76 ML/MIN (>89) 90 ML/MIN (>89) Rate Random Glucose 144 MG/DL 175 MG/DL 129 MG/DL (74-106) (74-106) (74-106) Calcium Level 8.3 MG/DL 7.8 MG/DL 7.7 MG/DL (8.5-10.1) (8.5-10.1) (8.5-10.1) White Blood Count 15.6 TH/MM3 15.9 TH/MM3 (4.0-11.0) (4.0-11.0) Red Blood Count 2.56 MIL/MM3 2.63 MIL/MM3 (4.50-5.90) (4.50-5.90) Hemoglobin 7.7 GM/DL 7.7 GM/DL (13.0-17.0) (13.0-17.0) Hematocrit 23.0 % 23.6 % (39.0-51.0) (39.0-51.0) Mean Corpuscular Volume 89.9 FL 89.9 FL (80.0-100.0) (80.0-100.0) Mean Corpuscular Hemoglobin 30.0 PG 29.4 PG (27.0-34.0) (27.0-34.0) Mean Corpuscular Hemoglobin 33.4 % 32.7 % Concent (32.0-36.0) (32.0-36.0) Red Cell Distribution Width 13.2 % 13.6 % (11.6-17.2) (11.6-17.2) Platelet Count 346 TH/MM3 346 TH/MM3 (150-450) (150-450) Mean Platelet Volume 8.9 FL 8.5 FL (7.0-11.0) (7.0-11.0) Result Diagram: 06/02/16 0406 06/02/16 0406 Imaging Last Impressions Abdomen X-Ray 06/02/16 0000 Signed Impressions: Service Date/Time: Thursday, June 02, 2016 11:13 - CONCLUSION: 1. Dobbhoff tube in the antrum of the stomach Bill Means MD Head CT 05/28/16 0600 Signed Impressions: Service Date/Time: Saturday, May 28, 2016 04:15 - CONCLUSION: Bilateral subdural hematomas becoming less dense today and decreased in size on the left. Subarachnoid and intraventricular hemorrhage again seen. Mild mass effect on the frontal lobes is present. Jv Parikh MD Chest X-Ray 05/27/16 0000 Signed Impressions: Service Date/Time: Friday, May 27, 2016 06:43 - CONCLUSION: Stable appearance of the lungs. Jv Parikh MD Transcranial Doppler Study Complete 05/18/16 0730 Signed Impressions: Service Date/Time: April 08:12 - CONCLUSION: 1. No evidence of vasospasm Bill Means MD Procedures 05/18intubated 05/23extubatedreintubated shortly after, same day Assessment and Plan Disease Oriented Problem List: (1) Subdural hematoma, acute (2) Arthritis (3) Hypertension (4) Acute respiratory failure (5) Diabetes type 2, controlled Symptom Scale: (1) Dyspnea 0-10 Scale: Unable to quantify (2) Agitation 0-10 Scale: Unable to quantify (3) Malnutrition 0-10 Scale: Unable to quantify Pertinent Non-Medical Issues Psychosocial:, lives at home with spouse. Retired. Has lived in [place] for 20+ years, many of those years lived in [place], originally from [facility]. 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 Supported by 3 adult children, as well as his . Spiritual: Legal:Patient unable to participate in decision-making. Not clear if or when he will regain that ability. His Nazanin is designated as healthcare surrogate as per his living will documentation. Ethical issues impacting care: Important Contacts Radha Cole [phone] . Prognosis Suffered mechanical fall, patient sustained subdural hemorrhage with midline shift. Has not required neurosurgical intervention. Has required intubation and mechanical ventilation for airway protection, has had ongoing episodes of agitation. Neurosurgery feels patient has a good chance of functional neurologic recovery based on imaging, SDH. However, patient does remain high risk for complications/setbacks which may slow or impair any recovery and rehabilitation. Code Status: Full Code Plan * Legal decision maker: Patient is currently not capacitated to make medical decisions. Not clear if or when he will regain his ability. He has advanced directives naming his Nazanin as legal decision maker. * Goals: Goals remain aggressive. 06/02/16- goals remain aggressive, family hopeful for full recovery, continue with all available treatments. * FULL CODE * SYMPTOMS: * Dyspnea-emergently intubated for airway protection, extubated and then emergently intubated due to unable to manage secretions; status post tracheostomy 05/26. Tolerating CPAP, intermittent T piece trials. * Agitation- intermittent episodes of agitation, this is likely multifactorial both metabolic as well as related to SDH; patient with a history of daily alcohol use which likely affected the first few days of hospitalization. Goal to maximize alertness/participation in rehabilitation. Could consider low dose PRN lorazepam via NGT, 0.25mg Ativan q 6 PRN. calm, less agitation today. * Malnutrition: Risk for related to prolonged hospitalization, alternative feeding required, will require likely PEG for long-term caloric needs, currently receiving tube feeding, plus protein supplement, via NG tube. Speech therapy evaluation ongoing, limited participation today. Not clear that he will be able to take in enough calories by mouth even if does well with ST evaluation--may still ultimately require PEG tube for rehabilitation placement. * Palliative care will continue to follow during hospital course as condition evolves, to assist patient/decision-maker with understanding of medical conditions, weighing benefits/burdens of treatment options, for clarification of goals of treatment. Additionally will assist with any symptoms of palliative concern . Time Spent Total Floor Time (mins): 30 >50% Counseling/Coord of Care: Yes (d/w RN, critical care) Attestation To help prompt me to consider important information that might be impacting today's encounter and assessment, information from prior notes written by myself or my colleagues may have been "brought forward" into today's note. My signature on this note, however, is an attestation that I personally performed the exam, history, and/or decision-making noted today, and, unless otherwise indicated, the interactions with patient, family, and staff as well as the review of records all occurred today. I also attest that the listed assessment and stated plan reflect my best clinical judgment today based on the combination of historical information, prior notes, and today's exam/ interactions. When time spent is documented, it refers only to time spent today by the signer, or if indicated, combined time spent today by collaborating physician/nurse practitioner. Luciana Haro Jun 02, 2016 13:39
[2016-06-02] MEDS: MELATONIN 5 MG TAB PO SCH (21:03)
[2016-06-03] VITALS (16 sets, daily range): BP systolic 110–175; BP diastolic 54–87; PULSE 60–96; RESP 15–28; TEMP 97.8–98.9; O2SAT 93–100
[2016-06-03] MEDS: CHLORHEXIDINE GLUCONATE 2 % 1 PACK (2 CLOTHS) TOP SCH (04:00)
[2016-06-03] MEDS: hydrALAZINE HCL 25 MG TAB PO SCH ×3 (04:15→22:00)
[2016-06-03] MEDS: FREE WATER G-TUBE SCH ×3 (04:15→21:37)
[2016-06-03] MEDS: LACTULOSE SYRUP 20 GM/30 ML CUP PO SCH ×2 (04:15→17:15)
[2016-06-03] MEDS: cloNIDine HCL 0.3 MG TAB PO SCH ×3 (04:15→20:31)
[2016-06-03 04:48] LABS: HEMATOCRIT 25.5 % (39.0-51.0); MEAN CELL VOLUME 89.8 FL (80.0-100.0); MEAN CORPUSCULAR HEMOGLOBIN 29.9 PG (27.0-34.0); MEAN CORPUSCULAR HGB CONC 33.3 % (32.0-36.0); PLATELET COUNT 388 TH/MM3 (150-450); RED BLOOD COUNT 2.84 MIL/MM3 (4.50-5.90); RED CELL DISTRIBUTION WIDTH 13.4 % (11.6-17.2)
[2016-06-03 04:53] LABS: HEMO FLAGS AUTO DIFF
[2016-06-03] MEDS: PROPRANOLOL HCL 10 MG TAB PO SCH ×3 (04:57→21:37)
[2016-06-03] MEDS: METOCLOPRAMIDE HCL SYRUP 10 MG/10 ML UDC PO SCH ×3 (04:57→21:37)
[2016-06-03 05:11] LABS: ALT (GPT) 58 U/L (12-78); ANION GAP 7 MEQ/L (5-15); AST (GOT) 48 U/L (15-37); BICARBONATE 29.2 MEQ/L (21.0-32.0); BLOOD UREA NITROGEN 18 MG/DL (7-18); CHLORIDE 100 MEQ/L (98-107); GLOMERULAR FILTRATION RATE 108 ML/MIN (>89); POTASSIUM 4.1 MEQ/L (3.5-5.1); SODIUM (NA) 136 MEQ/L (136-145)
[2016-06-03 05:13] LABS: ALKALINE PHOSPHATASE 76 U/L (45-117); TOTAL BILIRUBIN ADULT 0.5 MG/DL (0.2-1.0)
[2016-06-03] MEDS: INSULIN NovoLIN REGULAR SUPPLEMENTAL SCALE SQ SCH ×4 (05:28→23:50)
[2016-06-03] MEDS: CHLORHEXIDINE 0.12% (ORAL KIT) 15 ML CUP MT SCH ×2 (08:00→20:30)
[2016-06-03] MEDS: TIMOLOL MALEATE 0.25% OPHT SOLN 5 ML BTL EACH EYE SCH ×2 (09:00→20:31)
[2016-06-03] MEDS: POLYETHYLENE GLYCOL 17 GM PKG PO SCH (09:00)
[2016-06-03] MEDS: BENEPROTEIN POWDER 1 PACK G-TUBE SCH ×3 (09:00→17:15)
[2016-06-03] MEDS: SODIUM CHLORIDE 0.9% FLUSH 5 ML FLUSH IVF SCH ×2 (09:00→20:30)
[2016-06-03] MEDS: LISINOPRIL 20 MG TAB PO SCH (09:00)
[2016-06-03] MEDS: FOLIC ACID 1 MG TAB PO SCH (09:00)
[2016-06-03] MEDS: HEPARIN SODIUM - SQ 10,000 UNITS/ML VIAL SQ SCH ×2 (09:47→20:31)
[2016-06-03] MEDS: ATORVASTATIN 20 MG TAB PO SCH (09:47)
[2016-06-03] MEDS: THIAMINE HCL 100 MG TAB PO SCH (09:47)
[2016-06-03] MEDS: FAMOTIDINE SUSP 40 MG/5 ML NG SCH ×2 (09:48→20:31)
[2016-06-03] MEDS: INSULIN DETEMIR 100 UNITS/ML VIAL SQ SCH ×2 (09:48→20:30)
[2016-06-03 10:44] LABS: BANDS 15 % (0-6); NEUTROPHIL # MANUAL DIFF 11.5 TH/MM3 (1.8-7.7); PLATELET ESTIMATE SMEAR NORMAL (NORMAL); PLATELET MORPHOLOGY NORMAL (NORMAL); POLYS (SEG NEUTROPHILS) 67 % (16-70); SCAN/DIFF FINAL DIFF MANUAL; WBC DIFF SAMPLE 100
--- NOTE | 2016-06-03 13:52 | HHI.CCPN ---
Subjective Remarks/Hospital Course Traumatic SDH. 05/17: This 85-year-old gentleman fell of bed last night and hit his head. He developed aphasia and confusion pretty rapidly and was seen in the emergency department in [place] with a right facial droop. Subsequent CT scan evaluation confirmed an acute left subdural hemorrhage of approximately 8 mm in width with a associated subarachnoid hemorrhage. Additionally in the frontal lobe on the right side he had a 1 cm area of hemorrhage with surrounding vasogenic edema. There was intraventricular blood as well on the right side. I met him on his arrival to [facility]. What was immediately noticeable was that he was not able to express himself well and that he was not following commands correctly. With gestures he was able to follow commands but not with verbal orders. 05/18: Deteriorating mental status, nasal trumpet placed for airway control, and will require intubation. 05/19: Ventilator dependent now. Family needs to clarify goals if possible/ practical. 05/20: A little more alert. Breathes well on CPAP. 05/21: Tolerating CPAP trials with good respiratory drive. 05/22: Agitated. Start precedex for attempted weaning trial and possible extubation. 05/23: Attempt weaning trial again today with low dose precedex for control of agitation. 05/24: Extubated yesterday but could not protect his airway, could not cough up secretions. Quickly failed and required re-intubation. 05/25: Will need trach if family wishes to continue with aggressive care. Worsening glucose intolerance. Will start BID levemir 05/26: No improvement in neurological function. Glucose control much improved. The family feels quite strongly about continued aggressive rehab. Therefore we will perform tracheostomy. Risk and benefits presented to and she wished to proceed. 05/27: Tracheostomy performed 05/26 at family request after discussion with Palliative Care service. Dobbhoff placed and we are now working on LTAC/rehab placement. He looks around the room and appears to recognize his family. Weak limb movements/hand grasps. 05/28: Remains on mechanical ventilation via tracheostomy. Start daily C Pap trials and will attempt transition to trach collar if tolerated. 05/29: Awake, on mechanical ventilation via tracheostomy. Tolerated CPAP trial yesterday. We will attempt T piece today. 05/30: Awake, on mechanical ventilation via tracheostomy. Tolerated T piece for 2 hours yesterday. 05/31: off precedex. awake. still failing t-piece for tachypnea. agitated at times. may be storming from cerebral insult. still low grade temps, but cultures have been persistently negative. 06/01: low grade fevers persist. cultures still negative. 06/02: WBC count stable. UO adequate. Follows commands x4 extremities. No fever 06/03: Tolerating TP today 50%. No fever, WBC normal. No acute events reported overnight. Family states that patient unable to hear (from time of fall) Objective Vital Signs Date Time Temp Pulse Resp B/P Pulse Ox O2 Delivery O2 Flow Rate FiO2 06/03/16 12:00 96 06/03/16 12:00 50 06/03/16 10:48 94 T-piece 7.00 06/03/16 04:00 98.7 28 146/70 Intake and Output 06/02/16 06/02/16 06/03/16 08:00 16:00 00:00 Intake Total 596 ml 421 ml 630 ml Output Total 250 ml 1000 ml 950 ml Balance 346 ml -579 ml -320 ml Result Diagram: 06/03/16 0355 06/03/16 0355 Imaging Last [address] 05/28/16 0600 Signed Impressions: Service Date/Time: Saturday, May 28, 2016 04:15 - CONCLUSION: Bilateral subdural hematomas becoming less dense today and decreased in size on the left. Subarachnoid and intraventricular hemorrhage again seen. Mild mass effect on the frontal lobes is present. Jv Parikh MD Chest X-Ray 05/27/16 0000 Signed Impressions: Service Date/Time: Friday, May 27, 2016 06:43 - CONCLUSION: Stable appearance of the lungs. Jv Parikh MD Abdomen X-Ray 05/27/16 0000 Signed Impressions: Service Date/Time: Friday, May 27, 2016 19:50 - CONCLUSION: Dobbhoff catheter has been advanced and is now either in the distal stomach or proximal duodenum. Eleazar Solorio MD Abdomen X-Ray 05/27/16 0000 Signed Impressions: Service Date/Time: Friday, May 27, 2016 18:24 - CONCLUSION: Tip of the Dobbhoff catheter is still intrathoracic. Eleazar Solorio MD Objective Remarks PHYSICAL EXAMINATION GENERAL: Elderly gentleman, on TP via trach. . HEAD: Clean dry incision/laceration clean. ENT/NECK: tracheostomy in place, NGT in place LUNGS: on mech ventilation, Good air movement. No wheezes or crackles. HEART: Regular rate and rhythm, normal S1-S2, no murmur, no JVD. ABDOMEN: Large, soft, no guarding. BS active. Nondistended. Benign. EXTREMITIES: Warm, well-perfused. trace generalized edema. NEUROLOGICAL: Opens eyes, moves extremities to stimulation. Following commands in all 4 extremities. Poor hearing Urinary Catheter: Yes Assessment to: Continue A/P Assessment and Plan ASSESSMENT: 1. Acute traumatic left-sided subdural hemorrhage. 2. Traumatic subarachnoid bleed. 3. Small frontal lobe contusion, right side. 4. Agitated Delirium 5. Possible cerebral storming 6. Diabetes mellitus, type 2, controlled. 7. Mild hypertension. 8. Respiratory Failure, ventilator dependent. 9. UTI - Klebsiella, Enterococcus 10. Bronchitis - Strep PLAN: 1. PRVC vent mode. T piece trial today 2-4 hour 2. Neurological checks. Family states hearing loss from time of fall. Request ENT consult on Sunday 3. Head of bed up 30 degrees. 4. SQH 5000 q12h. SCDs. 5. Labetalol for a blood pressure greater than 170. 6. clonidine 0.3mg po TID for agitation to facilitate Precedex wean 7. propranolol 10mg po q8h for hypertension/tachycardia and possible cerebral storming. 8. per tube pepcid. 9. continue goal TFs to 55. 10. Levemir to 8 units SQ q12h 11. SSI high scale, q6h. 12. lasix 40mg iv for volume overload as needed. goal 500cc negative/24h. 13. Sputum culture -> Strep 05/23, s/p full course of ceftriaxone. 14. s/p tracheostomy. daily SBT/TP trials. . 16. PT/OT 17: Cultures 05/29 sputum and 05/30 blood negative to date 18. speech therapy. - working on LTAC placement. OVERALL IMPRESSION: Improved mental status, following commands, tolerating CPAP but gets agitated. Looking at long-term rehab. palliative care following Daisy Kellogg MD Jun 03, 2016 13:52
[2016-06-03] MEDS: MELATONIN 5 MG TAB PO SCH (20:31)
[2016-06-04] VITALS (13 sets, daily range): BP systolic 105–190; BP diastolic 50–76; PULSE 62–114; RESP 16–28; TEMP 98–99.4; O2SAT 93–99
[2016-06-04] MEDS: CHLORHEXIDINE GLUCONATE 2 % 1 PACK (2 CLOTHS) TOP SCH (04:00)
[2016-06-04 04:22] LABS: HEMATOCRIT 25.4 % (39.0-51.0); MEAN CORPUSCULAR HEMOGLOBIN 29.5 PG (27.0-34.0); MEAN CORPUSCULAR HGB CONC 32.8 % (32.0-36.0); PLATELET COUNT 388 TH/MM3 (150-450); RED BLOOD COUNT 2.82 MIL/MM3 (4.50-5.90); RED CELL DISTRIBUTION WIDTH 13.5 % (11.6-17.2); REVIEW FLAG FINAL; WHITE BLOOD COUNT 13.6 TH/MM3 (4.0-11.0)
[2016-06-04 04:51] LABS: BICARBONATE 33.1 MEQ/L (21.0-32.0); POTASSIUM 4.2 MEQ/L (3.5-5.1)
[2016-06-04] MEDS: cloNIDine HCL 0.3 MG TAB PO SCH (05:00)
[2016-06-04] MEDS: FREE WATER G-TUBE SCH ×4 (05:29→22:00)
[2016-06-04] MEDS: hydrALAZINE HCL 25 MG TAB PO SCH ×3 (05:29→22:00)
[2016-06-04] MEDS: PROPRANOLOL HCL 10 MG TAB PO SCH ×4 (05:29→22:00)
[2016-06-04] MEDS: LACTULOSE SYRUP 20 GM/30 ML CUP PO SCH ×2 (05:30→17:58)
[2016-06-04] MEDS: INSULIN NovoLIN REGULAR SUPPLEMENTAL SCALE SQ SCH ×3 (05:30→17:58)
[2016-06-04] MEDS: METOCLOPRAMIDE HCL SYRUP 10 MG/10 ML UDC PO SCH ×3 (05:30→22:00)
[2016-06-04] MEDS: BENEPROTEIN POWDER 1 PACK G-TUBE SCH ×3 (09:00→17:58)
[2016-06-04] MEDS: POLYETHYLENE GLYCOL 17 GM PKG PO SCH (09:00)
[2016-06-04] MEDS: INSULIN DETEMIR 100 UNITS/ML VIAL SQ SCH ×2 (09:44→21:00)
[2016-06-04] MEDS: SODIUM CHLORIDE 0.9% FLUSH 5 ML FLUSH IVF SCH ×2 (09:45→22:19)
[2016-06-04] MEDS: TIMOLOL MALEATE 0.25% OPHT SOLN 5 ML BTL EACH EYE SCH ×2 (09:45→21:00)
[2016-06-04] MEDS: CHLORHEXIDINE 0.12% (ORAL KIT) 15 ML CUP MT SCH ×2 (09:45→20:00)
[2016-06-04] MEDS: FOLIC ACID 1 MG TAB PO SCH (10:03)
[2016-06-04] MEDS: HEPARIN SODIUM - SQ 10,000 UNITS/ML VIAL SQ SCH ×2 (10:03→22:18)
[2016-06-04] MEDS: THIAMINE HCL 100 MG TAB PO SCH (10:03)
[2016-06-04] MEDS: LISINOPRIL 20 MG TAB PO SCH (10:03)
[2016-06-04] MEDS: ATORVASTATIN 20 MG TAB PO SCH (10:03)
[2016-06-04] MEDS: FAMOTIDINE SUSP 40 MG/5 ML NG SCH ×2 (10:04→21:00)
--- NOTE | 2016-06-04 12:10 | HHI.CCPN ---
Subjective Remarks/Hospital Course Traumatic SDH. 05/17: This 85-year-old gentleman fell of bed last night and hit his head. He developed aphasia and confusion pretty rapidly and was seen in the emergency department in [place] with a right facial droop. Subsequent CT scan evaluation confirmed an acute left subdural hemorrhage of approximately 8 mm in width with a associated subarachnoid hemorrhage. Additionally in the frontal lobe on the right side he had a 1 cm area of hemorrhage with surrounding vasogenic edema. There was intraventricular blood as well on the right side. I met him on his arrival to [facility]. What was immediately noticeable was that he was not able to express himself well and that he was not following commands correctly. With gestures he was able to follow commands but not with verbal orders. 05/18: Deteriorating mental status, nasal trumpet placed for airway control, and will require intubation. 05/19: Ventilator dependent now. Family needs to clarify goals if possible/ practical. 05/20: A little more alert. Breathes well on CPAP. 05/21: Tolerating CPAP trials with good respiratory drive. 05/22: Agitated. Start precedex for attempted weaning trial and possible extubation. 05/23: Attempt weaning trial again today with low dose precedex for control of agitation. 05/24: Extubated yesterday but could not protect his airway, could not cough up secretions. Quickly failed and required re-intubation. 05/25: Will need trach if family wishes to continue with aggressive care. Worsening glucose intolerance. Will start BID levemir 05/26: No improvement in neurological function. Glucose control much improved. The family feels quite strongly about continued aggressive rehab. Therefore we will perform tracheostomy. Risk and benefits presented to and she wished to proceed. 05/27: Tracheostomy performed 05/26 at family request after discussion with Palliative Care service. Dobbhoff placed and we are now working on LTAC/rehab placement. He looks around the room and appears to recognize his family. Weak limb movements/hand grasps. 05/28: Remains on mechanical ventilation via tracheostomy. Start daily C Pap trials and will attempt transition to trach collar if tolerated. 05/29: Awake, on mechanical ventilation via tracheostomy. Tolerated CPAP trial yesterday. We will attempt T piece today. 05/30: Awake, on mechanical ventilation via tracheostomy. Tolerated T piece for 2 hours yesterday. 05/31: off precedex. awake. still failing t-piece for tachypnea. agitated at times. may be storming from cerebral insult. still low grade temps, but cultures have been persistently negative. 06/01: low grade fevers persist. cultures still negative. 06/02: WBC count stable. UO adequate. Follows commands x4 extremities. No fever 06/03: Tolerating TP today 50%. No fever, WBC normal. No acute events reported overnight. Family states that patient unable to hear (from time of fall) 06/04; still seems to have hearing impairment, tolerated TP several hours yesterday, but was apneic on CPAP overnight Objective Vital Signs Date Time Temp Pulse Resp B/P Pulse Ox O2 Delivery O2 Flow Rate FiO2 06/04/16 08:00 40 06/04/16 08:00 74 06/04/16 04:38 98 06/04/16 04:00 98.4 17 105/50 06/03/16 10:48 T-piece 7.00 Intake and Output 06/03/16 06/03/16 06/04/16 08:00 16:00 00:00 Intake Total 682 ml 533 ml 577 ml Output Total 350 ml 1000 ml 550 ml Balance 332 ml -467 ml 27 ml Result Diagram: 06/04/16 0332 06/04/16 0332 Imaging Last [address] 05/28/16 0600 Signed Impressions: Service Date/Time: Saturday, May 28, 2016 04:15 - CONCLUSION: Bilateral subdural hematomas becoming less dense today and decreased in size on the left. Subarachnoid and intraventricular hemorrhage again seen. Mild mass effect on the frontal lobes is present. Jv Parikh MD Chest X-Ray 05/27/16 0000 Signed Impressions: Service Date/Time: Friday, May 27, 2016 06:43 - CONCLUSION: Stable appearance of the lungs. Jv Parikh MD Abdomen X-Ray 05/27/16 0000 Signed Impressions: Service Date/Time: Friday, May 27, 2016 19:50 - CONCLUSION: Dobbhoff catheter has been advanced and is now either in the distal stomach or proximal duodenum. Eleazar Solorio MD Abdomen X-Ray 05/27/16 0000 Signed Impressions: Service Date/Time: Friday, May 27, 2016 18:24 - CONCLUSION: Tip of the Dobbhoff catheter is still intrathoracic. Eleazar Solorio MD Objective Remarks PHYSICAL EXAMINATION GENERAL: Elderly gentleman, on vent via trach. . HEAD: Clean dry incision/laceration clean. ENT/NECK: Tracheostomy in place, NGT in place LUNGS: On mech ventilation, Good air movement. No wheezes or crackles. HEART: Regular rate and rhythm, normal S1-S2, no murmur, no JVD. ABDOMEN: Large, soft, no guarding. BS active. Nondistended. Benign. EXTREMITIES: Warm, well-perfused. trace generalized edema. NEUROLOGICAL: Opens eyes, moves extremities to stimulation. Following commands in all 4 extremities. Poor hearing bilaterally A/P Assessment and Plan ASSESSMENT: Acute traumatic left-sided subdural hemorrhage. Traumatic subarachnoid bleed. Small frontal lobe contusion, right side. 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 Mild hypertension. Respiratory Failure, ventilator dependent. UTI - Klebsiella, Enterococcus Bronchitis - Strep PLAN: 1. PRVC vent mode. T piece trial yesterday tolerated up to 10 hours. But apneic though awake on CPAP today 2. Neurological checks. Family states hearing loss from time of fall. Request ENT consult on Sunday06/05/16 3. Head of bed up 30 degrees. 4. SQH 5000 q12h. SCDs. 5. Labetalol for a blood pressure greater than 170. 6. clonidine 0.3mg po TID for agitation 7. propranolol 10mg po q8h for hypertension/tachycardia and possible cerebral storming. 8. per tube pepcid. 9. continue goal TFs to 55. 10. Levemir to 8 units SQ q12h 11. SSI high scale, q6h. 12. lasix 40mg iv for volume overload as needed. goal 500cc negative/24h. 13. Sputum culture -> Strep 05/23, s/p full course of ceftriaxone. 14. s/p tracheostomy. daily SBT/TP trials as tolerated 16. PT/OT 17: Cultures 05/29 sputum and 05/30 blood negative to date 18. speech therapy. - working on LTAC placement. OVERALL IMPRESSION: Improved mental status, following commands, tolerating CPAP but gets agitated. Looking at long-term rehab. palliative care following Daisy Kellogg MD Jun 04, 2016 12:10
[2016-06-04] MEDS: cloNIDine HCL 0.2 MG TAB PO SCH ×3 (13:00→21:00)
[2016-06-04] MEDS: hydrALAZINE HCL 20 MG/ML VIAL IV PUSH PRN (18:09)
[2016-06-04] MEDS: MELATONIN 5 MG TAB PO SCH (21:00)
[2016-06-05] VITALS (16 sets, daily range): BP systolic 141–157; BP diastolic 65–78; PULSE 79–114; RESP 24–32; TEMP 98.5–101.4; O2SAT 93–100
[2016-06-05] MEDS: CHLORHEXIDINE GLUCONATE 2 % 1 PACK (2 CLOTHS) TOP SCH (04:00)
[2016-06-05 04:17] LABS: AUTOMATED NEUTROPHIL # 10.9 TH/MM3 (1.8-7.7); BASOPHIL # 0.1 TH/MM3 (0-0.2); EOSINOPHIL # 0.2 TH/MM3 (0-0.4); EOSINOPHIL % 1.3 % (0.0-4.0); HEMATOCRIT 26.5 % (39.0-51.0); HEMO FLAGS DIFF FINAL; LYMPH % 11.2 % (9.0-44.0); LYMPHOCYTE # 1.6 TH/MM3 (1.0-4.8); MEAN CELL VOLUME 88.3 FL (80.0-100.0); MEAN CORPUSCULAR HGB CONC 32.9 % (32.0-36.0); NEUT % 77.5 % (16.0-70.0); PLATELET COUNT 429 TH/MM3 (150-450); RED CELL DISTRIBUTION WIDTH 13.4 % (11.6-17.2); WHITE BLOOD COUNT 14.1 TH/MM3 (4.0-11.0)
[2016-06-05 04:45] LABS: ANION GAP 11 MEQ/L (5-15); BICARBONATE 27.2 MEQ/L (21.0-32.0); BLOOD UREA NITROGEN 16 MG/DL (7-18); CHLORIDE 100 MEQ/L (98-107); GLOMERULAR FILTRATION RATE 118 ML/MIN (>89); MAGNESIUM 2.2 MG/DL (1.5-2.5); POTASSIUM 4.5 MEQ/L (3.5-5.1); SODIUM (NA) 138 MEQ/L (136-145)
[2016-06-05 04:49] LABS: ALKALINE PHOSPHATASE 82 U/L (45-117); ALT (GPT) 53 U/L (12-78); AST (GOT) 34 U/L (15-37); TOTAL BILIRUBIN ADULT 0.6 MG/DL (0.2-1.0)
[2016-06-05] MEDS: cloNIDine HCL 0.2 MG TAB PO SCH ×3 (05:00→21:00)
--- NOTE | 2016-06-05 05:29 | RADRPT ---
EXAM DATE/TIME: 06/05/2016 04:26 [facility] COMPARISON: CHEST SINGLE AP, June 02, 2016, 7:59. INDICATIONS : Respiratory disease. MEDICAL HISTORY : Hypertension. Diabetes mellitus type II. SURGICAL HISTORY : None. ENCOUNTER: Subsequent ACUITY: 2 weeks PAIN SCORE: Non-responsive. LOCATION: Bilateral chest FINDINGS: Tracheostomy tube, bilateral parenchymal infiltrates greatest in the left lower lobe again seen. Dege nerative changes of the spine and cardiomegaly. CONCLUSION: No significant change has occurred. Jv Parikh MD on June 05, 2016 at 5:27 Board Certified Radiologist. This report was verified electronically.
[2016-06-05] MEDS: PROPRANOLOL HCL 10 MG TAB PO SCH ×3 (06:00→22:00)
[2016-06-05] MEDS: INSULIN NovoLIN REGULAR SUPPLEMENTAL SCALE SQ SCH ×4 (06:00→18:00)
[2016-06-05] MEDS: METOCLOPRAMIDE HCL SYRUP 10 MG/10 ML UDC PO SCH ×3 (06:00→22:00)
[2016-06-05] MEDS: LACTULOSE SYRUP 20 GM/30 ML CUP PO SCH ×2 (06:00→17:50)
[2016-06-05] MEDS: hydrALAZINE HCL 25 MG TAB PO SCH ×3 (06:00→22:00)
[2016-06-05] MEDS: FREE WATER G-TUBE SCH ×3 (06:00→22:00)
[2016-06-05] MEDS: hydrALAZINE HCL 20 MG/ML VIAL IV PUSH PRN (07:28)
[2016-06-05] MEDS: BENEPROTEIN POWDER 1 PACK G-TUBE SCH ×3 (08:24→17:50)
[2016-06-05] MEDS: ATORVASTATIN 20 MG TAB PO SCH (08:24)
[2016-06-05] MEDS: FAMOTIDINE SUSP 40 MG/5 ML NG SCH ×2 (08:24→21:00)
[2016-06-05] MEDS: FOLIC ACID 1 MG TAB PO SCH (08:24)
[2016-06-05] MEDS: LISINOPRIL 20 MG TAB PO SCH (08:24)
[2016-06-05] MEDS: THIAMINE HCL 100 MG TAB PO SCH (08:24)
[2016-06-05] MEDS: POLYETHYLENE GLYCOL 17 GM PKG PO SCH (08:24)
[2016-06-05] MEDS: TIMOLOL MALEATE 0.25% OPHT SOLN 5 ML BTL EACH EYE SCH ×2 (08:25→23:50)
[2016-06-05] MEDS: SODIUM CHLORIDE 0.9% FLUSH 5 ML FLUSH IVF SCH ×2 (08:25→22:16)
[2016-06-05] MEDS: CHLORHEXIDINE 0.12% (ORAL KIT) 15 ML CUP MT SCH ×2 (08:25→20:00)
[2016-06-05] MEDS: INSULIN DETEMIR 100 UNITS/ML VIAL SQ SCH ×2 (08:25→21:00)
[2016-06-05] MEDS: HEPARIN SODIUM - SQ 10,000 UNITS/ML VIAL SQ SCH ×2 (08:49→22:15)
--- NOTE | 2016-06-05 11:57 | PD.CONS ---
HPI History of Present Illness This is a 85 year old male who is here after he fell of bed and hit his head. Subsequent CT scan evaluation confirmed an acute left subdural hemorrhage of approximately 8 mm in width with a associated subarachnoid hemorrhage. He was intubated then extubated but couldn't protect his air ways requiring Tracheostomy which was performed 05/26. He was evaluated by ST and failed swallow eval, currently he is NPO. GI consulted for PEG tube placement. Patient not able to provide any information. at bed side, EGD/PEG discussed in details, risk, benefits, alternatives and she would like to proceed. (Virgen Vincent) PFSH Past Medical History Hypertension Chronic alcohol use Arthritis Past Surgical History None . (Virgen Vincent) Coded Allergies: Contrast Media (Verified Allergy, Unknown, 12/02/14) Medications Current Medications Medications (Trade) Dose Ordered Sig/Gus Route Start Time Stop Time Status Last Admin (Lipitor) 20 mg DAILY PO 05/18/16 09:00 06/04/16 10:03 (Timoptic 0.25% Opth Soln) 1 drop BID EACH EYE 05/17/16 21:00 06/05/16 08:25 (NS Flush) 2 ml UNSCH PRN IVF 05/17/16 10:30 (NS Flush) 2 ml BID IVF 05/17/16 21:00 06/05/16 08:25 (Colace) 100 mg BID PRN PO 05/17/16 10:30 (Folate) 1 mg DAILY PO 05/17/16 10:45 06/04/16 10:03 (Tylenol) 650 mg Q6H PRN PO 05/17/16 10:45 (Zofran Inj) 4 mg Q6H PRN IV 05/17/16 10:45 Miscellaneous Information 1 Q361D XX 05/17/16 10:45 05/17/16 11:34 (Chlorhexidine 2% Cloth) Taper DAILY@04 TOP 05/18/16 04:00 05/14/17 03:59 06/05/16 04:00 (Chlorhexidine 2% Cloth) 3 pack UNSCH PRN TOP 05/17/16 10:45 (D50w (Vial) Inj) 25 ml UNSCH PRN IV PUSH 05/17/16 11:15 (Glucagon Inj) 1 mg UNSCH PRN OTHER 05/17/16 11:15 Chlorhexidine Gluconate 15 ml 15 ml BID@08,20 MT 05/18/16 20:00 06/05/16 08:25 Potassium Chloride 100 ml @ 50 mls/hr Q2H PRN IV 05/19/16 07:00 (KCl 20 Meq Premix Inj) 100 ml @ 50 mls/hr Q2H PRN IV 05/19/16 07:00 05/26/16 20:04 Potassium Chloride 40 meq 40 meq UNSCH PRN PO/TUBE 05/19/16 07:00 05/25/16 08:19 Potassium Chloride 100 ml @ 25 mls/hr UNSCH PRN IV 05/19/16 07:00 Potassium Chloride 100 ml @ 50 mls/hr Q2H PRN IV 05/19/16 07:00 (Magnesium Sulfate Inj/NS Inj) 100 ml @ 50 mls/hr UNSCH PRN IV 05/19/16 07:00 Magnesium Oxide 800 mg 800 mg UNSCH PRN PO 05/19/16 07:00 (Magnesium Sulfate Inj/NS Inj) 100 ml @ 50 mls/hr UNSCH PRN IV 05/19/16 07:00 05/19/16 13:49 Potassium Phosphate 2000 mg 2,000 mg Q4H PRN PO 05/19/16 07:00 (Sodium Phosphate Inj/NS 250 ml Inj) 250 ml @ 42 mls/hr UNSCH PRN IV 05/19/16 07:00 05/20/16 01:46 (KCl 40 Meq/30 ml Liq) 40 meq UNSCH PRN PO/TUBE 05/19/16 07:00 Potassium Phosphate 2000 mg 2,000 mg UNSCH PRN PO/TUBE 05/19/16 07:00 (Potassium Phosphate Inj/NS 250 ml Inj) 260 ml @ 42 mls/hr UNSCH PRN IV 05/19/16 07:00 (Beneprotein Powder) 1 pack TID G-TUBE 05/20/16 09:00 06/03/16 17:15 (Lactulose Liq) 30 ml Q12H PO 05/21/16 06:00 06/04/16 05:30 (Miralax) 17 gm DAILY PO 05/23/16 10:45 06/01/16 09:46 (Norvasc) 5 mg Q12H PO 05/24/16 09:00 Hold 05/31/16 21:27 (Apresoline) 25 mg Q8HR PO 05/24/16 06:45 06/02/16 21:03 (Apresoline Inj) 10 mg Q4H PRN IV PUSH 05/24/16 06:45 06/05/16 07:28 (Morphine Inj) 4 mg Q3H PRN IV PUSH 05/26/16 19:45 05/31/16 20:09 (Tylenol 650 Mg/ 20 ml Liq) 650 mg Q8H PRN PO 05/30/16 15:00 (Levemir Inj) 8 units Q12HR SQ 05/31/16 21:00 06/04/16 09:44 (Vitamin B1) 100 mg DAILY PO 06/01/16 09:00 06/04/16 10:03 (Pepcid Liq) 20 mg BID NG 05/31/16 21:00 06/04/16 10:04 (Reglan Liq) 10 mg Q8HR PO 05/31/16 14:00 06/04/16 14:53 (NovoLIN R SUPPLEMENTAL SCALE) 1 Q6HR SQ 05/31/16 18:00 06/03/16 23:50 (Inderal) 10 mg Q8HR PO 05/31/16 14:00 06/04/16 05:29 (Heparin Inj) 5,000 units Q12HR SQ 05/31/16 21:00 06/05/16 08:49 (Melatonin) 5 mg HS PO 05/31/16 21:00 06/03/16 20:31 (Free Water) 100 ml Q8HR G-TUBE 06/01/16 14:00 06/04/16 05:29 (Prinivil) 20 mg DAILY PO 06/02/16 09:00 06/04/16 10:03 (Catapres) 0.2 mg Q8H PO 06/04/16 13:00 (Ativan Inj) 0.5 mg NOW ONCE IV PUSH 06/05/16 12:00 06/05/16 12:01 Family History Non contributory (Virgen Vincent) Review of Systems ROS Not able to obtain, patient on a vent (Virgen Vincent) GI Exam Vitals I&O Vital Signs Date Time Temp Pulse Resp B/P Pulse Ox O2 Delivery O2 Flow Rate FiO2 06/05/16 10:00 114 06/05/16 08:00 40 06/05/16 08:00 104 06/05/16 08:00 99.6 104 28 145/65 97 06/05/16 07:19 98 40 06/05/16 04:00 99.1 104 26 152/72 97 06/05/16 04:00 40 06/05/16 03:51 100 40 06/05/16 00:11 98 40 06/05/16 00:00 98.5 114 24 154/78 98 06/05/16 00:00 40 06/04/16 20:00 98.0 114 28 190/74 93 06/04/16 20:00 40 06/04/16 18:00 90 06/04/16 17:46 94 T-piece 6.00 40 06/04/16 16:00 92 06/04/16 16:00 98.7 92 28 156/76 96 06/04/16 16:00 40 06/04/16 14:00 86 06/04/16 13:36 99 40 06/04/16 12:00 99.2 85 28 163/70 98 06/04/16 12:00 40 06/04/16 12:00 85 I/O 06/04/16 06/04/16 06/04/16 06/05/16 06/05/16 06/05/16 07:00 15:00 23:00 07:00 15:00 23:00 Intake Total 569 ml 688 ml 0 ml 0 ml Output Total 200 ml 400 ml 2000 ml 800 ml Balance 369 ml 288 ml -2000 ml -800 ml Intake Oral 0 ml 0 ml IV Total 0 ml 0 ml 0 ml Tube Feeding 309 ml 488 ml Other 260 ml 200 ml Output Urine Total 200 ml 400 ml 2000 ml 800 ml # Bowel Movements 0 1 0 1 Imaging Last Impressions Chest X-Ray 06/05/16 0600 Signed Impressions: Service Date/Time: Sunday, June 05, 2016 04:26 - CONCLUSION: No significant change has occurred. Jv Parikh MD Abdomen X-Ray 06/02/16 0000 Signed Impressions: Service Date/Time: Thursday, June 02, 2016 11:13 - CONCLUSION: 1. Dobbhoff tube in the antrum of the stomach Bill Means MD Head CT 05/28/16 0600 Signed Impressions: Service Date/Time: Saturday, May 28, 2016 04:15 - CONCLUSION: Bilateral subdural hematomas becoming less dense today and decreased in size on the left. Subarachnoid and intraventricular hemorrhage again seen. Mild mass effect on the frontal lobes is present. Jv Parikh MD Transcranial Doppler Study Complete 05/18/16 0730 Signed Impressions: Service Date/Time: April 08:12 - CONCLUSION: 1. No evidence of vasospasm Bill Means MD Laboratory Test 06/05/16 03:14 White Blood Count 14.1 TH/MM3 Red Blood Count 3.00 MIL/MM3 Hemoglobin 8.7 GM/DL Hematocrit 26.5 % Mean Corpuscular Volume 88.3 FL Mean Corpuscular Hemoglobin 29.0 PG Mean Corpuscular Hemoglobin 32.9 % Concent Red Cell Distribution Width 13.4 % Platelet Count 429 TH/MM3 Mean Platelet Volume 8.7 FL Neutrophils (%) (Auto) 77.5 % Lymphocytes (%) (Auto) 11.2 % Monocytes (%) (Auto) 9.0 % Eosinophils (%) (Auto) 1.3 % Basophils (%) (Auto) 1.0 % Neutrophils # (Auto) 10.9 TH/MM3 Lymphocytes # (Auto) 1.6 TH/MM3 Monocytes # (Auto) 1.3 TH/MM3 Eosinophils # (Auto) 0.2 TH/MM3 Basophils # (Auto) 0.1 TH/MM3 CBC Comment DIFF FINAL Differential Comment Sodium Level 138 MEQ/L Potassium Level 4.5 MEQ/L Chloride Level 100 MEQ/L Carbon Dioxide Level 27.2 MEQ/L Anion Gap 11 MEQ/L Blood Urea Nitrogen 16 MG/DL Creatinine 0.64 MG/DL Estimat Glomerular Filtration 118 ML/MIN Rate Random Glucose 115 MG/DL Calcium Level 8.5 MG/DL Magnesium Level 2.2 MG/DL Total Bilirubin 0.6 MG/DL Aspartate Amino Transf 34 U/L (AST/SGOT) Alanine Aminotransferase 53 U/L (ALT/SGPT) Alkaline Phosphatase 82 U/L Total Protein 6.9 GM/DL Albumin 2.2 GM/DL Physical Examination HEENT: normocephalic; atraumatic; no jaundice. Throat is clear. NECK: Tracheostomy in place CHEST: On mech ventilation, Good air movement. No wheezes or crackles. CARDIAC: Regular rate and rhythm with no murmur gallop or rubs. ABDOMEN: Soft, nondistended, nontender; no hepatosplenomegaly; bowel sounds are present in all four quadrants. EXTREMITIES: No clubbing, cyanosis, or edema. SKIN: Normal; no rash; no jaundice. DIRECTOR OF BUSINESS DEVELOPMENT: Alert on a vent. (Virgen Vincent) Assessment and Plan Plan - Dysphagia- failed ST eval. who is here after he fell of bed and hit his head. Subsequent CT scan evaluation confirmed an acute left subdural hemorrhage of approximately 8 mm in width with a associated subarachnoid hemorrhage. He was intubated then extubated but couldn't protect his air ways requiring Tracheostomy which was performed 05/26. He was evaluated by ST and failed swallow eval, currently he is NPO. GI consulted for PEG tube placement. Patient not able to provide any information. at bed side, EGD/PEG discussed in details, risk, benefits, alternatives and she would like to proceed. - Acute traumatic left-sided subdural hemorrhage/respiratory failure, s/p tracheostomy per [facility] Plan: - EGD/PEG in am - NPO mn - Ancef yardage control clerk to GI lab - Hold Heparin after [place] - Supportive care - Patient seen and examined by dr. Lagos and myself and this note is written on his behalf. (Virgen Vincent) Physician Comments Seen and examined with WILLIAM, Chart reviewed, discussed with nurse. No family at bedside. EGD/PEG tomorrow. Thank you (Yoni Lagos MD) Virgen Vincent Jun 05, 2016 11:57 Yoni Lagos MD Jun 05, 2016 16:26
[2016-06-05] MEDS ORDERED: LORazepam 2 MG/ML VIAL IV PUSH ONE (12:00)
[2016-06-05] MEDS ORDERED: ceFAZolin 2 GM PREMIX 50 ML IV SCH (12:00)
--- NOTE | 2016-06-05 12:38 | HHI.CCPN ---
Subjective Remarks/Hospital Course Traumatic SDH. 05/17: This 85-year-old gentleman fell of bed last night and hit his head. He developed aphasia and confusion pretty rapidly and was seen in the emergency department in [place] with a right facial droop. Subsequent CT scan evaluation confirmed an acute left subdural hemorrhage of approximately 8 mm in width with a associated subarachnoid hemorrhage. Additionally in the frontal lobe on the right side he had a 1 cm area of hemorrhage with surrounding vasogenic edema. There was intraventricular blood as well on the right side. I met him on his arrival to [facility]. What was immediately noticeable was that he was not able to express himself well and that he was not following commands correctly. With gestures he was able to follow commands but not with verbal orders. 05/18: Deteriorating mental status, nasal trumpet placed for airway control, and will require intubation. 05/19: Ventilator dependent now. Family needs to clarify goals if possible/ practical. 05/20: A little more alert. Breathes well on CPAP. 05/21: Tolerating CPAP trials with good respiratory drive. 05/22: Agitated. Start precedex for attempted weaning trial and possible extubation. 05/23: Attempt weaning trial again today with low dose precedex for control of agitation. 05/24: Extubated yesterday but could not protect his airway, could not cough up secretions. Quickly failed and required re-intubation. 05/25: Will need trach if family wishes to continue with aggressive care. Worsening glucose intolerance. Will start BID levemir 05/26: No improvement in neurological function. Glucose control much improved. The family feels quite strongly about continued aggressive rehab. Therefore we will perform tracheostomy. Risk and benefits presented to and she wished to proceed. 05/27: Tracheostomy performed 05/26 at family request after discussion with Palliative Care service. Dobbhoff placed and we are now working on LTAC/rehab placement. He looks around the room and appears to recognize his family. Weak limb movements/hand grasps. 05/28: Remains on mechanical ventilation via tracheostomy. Start daily C Pap trials and will attempt transition to trach collar if tolerated. 05/29: Awake, on mechanical ventilation via tracheostomy. Tolerated CPAP trial yesterday. We will attempt T piece today. 05/30: Awake, on mechanical ventilation via tracheostomy. Tolerated T piece for 2 hours yesterday. 05/31: off precedex. awake. still failing t-piece for tachypnea. agitated at times. may be storming from cerebral insult. still low grade temps, but cultures have been persistently negative. 06/01: low grade fevers persist. cultures still negative. 06/02: WBC count stable. UO adequate. Follows commands x4 extremities. No fever 06/03: Tolerating TP today 50%. No fever, WBC normal. No acute events reported overnight. Family states that patient unable to hear (from time of fall) 06/04; still seems to have hearing impairment, tolerated TP several hours yesterday, but was apneic on CPAP overnight 06/05: Patient was tachypneic on vent so TP not attempted, Continues to have hearing loss, ENT consulted Objective Vital Signs Date Time Temp Pulse Resp B/P Pulse Ox O2 Delivery O2 Flow Rate FiO2 06/05/16 12:19 99 40 06/05/16 10:00 114 06/05/16 08:00 99.6 28 145/65 06/04/16 17:46 T-piece 6.00 Intake and Output 06/04/16 06/04/16 06/05/16 08:00 16:00 00:00 Intake Total 569 ml 688 ml 0 ml Output Total 200 ml 400 ml 2000 ml Balance 369 ml 288 ml -2000 ml Result Diagram: 06/05/16 0314 06/05/16 0314 Imaging Last [address] 05/28/16 0600 Signed Impressions: Service Date/Time: Saturday, May 28, 2016 04:15 - CONCLUSION: Bilateral subdural hematomas becoming less dense today and decreased in size on the left. Subarachnoid and intraventricular hemorrhage again seen. Mild mass effect on the frontal lobes is present. Jv Parikh MD Chest X-Ray 05/27/16 0000 Signed Impressions: Service Date/Time: Friday, May 27, 2016 06:43 - CONCLUSION: Stable appearance of the lungs. Jv Parikh MD Abdomen X-Ray 05/27/16 0000 Signed Impressions: Service Date/Time: Friday, May 27, 2016 19:50 - CONCLUSION: Dobbhoff catheter has been advanced and is now either in the distal stomach or proximal duodenum. Eleazar Solorio MD Abdomen X-Ray 05/27/16 0000 Signed Impressions: Service Date/Time: Friday, May 27, 2016 18:24 - CONCLUSION: Tip of the Dobbhoff catheter is still intrathoracic. Eleazar Solorio MD Objective Remarks PHYSICAL EXAMINATION GENERAL: Elderly gentleman, on vent via trach. . HEAD: Clean dry incision/laceration clean. ENT/NECK: Tracheostomy in place, NGT in place LUNGS: On mech ventilation, Good air movement. No wheezes or crackles. HEART: Regular rate and rhythm, normal S1-S2, no murmur, no JVD. ABDOMEN: Large, soft, no guarding. BS active. Nondistended. Benign. EXTREMITIES: Warm, well-perfused. trace generalized edema. NEUROLOGICAL: Opens eyes, moves extremities to stimulation. Following commands in all 4 extremities. Poor hearing bilaterally Urinary Catheter: Yes Assessment to: Continue A/P Assessment and Plan ASSESSMENT: Acute traumatic left-sided subdural hemorrhage. Traumatic subarachnoid bleed. Small frontal lobe contusion, right side. 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 Mild hypertension. Respiratory Failure, ventilator dependent. UTI - Klebsiella, Enterococcus Bronchitis - Strep PLAN: 1. PRVC vent mode. No TP trial today due to being tachypneic on vent. CXR predominantly left lower lobe infiltrate unchanged. Sputum culture requested 2. Neurological checks. Family states hearing loss from time of fall. ENT consulted on Sunday06/05/16 3. Head of bed up 30 degrees. 4. SQH 5000 q12h. SCDs. 5. Labetalol for a blood pressure greater than 170. 6. clonidine 0.3mg po TID for agitation 7. propranolol 10mg po q8h for hypertension/tachycardia and possible cerebral storming. 8. per tube pepcid. 9. continue goal TFs to 55. 10. Levemir to 8 units SQ q12h 11. SSI high scale, q6h. 12. lasix 40mg iv for volume overload as needed. goal 500cc negative/24h. 13. Sputum culture -> Strep 05/23, s/p full course of ceftriaxone. Repeat sputum cx today 14. s/p tracheostomy. daily SBT/TP trials as tolerated 16. PT/OT 17: Cultures 05/29 sputum and 05/30 blood negative to date 18. speech therapy. - working on LTAC placement. Will require senior care ventilator wean OVERALL IMPRESSION: Improved mental status, following commands, tolerating CPAP but gets agitated. Looking at long-term rehab. palliative care following Daisy Kellogg MD Jun 05, 2016 12:38
--- NOTE | 2016-06-05 12:42 | HHI.PR ---
Neuropsych Emotional Emotional: Moderate: Irritable/Angry/Frustrate Behavior Behavior: Intact: Cooperative w/ Treatment, Motivation Cognitive Cognitive: Unable to Asses: Cognitive, Attention/Concentration, Confused/ Orientation, Insight/Awareness, Judgement/Problem-Solving, Memory Psychosocial Psychosocial: Mild: Psychosocial, Family/Other Adjustment, Realistic Expectation Progress Notes/Response to Tx Contents of Sessions: Adjustment Time with Patient: 15 minutes Premorbid psychological status Premorbid Cognitive, Emotional and Behavioral Status: Stable. The patient is retired from a solid work history and long-term . The patient has no psychiatric difficulties. Substance abuse history is unremarkable. Behavioral Reactions of Patient and Family/Support System: Stable. The patient s family has a clear understanding of the issues inherent in his present medical condition. As expected, the family is experiencing ongoing issues of adjustment given the nature of the injury, and this aspect of recovery will require ongoing monitoring. Emotional/Behavioral Status of Patient and Family/Support System: Stable. Pertinent issues, if appropriate to this patients clinical care, are described in detail above. Maximizing acute care outcome This patient's present needs are respiratory in nature. His neurobehavioral impairments stemming from his injury is not able to be fully appreciated at this point in time. Anticipated Problems Ongoing areas of concern will include expressive and possible receptive language impairment, which would be expected to improve with time and treatment. Presently, the patient is inconsistently following commands. Treatment Plan This clinician will continue to follow with you throughout the course of this patients rehabilitation treatment, and I will be available to meet with the patients family/support system to facilitate their understanding and the ongoing care of their family member. The goals of neuropsychological intervention shall be both educational and supportive to the family/support system as is deemed clinically appropriate. Impression This patient suffered a traumatic brain injury secondary to a fall with resulting pathology to the left hemisphere, leaving an aphasic disorder with unknown impairment at this time. It is anticipated that as he improves medically, he will improve in terms of his ability to use and understand language. Diagnosis: (1) Major neurocognitive disorder as late effect of traumatic brain injury with behavioral disturbance Status: Acute Progress Note Narrative Ongoing follow-up of patient, which included discussions with the patient's . There is more evidence that in addition to his hearing impairment that the patient may have impairments of reading dissociated from his ability to write. At my suggestion, I asked that patient's to use a dry erase board to facilitate communication, which has been effective. However, the patient's noticed that it would appear that the patient is unable to read what is presented to him in the form of simple commands. This dissociation, which is very much neurologically possible, needs to be monitored further. I will continue to follow. Shemar Dudley PhD Jun 05, 2016 12:42 pm
--- NOTE | 2016-06-05 13:48 | HHI.HCPN ---
Reason for visit a. To assist with evaluation and management of symptoms including: Dyspnea, malnutrition, agitation b. To assist medical decision maker(s) with: better understanding of current medical conditions; weighing benefits/burdens of medical treatment options; making medical treatment decisions. Subjective/Interval History Patient seen and examined today to follow-up on comfort and goals. Palliative service received voicemail from spouse requesting update today, prior to my arrival on unit. Remains in ICU, on mech vent, ongoing CPAP trials-- not able to fully wean due to periods tachypnea/agitation. CXR unchanged still with left lower lobe infiltrates. Repeat sputum culture ordered. Still with copious tracheal secretions. WBC still mildly elevated at 14.1. Low-grade fever today 100.5. Speech therapy has been attempting to evaluate however patient with limited participation refuses to participate. Appears to have some receptive and expressive aphasia. Case management assisting for evaluation for possible LTAC placement. GI has been consulted for PEG placement, patient is nothing by mouth today for planned PEG tube. --On unit later to see patient and meet with . Patient seen in room no visitors present--nursing informs had left. Patient is on T piece, appears to be tolerating, 35% FiO2. No respiratory distress do observe copious amounts of base secretions around tracheostomy. He is sleeping soundly and does not arouse to touch or loud verbal stimuli. Following exam call to patient to provide update and answer any questions she may have--she indicates that she can sort her thoughts out better in person and requests to follow-up with me tomorrow as her daughters had many questions for her to ask. Plan to meet with her tomorrow after 10 AM per her request. . Advance Directives Living Will: Copy in medical record (standard living will verbiage requesting no artificial/aggressive measures and the presence of terminal or end-stage condition) Health Care Surrogate: Copy in medical record (designates Nazanin) Objective Vital Signs Date Time Temp Pulse Resp B/P Pulse Ox O2 Delivery O2 Flow Rate FiO2 06/05/16 13:10 95 T-piece 6.00 40 06/05/16 12:20 40 06/05/16 12:19 99 40 06/05/16 12:00 100.5 102 32 141/65 95 06/05/16 12:00 40 06/05/16 12:00 102 06/05/16 10:00 114 06/05/16 08:00 40 06/05/16 08:00 104 06/05/16 08:00 99.6 104 28 145/65 97 06/05/16 07:19 98 40 06/05/16 04:00 99.1 104 26 152/72 97 06/05/16 04:00 40 06/05/16 03:51 100 40 06/05/16 00:11 98 40 06/05/16 00:00 98.5 114 24 154/78 98 06/05/16 00:00 40 06/04/16 20:00 98.0 114 28 190/74 93 06/04/16 20:00 40 06/04/16 18:00 90 06/04/16 17:46 94 T-piece 6.00 40 06/04/16 16:00 92 06/04/16 16:00 98.7 92 28 156/76 96 06/04/16 16:00 40 06/04/16 14:00 86 Intake & Output 06/05/16 06/05/16 07:00 19:00 Intake Total 0 ml Output Total 2800 ml Balance -2800 ml Intake Oral 0 ml IV Total 0 ml Output Urine Total 2800 ml # Bowel Movements 1 Physical Exam CONSTITUTIONAL/GENERAL: This is an adequately nourished patient, on T piece, no distress, sleeping soundly does not arouse for my visit TUBES/LINES/DRAINS: Peripheral IV bilateral upper extremities, NG tube, tracheostomy, Moreno catheter, restraints, SCDs SKIN: No jaundice, rashes, or lesions. ++ ecchymosis bilateral upper extremities. No wounds seen anteriorly. Skin temperature appropriate. Not diaphoretic. CARDIOVASCULAR: Regular rate and rhythm, no murmurs. Peripheral pulses symmetric. RESPIRATORY/CHEST: Symmetric, unlabored respirations via trach to T piece 35% FiO2. Coarse scattered rhonchi. Breath sounds equal bilaterally. GASTROINTESTINAL: Abdomen soft, round, non-tender, nondistended. No guarding. Bowel sounds normoactive. Tube feeding infusing via NG tube. NEUROLOGICAL: Sleeping soundly does not arouse to touch or verbal stimuli during my exam. PSYCHIATRIC: No restlessness or obvious anxiety observed. . Diagnostic Tests Laboratory Laboratory Tests Test 06/03/16 06/04/16 06/05/16 03:55 03:32 03:14 White Blood Count 14.0 TH/MM3 13.6 TH/MM3 14.1 TH/MM3 (4.0-11.0) (4.0-11.0) (4.0-11.0) Red Blood Count 2.84 MIL/MM3 2.82 MIL/MM3 3.00 MIL/MM3 (4.50-5.90) (4.50-5.90) (4.50-5.90) Hemoglobin 8.5 GM/DL 8.3 GM/DL 8.7 GM/DL (13.0-17.0) (13.0-17.0) (13.0-17.0) Hematocrit 25.5 % 25.4 % 26.5 % (39.0-51.0) (39.0-51.0) (39.0-51.0) Mean Corpuscular Volume 89.8 FL 90.0 FL 88.3 FL (80.0-100.0) (80.0-100.0) (80.0-100.0) Mean Corpuscular Hemoglobin 29.9 PG 29.5 PG 29.0 PG (27.0-34.0) (27.0-34.0) (27.0-34.0) Mean Corpuscular Hemoglobin 33.3 % 32.8 % 32.9 % Concent (32.0-36.0) (32.0-36.0) (32.0-36.0) Red Cell Distribution Width 13.4 % 13.5 % 13.4 % (11.6-17.2) (11.6-17.2) (11.6-17.2) Platelet Count 388 TH/MM3 388 TH/MM3 429 TH/MM3 (150-450) (150-450) (150-450) Mean Platelet Volume 8.9 FL 8.9 FL 8.7 FL (7.0-11.0) (7.0-11.0) (7.0-11.0) Neutrophils (%) (Auto) % (16.0-70.0) 77.5 % (16.0-70.0) Lymphocytes (%) (Auto) % (9.0-44.0) 11.2 % (9.0-44.0) Monocytes (%) (Auto) % (0.0-8.0) 9.0 % (0.0-8.0) Eosinophils (%) (Auto) % (0.0-4.0) 1.3 % (0.0-4.0) Basophils (%) (Auto) % (0.0-2.0) 1.0 % (0.0-2.0) Neutrophils # (Auto) TH/MM3 10.9 TH/MM3 (1.8-7.7) (1.8-7.7) Lymphocytes # (Auto) TH/MM3 1.6 TH/MM3 (1.0-4.8) (1.0-4.8) Monocytes # (Auto) TH/MM3 (0-0.9) 1.3 TH/MM3 (0-0.9) Eosinophils # (Auto) TH/MM3 (0-0.4) 0.2 TH/MM3 (0-0.4) Basophils # (Auto) TH/MM3 (0-0.2) 0.1 TH/MM3 (0-0.2) CBC Comment AUTO DIFF DIFF FINAL Differential Total Cells 100 Counted Neutrophils % (Manual) 67 % (16-70) Band Neutrophils % 15 % (0-6) Lymphocytes % 10 % (9-44) Monocytes % 8 % (0-8) Neutrophils # (Manual) 11.5 TH/MM3 (1.8-7.7) Differential Comment FINAL DIFF MANUAL Platelet Estimate NORMAL (NORMAL) Platelet Morphology Comment NORMAL (NORMAL) Sodium Level 136 MEQ/L 138 MEQ/L 138 MEQ/L (136-145) (136-145) (136-145) Potassium Level 4.1 MEQ/L 4.2 MEQ/L 4.5 MEQ/L (3.5-5.1) (3.5-5.1) (3.5-5.1) Chloride Level 100 MEQ/L 99 MEQ/L 100 MEQ/L (98-107) (98-107) (98-107) Carbon Dioxide Level 29.2 MEQ/L 33.1 MEQ/L 27.2 MEQ/L (21.0-32.0) (21.0-32.0) (21.0-32.0) Anion Gap 7 MEQ/L (5-15) 6 MEQ/L (5-15) 11 MEQ/L (5-15) Blood Urea Nitrogen 18 MG/DL (7-18) 24 MG/DL (7-18) 16 MG/DL (7-18) Creatinine 0.69 MG/DL 0.88 MG/DL 0.64 MG/DL (0.60-1.30) (0.60-1.30) (0.60-1.30) Estimat Glomerular Filtration 108 ML/MIN 82 ML/MIN (>89) 118 ML/MIN Rate (>89) (>89) Random Glucose 104 MG/DL 82 MG/DL 115 MG/DL (74-106) (74-106) (74-106) Calcium Level 8.4 MG/DL 7.8 MG/DL 8.5 MG/DL (8.5-10.1) (8.5-10.1) (8.5-10.1) Total Bilirubin 0.5 MG/DL 0.6 MG/DL (0.2-1.0) (0.2-1.0) Aspartate Amino Transf 48 U/L (15-37) 34 U/L (15-37) (AST/SGOT) Alanine Aminotransferase 58 U/L (12-78) 53 U/L (12-78) (ALT/SGPT) Alkaline Phosphatase 76 U/L (45-117) 82 U/L (45-117) Total Protein 6.8 GM/DL 6.9 GM/DL (6.4-8.2) (6.4-8.2) Albumin 2.1 GM/DL 2.2 GM/DL (3.4-5.0) (3.4-5.0) Magnesium Level 2.2 MG/DL (1.5-2.5) Result Diagram: 06/05/1631306/05/16313 Imaging Last Impressions Chest X-Ray 06/05/16 06 Signed Impressions: Service Date/Time: Sunday, June 05, 2016 04:26 - CONCLUSION: No significant change has occurred. Jv Parikh MD Abdomen X-Ray 06/02/16 0000 Signed Impressions: Service Date/Time: Thursday, June 02, 2016 11:13 - CONCLUSION: 1. Dobbhoff tube in the antrum of the stomach Bill Means MD Head CT 05/28/16 0600 Signed Impressions: Service Date/Time: Saturday, May 28, 2016 04:15 - CONCLUSION: Bilateral subdural hematomas becoming less dense today and decreased in size on the left. Subarachnoid and intraventricular hemorrhage again seen. Mild mass effect on the frontal lobes is present. Jv Parikh MD Transcranial Doppler Study Complete 05/18/16 0730 Signed Impressions: Service Date/Time: April 08:12 - CONCLUSION: 1. No evidence of vasospasm Bill Means MD Procedures 05/18intubated 05/23extubatedreintubated shortly after, same day Assessment and Plan Disease Oriented Problem List: (1) Subdural hematoma, acute (2) Arthritis (3) Hypertension (4) Acute respiratory failure (5) Diabetes type 2, controlled Symptom Scale: (1) Dyspnea 0-10 Scale: Unable to quantify (2) Agitation 0-10 Scale: Unable to quantify (3) Malnutrition 0-10 Scale: Unable to quantify Pertinent Non-Medical Issues Psychosocial:, lives at home with spouse. Retired. Has lived in [place] for 20+ years, many of those years lived in [place], originally from [facility]. 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 Supported by 3 adult children, as well as his . Spiritual: Legal:Patient unable to participate in decision-making. Not clear if or when he will regain that ability. His Nazanin is designated as healthcare surrogate as per his living will documentation. Ethical issues impacting care: Important Contacts Radha Cole [phone] . Prognosis Suffered mechanical fall, patient sustained subdural hemorrhage with midline shift. Has not required neurosurgical intervention. Has required intubation and mechanical ventilation for airway protection, has had ongoing episodes of agitation. Neurosurgery feels patient has a good chance of functional neurologic recovery based on imaging, SDH. However, patient does remain high risk for complications/setbacks which may slow or impair any recovery and rehabilitation. Code Status: Full Code Plan * Legal decision maker: Patient is currently not capacitated to make medical decisions. Not clear if or when he will regain his ability. He has advanced directives naming his Nazanin as legal decision maker. * Goals: 06/05/16 -goals remain aggressive, no changes. Plan to meet again with patient at bedside tomorrow 06/06/16 per her request. * FULL CODE * SYMPTOMS: * Dyspnea-emergently intubated for airway protection, extubated and then emergently intubated due to unable to manage secretions; status post tracheostomy 05/26. Tolerating CPAP, intermittent T piece trials. * Agitation- intermittent episodes of agitation, this is likely multifactorial both metabolic as well as related to SDH; patient with a history of daily alcohol use which likely affected the first few days of hospitalization. Goal to maximize alertness/participation in rehabilitation. Could consider low dose PRN lorazepam via NGT, 0.25mg Ativan q 6 PRN. Appears calm today. * Malnutrition: Risk for related to prolonged hospitalization, alternative feeding required, will require likely PEG for long-term caloric needs, currently receiving tube feeding, plus protein supplement, via NG tube. Speech therapy evaluation ongoing, limited participation. Not clear that he will be able to take in enough calories by mouth even if does well with ST evaluation GI has been consulted, PEG tube is planned. * Palliative care will continue to follow during hospital course as condition evolves, to assist patient/decision-maker with understanding of medical conditions, weighing benefits/burdens of treatment options, for clarification of goals of treatment. Additionally will assist with any symptoms of palliative concern . Time Spent Total Floor Time (mins): 20 Attestation To help prompt me to consider important information that might be impacting today's encounter and assessment, information from prior notes written by myself or my colleagues may have been "brought forward" into today's note. My signature on this note, however, is an attestation that I personally performed the exam, history, and/or decision-making noted today, and, unless otherwise indicated, the interactions with patient, family, and staff as well as the review of records all occurred today. I also attest that the listed assessment and stated plan reflect my best clinical judgment today based on the combination of historical information, prior notes, and today's exam/ interactions. When time spent is documented, it refers only to time spent today by the signer, or if indicated, combined time spent today by collaborating physician/nurse practitioner. Luciana Haro Jun 05, 2016 13:48
[2016-06-05] MEDS ORDERED: ACETAMINOPHEN 1000 MG/100 ML VIAL IV ONE (17:15)
--- NOTE | 2016-06-05 19:05 | RADRPT ---
EXAM DATE/TIME: 06/05/2016 18:18 [facility] COMPARISON: CHEST SINGLE AP, June 05, 2016, 4:26. INDICATIONS : Respiratory distress. MEDICAL HISTORY : Hypertension. Diabetes mellitus type II. SURGICAL HISTORY : None. ENCOUNTER: Subsequent ACUITY: 2 weeks PAIN SCORE: Non-responsive. LOCATION: Bilateral chest FINDINGS: A single view of the chest demonstrates tracheostomy in satisfactory position. Patchy airspace diseas e in the lungs. Heart size mildly enlarged. No pneumothorax. Small left effusion. CONCLUSION: 1. Patchy basilar airspace disease. Tracheostomy in satisfactory position. Small left effusion. Heri Hoff MD on June 05, 2016 at 19:01 Board Certified Radiologist. This report was verified electronically.
[2016-06-05] MEDS: MELATONIN 5 MG TAB PO SCH (21:00)
[2016-06-06] VITALS (17 sets, daily range): BP systolic 155–164; BP diastolic 69–80; PULSE 77–123; RESP 26–32; TEMP 98.7–99.2; O2SAT 93–99
[2016-06-06] MEDS: CHLORHEXIDINE GLUCONATE 2 % 1 PACK (2 CLOTHS) TOP SCH (04:00)
[2016-06-06] MEDS: cloNIDine HCL 0.2 MG TAB PO SCH ×3 (05:00→20:43)
[2016-06-06 05:05] LABS: HEMATOCRIT 26.1 % (39.0-51.0); MEAN CELL VOLUME 88.8 FL (80.0-100.0); MEAN CORPUSCULAR HEMOGLOBIN 29.4 PG (27.0-34.0); MEAN CORPUSCULAR HGB CONC 33.2 % (32.0-36.0); PLATELET COUNT 389 TH/MM3 (150-450); RED BLOOD COUNT 2.94 MIL/MM3 (4.50-5.90); RED CELL DISTRIBUTION WIDTH 13.8 % (11.6-17.2); REVIEW FLAG FINAL; WHITE BLOOD COUNT 11.5 TH/MM3 (4.0-11.0)
[2016-06-06 05:24] LABS: BICARBONATE 30.3 MEQ/L (21.0-32.0); POTASSIUM 4.2 MEQ/L (3.5-5.1)
[2016-06-06] MEDS: PROPRANOLOL HCL 10 MG TAB PO SCH ×3 (06:00→20:43)
[2016-06-06] MEDS: LACTULOSE SYRUP 20 GM/30 ML CUP PO SCH ×2 (06:00→17:33)
[2016-06-06] MEDS: INSULIN NovoLIN REGULAR SUPPLEMENTAL SCALE SQ SCH ×4 (06:00→18:00)
[2016-06-06] MEDS: FREE WATER G-TUBE SCH ×3 (06:00→20:58)
[2016-06-06] MEDS: hydrALAZINE HCL 25 MG TAB PO SCH ×3 (06:00→20:44)
[2016-06-06] MEDS: METOCLOPRAMIDE HCL SYRUP 10 MG/10 ML UDC PO SCH ×3 (06:00→20:44)
[2016-06-06] MEDS: TIMOLOL MALEATE 0.25% OPHT SOLN 5 ML BTL EACH EYE SCH ×2 (07:52→20:44)
[2016-06-06] MEDS: FAMOTIDINE SUSP 40 MG/5 ML NG SCH ×2 (07:52→20:44)
[2016-06-06] MEDS: SODIUM CHLORIDE 0.9% FLUSH 5 ML FLUSH IVF SCH ×2 (07:52→20:44)
[2016-06-06] MEDS: CHLORHEXIDINE 0.12% (ORAL KIT) 15 ML CUP MT SCH ×2 (07:52→20:00)
[2016-06-06] MEDS: BENEPROTEIN POWDER 1 PACK G-TUBE SCH ×3 (07:52→17:33)
[2016-06-06] MEDS: LISINOPRIL 20 MG TAB PO SCH (07:53)
[2016-06-06] MEDS: INSULIN DETEMIR 100 UNITS/ML VIAL SQ SCH ×2 (07:53→20:58)
[2016-06-06] MEDS: THIAMINE HCL 100 MG TAB PO SCH (07:53)
[2016-06-06] MEDS: ATORVASTATIN 20 MG TAB PO SCH (07:53)
[2016-06-06] MEDS: POLYETHYLENE GLYCOL 17 GM PKG PO SCH (07:53)
[2016-06-06] MEDS: FOLIC ACID 1 MG TAB PO SCH (07:53)
[2016-06-06] MEDS: hydrALAZINE HCL 20 MG/ML VIAL IV PUSH PRN (08:30)
--- NOTE | 2016-06-06 12:40 | HHI.HCPN ---
Reason for visit a. To assist with evaluation and management of symptoms including: Dyspnea, malnutrition, agitation b. To assist medical decision maker(s) with: better understanding of current medical conditions; weighing benefits/burdens of medical treatment options; making medical treatment decisions. Subjective/Interval History Patient seen and examined today to follow-up on comfort and goals--yesterday patient requested follow-up meeting today. Remains in ICU, on mech vent, ongoing CPAP/TPs trials. No new imaging today, CXR yesterday unchanged. Still with copious tracheal secretions. Tolerating TPs 35% today at time of my exam. Febrile yesterday MAXIMUM TEMPERATURE 101.4. Repeat blood cultures pending from this morning. Repeat urine and sputum cultures from yesterday pending. Case management assisting for evaluation for possible LTAC placement--reporting [id number] evaluation was done and patient has been declined by LTAC at this time. GI has been consulted for PEG placement , PEG tube planned for today. Patient seen in room with at bedside. Alert, on 35% FiO2 piece. No apparent distress. Mouthing words I do understand "I have to go"; otherwise unable to understand him. He follows commands when demonstrated to do so. He has been able to write a few things for his does not appear able to read. Also some concern about hearing loss, ENT consult is pending. Receptive/ expressive aphasia. Met with at bedside; review of current conditions and status, treatments in place, rehabilitation planning still pending though at this time LTAC has declined. All questions answered. She indicates her daughter has additional questions and requests I call her to provide update. Goals remain aggressive. I did call daughter later, voicemail left. . Advance Directives Living Will: Copy in medical record (standard living will verbiage requesting no artificial/aggressive measures and the presence of terminal or end-stage condition) Health Care Surrogate: Copy in medical record (designates Nazanin) Objective Vital Signs Date Time Temp Pulse Resp B/P Pulse Ox O2 Delivery O2 Flow Rate FiO2 06/06/16 10:00 117 06/06/16 08:18 94 T-piece 35 06/06/16 08:00 98.7 111 32 164/74 94 06/06/16 08:00 111 06/06/16 06:00 114 06/06/16 04:00 99.2 94 26 164/80 97 06/06/16 04:00 99 06/06/16 03:10 93 40 06/06/16 02:00 100 06/06/16 00:41 99 40 06/06/16 00:00 98.9 89 26 157/69 97 06/06/16 00:00 99 06/05/16 22:00 79 06/05/16 20:56 98 40 06/05/16 20:00 99 06/05/16 20:00 98.9 89 26 157/69 97 06/05/16 18:00 96 06/05/16 16:00 101.4 108 26 149/74 93 06/05/16 16:00 108 06/05/16 14:00 114 06/05/16 13:10 95 T-piece 6.00 40 Intake & Output 06/06/16 06/06/16 07:00 19:00 Output Total 1250 ml Balance -1250 ml Output Urine Total 1250 ml # Bowel Movements 1 Physical Exam CONSTITUTIONAL/GENERAL: This is an adequately nourished patient, on T piece, no distress, awake mouthing words TUBES/LINES/DRAINS: Peripheral IV bilateral upper extremities, tracheostomy, Moreno catheter, restraints, SCDs CARDIOVASCULAR: Regular rate and rhythm, no murmurs. Peripheral pulses symmetric. RESPIRATORY/CHEST: Symmetric, unlabored respirations via trach to T piece 35% FiO2. Coarse scattered rhonchi. Breath sounds equal bilaterally.+ beige secretions around trach GASTROINTESTINAL: Abdomen soft, round, non-tender, nondistended. No guarding. Bowel sounds normoactive. NEUROLOGICAL: awake. Unable to determine orientation he does mouth words difficult to understand, receptive/expressive aphasia. moves all 4 extremities well-- though not consistently to command seems to move to command when demonstrated. PSYCHIATRIC: No restlessness or obvious anxiety observed. . Diagnostic Tests Laboratory Laboratory Tests Test 06/04/16 06/05/16 06/06/16 03:32 03:14 03:49 White Blood Count 13.6 TH/MM3 14.1 TH/MM3 11.5 TH/MM3 (4.0-11.0) (4.0-11.0) (4.0-11.0) Red Blood Count 2.82 MIL/MM3 3.00 MIL/MM3 2.94 MIL/MM3 (4.50-5.90) (4.50-5.90) (4.50-5.90) Hemoglobin 8.3 GM/DL 8.7 GM/DL 8.6 GM/DL (13.0-17.0) (13.0-17.0) (13.0-17.0) Hematocrit 25.4 % 26.5 % 26.1 % (39.0-51.0) (39.0-51.0) (39.0-51.0) Mean Corpuscular Volume 90.0 FL 88.3 FL 88.8 FL (80.0-100.0) (80.0-100.0) (80.0-100.0) Mean Corpuscular Hemoglobin 29.5 PG 29.0 PG 29.4 PG (27.0-34.0) (27.0-34.0) (27.0-34.0) Mean Corpuscular Hemoglobin 32.8 % 32.9 % 33.2 % Concent (32.0-36.0) (32.0-36.0) (32.0-36.0) Red Cell Distribution Width 13.5 % 13.4 % 13.8 % (11.6-17.2) (11.6-17.2) (11.6-17.2) Platelet Count 388 TH/MM3 429 TH/MM3 389 TH/MM3 (150-450) (150-450) (150-450) Mean Platelet Volume 8.9 FL 8.7 FL 8.3 FL (7.0-11.0) (7.0-11.0) (7.0-11.0) Sodium Level 138 MEQ/L 138 MEQ/L 138 MEQ/L (136-145) (136-145) (136-145) Potassium Level 4.2 MEQ/L 4.5 MEQ/L 4.2 MEQ/L (3.5-5.1) (3.5-5.1) (3.5-5.1) Chloride Level 99 MEQ/L 100 MEQ/L 99 MEQ/L (98-107) (98-107) (98-107) Carbon Dioxide Level 33.1 MEQ/L 27.2 MEQ/L 30.3 MEQ/L (21.0-32.0) (21.0-32.0) (21.0-32.0) Anion Gap 6 MEQ/L (5-15) 11 MEQ/L (5-15) 9 MEQ/L (5-15) Blood Urea Nitrogen 24 MG/DL (7-18) 16 MG/DL (7-18) 16 MG/DL (7-18) Creatinine 0.88 MG/DL 0.64 MG/DL 0.68 MG/DL (0.60-1.30) (0.60-1.30) (0.60-1.30) Estimat Glomerular Filtration 82 ML/MIN (>89) 118 ML/MIN 110 ML/MIN Rate (>89) (>89) Random Glucose 82 MG/DL 115 MG/DL 114 MG/DL (74-106) (74-106) (74-106) Calcium Level 7.8 MG/DL 8.5 MG/DL 8.0 MG/DL (8.5-10.1) (8.5-10.1) (8.5-10.1) Neutrophils (%) (Auto) 77.5 % (16.0-70.0) Lymphocytes (%) (Auto) 11.2 % (9.0-44.0) Monocytes (%) (Auto) 9.0 % (0.0-8.0) Eosinophils (%) (Auto) 1.3 % (0.0-4.0) Basophils (%) (Auto) 1.0 % (0.0-2.0) Neutrophils # (Auto) 10.9 TH/MM3 (1.8-7.7) Lymphocytes # (Auto) 1.6 TH/MM3 (1.0-4.8) Monocytes # (Auto) 1.3 TH/MM3 (0-0.9) Eosinophils # (Auto) 0.2 TH/MM3 (0-0.4) Basophils # (Auto) 0.1 TH/MM3 (0-0.2) CBC Comment DIFF FINAL Differential Comment Magnesium Level 2.2 MG/DL (1.5-2.5) Total Bilirubin 0.6 MG/DL (0.2-1.0) Aspartate Amino Transf 34 U/L (15-37) (AST/SGOT) Alanine Aminotransferase 53 U/L (12-78) (ALT/SGPT) Alkaline Phosphatase 82 U/L (45-117) Total Protein 6.9 GM/DL (6.4-8.2) Albumin 2.2 GM/DL (3.4-5.0) Result Diagram: 06/06/16 0349 06/06/16 0349 Microbiology Microbiology Date/Time Procedure Status Source Growth 06/05/16 16:30 Gram Stain - Final Resulted Sputum Endotracheal 06/05/16 16:30 Sputum Culture Resulted Sputum Endotracheal Pending 06/05/16 16:30 Urine Culture Received Urine Catheterized Urine Pending 06/06/16 03:49 Aerobic Blood Culture Received Blood Peripheral Pending 06/06/16 03:49 Anaerobic Blood Culture Received Blood Peripheral Pending 06/06/16 03:56 Aerobic Blood Culture Received Blood Peripheral Pending 06/06/16 03:56 Anaerobic Blood Culture Received Blood Peripheral Pending Imaging Last Impressions Chest X-Ray 06/05/16 0600 Signed Impressions: Service Date/Time: Sunday, June 05, 2016 04:26 - CONCLUSION: No significant change has occurred. Jv Parikh MD Abdomen X-Ray 06/02/16 0000 Signed Impressions: Service Date/Time: Thursday, June 02, 2016 11:13 - CONCLUSION: 1. Dobbhoff tube in the antrum of the stomach Bill Means MD Head CT 05/28/16 0600 Signed Impressions: Service Date/Time: Saturday, May 28, 2016 04:15 - CONCLUSION: Bilateral subdural hematomas becoming less dense today and decreased in size on the left. Subarachnoid and intraventricular hemorrhage again seen. Mild mass effect on the frontal lobes is present. vJ Parikh MD Transcranial Doppler Study Complete 05/18/16 0730 Signed Impressions: Service Date/Time: April 08:12 - CONCLUSION: 1. No evidence of vasospasm Bill Means MD Procedures 05/18intubated 05/23extubatedreintubated shortly after, same day Assessment and Plan Disease Oriented Problem List: (1) Subdural hematoma, acute (2) Arthritis (3) Hypertension (4) Acute respiratory failure (5) Diabetes type 2, controlled Symptom Scale: (1) Dyspnea 0-10 Scale: Unable to quantify (2) Agitation 0-10 Scale: Unable to quantify (3) Malnutrition 0-10 Scale: Unable to quantify Pertinent Non-Medical Issues Psychosocial:, lives at home with spouse. Retired. Has lived in [place] for 20+ years, many of those years lived in [place], originally from [place]. 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 Supported by 3 adult children, as well as his . Spiritual: Legal:Patient unable to participate in decision-making. Not clear if or when he will regain that ability. His Nazanin is designated as healthcare surrogate as per his living will documentation. Ethical issues impacting care: Important Contacts Radha Cole [phone] dtr [facility] [place]- [phone] . Prognosis Suffered mechanical fall, patient sustained subdural hemorrhage with midline shift. Has not required neurosurgical intervention. Has required intubation and mechanical ventilation for airway protection, has had ongoing episodes of agitation. Neurosurgery feels patient has a good chance of functional neurologic recovery based on imaging, SDH. However, patient does remain high risk for complications/setbacks which may slow or impair any recovery and rehabilitation. Code Status: Full Code Plan * Legal decision maker: Patient is currently not capacitated to make medical decisions. Not clear if or when he will regain his ability. He has advanced directives naming his Nazanin as legal decision maker. * Goals: 06/06/16 -goals remain aggressive, no changes. Met with at bedside , call to daughter per her request to provide update. Voicemail left. * FULL CODE * SYMPTOMS: * Dyspnea-emergently intubated for airway protection, extubated and then emergently intubated due to unable to manage secretions; status post tracheostomy 05/26. Tolerating CPAP, intermittent T piece trials. * Agitation- intermittent episodes of agitation, this is likely multifactorial both metabolic as well as related to SDH; patient with a history of daily alcohol use which likely affected the first few days of hospitalization. Goal to maximize alertness/participation in rehabilitation. Could consider low dose PRN lorazepam via NGT, 0.25mg Ativan q 6 PRN. Appears calm today. * Malnutrition: Risk for related to prolonged hospitalization, alternative feeding required, will require likely PEG for long-term caloric needs, currently receiving tube feeding, plus protein supplement, via NG tube. Speech therapy evaluation ongoing, limited participation. Not clear that he will be able to take in enough calories by mouth even if does well with ST evaluation GI has been consulted, PEG tube is planned. * Palliative care will continue to follow during hospital course as condition evolves, to assist patient/decision-maker with understanding of medical conditions, weighing benefits/burdens of treatment options, for clarification of goals of treatment. Additionally will assist with any symptoms of palliative concern . Attestation To help prompt me to consider important information that might be impacting today's encounter and assessment, information from prior notes written by myself or my colleagues may have been "brought forward" into today's note. My signature on this note, however, is an attestation that I personally performed the exam, history, and/or decision-making noted today, and, unless otherwise indicated, the interactions with patient, family, and staff as well as the review of records all occurred today. I also attest that the listed assessment and stated plan reflect my best clinical judgment today based on the combination of historical information, prior notes, and today's exam/ interactions. When time spent is documented, it refers only to time spent today by the signer, or if indicated, combined time spent today by collaborating physician/nurse practitioner. Luciana Haro Jun 06, 2016 12:40
[2016-06-06] MEDS ORDERED: ceFAZolin INJ 1,000 MG VIAL IV ONE (13:11)
[2016-06-06] MEDS ORDERED: PROPOFOL 200 MG/20 ML AMP IV ONE (13:13)
[2016-06-06] MEDS ORDERED: MIDAZOLAM HCL 2 MG/2 ML VIAL ONE (13:37)
--- NOTE | 2016-06-06 17:55 | HHI.CCPN ---
Subjective Remarks/Hospital Course Traumatic SDH. 05/17: This 85-year-old gentleman fell of bed last night and hit his head. He developed aphasia and confusion pretty rapidly and was seen in the emergency department in [place] with a right facial droop. Subsequent CT scan evaluation confirmed an acute left subdural hemorrhage of approximately 8 mm in width with a associated subarachnoid hemorrhage. Additionally in the frontal lobe on the right side he had a 1 cm area of hemorrhage with surrounding vasogenic edema. There was intraventricular blood as well on the right side. I met him on his arrival to [facility] [place]. What was immediately noticeable was that he was not able to express himself well and that he was not following commands correctly. With gestures he was able to follow commands but not with verbal orders. 05/18: Deteriorating mental status, nasal trumpet placed for airway control, and will require intubation. 05/19: Ventilator dependent now. Family needs to clarify goals if possible/ practical. 05/20: A little more alert. Breathes well on CPAP. 05/21: Tolerating CPAP trials with good respiratory drive. 05/22: Agitated. Start precedex for attempted weaning trial and possible extubation. 05/23: Attempt weaning trial again today with low dose precedex for control of agitation. 05/24: Extubated yesterday but could not protect his airway, could not cough up secretions. Quickly failed and required re-intubation. 05/25: Will need trach if family wishes to continue with aggressive care. Worsening glucose intolerance. Will start BID levemir 05/26: No improvement in neurological function. Glucose control much improved. The family feels quite strongly about continued aggressive rehab. Therefore we will perform tracheostomy. Risk and benefits presented to and she wished to proceed. 05/27: Tracheostomy performed 05/26 at family request after discussion with Palliative Care service. Dobbhoff placed and we are now working on LTAC/rehab placement. He looks around the room and appears to recognize his family. Weak limb movements/hand grasps. 05/28: Remains on mechanical ventilation via tracheostomy. Start daily C Pap trials and will attempt transition to trach collar if tolerated. 05/29: Awake, on mechanical ventilation via tracheostomy. Tolerated CPAP trial yesterday. We will attempt T piece today. 05/30: Awake, on mechanical ventilation via tracheostomy. Tolerated T piece for 2 hours yesterday. 05/31: off precedex. awake. still failing t-piece for tachypnea. agitated at times. may be storming from cerebral insult. still low grade temps, but cultures have been persistently negative. 06/01: low grade fevers persist. cultures still negative. 06/02: WBC count stable. UO adequate. Follows commands x4 extremities. No fever 06/03: Tolerating TP today 50%. No fever, WBC normal. No acute events reported overnight. Family states that patient unable to hear (from time of fall) 06/04; still seems to have hearing impairment, tolerated TP several hours yesterday, but was apneic on CPAP overnight 06/05: Patient was tachypneic on vent so TP not attempted, Continues to have hearing loss, ENT consulted 06/06: received PEG tube today. Due to sedation TPs not attempted. ENT cannot pursue audiometry in hospital Objective Vital Signs Date Time Temp Pulse Resp B/P Pulse Ox O2 Delivery O2 Flow Rate FiO2 06/06/16 16:12 96 T-piece 35 06/06/16 16:00 99.0 112 28 155/71 06/05/16 13:10 6.00 Intake and Output 06/05/16 06/05/16 06/06/16 08:00 16:00 00:00 Intake Total 0 ml 50 ml Output Total 800 ml 450 ml 650 ml Balance -800 ml -400 ml -650 ml Result Diagram: 06/06/16 0349 06/06/16 0349 Imaging Last [address] 05/28/16 0600 Signed Impressions: Service Date/Time: Saturday, May 28, 2016 04:15 - CONCLUSION: Bilateral subdural hematomas becoming less dense today and decreased in size on the left. Subarachnoid and intraventricular hemorrhage again seen. Mild mass effect on the frontal lobes is present. Jv Parikh MD Chest X-Ray 05/27/16 0000 Signed Impressions: Service Date/Time: Friday, May 27, 2016 06:43 - CONCLUSION: Stable appearance of the lungs. Jv Parikh MD Abdomen X-Ray 05/27/16 0000 Signed Impressions: Service Date/Time: Friday, May 27, 2016 19:50 - CONCLUSION: Dobbhoff catheter has been advanced and is now either in the distal stomach or proximal duodenum. Eleazar Solorio MD Abdomen X-Ray 05/27/16 0000 Signed Impressions: Service Date/Time: Friday, May 27, 2016 18:24 - CONCLUSION: Tip of the Dobbhoff catheter is still intrathoracic. Eleazar Solorio MD Objective Remarks PHYSICAL EXAMINATION GENERAL: Elderly gentleman, on vent via trach. . HEAD: Clean dry incision/laceration clean. ENT/NECK: Tracheostomy in place, NGT in place LUNGS: On mech ventilation, Good air movement. No wheezes or crackles. HEART: Regular rate and rhythm, normal S1-S2, no murmur, no JVD. ABDOMEN: Large, soft, no guarding. BS active. Nondistended. Benign. EXTREMITIES: Warm, well-perfused. trace generalized edema. NEUROLOGICAL: Opens eyes, moves extremities to stimulation. Following commands in all 4 extremities. Poor hearing bilaterally A/P Assessment and Plan ASSESSMENT: Acute traumatic left-sided subdural hemorrhage. Traumatic subarachnoid bleed. Small frontal lobe contusion, right side. 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 Mild hypertension. Respiratory Failure, ventilator dependent. UTI - Klebsiella, Enterococcus Bronchitis - Strep PLAN: 1. PRVC vent mode. TP as tolerated 2. Neurological checks. Family states hearing loss from time of fall. ENT consulted on Sunday06/05/16-cannot do audiometry in hospital 3. Head of bed up 30 degrees. 4. SQH 5000 q12h. SCDs. 5. Labetalol for a blood pressure greater than 170. 6. clonidine 0.3mg po TID for agitation 7. propranolol 10mg po q8h for hypertension/tachycardia and possible cerebral storming. 8. per tube pepcid. 9. continue goal TFs to 55. 10. Levemir to 8 units SQ q12h 11. SSI high scale, q6h. 12. lasix 40mg iv for volume overload as needed. goal 500cc negative/24h. 13. Sputum culture -> Strep 05/23, s/p full course of ceftriaxone. Repeat sputum cx today 14. s/p tracheostomy. daily SBT/TP trials as tolerated 16. PT/OT 17: Cultures 05/29 sputum and 05/30 blood negative to date 18. speech therapy. - working on LTAC placement. Will require longitudinal float operator ventilator wean, [employer] will consider only after 21 days OVERALL IMPRESSION: Improved mental status, following commands, tolerating CPAP but gets agitated. Looking at long-term rehab. palliative care following Daisy Kellogg MD Jun 06, 2016 17:55
[2016-06-06] MEDS: MELATONIN 5 MG TAB PO SCH (20:44)
[2016-06-07] VITALS (17 sets, daily range): BP systolic 95–138; BP diastolic 49–73; PULSE 62–97; RESP 18–25; TEMP 98.2–99; O2SAT 93–100
[2016-06-07] MEDS: CHLORHEXIDINE GLUCONATE 2 % 1 PACK (2 CLOTHS) TOP SCH (04:00)
[2016-06-07] MEDS: FREE WATER G-TUBE SCH ×3 (05:15→22:08)
[2016-06-07] MEDS: cloNIDine HCL 0.2 MG TAB PO SCH ×3 (05:15→21:30)
[2016-06-07 05:45] LABS: HEMATOCRIT 24.2 % (39.0-51.0); MEAN CELL VOLUME 89.5 FL (80.0-100.0); MEAN CORPUSCULAR HEMOGLOBIN 29.7 PG (27.0-34.0); MEAN CORPUSCULAR HGB CONC 33.2 % (32.0-36.0); PLATELET COUNT 399 TH/MM3 (150-450); RED CELL DISTRIBUTION WIDTH 13.9 % (11.6-17.2); REVIEW FLAG FINAL; WHITE BLOOD COUNT 13.1 TH/MM3 (4.0-11.0)
[2016-06-07] MEDS: INSULIN NovoLIN REGULAR SUPPLEMENTAL SCALE SQ SCH ×4 (06:00→17:36)
[2016-06-07] MEDS: hydrALAZINE HCL 25 MG TAB PO SCH ×3 (06:00→22:00)
[2016-06-07] MEDS: PROPRANOLOL HCL 10 MG TAB PO SCH ×3 (06:00→22:00)
[2016-06-07 06:09] LABS: BICARBONATE 29.1 MEQ/L (21.0-32.0); POTASSIUM 3.9 MEQ/L (3.5-5.1)
[2016-06-07] MEDS: LACTULOSE SYRUP 20 GM/30 ML CUP PO SCH ×2 (06:36→17:35)
[2016-06-07] MEDS: METOCLOPRAMIDE HCL SYRUP 10 MG/10 ML UDC PO SCH ×3 (06:36→22:08)
[2016-06-07] MEDS: POLYETHYLENE GLYCOL 17 GM PKG PO SCH (09:00)
[2016-06-07] MEDS: ATORVASTATIN 20 MG TAB PO SCH (09:15)
[2016-06-07] MEDS: THIAMINE HCL 100 MG TAB PO SCH (09:15)
[2016-06-07] MEDS: FOLIC ACID 1 MG TAB PO SCH (09:15)
[2016-06-07] MEDS: CHLORHEXIDINE 0.12% (ORAL KIT) 15 ML CUP MT SCH ×2 (09:16→19:52)
[2016-06-07] MEDS: SODIUM CHLORIDE 0.9% FLUSH 5 ML FLUSH IVF SCH ×2 (09:16→20:18)
[2016-06-07] MEDS: FAMOTIDINE SUSP 40 MG/5 ML NG SCH ×2 (09:16→20:18)
[2016-06-07] MEDS: BENEPROTEIN POWDER 1 PACK G-TUBE SCH ×3 (09:16→17:36)
[2016-06-07] MEDS: TIMOLOL MALEATE 0.25% OPHT SOLN 5 ML BTL EACH EYE SCH ×2 (09:16→20:18)
[2016-06-07] MEDS: INSULIN DETEMIR 100 UNITS/ML VIAL SQ SCH ×2 (09:16→20:19)
[2016-06-07] MEDS: LISINOPRIL 20 MG TAB PO SCH (09:20)
--- NOTE | 2016-06-07 10:20 | HHI.CCPN ---
Subjective Remarks/Hospital Course Traumatic SDH. 05/17: This 85-year-old gentleman fell of bed last night and hit his head. He developed aphasia and confusion pretty rapidly and was seen in the emergency department in [place] with a right facial droop. Subsequent CT scan evaluation confirmed an acute left subdural hemorrhage of approximately 8 mm in width with a associated subarachnoid hemorrhage. Additionally in the frontal lobe on the right side he had a 1 cm area of hemorrhage with surrounding vasogenic edema. There was intraventricular blood as well on the right side. I met him on his arrival to [facility]. What was immediately noticeable was that he was not able to express himself well and that he was not following commands correctly. With gestures he was able to follow commands but not with verbal orders. 05/18: Deteriorating mental status, nasal trumpet placed for airway control, and will require intubation. 05/19: Ventilator dependent now. Family needs to clarify goals if possible/ practical. 05/20: A little more alert. Breathes well on CPAP. 05/21: Tolerating CPAP trials with good respiratory drive. 05/22: Agitated. Start precedex for attempted weaning trial and possible extubation. 05/23: Attempt weaning trial again today with low dose precedex for control of agitation. 05/24: Extubated yesterday but could not protect his airway, could not cough up secretions. Quickly failed and required re-intubation. 05/25: Will need trach if family wishes to continue with aggressive care. Worsening glucose intolerance. Will start BID levemir 05/26: No improvement in neurological function. Glucose control much improved. The family feels quite strongly about continued aggressive rehab. Therefore we will perform tracheostomy. Risk and benefits presented to and she wished to proceed. 05/27: Tracheostomy performed 05/26 at family request after discussion with Palliative Care service. Dobbhoff placed and we are now working on LTAC/rehab placement. He looks around the room and appears to recognize his family. Weak limb movements/hand grasps. 05/28: Remains on mechanical ventilation via tracheostomy. Start daily C Pap trials and will attempt transition to trach collar if tolerated. 05/29: Awake, on mechanical ventilation via tracheostomy. Tolerated CPAP trial yesterday. We will attempt T piece today. 05/30: Awake, on mechanical ventilation via tracheostomy. Tolerated T piece for 2 hours yesterday. 05/31: off precedex. awake. still failing t-piece for tachypnea. agitated at times. may be storming from cerebral insult. still low grade temps, but cultures have been persistently negative. 06/01: low grade fevers persist. cultures still negative. 06/02: WBC count stable. UO adequate. Follows commands x4 extremities. No fever 06/03: Tolerating TP today 50%. No fever, WBC normal. No acute events reported overnight. Family states that patient unable to hear (from time of fall) 06/04; still seems to have hearing impairment, tolerated TP several hours yesterday, but was apneic on CPAP overnight 06/05: Patient was tachypneic on vent so TP not attempted, Continues to have hearing loss, ENT consulted 06/06: received PEG tube today. Due to sedation TPs not attempted. ENT cannot pursue audiometry in hospital 06/07: tolerating TP today, appears comfortable. No change in hearing status. Sputum culture from 06/05/16 negative Objective Vital Signs Date Time Temp Pulse Resp B/P Pulse Ox O2 Delivery O2 Flow Rate FiO2 06/07/16 10:00 62 06/07/16 08:00 35 06/07/16 08:00 98.5 20 130/63 94 06/07/16 07:41 T-piece 8.00 Intake and Output 06/06/16 06/06/16 06/07/16 08:00 16:00 00:00 Intake Total 250 ml 0 ml Output Total 600 ml 500 ml 300 ml Balance -600 ml -250 ml -300 ml Result Diagram: 06/07/16 0356 06/07/16 0356 Other Results Microbiology Date/Time Procedure Status Source Growth 06/05/16 16:30 Gram Stain - Final Complete Sputum Endotracheal 06/05/16 16:30 Sputum Culture - Final Complete Sputum Endotracheal LIGHT GROWTH NORMAL RESPIRATORY SANDRA 06/05/16 16:30 Urine Culture - Final Complete Urine Catheterized Urine NO GROWTH IN 48 HOURS. Imaging Last [address] 05/28/16 0600 Signed Impressions: Service Date/Time: Saturday, May 28, 2016 04:15 - CONCLUSION: Bilateral subdural hematomas becoming less dense today and decreased in size on the left. Subarachnoid and intraventricular hemorrhage again seen. Mild mass effect on the frontal lobes is present. Jv Parikh MD Chest X-Ray 05/27/16 0000 Signed Impressions: Service Date/Time: Friday, May 27, 2016 06:43 - CONCLUSION: Stable appearance of the lungs. Jv Parikh MD Abdomen X-Ray 05/27/16 0000 Signed Impressions: Service Date/Time: Friday, May 27, 2016 19:50 - CONCLUSION: Dobbhoff catheter has been advanced and is now either in the distal stomach or proximal duodenum. Eleazar Solorio MD Abdomen X-Ray 05/27/16 0000 Signed Impressions: Service Date/Time: Friday, May 27, 2016 18:24 - CONCLUSION: Tip of the Dobbhoff catheter is still intrathoracic. Eleazar Solorio MD Objective Remarks PHYSICAL EXAMINATION GENERAL: Elderly gentleman, on TP via trach. . HEAD: Clean dry incision/laceration clean. ENT/NECK: Tracheostomy in place, NGT in place LUNGS: On mech ventilation, Good air movement. No wheezes or crackles. HEART: Regular rate and rhythm, normal S1-S2, no murmur, no JVD. ABDOMEN: Large, soft, no guarding. BS active. Nondistended. Benign. EXTREMITIES: Warm, well-perfused. trace generalized edema. NEUROLOGICAL: Opens eyes, moves extremities to stimulation. Following commands in all 4 extremities. Poor hearing bilaterally Urinary Catheter: Yes Assessment to: Continue A/P Assessment and Plan ASSESSMENT: Acute traumatic left-sided subdural hemorrhage. Traumatic subarachnoid bleed. Small frontal lobe contusion, right side. 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 Mild hypertension. Respiratory Failure, ventilator dependent. UTI - Klebsiella, Enterococcus Bronchitis - Strep PLAN: 1. TP as tolerated. Leave on TP 20/11 as tolerated 2. Neurological checks. Family states hearing loss from time of fall. ENT consulted on Sunday06/05/16-cannot do audiometry in hospital 3. Head of bed up 30 degrees. 4. SQH 5000 q12h. SCDs. 5. Labetalol for a blood pressure greater than 170. 6. Clonidine 0.3mg po TID for agitation 7. Propranolol 10mg po q8h for hypertension/tachycardia and possible cerebral storming. 8. Per tube pepcid. 9. Continue goal TFs to 55. s/p PEG tube placement 10. Levemir to 8 units SQ q12h 11. SSI high scale, q6h. 12. Lasix 40mg iv for volume overload as needed. goal 500cc negative/24h. 13. Sputum culture -> Strep 05/23, s/p full course of ceftriaxone. Repeat sputum cx today 14. s/p tracheostomy. daily TP trials as tolerated 16. PT/OT OOB up to stretcher chair today 17: Cultures 05/29 sputum and 05/30 blood negative to date 18. speech therapy. - working on LTAC placement. Will require rat exterminator ventilator wean, [employer] will consider only after 21 days (day 21 today) OVERALL IMPRESSION: Improved mental status, following commands, tolerating CPAP/ TP. Looking at long-term rehab. palliative care following CXR showing large amount s/c emphysema. STAT CT chest ordered Daisy Kellogg MD Jun 07, 2016 10:20
--- NOTE | 2016-06-07 11:23 | RADRPT ---
EXAM DATE/TIME: 06/07/2016 10:47 [facility] COMPARISON: CHEST SINGLE AP, June 05, 2016, 18:18. INDICATIONS : Short of breath. MEDICAL HISTORY : Cardiovascular disease. Hypertension Diabetes mellitus type II. SURGICAL HISTORY : None. ENCOUNTER: Initial ACUITY: 4 - 6 days PAIN SCORE: Non-responsive. LOCATION: Bilateral chest FINDINGS: Trach tube is in good position. There is subcutaneous emphysema over the left chest wall without pne umothorax. The right lung is clear. The heart and pulmonary vascularity are normal. CONCLUSION: Subcutaneous emphysema over the left chest wall. Etiology is not apparent. Solomon Quintero MD FACR on June 07, 2016 at 11:06 Board Certified Radiologist. This report was verified electronically.
--- NOTE | 2016-06-07 13:52 | RADRPT ---
EXAM DATE/TIME: 06/07/2016 12:34 [facility] COMPARISON: No previous studies available for comparison. INDICATIONS : Rule out pneumothorax, subcutaneous air. RADIATION DOSE: 9.59 CTDIvol (mGy) MEDICAL HISTORY : Cardiovascular disease. Hypertension. Diabetes mellitus type 2. Renal disease SURGICAL HISTORY : None. ENCOUNTER: Initial ACUITY: 1 day PAIN SCALE: 0/10 LOCATION: Bilateral chest TECHNIQUE: Volumetric scanning of the chest was performed. Using automated exposure control and adjustment of t he mA and/or kV according to patient size, radiation dose was kept as low as reasonably achievable to obtain optimal diagnostic quality images. FINDINGS: Extensive subcutaneous emphysema is present over the left chest wall with free intraperitoneal air. This may be tracking from the G-tube site. There is no pneumothorax. Small bi lateral pleural effusions are noted. The heart is enlarged. CONCLUSION: 1. Gastrostomy tube in the left upper quadrant with trace free air and a large amount of subcutaneous emphysema that may be tracking from the gastrostomy tube site. 2. There is no pneumothorax. Solomon Quintero MD FACR on June 07, 2016 at 12:56 Board Certified Radiologist. This report was verified electronically.
--- NOTE | 2016-06-07 15:32 | HHI.GIFU ---
Subjective Remarks Resting in bed in no distress. TF started and he seems to be tolerating this well. No abdominal tenderness. (Anita Bernard) Objective Vitals I&O Vital Signs Date Time Temp Pulse Resp B/P Pulse Ox O2 Delivery O2 Flow Rate FiO2 06/07/16 14:00 76 06/07/16 12:47 95 40 06/07/16 12:00 97 06/07/16 12:00 98.9 86 25 135/63 93 06/07/16 12:00 35 06/07/16 10:00 62 06/07/16 08:00 35 06/07/16 08:00 86 06/07/16 08:00 98.5 80 20 130/63 94 06/07/16 07:41 95 T-piece 8.00 35 06/07/16 06:00 80 06/07/16 04:00 99.0 95 24 126/73 100 06/07/16 04:00 95 06/07/16 04:00 40 06/07/16 03:53 94 35 06/07/16 02:00 95 06/07/16 00:33 98 35 06/07/16 00:00 77 06/07/16 00:00 98.9 77 18 95/49 100 06/06/16 22:00 77 06/06/16 20:26 97 40 06/06/16 20:00 99.1 123 28 155/70 95 06/06/16 20:00 123 06/06/16 18:00 119 06/06/16 16:12 96 T-piece 35 06/06/16 16:00 99.0 112 28 155/71 96 06/06/16 16:00 112 I/O 06/06/16 06/06/16 06/06/16 06/07/16 06/07/16 06/07/16 07:00 15:00 23:00 07:00 15:00 23:00 Intake Total 250 ml 0 ml 200 ml 200 ml Output Total 600 ml 500 ml 300 ml 300 ml 400 ml Balance -600 ml -250 ml -300 ml -100 ml -200 ml Intake Oral 0 ml 0 ml 0 ml 0 ml IV Total 250 ml 0 ml 0 ml 0 ml Other 200 ml 200 ml Output Urine Total 600 ml 500 ml 300 ml 300 ml 400 ml # Bowel Movements 1 1 0 0 3 Laboratory Laboratory Tests Test 06/07/16 03:56 White Blood Count 13.1 Red Blood Count 2.70 Hemoglobin 8.0 Hematocrit 24.2 Mean Corpuscular Volume 89.5 Mean Corpuscular Hemoglobin 29.7 Mean Corpuscular Hemoglobin 33.2 Concent Red Cell Distribution Width 13.9 Platelet Count 399 Mean Platelet Volume 8.3 Sodium Level 138 Potassium Level 3.9 Chloride Level 99 Carbon Dioxide Level 29.1 Anion Gap 10 Blood Urea Nitrogen 19 Creatinine 0.75 Estimat Glomerular Filtration 99 Rate Random Glucose 101 Calcium Level 7.8 Date/Time Procedure Status Source Growth 06/06/16 03:56 Aerobic Blood Culture - Preliminary Resulted Blood Peripheral NO GROWTH IN 1 DAY 06/06/16 03:56 Anaerobic Blood Culture - Preliminary Resulted Blood Peripheral NO GROWTH IN 1 DAY 06/05/16 16:30 Urine Culture - Final Complete Urine Catheterized Urine NO GROWTH IN 48 HOURS. 06/05/16 16:30 Gram Stain - Final Complete Sputum Endotracheal 06/05/16 16:30 Sputum Culture - Final Complete Sputum Endotracheal LIGHT GROWTH NORMAL RESPIRATORY SANDRA Imaging Last Impressions Chest X-Ray 06/07/16 0000 Signed Impressions: Service Date/Time: Tuesday, June 07, 2016 10:47 - CONCLUSION: Subcutaneous emphysema over the left chest wall. Etiology is not apparent. Solomon Quintero MD FACR Abdomen X-Ray 06/02/16 0000 Signed Impressions: Service Date/Time: Thursday, June 02, 2016 11:13 - CONCLUSION: 1. Dobbhoff tube in the antrum of the stomach Bill Means MD Head CT 05/28/16 0600 Signed Impressions: Service Date/Time: Saturday, May 28, 2016 04:15 - CONCLUSION: Bilateral subdural hematomas becoming less dense today and decreased in size on the left. Subarachnoid and intraventricular hemorrhage again seen. Mild mass effect on the frontal lobes is present. Jv Parikh MD Transcranial Doppler Study Complete 05/18/16 0730 Signed Impressions: Service Date/Time: April 08:12 - CONCLUSION: 1. No evidence of vasospasm Bill Means MD Physical Exam HEENT: Normocephalic; atraumatic; no jaundice. CHEST: CTA, T Bar tracheostomy CARDIAC: RRR ABDOMEN: Soft, nondistended, nontender; no hepatosplenomegaly; bowel sounds are present in all four quadrants. EXTREMITIES: Generalized edema. SKIN: Normal; no rash; no jaundice. GRIEF COUNSELLOR: Lightly sedated. (Anita Bernard) Assessment and Plan Plan ASSESSMENT: - Dysphagia in patient with acute left subdural hemorrhage of approximately 8 mm in width with an associated subarachnoid hemorrhage. S/P Tracheostomy (05/26) . ST following, failed swallow evaluation. S/P EGD with PEG tube (06/06/16)-----> mild gastritis, gastric antrum, s/p peg. Chest X-Ray (06/07/16)---> Subcutaneous emphysema over the left chest wall. Etiology is not apparent. CT thorax (06/07/16)---> Gastrostomy tube in the left upper quadrant with trace free air and a large amount of subcutaneous emphysema that may be tracking from the gastrostomy tube site, there is no pneumothorax. Site without redness, swelling, drainage. No tenderness. Tolerating tf. Air is likely escaped air from peg tube placement. - Acute traumatic left-sided subdural hemorrhage/respiratory failure, s/p tracheostomy per [facility] Plan: - S/P PEG tube placement - Glucerna 1.5 at GR 50cc/hr as tolerated - Supportive care - Patient seen and examined by dr. Lagos and myself and this note is written on his behalf. (Anita Bernard) Physician Comments Seen and examined with WILLIAM, CT scan reviewed. Clinically doing well. Repeat x ray tomorrow. GI will sign off, reconsult as needed. Thank you (Yoni Lagos MD) Anita Bernard Jun 07, 2016 15:32 Yoni Lagos MD Jun 07, 2016 17:07
[2016-06-07] MEDS: MELATONIN 5 MG TAB PO SCH (20:19)
[2016-06-08] VITALS (15 sets, daily range): BP systolic 98–161; BP diastolic 57–89; PULSE 68–96; RESP 12–26; TEMP 98.2–99.1; O2SAT 93–97
[2016-06-08] MEDS: CHLORHEXIDINE GLUCONATE 2 % 1 PACK (2 CLOTHS) TOP SCH (03:28)
[2016-06-08] MEDS: FREE WATER G-TUBE SCH ×3 (05:57→21:59)
[2016-06-08] MEDS: cloNIDine HCL 0.2 MG TAB PO SCH (05:57)
[2016-06-08] MEDS: hydrALAZINE HCL 25 MG TAB PO SCH ×3 (06:00→21:59)
[2016-06-08] MEDS: PROPRANOLOL HCL 10 MG TAB PO SCH ×3 (06:00→21:59)
[2016-06-08] MEDS: LACTULOSE SYRUP 20 GM/30 ML CUP PO SCH ×3 (06:00→18:00)
[2016-06-08] MEDS: METOCLOPRAMIDE HCL SYRUP 10 MG/10 ML UDC PO SCH ×3 (06:18→21:59)
[2016-06-08] MEDS: INSULIN NovoLIN REGULAR SUPPLEMENTAL SCALE SQ SCH ×4 (07:39→18:00)
[2016-06-08] MEDS: POLYETHYLENE GLYCOL 17 GM PKG PO SCH (08:51)
[2016-06-08] MEDS: ATORVASTATIN 20 MG TAB PO SCH (08:51)
[2016-06-08] MEDS: SODIUM CHLORIDE 0.9% FLUSH 5 ML FLUSH IVF SCH ×2 (08:51→20:05)
[2016-06-08] MEDS: FOLIC ACID 1 MG TAB PO SCH (08:51)
[2016-06-08] MEDS: THIAMINE HCL 100 MG TAB PO SCH (08:51)
[2016-06-08] MEDS: LISINOPRIL 20 MG TAB PO SCH (08:51)
[2016-06-08] MEDS: INSULIN DETEMIR 100 UNITS/ML VIAL SQ SCH ×2 (08:52→21:59)
[2016-06-08] MEDS: TIMOLOL MALEATE 0.25% OPHT SOLN 5 ML BTL EACH EYE SCH ×2 (08:57→20:05)
[2016-06-08] MEDS: FAMOTIDINE SUSP 40 MG/5 ML NG SCH ×2 (08:57→21:58)
[2016-06-08] MEDS: CHLORHEXIDINE 0.12% (ORAL KIT) 15 ML CUP MT SCH ×2 (08:57→20:04)
[2016-06-08] MEDS: BENEPROTEIN POWDER 1 PACK G-TUBE SCH ×3 (09:00→18:22)
--- NOTE | 2016-06-08 11:16 | HHI.CCPN ---
Subjective Remarks/Hospital Course Traumatic SDH. 05/17: This 85-year-old gentleman fell of bed last night and hit his head. He developed aphasia and confusion pretty rapidly and was seen in the emergency department in [place] with a right facial droop. Subsequent CT scan evaluation confirmed an acute left subdural hemorrhage of approximately 8 mm in width with a associated subarachnoid hemorrhage. Additionally in the frontal lobe on the right side he had a 1 cm area of hemorrhage with surrounding vasogenic edema. There was intraventricular blood as well on the right side. I met him on his arrival to [facility]. What was immediately noticeable was that he was not able to express himself well and that he was not following commands correctly. With gestures he was able to follow commands but not with verbal orders. 05/18: Deteriorating mental status, nasal trumpet placed for airway control, and will require intubation. 05/19: Ventilator dependent now. Family needs to clarify goals if possible/ practical. 05/20: A little more alert. Breathes well on CPAP. 05/21: Tolerating CPAP trials with good respiratory drive. 05/22: Agitated. Start precedex for attempted weaning trial and possible extubation. 05/23: Attempt weaning trial again today with low dose precedex for control of agitation. 05/24: Extubated yesterday but could not protect his airway, could not cough up secretions. Quickly failed and required re-intubation. 05/25: Will need trach if family wishes to continue with aggressive care. Worsening glucose intolerance. Will start BID levemir 05/26: No improvement in neurological function. Glucose control much improved. The family feels quite strongly about continued aggressive rehab. Therefore we will perform tracheostomy. Risk and benefits presented to and she wished to proceed. 05/27: Tracheostomy performed 05/26 at family request after discussion with Palliative Care service. Dobbhoff placed and we are now working on LTAC/rehab placement. He looks around the room and appears to recognize his family. Weak limb movements/hand grasps. 05/28: Remains on mechanical ventilation via tracheostomy. Start daily C Pap trials and will attempt transition to trach collar if tolerated. 05/29: Awake, on mechanical ventilation via tracheostomy. Tolerated CPAP trial yesterday. We will attempt T piece today. 05/30: Awake, on mechanical ventilation via tracheostomy. Tolerated T piece for 2 hours yesterday. 05/31: off precedex. awake. still failing t-piece for tachypnea. agitated at times. may be storming from cerebral insult. still low grade temps, but cultures have been persistently negative. 06/01: low grade fevers persist. cultures still negative. 06/02: WBC count stable. UO adequate. Follows commands x4 extremities. No fever 06/03: Tolerating TP today 50%. No fever, WBC normal. No acute events reported overnight. Family states that patient unable to hear (from time of fall) 06/04; still seems to have hearing impairment, tolerated TP several hours yesterday, but was apneic on CPAP overnight 06/05: Patient was tachypneic on vent so TP not attempted, Continues to have hearing loss, ENT consulted 06/06: received PEG tube today. Due to sedation TPs not attempted. ENT cannot pursue audiometry in hospital 06/07: tolerating TP today, appears comfortable. No change in hearing status. Sputum culture from 06/05/16 negative 06/08: continues to tolerate TP today. comfortable. denies complaints to me today. wants to get out of bed. Objective Vital Signs Date Time Temp Pulse Resp B/P Pulse Ox O2 Delivery O2 Flow Rate FiO2 06/08/16 07:59 96 T-piece 35 06/08/16 07:00 6.00 06/08/16 06:00 68 06/08/16 04:00 26 98/57 06/07/16 20:00 98.2 Intake and Output 06/07/16 06/07/16 06/08/16 08:00 16:00 00:00 Intake Total 200 ml 200 ml 372 ml Output Total 300 ml 400 ml 250 ml Balance -100 ml -200 ml 122 ml Result Diagram: 06/07/16 0356 06/07/16 0356 Other Results Microbiology Date/Time Procedure Status Source Growth 06/05/16 16:30 Gram Stain - Final Complete Sputum Endotracheal 06/05/16 16:30 Sputum Culture - Final Complete Sputum Endotracheal LIGHT GROWTH NORMAL RESPIRATORY SANDRA 06/05/16 16:30 Urine Culture - Final Complete Urine Catheterized Urine NO GROWTH IN 48 HOURS. Imaging Last [address] 05/28/16 0600 Signed Impressions: Service Date/Time: Saturday, May 28, 2016 04:15 - CONCLUSION: Bilateral subdural hematomas becoming less dense today and decreased in size on the left. Subarachnoid and intraventricular hemorrhage again seen. Mild mass effect on the frontal lobes is present. vJ Parikh MD Chest X-Ray 05/27/16 0000 Signed Impressions: Service Date/Time: Friday, May 27, 2016 06:43 - CONCLUSION: Stable appearance of the lungs. Jv Parikh MD Abdomen X-Ray 05/27/16 0000 Signed Impressions: Service Date/Time: Friday, May 27, 2016 19:50 - CONCLUSION: Dobbhoff catheter has been advanced and is now either in the distal stomach or proximal duodenum. Eleazar Solorio MD Abdomen X-Ray 05/27/16 0000 Signed Impressions: Service Date/Time: Friday, May 27, 2016 18:24 - CONCLUSION: Tip of the Dobbhoff catheter is still intrathoracic. Eleazar Solorio MD Objective Remarks PHYSICAL EXAMINATION GENERAL: Elderly gentleman, on TP via trach. . HEAD: Clean dry incision/laceration clean. ENT/NECK: Tracheostomy in place, NGT in place LUNGS: On mech ventilation, Good air movement. No wheezes or crackles. HEART: Regular rate and rhythm, normal S1-S2, no murmur, no JVD. ABDOMEN: Large, soft, no guarding. BS active. Nondistended. Benign. EXTREMITIES: Warm, well-perfused. trace generalized edema. NEUROLOGICAL: Opens eyes, moves extremities to stimulation. Following commands in all 4 extremities. Poor hearing bilaterally A/P Assessment and Plan ASSESSMENT: Acute traumatic left-sided subdural hemorrhage. Traumatic subarachnoid bleed. Small frontal lobe contusion, right side. 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 Mild hypertension. Respiratory Failure, ventilator dependent. UTI - Klebsiella, Enterococcus Bronchitis - Strep PLAN: 1. TP as tolerated. Leave on TP 20/11 as tolerated 2. Neurological checks. Family states hearing loss from time of fall. ENT consulted on Sunday06/05/16-cannot do audiometry in hospital 3. Head of bed up 30 degrees. 4. SQH 5000 q12h. SCDs. 5. Labetalol for a blood pressure greater than 170. 6. will d/c clonidine due to hypotension. continue propranolol. 7. Propranolol 10mg po q8h for hypertension/tachycardia and possible cerebral storming. 8. Per tube pepcid. 9. Continue goal TFs to 55. s/p PEG tube placement 10. Levemir to 8 units SQ q12h 11. SSI high scale, q6h. 12. Lasix 40mg iv for volume overload as needed. goal 500cc negative/24h. 13. Sputum culture -> Strep 05/23, s/p full course of ceftriaxone. 14. s/p tracheostomy. daily TP trials as tolerated 16. PT/OT OOB up to stretcher chair today 17: Cultures 05/29 sputum and 05/30 blood negative to date 18. speech therapy. 19. will de-escalate to q48h labs. 20. d/c mak today. trial of voiding. - working on LTAC placement. Will require manager long term care ventilator wean, [employer] will consider only after 21 days (day 21 today) OVERALL IMPRESSION: Improved mental status, following commands, tolerating CPAP/ TP. Looking at long-term rehab. palliative care following Domenico Harding MD Jun 08, 2016 11:16
--- NOTE | 2016-06-08 12:40 | HHI.PR ---
Neuropsych Emotional Emotional: Mild: Anxious/Fearful, Moderate: Irritable/Angry/Frustrate Behavior Behavior: Mild: Motivation Cognitive Cognitive: Unable to Asses: Cognitive, Attention/Concentration, Confused/ Orientation, Insight/Awareness, Judgement/Problem-Solving, Memory Psychosocial Psychosocial: Intact: Psychosocial, Family/Other Adjustment, Realistic Expectation, Unable to Asses: Self-Esteem/Confidence Progress Notes/Response to Tx Contents of Sessions: Adjustment Time with Patient: 30 minutes Premorbid psychological status Premorbid Cognitive, Emotional and Behavioral Status: Stable. The patient is retired from a solid work history and long-term . The patient has no psychiatric difficulties. Substance abuse history is unremarkable. Behavioral Reactions of Patient and Family/Support System: Stable. The patient s family has a clear understanding of the issues inherent in his present medical condition. As expected, the family is experiencing ongoing issues of adjustment given the nature of the injury, and this aspect of recovery will require ongoing monitoring. Emotional/Behavioral Status of Patient and Family/Support System: Stable. Pertinent issues, if appropriate to this patients clinical care, are described in detail above. Maximizing acute care outcome This needs have been met in the form of utilization of a dry erase board to ascertain that his language deficits (receptive and expressive) are minimal and he can communicate his desires. Anticipated Problems Possible underlying neurocognitive dysfunction stemming from his brain trauma. It is now understood that he can both receptively and expressively communicate. Treatment Plan This clinician will continue to follow with you throughout the course of this patients rehabilitation treatment, and I will be available to meet with the patients family/support system to facilitate their understanding and the ongoing care of their family member. The goals of neuropsychological intervention shall be both educational and supportive to the family/support system as is deemed clinically appropriate. [facility] Level: VII:Automatic-appropriate Impression This patient suffered a traumatic brain injury secondary to a fall with resulting pathology to the left hemisphere. Diagnosis: (1) Major neurocognitive disorder as late effect of traumatic brain injury with behavioral disturbance Status: Acute Progress Note Narrative Ongoing follow-up of patient who was seen bedside, with discussion with patient' s family. The patient is using a dry erase board to communicate, and is doing so quite effectively. He is able to read and write his wishes quite effectively. He does have a profound hearing impairment making utilization of this erase board necessary. He does not appear to be in distress, and in fact was sitting up watching television. His has an excellent understanding of this patient's medical situation. I will continue to follow with you. Shemar Dudley PhD Jun 08, 2016 12:40 pm
[2016-06-08] MEDS: MELATONIN 5 MG TAB PO SCH (21:59)
[2016-06-09] VITALS (14 sets, daily range): BP systolic 124–177; BP diastolic 58–78; PULSE 68–101; RESP 15–26; TEMP 98.2–99.8; O2SAT 92–97
[2016-06-09] MEDS: CHLORHEXIDINE GLUCONATE 2 % 1 PACK (2 CLOTHS) TOP SCH (03:07)
[2016-06-09 04:48] LABS: HEMATOCRIT 28.1 % (39.0-51.0); MEAN CORPUSCULAR HEMOGLOBIN 29.2 PG (27.0-34.0); MEAN CORPUSCULAR HGB CONC 33.1 % (32.0-36.0); PLATELET COUNT 432 TH/MM3 (150-450); REVIEW FLAG FINAL; WHITE BLOOD COUNT 11.7 TH/MM3 (4.0-11.0)
[2016-06-09 05:18] LABS: BICARBONATE 29.7 MEQ/L (21.0-32.0); POTASSIUM 3.9 MEQ/L (3.5-5.1)
[2016-06-09] MEDS: LACTULOSE SYRUP 20 GM/30 ML CUP PO SCH ×2 (06:00→18:00)
[2016-06-09] MEDS: hydrALAZINE HCL 25 MG TAB PO SCH ×3 (06:40→22:08)
[2016-06-09] MEDS: FREE WATER G-TUBE SCH ×3 (06:40→22:09)
[2016-06-09] MEDS: METOCLOPRAMIDE HCL SYRUP 10 MG/10 ML UDC PO SCH ×3 (06:40→22:08)
[2016-06-09] MEDS: PROPRANOLOL HCL 10 MG TAB PO SCH (06:40)
[2016-06-09] MEDS: INSULIN NovoLIN REGULAR SUPPLEMENTAL SCALE SQ SCH ×4 (06:41→18:00)
[2016-06-09] MEDS: MORPHINE SULFATE 4 MG/ML INJ IV PUSH PRN (07:26)
[2016-06-09] MEDS: ATORVASTATIN 20 MG TAB PO SCH (08:29)
[2016-06-09] MEDS: LISINOPRIL 20 MG TAB PO SCH (08:29)
[2016-06-09] MEDS: POLYETHYLENE GLYCOL 17 GM PKG PO SCH (08:29)
[2016-06-09] MEDS: FAMOTIDINE SUSP 40 MG/5 ML NG SCH ×2 (08:29→19:55)
[2016-06-09] MEDS: THIAMINE HCL 100 MG TAB PO SCH (08:29)
[2016-06-09] MEDS: FOLIC ACID 1 MG TAB PO SCH (08:29)
[2016-06-09] MEDS: SODIUM CHLORIDE 0.9% FLUSH 5 ML FLUSH IVF SCH ×2 (08:30→19:55)
[2016-06-09] MEDS: BENEPROTEIN POWDER 1 PACK G-TUBE SCH ×3 (08:30→18:37)
[2016-06-09] MEDS: TIMOLOL MALEATE 0.25% OPHT SOLN 5 ML BTL EACH EYE SCH ×2 (08:30→19:55)
[2016-06-09] MEDS: CHLORHEXIDINE 0.12% (ORAL KIT) 15 ML CUP MT SCH ×2 (08:30→19:55)
[2016-06-09] MEDS: INSULIN DETEMIR 100 UNITS/ML VIAL SQ SCH ×2 (08:31→19:55)
[2016-06-09] MEDS: hydrALAZINE HCL 20 MG/ML VIAL IV PUSH PRN (11:08)
--- NOTE | 2016-06-09 11:41 | HHI.PR ---
Neuropsych Emotional Emotional: Mild: Irritable/Angry/Frustrate Behavior Behavior: Mild: Frustration Tolerance/[place] Cognitive Cognitive: Unable to Asses: Cognitive, Attention/Concentration, Confused/ Orientation, Insight/Awareness, Judgement/Problem-Solving, Memory Psychosocial Psychosocial: Intact: Psychosocial, Family/Other Adjustment, Realistic Expectation, Unable to Asses: Self-Esteem/Confidence Progress Notes/Response to Tx Contents of Sessions: Adjustment Time with Patient: 30 minutes Premorbid psychological status Premorbid Cognitive, Emotional and Behavioral Status: Stable. The patient is retired from a solid work history and long-term . The patient has no psychiatric difficulties. Substance abuse history is unremarkable. Behavioral Reactions of Patient and Family/Support System: Stable. The patient s family has a clear understanding of the issues inherent in his present medical condition. As expected, the family is experiencing ongoing issues of adjustment given the nature of the injury, and this aspect of recovery will require ongoing monitoring. Emotional/Behavioral Status of Patient and Family/Support System: Stable. Pertinent issues, if appropriate to this patients clinical care, are described in detail above. Maximizing acute care outcome This needs have been met in the form of utilization of a dry erase board to ascertain that his language deficits (receptive and expressive) are minimal and he can communicate his desires. Anticipated Problems Possible underlying neurocognitive dysfunction stemming from his brain trauma. It is now understood that he can both receptively and expressively communicate. Treatment Plan This clinician will continue to follow with you throughout the course of this patients rehabilitation treatment, and I will be available to meet with the patients family/support system to facilitate their understanding and the ongoing care of their family member. The goals of neuropsychological intervention shall be both educational and supportive to the family/support system as is deemed clinically appropriate. [facility] Level: :Confused-appropriate Impression This patient suffered a traumatic brain injury secondary to a fall with resulting pathology to the left hemisphere. Diagnosis: (1) Major neurocognitive disorder as late effect of traumatic brain injury with behavioral disturbance Status: Acute Progress Note Narrative Ongoing follow-up of patient who was seen bedside, and is reported to have made additional improvements including communication. I discussed his progress at length with the patient's , and also provided her a tour of the [facility] facility , into which it was reported to me that the patient is to be transferred at some point. I will continue to follow. Shemar Dudley PhD Jun 09, 2016 11:41 am
[2016-06-09] MEDS ORDERED: oxyCODONE HCL ORAL CONC 20 MG/ML SYRINGE PO PRN (12:15)
--- NOTE | 2016-06-09 12:16 | HHI.CCPN ---
Subjective Remarks/Hospital Course Traumatic SDH. 05/17: This 85-year-old gentleman fell of bed last night and hit his head. He developed aphasia and confusion pretty rapidly and was seen in the emergency department in [place] with a right facial droop. Subsequent CT scan evaluation confirmed an acute left subdural hemorrhage of approximately 8 mm in width with a associated subarachnoid hemorrhage. Additionally in the frontal lobe on the right side he had a 1 cm area of hemorrhage with surrounding vasogenic edema. There was intraventricular blood as well on the right side. I met him on his arrival to [facility]. What was immediately noticeable was that he was not able to express himself well and that he was not following commands correctly. With gestures he was able to follow commands but not with verbal orders. 05/18: Deteriorating mental status, nasal trumpet placed for airway control, and will require intubation. 05/19: Ventilator dependent now. Family needs to clarify goals if possible/ practical. 05/20: A little more alert. Breathes well on CPAP. 05/21: Tolerating CPAP trials with good respiratory drive. 05/22: Agitated. Start precedex for attempted weaning trial and possible extubation. 05/23: Attempt weaning trial again today with low dose precedex for control of agitation. 05/24: Extubated yesterday but could not protect his airway, could not cough up secretions. Quickly failed and required re-intubation. 05/25: Will need trach if family wishes to continue with aggressive care. Worsening glucose intolerance. Will start BID levemir 05/26: No improvement in neurological function. Glucose control much improved. The family feels quite strongly about continued aggressive rehab. Therefore we will perform tracheostomy. Risk and benefits presented to and she wished to proceed. 05/27: Tracheostomy performed 05/26 at family request after discussion with Palliative Care service. Dobbhoff placed and we are now working on LTAC/rehab placement. He looks around the room and appears to recognize his family. Weak limb movements/hand grasps. 05/28: Remains on mechanical ventilation via tracheostomy. Start daily C Pap trials and will attempt transition to trach collar if tolerated. 05/29: Awake, on mechanical ventilation via tracheostomy. Tolerated CPAP trial yesterday. We will attempt T piece today. 05/30: Awake, on mechanical ventilation via tracheostomy. Tolerated T piece for 2 hours yesterday. 05/31: off precedex. awake. still failing t-piece for tachypnea. agitated at times. may be storming from cerebral insult. still low grade temps, but cultures have been persistently negative. 06/01: low grade fevers persist. cultures still negative. 06/02: WBC count stable. UO adequate. Follows commands x4 extremities. No fever 06/03: Tolerating TP today 50%. No fever, WBC normal. No acute events reported overnight. Family states that patient unable to hear (from time of fall) 06/04; still seems to have hearing impairment, tolerated TP several hours yesterday, but was apneic on CPAP overnight 06/05: Patient was tachypneic on vent so TP not attempted, Continues to have hearing loss, ENT consulted 06/06: received PEG tube today. Due to sedation TPs not attempted. ENT cannot pursue audiometry in hospital 06/07: tolerating TP today, appears comfortable. No change in hearing status. Sputum culture from 06/05/16 negative 06/08: continues to tolerate TP today. comfortable. denies complaints to me today. wants to get out of bed. 06/09: tolerating TP. in chair today. Objective Vital Signs Date Time Temp Pulse Resp B/P Pulse Ox O2 Delivery O2 Flow Rate FiO2 06/09/16 10:00 70 06/09/16 08:00 98.8 20 124/58 94 06/09/16 07:44 T-piece 35 06/09/16 07:00 6.00 Intake and Output 06/08/16 06/08/16 06/09/16 08:00 16:00 00:00 Intake Total 524 ml 500 ml 396 ml Output Total 350 ml 450 ml 850 ml Balance 174 ml 50 ml -454 ml Result Diagram: 06/09/16 0345 06/09/16 0345 Imaging Last [address] 05/28/16 0600 Signed Impressions: Service Date/Time: Saturday, May 28, 2016 04:15 - CONCLUSION: Bilateral subdural hematomas becoming less dense today and decreased in size on the left. Subarachnoid and intraventricular hemorrhage again seen. Mild mass effect on the frontal lobes is present. Jv Parikh MD Chest X-Ray 05/27/16 0000 Signed Impressions: Service Date/Time: Friday, May 27, 2016 06:43 - CONCLUSION: Stable appearance of the lungs. Jv Parikh MD Abdomen X-Ray 05/27/16 0000 Signed Impressions: Service Date/Time: Friday, May 27, 2016 19:50 - CONCLUSION: Dobbhoff catheter has been advanced and is now either in the distal stomach or proximal duodenum. Eleazar Soloiro MD Abdomen X-Ray 05/27/16 0000 Signed Impressions: Service Date/Time: Friday, May 27, 2016 18:24 - CONCLUSION: Tip of the Dobbhoff catheter is still intrathoracic. Eleazar Solorio MD Objective Remarks PHYSICAL EXAMINATION GENERAL: Elderly gentleman, on TP via trach. . HEAD: Clean dry incision/laceration clean. ENT/NECK: Tracheostomy in place, NGT in place LUNGS: On mech ventilation, Good air movement. No wheezes or crackles. HEART: Regular rate and rhythm, normal S1-S2, no murmur, no JVD. ABDOMEN: Large, soft, no guarding. BS active. Nondistended. Benign. EXTREMITIES: Warm, well-perfused. trace generalized edema. NEUROLOGICAL: Opens eyes, moves extremities to stimulation. Following commands in all 4 extremities. Poor hearing bilaterally A/P Assessment and Plan ASSESSMENT: Acute traumatic left-sided subdural hemorrhage. Traumatic subarachnoid bleed. Small frontal lobe contusion, right side. 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 Mild hypertension. Respiratory Failure, ventilator dependent. UTI - Klebsiella, Enterococcus Bronchitis - Strep PLAN: 1. TP as tolerated. Leave on TP 20/11 as tolerated 2. Neurological checks. Family states hearing loss from time of fall. ENT consulted on Sunday06/05/16-cannot do audiometry in hospital 3. Head of bed up 30 degrees. 4. SQH 5000 q12h. SCDs. 5. Labetalol for a blood pressure greater than 170. 6. increase propranolol to 20mg po q6h. for hypertension/tachycardia and possible cerebral storming. 7. Per tube pepcid. 8. Continue goal TFs to 55. s/p PEG tube placement 9. Levemir to 8 units SQ q12h 10. SSI high scale, q6h. 12. Sputum culture -> Strep 05/23, s/p full course of ceftriaxone. 13. s/p tracheostomy. daily TP trials as tolerated 14. PT/OT OOB up to stretcher chair today 15: Cultures 05/29 sputum and 05/30 blood negative to date 16. speech therapy. 17. q48h labs. - working on placement. OVERALL IMPRESSION: Improved mental status, following commands, tolerating CPAP/ TP. Looking at long-term rehab. palliative care following Domenico Harding MD Jun 09, 2016 12:16
[2016-06-09] MEDS: PROPRANOLOL HCL 20 MG TAB PO SCH ×2 (13:38→18:00)
--- NOTE | 2016-06-09 14:55 | HHI.PR ---
Subjective Subjective Comments Patient awake and alert. Sitting up in stretcher chair not any apparent distress. Appears to deny any pain or discomfort. Allergies: Coded Allergies: Contrast Media (Verified Allergy, Unknown, 12/02/14) Review of Systems All other ROS: Unable to obtain Exam I&O / VS 06/08/16 06/08/16 06/09/16 15:00 23:00 07:00 Intake Total 500 ml 396 ml 349 ml Output Total 450 ml 850 ml 1175 ml Balance 50 ml -454 ml -826 ml Intake Oral 0 ml IV Total 10 ml Tube Feeding 370 ml 236 ml 249 ml Tube Irrigant 20 ml 60 ml Other 100 ml 100 ml 100 ml Output Urine Total 450 ml 850 ml 1175 ml # Bowel Movements 0 1 0 Vital Signs Date Time Temp Pulse Resp B/P Pulse Ox O2 Delivery O2 Flow Rate FiO2 06/09/16 12:00 98.6 76 15 156/65 94 06/09/16 12:00 76 06/09/16 10:00 70 06/09/16 08:00 84 06/09/16 08:00 98.8 84 20 124/58 94 06/09/16 07:44 95 T-piece 35 06/09/16 07:31 17 06/09/16 07:00 96 T-Piece 6.00 35 06/09/16 06:00 100 06/09/16 04:00 99.1 101 18 177/78 95 06/09/16 04:00 101 06/09/16 02:00 90 06/09/16 00:00 88 06/09/16 00:00 99.5 88 26 166/74 95 06/08/16 22:00 78 06/08/16 20:00 99.1 84 22 161/71 95 06/08/16 20:00 96 06/08/16 19:35 95 T-piece 6.00 35 06/08/16 19:00 96 T-Piece 6.00 35 06/08/16 18:00 88 06/08/16 16:00 82 06/08/16 16:00 98.2 80 24 160/71 93 General: No acute distress, Other (Trach with TPs) Respiratory: Lungs CTA, Non-labored respirations, BS equal Cardiovascular: Normal rate, Regular Rhythm Musculoskeletal: Other (SCD's in place) Psychiatric: Cooperative Orientation: oriented to Self Neurologic: Speech (Not attempting to verbalize but follows simple one-step commands), Other (Moves upper extremities to command and lower extremities with tactile stimulation) Clonus: Negative Objective Micro and Labs Laboratory Tests Test 06/09/16 03:45 White Blood Count 11.7 Red Blood Count 3.20 Hemoglobin 9.3 Hematocrit 28.1 Mean Corpuscular Volume 88.0 Mean Corpuscular Hemoglobin 29.2 Mean Corpuscular Hemoglobin 33.1 Concent Red Cell Distribution Width 14.0 Platelet Count 432 Mean Platelet Volume 8.3 Sodium Level 139 Potassium Level 3.9 Chloride Level 100 Carbon Dioxide Level 29.7 Anion Gap 9 Blood Urea Nitrogen 13 Creatinine 0.63 Estimat Glomerular Filtration 120 Rate Random Glucose 127 Calcium Level 8.5 Date/Time Procedure Status Source Growth 06/06/16 03:56 Aerobic Blood Culture - Preliminary Resulted Blood Peripheral NO GROWTH IN 3 DAYS 06/06/16 03:56 Anaerobic Blood Culture - Preliminary Resulted Blood Peripheral NO GROWTH IN 3 DAYS 06/05/16 16:30 Urine Culture - Final Complete Urine Catheterized Urine NO GROWTH IN 48 HOURS. 06/05/16 16:30 Gram Stain - Final Complete Sputum Endotracheal 06/05/16 16:30 Sputum Culture - Final Complete Sputum Endotracheal LIGHT GROWTH NORMAL RESPIRATORY SANDRA Assessment and Plan Diagnosis: (1) Subdural hematoma, acute Assessment 1. Fall out of bed 05/16/15 with traumatic left SDH/SAH and right frontal hemorrhage treated nonsurgically 2. DM type 2 3. History of mild HTN Plan 1. Patient now requires max assist of 2 for bed mobility and is dependent for transfers but is tolerating up to stretcher chair 2. OT for ADL's and currently dependent 3. ST following for swallow evaluation and tolerating pured diet with thin liquids. No straws to be used. PEG placed 06/06/16. 4. Case management addressing discharge planning including ongoing rehabilitation needs 5. Will follow while hospitalized and at discharge as appropriate. Charity Hernandez MD Jun 09, 2016 14:55
[2016-06-09] MEDS: HALOPERIDOL LACTATE 5 MG/ML AMP IV PRN ×2 (15:45→22:09)
[2016-06-09] MEDS: MELATONIN 5 MG TAB PO SCH (19:55)
[2016-06-10] VITALS (14 sets, daily range): BP systolic 109–165; BP diastolic 55–87; PULSE 70–102; RESP 17–24; TEMP 98.9–99.6; O2SAT 92–96
[2016-06-10] MEDS: INSULIN NovoLIN REGULAR SUPPLEMENTAL SCALE SQ SCH ×4 (01:44→17:18)
[2016-06-10] MEDS: CHLORHEXIDINE GLUCONATE 2 % 1 PACK (2 CLOTHS) TOP SCH (04:24)
[2016-06-10] MEDS: METOCLOPRAMIDE HCL SYRUP 10 MG/10 ML UDC PO SCH ×3 (05:47→20:11)
[2016-06-10] MEDS: FREE WATER G-TUBE SCH ×3 (05:47→20:12)
[2016-06-10] MEDS: hydrALAZINE HCL 25 MG TAB PO SCH ×3 (05:47→20:11)
[2016-06-10] MEDS: LACTULOSE SYRUP 20 GM/30 ML CUP PO SCH ×2 (05:47→08:19)
[2016-06-10] MEDS: PROPRANOLOL HCL 20 MG TAB PO SCH ×4 (05:47→17:09)
[2016-06-10] MEDS: CHLORHEXIDINE 0.12% (ORAL KIT) 15 ML CUP MT SCH ×2 (08:00→20:00)
[2016-06-10] MEDS: POLYETHYLENE GLYCOL 17 GM PKG PO SCH (08:20)
[2016-06-10] MEDS: BENEPROTEIN POWDER 1 PACK G-TUBE SCH ×3 (09:00→17:08)
[2016-06-10] MEDS: ATORVASTATIN 20 MG TAB PO SCH (09:14)
[2016-06-10] MEDS: LISINOPRIL 20 MG TAB PO SCH (09:14)
[2016-06-10] MEDS: FOLIC ACID 1 MG TAB PO SCH (09:14)
[2016-06-10] MEDS: TIMOLOL MALEATE 0.25% OPHT SOLN 5 ML BTL EACH EYE SCH ×2 (09:14→20:12)
[2016-06-10] MEDS: THIAMINE HCL 100 MG TAB PO SCH (09:14)
[2016-06-10] MEDS: SODIUM CHLORIDE 0.9% FLUSH 5 ML FLUSH IVF SCH ×2 (09:17→20:12)
[2016-06-10] MEDS: INSULIN DETEMIR 100 UNITS/ML VIAL SQ SCH ×2 (09:21→20:12)
[2016-06-10] MEDS: FAMOTIDINE SUSP 40 MG/5 ML NG SCH ×2 (09:22→20:12)
--- NOTE | 2016-06-10 10:11 | HHI.CCPN ---
Subjective Remarks/Hospital Course Traumatic SDH. 05/17: This 85-year-old gentleman fell of bed last night and hit his head. He developed aphasia and confusion pretty rapidly and was seen in the emergency department in [place] with a right facial droop. Subsequent CT scan evaluation confirmed an acute left subdural hemorrhage of approximately 8 mm in width with a associated subarachnoid hemorrhage. Additionally in the frontal lobe on the right side he had a 1 cm area of hemorrhage with surrounding vasogenic edema. There was intraventricular blood as well on the right side. I met him on his arrival to [facility]. What was immediately noticeable was that he was not able to express himself well and that he was not following commands correctly. With gestures he was able to follow commands but not with verbal orders. 05/18: Deteriorating mental status, nasal trumpet placed for airway control, and will require intubation. 05/19: Ventilator dependent now. Family needs to clarify goals if possible/ practical. 05/20: A little more alert. Breathes well on CPAP. 05/21: Tolerating CPAP trials with good respiratory drive. 05/22: Agitated. Start precedex for attempted weaning trial and possible extubation. 05/23: Attempt weaning trial again today with low dose precedex for control of agitation. 05/24: Extubated yesterday but could not protect his airway, could not cough up secretions. Quickly failed and required re-intubation. 05/25: Will need trach if family wishes to continue with aggressive care. Worsening glucose intolerance. Will start BID levemir 05/26: No improvement in neurological function. Glucose control much improved. The family feels quite strongly about continued aggressive rehab. Therefore we will perform tracheostomy. Risk and benefits presented to and she wished to proceed. 05/27: Tracheostomy performed 05/26 at family request after discussion with Palliative Care service. Dobbhoff placed and we are now working on LTAC/rehab placement. He looks around the room and appears to recognize his family. Weak limb movements/hand grasps. 05/28: Remains on mechanical ventilation via tracheostomy. Start daily C Pap trials and will attempt transition to trach collar if tolerated. 05/29: Awake, on mechanical ventilation via tracheostomy. Tolerated CPAP trial yesterday. We will attempt T piece today. 05/30: Awake, on mechanical ventilation via tracheostomy. Tolerated T piece for 2 hours yesterday. 05/31: off precedex. awake. still failing t-piece for tachypnea. agitated at times. may be storming from cerebral insult. still low grade temps, but cultures have been persistently negative. 06/01: low grade fevers persist. cultures still negative. 06/02: WBC count stable. UO adequate. Follows commands x4 extremities. No fever 06/03: Tolerating TP today 50%. No fever, WBC normal. No acute events reported overnight. Family states that patient unable to hear (from time of fall) 06/04; still seems to have hearing impairment, tolerated TP several hours yesterday, but was apneic on CPAP overnight 06/05: Patient was tachypneic on vent so TP not attempted, Continues to have hearing loss, ENT consulted 06/06: received PEG tube today. Due to sedation TPs not attempted. ENT cannot pursue audiometry in hospital 06/07: tolerating TP today, appears comfortable. No change in hearing status. Sputum culture from 06/05/16 negative 06/08: continues to tolerate TP today. comfortable. denies complaints to me today. wants to get out of bed. 06/09: tolerating TP. in chair today. 06/10: continues to tolerate TP. OOB to chair daily. Objective Vital Signs Date Time Temp Pulse Resp B/P Pulse Ox O2 Delivery O2 Flow Rate FiO2 06/10/16 08:38 96 T-piece 28 06/10/16 06:00 73 06/10/16 04:00 99.3 17 157/69 06/09/16 20:43 5.00 Intake and Output 06/09/16 06/09/16 06/10/16 08:00 16:00 00:00 Intake Total 349 ml 497 ml 395 ml Output Total 1175 ml 200 ml 0 ml Balance -826 ml 297 ml 395 ml Result Diagram: 06/09/16 0345 06/09/16 034 Imaging Last [address] 05/28/16 0600 Signed Impressions: Service Date/Time: Saturday, May 28, 2016 04:15 - CONCLUSION: Bilateral subdural hematomas becoming less dense today and decreased in size on the left. Subarachnoid and intraventricular hemorrhage again seen. Mild mass effect on the frontal lobes is present. Jv Parikh MD Chest X-Ray 05/27/16 0000 Signed Impressions: Service Date/Time: Friday, May 27, 2016 06:43 - CONCLUSION: Stable appearance of the lungs. Jv Parikh MD Abdomen X-Ray 05/27/16 0000 Signed Impressions: Service Date/Time: Friday, May 27, 2016 19:50 - CONCLUSION: Dobbhoff catheter has been advanced and is now either in the distal stomach or proximal duodenum. Eleazar Solorio MD Abdomen X-Ray 05/27/16 0000 Signed Impressions: Service Date/Time: Friday, May 27, 2016 18:24 - CONCLUSION: Tip of the Dobbhoff catheter is still intrathoracic. Eleazar Solorio MD Objective Remarks PHYSICAL EXAMINATION GENERAL: Elderly gentleman, on TP via trach. . HEAD: Clean dry incision/laceration clean. ENT/NECK: Tracheostomy in place, NGT in place LUNGS: On mech ventilation, Good air movement. No wheezes or crackles. HEART: Regular rate and rhythm, normal S1-S2, no murmur, no JVD. ABDOMEN: Large, soft, no guarding. BS active. Nondistended. Benign. EXTREMITIES: Warm, well-perfused. trace generalized edema. NEUROLOGICAL: Opens eyes, moves extremities to stimulation. Following commands in all 4 extremities. Poor hearing bilaterally A/P Assessment and Plan ASSESSMENT: Acute traumatic left-sided subdural hemorrhage. Traumatic subarachnoid bleed. Small frontal lobe contusion, right side. 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 Mild hypertension. Respiratory Failure, ventilator dependent. UTI - Klebsiella, Enterococcus Bronchitis - Strep PLAN: 1. TP as tolerated. Leave on TP 20/11 as tolerated 2. Neurological checks. Family states hearing loss from time of fall. ENT consulted on Sunday06/05/16-cannot do audiometry in hospital 3. Head of bed up 30 degrees. 4. SQH 5000 q12h. SCDs. 5. Labetalol for a blood pressure greater than 170. 6. continue propranolol to 20mg po q6h. for hypertension/tachycardia and possible cerebral storming. 7. Per tube pepcid. 8. Continue goal TFs to 55. s/p PEG tube placement 9. Levemir to 8 units SQ q12h 10. SSI high scale, q6h. 12. Sputum culture -> Strep 05/23, s/p full course of ceftriaxone. 13. s/p tracheostomy. daily TP trials as tolerated 14. PT/OT OOB up to stretcher chair today 15: Cultures 05/29 sputum and 05/30 blood negative to date 16. speech therapy. 17. q48h labs. 18. Mak replaced for urinary retention. ordered doxazosin 2mg daily. will plan for 48h of BPH med and then second trial of mak removal (06/12). - working on placement. Dispo: safe for transfer to floor with hospitalist and pulmonary following. OVERALL IMPRESSION: Improved mental status, following commands, tolerating CPAP/ TP. Looking at long-term rehab. palliative care following Domenico Harding MD Jun 10, 2016 10:11
[2016-06-10] MEDS: DOXAZOSIN MESYLATE 4 MG TAB PO SCH (11:44)
--- NOTE | 2016-06-10 12:47 | MB ---
cc: NICHOLAS ACEVEDO M.D. DATE OF CONSULTATION: 06/06/2016. 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 REQUESTING PHYSICIAN: Dr. Harding. HISTORY OF PRESENT ILLNESS: Nicholas Cole is an 85-year-old man who is now around 21 days out from the evening when he fell twice from his bed, this was in a fdc in a nearby community. He was transferred to [facility] for evaluation. Imaging of his head revealed a subdural hematoma and intracranial bleeding. Since the time of his injury, he has had various expressive and receptive communication difficulties. He is not speaking and he indicates fairly clearly that he cannot hear. In interaction with him, he would occasionally indicate with sign language appropriate commands such as "come here" and indicate that he cannot hear; however, he also apparently had difficulty reading from a white board and he clearly has no hearing in either ear. PHYSICAL EXAMINATION: On physical examination, his ears appear to be intact. There is no sign of any trauma to the ear or temporal bone. No sign of hematoma or drainage from the ears. He does not respond to tuning fork tests, either in the midline or overlying the mastoid. 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 PLAN: Discussed with the floor staff unfortunately there is no hearing test available for inpatients at [facility]; however, given his receptive and expressive difficulties, he may not be able to cooperate with a routine audiometry exam. Following his discharge, I would be happy to see him as an outpatient where we can arrange for audiometric brain stem response to see if he is indeed able to generate nerve impulses to his brain from his inner ear. I would be very unusual for a concussion to completely deafen both ears and it is not clear whether his apparent deafness is due to his receptive alterations or for true trauma to his inner ear. I will see him as an outpatient. MD IRINA Douglas/LINDSAY /11:16 AM /12:41 PM
[2016-06-10] MEDS: hydrALAZINE HCL 20 MG/ML VIAL IV PUSH PRN (20:11)
[2016-06-10] MEDS: MELATONIN 5 MG TAB PO SCH (20:11)
[2016-06-10] MEDS: HALOPERIDOL LACTATE 5 MG/ML AMP IV PRN (22:44)
[2016-06-11] VITALS (14 sets, daily range): BP systolic 120–165; BP diastolic 57–77; PULSE 73–102; RESP 18–24; TEMP 98.9–99.6; O2SAT 92–98
[2016-06-11] MEDS: INSULIN NovoLIN REGULAR SUPPLEMENTAL SCALE SQ SCH ×5 (00:04→23:32)
[2016-06-11] MEDS: PROPRANOLOL HCL 20 MG TAB PO SCH ×5 (00:04→23:32)
[2016-06-11] MEDS: HALOPERIDOL LACTATE 5 MG/ML AMP IV PRN (03:28)
[2016-06-11] MEDS: CHLORHEXIDINE GLUCONATE 2 % 1 PACK (2 CLOTHS) TOP SCH (03:33)
[2016-06-11] MEDS: METOCLOPRAMIDE HCL SYRUP 10 MG/10 ML UDC PO SCH ×3 (04:42→20:13)
[2016-06-11] MEDS: hydrALAZINE HCL 25 MG TAB PO SCH ×3 (04:42→20:13)
[2016-06-11] MEDS: FREE WATER G-TUBE SCH ×3 (04:43→20:13)
[2016-06-11] MEDS: LACTULOSE SYRUP 20 GM/30 ML CUP PO SCH ×2 (04:43→16:42)
[2016-06-11 05:30] LABS: MEAN CELL VOLUME 87.8 FL (80.0-100.0); MEAN CORPUSCULAR HEMOGLOBIN 29.3 PG (27.0-34.0); MEAN CORPUSCULAR HGB CONC 33.4 % (32.0-36.0); PLATELET COUNT 325 TH/MM3 (150-450); RED BLOOD COUNT 2.97 MIL/MM3 (4.50-5.90); RED CELL DISTRIBUTION WIDTH 14.1 % (11.6-17.2); REVIEW FLAG FINAL; WHITE BLOOD COUNT 11.1 TH/MM3 (4.0-11.0)
[2016-06-11 05:52] LABS: BICARBONATE 29.8 MEQ/L (21.0-32.0); POTASSIUM 4.2 MEQ/L (3.5-5.1)
[2016-06-11] MEDS: CHLORHEXIDINE 0.12% (ORAL KIT) 15 ML CUP MT SCH ×2 (08:00→19:48)
[2016-06-11] MEDS: POLYETHYLENE GLYCOL 17 GM PKG PO SCH (09:00)
[2016-06-11] MEDS: BENEPROTEIN POWDER 1 PACK G-TUBE SCH ×3 (09:00→17:37)
[2016-06-11] MEDS: DOXAZOSIN MESYLATE 4 MG TAB PO SCH (09:03)
[2016-06-11] MEDS: LISINOPRIL 20 MG TAB PO SCH (09:03)
[2016-06-11] MEDS: ATORVASTATIN 20 MG TAB PO SCH (09:03)
[2016-06-11] MEDS: SODIUM CHLORIDE 0.9% FLUSH 5 ML FLUSH IVF SCH ×2 (09:03→20:13)
[2016-06-11] MEDS: FOLIC ACID 1 MG TAB PO SCH (09:03)
[2016-06-11] MEDS: THIAMINE HCL 100 MG TAB PO SCH (09:04)
[2016-06-11] MEDS: TIMOLOL MALEATE 0.25% OPHT SOLN 5 ML BTL EACH EYE SCH ×2 (09:05→20:04)
[2016-06-11] MEDS: FAMOTIDINE SUSP 40 MG/5 ML NG SCH ×2 (09:05→20:13)
[2016-06-11] MEDS: INSULIN DETEMIR 100 UNITS/ML VIAL SQ SCH ×2 (10:16→20:13)
--- NOTE | 2016-06-11 12:35 | HHI.PR ---
Subjective Remarks The patient was resting comfortably in bed. He communicated with the white board. He had no acute complaints. Family was at the bedside. Their questions were answered. Discussed with nursing. Objective Vitals Vital Signs Date Time Temp Pulse Resp B/P Pulse Ox O2 Delivery O2 Flow Rate FiO2 06/11/16 10:51 96 T-piece 6.00 28 06/11/16 06:00 82 06/11/16 04:00 99.2 102 23 130/61 96 06/11/16 04:00 82 06/11/16 02:00 81 06/11/16 00:00 102 06/11/16 00:00 99.1 102 24 157/70 94 06/10/16 22:00 102 06/10/16 20:14 95 T-piece 5.00 28 06/10/16 20:00 90 06/10/16 20:00 99.0 85 23 164/76 96 06/10/16 19:00 96 T-Piece 30 06/10/16 18:00 70 06/10/16 16:00 81 06/10/16 16:00 99.5 81 18 131/62 94 06/10/16 14:00 80 I/O 06/10/16 06/10/16 06/10/16 06/11/16 06/11/16 06/11/16 07:00 15:00 23:00 07:00 15:00 23:00 Intake Total 528 ml 523 ml 535 ml 442 ml Output Total 425 ml 400 ml 325 ml 325 ml Balance 103 ml 123 ml 210 ml 117 ml Intake Oral 60 ml 30 ml IV Total 0 ml Tube Feeding 268 ml 333 ml 375 ml 342 ml Tube Irrigant 100 ml Other 100 ml 160 ml 160 ml 100 ml Output Urine Total 425 ml 400 ml 325 ml 325 ml Bladder Scan Volume Amount 200 ml # Bowel Movements 0 4 Result Diagram: 06/11/160 06/11/160 Imaging Last Impressions Chest X-Ray 06/07/16 0000 Signed Impressions: Service Date/Time: Tuesday, June 07, 2016 10:47 - CONCLUSION: Subcutaneous emphysema over the left chest wall. Etiology is not apparent. Solomon Quintero MD FACR Chest CT 06/07/16 0000 Signed Impressions: Service Date/Time: Tuesday, June 07, 2016 12:34 - CONCLUSION: 1. Gastrostomy tube in the left upper quadrant with trace free air and a large amount of subcutaneous emphysema that may be tracking from the gastrostomy tube site. 2. There is no pneumothorax. Solomon Quintero MD FACR Abdomen X-Ray 06/02/16 0000 Signed Impressions: Service Date/Time: Thursday, June 02, 2016 11:13 - CONCLUSION: 1. Dobbhoff tube in the antrum of the stomach Bill Means MD Head CT 05/28/16 0600 Signed Impressions: Service Date/Time: Saturday, May 28, 2016 04:15 - CONCLUSION: Bilateral subdural hematomas becoming less dense today and decreased in size on the left. Subarachnoid and intraventricular hemorrhage again seen. Mild mass effect on the frontal lobes is present. Jv Parikh MD Transcranial Doppler Study Complete 05/18/16 0730 Signed Impressions: Service Date/Time: April 08:12 - CONCLUSION: 1. No evidence of vasospasm Bill Means MD Objective Remarks GENERAL: Elderly gentleman, on TP via trach. HEAD: Clean dry incision/laceration clean. ENT/NECK: Tracheostomy in place. LUNGS: On mech ventilation, Good air movement. No wheezes or crackles. HEART: Regular rate and rhythm, normal S1-S2, no murmur, no JVD. ABDOMEN: Large, soft, no guarding. BS active. Nondistended. Benign. EXTREMITIES: Warm, well-perfused. trace generalized edema. NEUROLOGICAL: Opens eyes, moves extremities to stimulation. Following commands in all 4 extremities. Poor hearing bilaterally. PSYCH: Calm. Procedures Trach PEG Medications and IVs Current Medications Medications (Trade) Dose Ordered Sig/Gus Route Start Time Stop Time Status Last Admin (Lipitor) 20 mg DAILY PO 05/18/16 09:00 06/11/16 09:03 (Timoptic 0.25% Opth Soln) 1 drop BID EACH EYE 05/17/16 21:00 06/11/16 09:05 (NS Flush) 2 ml UNSCH PRN IVF 05/17/16 10:30 (NS Flush) 2 ml BID IVF 05/17/16 21:00 06/11/16 09:03 (Colace) 100 mg BID PRN PO 05/17/16 10:30 (Folate) 1 mg DAILY PO 05/17/16 10:45 06/11/16 09:03 (Tylenol) 650 mg Q6H PRN PO 05/17/16 10:45 (Zofran Inj) 4 mg Q6H PRN IV 05/17/16 10:45 06/09/16 12:46 Miscellaneous Information 1 Q361D XX 05/17/16 10:45 05/17/16 11:34 (Chlorhexidine 2% Cloth) Taper DAILY@04 TOP 05/18/16 04:00 05/14/17 03:59 06/11/16 03:33 (Chlorhexidine 2% Cloth) 3 pack UNSCH PRN TOP 05/17/16 10:45 (D50w (Vial) Inj) 25 ml UNSCH PRN IV PUSH 05/17/16 11:15 (Glucagon Inj) 1 mg UNSCH PRN OTHER 05/17/16 11:15 Chlorhexidine Gluconate 15 ml 15 ml BID@08,20 MT 05/18/16 20:00 06/11/16 08:00 Potassium Chloride 100 ml @ 50 mls/hr Q2H PRN IV 05/19/16 07:00 (KCl 20 Meq Premix Inj) 100 ml @ 50 mls/hr Q2H PRN IV 05/19/16 07:00 05/26/16 20:04 Potassium Chloride 40 meq 40 meq UNSCH PRN PO/TUBE 05/19/16 07:00 05/25/16 08:19 Potassium Chloride 100 ml @ 25 mls/hr UNSCH PRN IV 05/19/16 07:00 Potassium Chloride 100 ml @ 50 mls/hr Q2H PRN IV 05/19/16 07:00 (Magnesium Sulfate Inj/NS Inj) 100 ml @ 50 mls/hr UNSCH PRN IV 05/19/16 07:00 Magnesium Oxide 800 mg 800 mg UNSCH PRN PO 05/19/16 07:00 (Magnesium Sulfate Inj/NS Inj) 100 ml @ 50 mls/hr UNSCH PRN IV 05/19/16 07:00 05/19/16 13:49 Potassium Phosphate 2000 mg 2,000 mg Q4H PRN PO 05/19/16 07:00 (Sodium Phosphate Inj/NS 250 ml Inj) 250 ml @ 42 mls/hr UNSCH PRN IV 05/19/16 07:00 05/20/16 01:46 (KCl 40 Meq/30 ml Liq) 40 meq UNSCH PRN PO/TUBE 05/19/16 07:00 Potassium Phosphate 2000 mg 2,000 mg UNSCH PRN PO/TUBE 05/19/16 07:00 (Potassium Phosphate Inj/NS 250 ml Inj) 260 ml @ 42 mls/hr UNSCH PRN IV 05/19/16 07:00 (Beneprotein Powder) 1 pack TID G-TUBE 05/20/16 09:00 06/09/16 18:37 (Lactulose Liq) 30 ml Q12H PO 05/21/16 06:00 06/10/16 05:47 (Miralax) 17 gm DAILY PO 05/23/16 10:45 06/08/16 08:51 (Norvasc) 5 mg Q12H PO 05/24/16 09:00 Hold 05/31/16 21:27 (Apresoline) 25 mg Q8HR PO 05/24/16 06:45 06/11/16 04:42 (Apresoline Inj) 10 mg Q4H PRN IV PUSH 05/24/16 06:45 06/10/16 20:11 (Tylenol 650 Mg/ 20 ml Liq) 650 mg Q8H PRN PO 05/30/16 15:00 (Levemir Inj) 8 units Q12HR SQ 05/31/16 21:00 06/11/16 10:16 (Vitamin B1) 100 mg DAILY PO 06/01/16 09:00 06/11/16 09:04 (Pepcid Liq) 20 mg BID NG 05/31/16 21:00 06/11/16 09:05 (Reglan Liq) 10 mg Q8HR PO 05/31/16 14:00 06/11/16 04:42 (NovoLIN R SUPPLEMENTAL SCALE) 1 Q6HR SQ 05/31/16 18:00 06/11/16 12:35 (Heparin Inj) 5,000 units Q12HR SQ 05/31/16 21:00 Hold 06/05/16 22:15 (Melatonin) 5 mg HS PO 05/31/16 21:00 06/10/16 20:11 (Free Water) 100 ml Q8HR G-TUBE 06/01/16 14:00 06/11/16 04:43 (Prinivil) 20 mg DAILY PO 06/02/16 09:00 06/11/16 09:03 (Inderal) 20 mg Q6HR PO 06/09/16 12:20 06/11/16 12:16 (Roxicodone Intensol Liq) 5 mg Q4H PRN PO 06/09/16 12:15 (Haldol Inj) 5 mg Q4H PRN IV 06/09/16 12:30 06/11/16 03:28 (Cardura) 2 mg DAILY PO 06/10/16 10:01 06/11/16 09:03 A/P Assessment and Plan Acute traumatic left-sided subdural hemorrhage/ Traumatic subarachnoid bleed/ Small frontal lobe contusion, right side Appreciate neurosurgery consult. - Neurological checks. - PT/ OT/ ST. - continue propranolol to 20mg po q6h. for hypertension/tachycardia and possible cerebral storming. - CM assisting with placement. 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 ENT consulted, cannot do audiometry in hospital. - outpt follow-up with ENT. Respiratory failure S/p trach. Ventilator dependent. S/p full course of ceftriaxone for strep that grew in sputum. - Leave on TP 20/11 as tolerated. - pulmonology assistance appreciated. - nebs as needed. Diabetes mellitus, type 2 Relatively well controlled. - continue Levemir along with an insulin sliding scale. HTN Blood pressure relatively well controlled. - continue lisinopril, doxazosin and propranolol. - Labetalol for a blood pressure greater than 170. FEN S/p PEG placement and tube feeds were initiated. - Per tube pepcid. - Continue goal TFs to 55. - follow with nutrition and speech therapy. Urinary retention Moreno replaced for urinary retention. S/p treatment for UTI. - ordered doxazosin 2mg daily. - will plan for 48h of BPH med and then second trial of Moreno removal (06/12). Anemia Unsure of baseline. Has been stable. MCV WNL. - continue to monitor. PPx: Heparin. Discharge Planning Discharged to rehabilitation when bed available. Donny Roque DO Jun 11, 2016 12:35
--- NOTE | 2016-06-11 17:37 | MB ---
cc: Natalya BAEZ DATE OF CONSULTATION: 06/11/2016. REASON FOR CONSULTATION: HISTORY OF PRESENT ILLNESS: Mr. Cole is an 85-year-old white male who presented on 05/17 having fallen out of bed with development of confusion and was found to have a subdural hematoma. The patient deteriorated on presentation including respiratory difficulty and had to be intubated emergently within the first 24 hours. Over the course of the last month, the patient has been handled and treated in the intensive care unit. Tracheostomy was performed on May 26 for long-term vent management but the patient then began to awaken, be more interactive and was able to be weaned off the ventilator and is currently on a T-piece now for about 72 hours. At the time I saw the patient, physical therapy was working with him. He was sitting on the edge of the bed and although he did not really respond verbally it was very apparent he was aware of his surroundings and seemed to follow instructions from the therapist, at least to some extent. All of this information is taken from his record since the patient is not communicative. PAST MEDICAL HISTORY: On presentation, it was recorded that he had a history of hypertension and diabetes. ALLERGIES: CONTRAST MEDIA. PAST SURGICAL HISTORY: No previous surgical history. SOCIAL HISTORY: Apparently a nonsmoker. He did drink some alcohol prior to admission. He actually [place] in [place] and was transported here for the potential for a neurosurgical evaluation. REVIEW OF SYSTEMS: Taken from the nurses today. He is not experiencing any obvious pain. They have been suctioning clear secretions from his tracheostomy. He does have a reasonably good cough but they are suctioning him frequently. PHYSICAL EXAMINATION: GENERAL: An elderly white male sitting up on the edge of the bed with the help of two physical therapists. VITAL SIGNS: His temperature is 99, blood pressure is 150/70, respirations are 22 at rest and his sat on six liters flow through a T-piece is 96%. HEAD, EYES, EARS, NOSE, THROAT: His sclerae are anicteric. NECK: No adenopathy in the neck. CHEST: His chest is actually very clear. No congestion. No rhonchi. No wheezes. HEART: Soft systolic murmur. EXTREMITIES: No pitting edema in the legs. No cyanosis of the nail beds. IMAGING STUDIES: Last chest x-ray was actually a CT on June 07. He had some air thought to be related to a percutaneous gastrostomy but the chest was clear and there was no pneumothorax. LABORATORY DATA: Last sputum was on 06/05 likely with normal adam. Blood cultures on 06/06 negative. Most recent white count was 212, 11.1. BUN is 17, creatinine 0.7. Electrolytes were normal. DISCUSSION: Mr. Cole presented with a subdural hematoma. He has improved considerably from a neurologic standpoint and he is now working with physical therapy on ambulation, although currently cannot hold his own weight even with a walker. Pulmonary status seems stable. Nothing on the recent CT scan to suggest pneumonia. His lungs are fairly clear. PLAN: Will monitor him over the next several days and if it is felt that he is capable of managing his own secretions and his airway, will consider removal of the tracheostomy. R. MD HAKEEM Patrick/LINDSAY /3:41 PM /5:30 PM
[2016-06-11] MEDS: MELATONIN 5 MG TAB PO SCH (20:13)
[2016-06-12] VITALS (13 sets, daily range): BP systolic 93–151; BP diastolic 56–73; PULSE 68–100; RESP 19–25; TEMP 97.9–99.7; O2SAT 94–99
[2016-06-12] MEDS: CHLORHEXIDINE GLUCONATE 2 % 1 PACK (2 CLOTHS) TOP SCH (03:24)
[2016-06-12] MEDS: PROPRANOLOL HCL 20 MG TAB PO SCH ×3 (05:03→17:12)
[2016-06-12] MEDS: INSULIN NovoLIN REGULAR SUPPLEMENTAL SCALE SQ SCH ×3 (05:03→17:13)
[2016-06-12] MEDS: hydrALAZINE HCL 25 MG TAB PO SCH ×3 (05:03→22:18)
[2016-06-12] MEDS: LACTULOSE SYRUP 20 GM/30 ML CUP PO SCH ×2 (05:03→17:12)
[2016-06-12] MEDS: METOCLOPRAMIDE HCL SYRUP 10 MG/10 ML UDC PO SCH ×3 (05:03→22:18)
[2016-06-12] MEDS: FREE WATER G-TUBE SCH ×3 (05:03→22:00)
[2016-06-12] MEDS: POLYETHYLENE GLYCOL 17 GM PKG PO SCH (09:00)
[2016-06-12] MEDS: SODIUM CHLORIDE 0.9% FLUSH 5 ML FLUSH IVF SCH ×2 (09:16→20:36)
[2016-06-12] MEDS: CHLORHEXIDINE 0.12% (ORAL KIT) 15 ML CUP MT SCH ×2 (09:16→20:36)
[2016-06-12] MEDS: DOXAZOSIN MESYLATE 4 MG TAB PO SCH (09:17)
[2016-06-12] MEDS: LISINOPRIL 20 MG TAB PO SCH (09:17)
[2016-06-12] MEDS: FOLIC ACID 1 MG TAB PO SCH (09:18)
[2016-06-12] MEDS: ATORVASTATIN 20 MG TAB PO SCH (09:18)
[2016-06-12] MEDS: THIAMINE HCL 100 MG TAB PO SCH (09:19)
[2016-06-12] MEDS: INSULIN DETEMIR 100 UNITS/ML VIAL SQ SCH ×2 (09:19→20:38)
[2016-06-12] MEDS: TIMOLOL MALEATE 0.25% OPHT SOLN 5 ML BTL EACH EYE SCH ×2 (09:20→20:36)
[2016-06-12] MEDS: FAMOTIDINE SUSP 40 MG/5 ML NG SCH (09:20)
[2016-06-12] MEDS: BENEPROTEIN POWDER 1 PACK G-TUBE SCH ×3 (09:21→17:12)
--- NOTE | 2016-06-12 11:14 | HHI.PR ---
Neuropsych Emotional Emotional: Mild: Labile, Moderate: Irritable/Angry/Frustrate Behavior Behavior: Mild: Impulsive/Agitated Cognitive Cognitive: Moderate: Insight/Awareness, Judgement/Problem-Solving, Unable to Asses: Cognitive, Attention/Concentration, Confused/Orientation, Memory Psychosocial Psychosocial: Intact: Psychosocial, Family/Other Adjustment Progress Notes/Response to Tx Contents of Sessions: Adjustment Time with Patient: 30 minutes Premorbid psychological status Premorbid Cognitive, Emotional and Behavioral Status: Stable. The patient is retired from a solid work history and long-term . The patient has no psychiatric difficulties. Substance abuse history is unremarkable. Behavioral Reactions of Patient and Family/Support System: Stable. The patient s family has a clear understanding of the issues inherent in his present medical condition. As expected, the family is experiencing ongoing issues of adjustment given the nature of the injury, and this aspect of recovery will require ongoing monitoring. Emotional/Behavioral Status of Patient and Family/Support System: Stable. Pertinent issues, if appropriate to this patients clinical care, are described in detail above. Maximizing acute care outcome This needs have been met in the form of utilization of a dry erase board to ascertain that his language deficits (receptive and expressive) are minimal and he can communicate his desires. Anticipated Problems Possible underlying neurocognitive dysfunction stemming from his brain trauma. It is now understood that he can both receptively and expressively communicate. Treatment Plan This clinician will continue to follow with you throughout the course of this patients rehabilitation treatment, and I will be available to meet with the patients family/support system to facilitate their understanding and the ongoing care of their family member. The goals of neuropsychological intervention shall be both educational and supportive to the family/support system as is deemed clinically appropriate. [facility] Level: IV:Confused/Agitated-maximal assist Impression This patient suffered a traumatic brain injury secondary to a fall with resulting pathology to the left hemisphere. Diagnosis: (1) Major neurocognitive disorder as late effect of traumatic brain injury with behavioral disturbance Status: Acute Progress Note Narrative This is an ongoing follow-up of this patient, who was seen bedside, along with his . Patient was eating breakfast and was able to communicate his basic needs with the dry erase board given his profound hearing defect. There are reports that he remains agitated versus irritability given his specific situation. Perhaps he becomes more agitated with overstimulation? He was unable to communicate the correct year, month or location via his erase board. He appropriately smiled to a visitor, when they traded jokes between them. Neurobehaviorally, this situation should continued to be monitored, which I am happy to complete. Discussed with the patient's . Shemar Dudley PhD Jun 12, 2016 11:14
--- NOTE | 2016-06-12 17:26 | HHI.PR ---
Subjective Remarks The patient was resting in bed comfortably, he was lethargic. Nursing was at the bedside and stated that the patient was in a chair for several hours earlier in the day. Objective Vitals Vital Signs Date Time Temp Pulse Resp B/P Pulse Ox O2 Delivery O2 Flow Rate FiO2 06/12/16 12:00 87 06/12/16 12:00 99.6 87 21 93/67 96 06/12/16 10:00 91 06/12/16 08:00 73 06/12/16 08:00 99.4 73 21 151/67 94 06/12/16 07:59 96 T-piece 28 06/12/16 07:00 95 T-Piece 5.00 28 Humidified 06/12/16 06:00 72 06/12/16 04:00 82 06/12/16 04:00 99.5 82 24 141/73 94 06/12/16 02:00 78 06/12/16 00:00 99.7 100 19 129/58 95 06/12/16 00:00 73 06/11/16 22:00 73 06/11/16 20:00 73 06/11/16 20:00 99.5 77 18 120/58 98 06/11/16 19:41 96 T-piece 6.00 28 06/11/16 19:00 98 T-Piece 5.00 28 Humidified 06/11/16 18:00 100 I/O 06/11/16 06/11/16 06/11/16 06/12/16 06/12/16 06/12/16 07:00 15:00 23:00 07:00 15:00 23:00 Intake Total 442 ml 686 ml 396 ml 500 ml Output Total 325 ml 400 ml 275 ml 550 ml 0 ml Balance 117 ml 286 ml 121 ml -50 ml 0 ml Intake Oral 30 ml Tube Feeding 342 ml 426 ml 296 ml 400 ml Other 100 ml 230 ml 100 ml 100 ml Output Urine Total 325 ml 400 ml 275 ml 550 ml Tube Feeding Residual Discard 0 ml # Bowel Movements 1 1 Result Diagram: 06/11/16 0330 06/11/16 0330 Imaging Last Impressions Chest X-Ray 06/07/16 0000 Signed Impressions: Service Date/Time: Tuesday, June 07, 2016 10:47 - CONCLUSION: Subcutaneous emphysema over the left chest wall. Etiology is not apparent. Solomon Quintero MD FACR Chest CT 06/07/16 0000 Signed Impressions: Service Date/Time: Tuesday, June 07, 2016 12:34 - CONCLUSION: 1. Gastrostomy tube in the left upper quadrant with trace free air and a large amount of subcutaneous emphysema that may be tracking from the gastrostomy tube site. 2. There is no pneumothorax. Solomon Quintero MD FACR Abdomen X-Ray 06/02/16 0000 Signed Impressions: Service Date/Time: Thursday, June 02, 2016 11:13 - CONCLUSION: 1. Dobbhoff tube in the antrum of the stomach Bill Means MD Head CT 05/28/16 0600 Signed Impressions: Service Date/Time: Saturday, May 28, 2016 04:15 - CONCLUSION: Bilateral subdural hematomas becoming less dense today and decreased in size on the left. Subarachnoid and intraventricular hemorrhage again seen. Mild mass effect on the frontal lobes is present. Jv Pairkh MD Transcranial Doppler Study Complete 05/18/16 0730 Signed Impressions: Service Date/Time: April 08:12 - CONCLUSION: 1. No evidence of vasospasm Bill Means MD Objective Remarks GENERAL: Elderly gentleman, on TP via trach. HEAD: Clean dry incision/laceration clean. ENT/NECK: Tracheostomy in place. LUNGS: On mech ventilation, Good air movement. No wheezes or crackles. HEART: Regular rate and rhythm, normal S1-S2, no murmur, no JVD. ABDOMEN: Large, soft, no guarding. BS active. Nondistended. Benign. EXTREMITIES: Warm, well-perfused. trace generalized edema. NEUROLOGICAL: Opens eyes, moves extremities to stimulation. Following commands in all 4 extremities. Poor hearing bilaterally. PSYCH: Calm. Procedures Trach PEG Medications and IVs Current Medications Medications (Trade) Dose Ordered Sig/Gus Route Start Time Stop Time Status Last Admin (Lipitor) 20 mg DAILY PO 05/18/16 09:00 06/12/16 09:18 (Timoptic 0.25% Opth Soln) 1 drop BID EACH EYE 05/17/16 21:00 06/12/16 09:20 (NS Flush) 2 ml UNSCH PRN IVF 05/17/16 10:30 (NS Flush) 2 ml BID IVF 05/17/16 21:00 06/12/16 09:16 (Colace) 100 mg BID PRN PO 05/17/16 10:30 (Folate) 1 mg DAILY PO 05/17/16 10:45 06/12/16 09:18 (Tylenol) 650 mg Q6H PRN PO 05/17/16 10:45 (Zofran Inj) 4 mg Q6H PRN IV 05/17/16 10:45 06/09/16 12:46 Miscellaneous Information 1 Q361D XX 05/17/16 10:45 05/17/16 11:34 (Chlorhexidine 2% Cloth) Taper DAILY@04 TOP 05/18/16 04:00 05/14/17 03:59 06/12/16 03:24 (Chlorhexidine 2% Cloth) 3 pack UNSCH PRN TOP 05/17/16 10:45 (D50w (Vial) Inj) 25 ml UNSCH PRN IV PUSH 05/17/16 11:15 (Glucagon Inj) 1 mg UNSCH PRN OTHER 05/17/16 11:15 Chlorhexidine Gluconate 15 ml 15 ml BID@08,20 MT 05/18/16 20:00 06/12/16 09:16 Potassium Chloride 100 ml @ 50 mls/hr Q2H PRN IV 05/19/16 07:00 (KCl 20 Meq Premix Inj) 100 ml @ 50 mls/hr Q2H PRN IV 05/19/16 07:00 05/26/16 20:04 Potassium Chloride 40 meq 40 meq UNSCH PRN PO/TUBE 05/19/16 07:00 05/25/16 08:19 Potassium Chloride 100 ml @ 25 mls/hr UNSCH PRN IV 05/19/16 07:00 Potassium Chloride 100 ml @ 50 mls/hr Q2H PRN IV 05/19/16 07:00 (Magnesium Sulfate Inj/NS Inj) 100 ml @ 50 mls/hr UNSCH PRN IV 05/19/16 07:00 Magnesium Oxide 800 mg 800 mg UNSCH PRN PO 05/19/16 07:00 (Magnesium Sulfate Inj/NS Inj) 100 ml @ 50 mls/hr UNSCH PRN IV 05/19/16 07:00 05/19/16 13:49 Potassium Phosphate 2000 mg 2,000 mg Q4H PRN PO 05/19/16 07:00 (Sodium Phosphate Inj/NS 250 ml Inj) 250 ml @ 42 mls/hr UNSCH PRN IV 05/19/16 07:00 05/20/16 01:46 (KCl 40 Meq/30 ml Liq) 40 meq UNSCH PRN PO/TUBE 05/19/16 07:00 Potassium Phosphate 2000 mg 2,000 mg UNSCH PRN PO/TUBE 05/19/16 07:00 (Potassium Phosphate Inj/NS 250 ml Inj) 260 ml @ 42 mls/hr UNSCH PRN IV 05/19/16 07:00 (Beneprotein Powder) 1 pack TID G-TUBE 05/20/16 09:00 06/12/16 17:12 (Lactulose Liq) 30 ml Q12H PO 05/21/16 06:00 06/10/16 05:47 (Miralax) 17 gm DAILY PO 05/23/16 10:45 06/08/16 08:51 (Norvasc) 5 mg Q12H PO 05/24/16 09:00 Hold 05/31/16 21:27 (Apresoline) 25 mg Q8HR PO 05/24/16 06:45 06/12/16 14:57 (Apresoline Inj) 10 mg Q4H PRN IV PUSH 05/24/16 06:45 06/10/16 20:11 (Tylenol 650 Mg/ 20 ml Liq) 650 mg Q8H PRN PO 05/30/16 15:00 (Vitamin B1) 100 mg DAILY PO 06/01/16 09:00 06/12/16 09:19 (Pepcid Liq) 20 mg BID NG 05/31/16 21:00 06/12/16 09:20 (Reglan Liq) 10 mg Q8HR PO 05/31/16 14:00 06/12/16 14:56 (NovoLIN R SUPPLEMENTAL SCALE) 1 Q6HR SQ 05/31/16 18:00 06/12/16 17:13 (Heparin Inj) 5,000 units Q12HR SQ 05/31/16 21:00 Hold 06/05/16 22:15 (Melatonin) 5 mg HS PO 05/31/16 21:00 06/11/16 20:13 (Free Water) 100 ml Q8HR G-TUBE 06/01/16 14:00 06/12/16 14:56 (Prinivil) 20 mg DAILY PO 06/02/16 09:00 06/12/16 09:17 (Inderal) 20 mg Q6HR PO 06/09/16 12:20 06/12/16 17:12 (Roxicodone Intensol Liq) 5 mg Q4H PRN PO 06/09/16 12:15 (Haldol Inj) 5 mg Q4H PRN IV 06/09/16 12:30 06/11/16 03:28 (Cardura) 2 mg DAILY PO 06/10/16 10:01 06/12/16 09:17 (Levemir Inj) 8 units HS SQ 06/12/16 21:00 (Levemir Inj) 12 units DAILY SQ 06/13/16 09:00 A/P Assessment and Plan Acute traumatic left-sided subdural hemorrhage/ Traumatic subarachnoid bleed/ Small frontal lobe contusion, right side Appreciate neurosurgery consult. - Neurological checks. - PT/ OT/ ST. - continue propranolol to 20mg po q6h. for hypertension/tachycardia and possible cerebral storming. - CM assisting with placement. 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 ENT consulted, cannot do audiometry in hospital. - outpt follow-up with ENT. Respiratory failure S/p trach. Ventilator dependent. S/p full course of ceftriaxone for strep that grew in sputum. - Leave on TP 20/11 as tolerated. - pulmonology assistance appreciated. Consider discontinuing trach when appropriate. - nebs as needed. Diabetes mellitus, type 2 Glucose has been elevated 06/12. - continue insulin sliding scale. - increase Levemir to 12 units AM, 8 units HS. HTN Blood pressure relatively well controlled 06/12. - continue lisinopril, doxazosin and propranolol. - Labetalol for a blood pressure greater than 170. FEN S/p PEG placement and tube feeds were initiated. - Per tube pepcid. - Continue goal TFs to 55. - follow with nutrition and speech therapy. Urinary retention Moreno replaced for urinary retention. S/p treatment for UTI. - ordered doxazosin 2mg daily. - will plan for 48h of BPH med and then second trial of Omreno removal (06/12). Anemia Unsure of baseline. Has been stable. MCV WNL. - continue to monitor. PPx: Heparin. Discharge Planning Discharged to rehabilitation when bed available. Donny Roque DO Jun 12, 2016 17:26
[2016-06-12] MEDS: MELATONIN 5 MG TAB PO SCH (20:38)
[2016-06-12] MEDS: FAMOTIDINE 20 MG TAB NG SCH (20:38)
[2016-06-13] VITALS (10 sets, daily range): BP systolic 125–140; BP diastolic 54–63; PULSE 58–96; RESP 15–20; TEMP 98.2–99.6; O2SAT 95–97
[2016-06-13] MEDS: PROPRANOLOL HCL 20 MG TAB PO SCH ×5 (00:02→23:12)
[2016-06-13] MEDS: CHLORHEXIDINE GLUCONATE 2 % 1 PACK (2 CLOTHS) TOP SCH (04:00)
[2016-06-13] MEDS: hydrALAZINE HCL 25 MG TAB PO SCH ×3 (05:59→23:12)
[2016-06-13] MEDS: METOCLOPRAMIDE HCL SYRUP 10 MG/10 ML UDC PO SCH ×3 (05:59→23:13)
[2016-06-13] MEDS: FREE WATER G-TUBE SCH ×3 (05:59→22:00)
[2016-06-13] MEDS: LACTULOSE SYRUP 20 GM/30 ML CUP PO SCH ×2 (05:59→18:00)
[2016-06-13] MEDS: INSULIN NovoLIN REGULAR SUPPLEMENTAL SCALE SQ SCH ×5 (06:00→23:17)
[2016-06-13 06:10] LABS: HEMATOCRIT 25.5 % (39.0-51.0); MEAN CELL VOLUME 87.3 FL (80.0-100.0); MEAN CORPUSCULAR HEMOGLOBIN 29.6 PG (27.0-34.0); MEAN CORPUSCULAR HGB CONC 33.9 % (32.0-36.0); PLATELET COUNT 278 TH/MM3 (150-450); RED BLOOD COUNT 2.92 MIL/MM3 (4.50-5.90); RED CELL DISTRIBUTION WIDTH 14.7 % (11.6-17.2); REVIEW FLAG FINAL; WHITE BLOOD COUNT 10.2 TH/MM3 (4.0-11.0)
[2016-06-13] MEDS: CHLORHEXIDINE 0.12% (ORAL KIT) 15 ML CUP MT SCH ×2 (08:00→20:00)
[2016-06-13] MEDS: FOLIC ACID 1 MG TAB PO SCH (08:25)
[2016-06-13] MEDS: DOXAZOSIN MESYLATE 4 MG TAB PO SCH (08:25)
[2016-06-13] MEDS: INSULIN DETEMIR 100 UNITS/ML VIAL SQ SCH ×2 (08:25→21:00)
[2016-06-13] MEDS: ATORVASTATIN 20 MG TAB PO SCH (08:26)
[2016-06-13] MEDS: FAMOTIDINE 20 MG TAB NG SCH ×2 (08:26→23:13)
[2016-06-13] MEDS: LISINOPRIL 20 MG TAB PO SCH (08:26)
[2016-06-13] MEDS: THIAMINE HCL 100 MG TAB PO SCH (08:26)
[2016-06-13] MEDS: SODIUM CHLORIDE 0.9% FLUSH 5 ML FLUSH IVF SCH ×2 (09:00→23:11)
[2016-06-13] MEDS: BENEPROTEIN POWDER 1 PACK G-TUBE SCH ×3 (09:00→18:00)
--- NOTE | 2016-06-13 10:40 | HHI.PR ---
Neuropsych Progress Notes/Response to Tx Premorbid psychological status Premorbid Cognitive, Emotional and Behavioral Status: Stable. The patient is retired from a solid work history and long-term . The patient has no psychiatric difficulties. Substance abuse history is unremarkable. Behavioral Reactions of Patient and Family/Support System: Stable. The patient s family has a clear understanding of the issues inherent in his present medical condition. As expected, the family is experiencing ongoing issues of adjustment given the nature of the injury, and this aspect of recovery will require ongoing monitoring. Emotional/Behavioral Status of Patient and Family/Support System: Stable. Pertinent issues, if appropriate to this patients clinical care, are described in detail above. Maximizing acute care outcome This needs have been met in the form of utilization of a dry erase board to ascertain that his language deficits (receptive and expressive) are minimal and he can communicate his desires. Anticipated Problems Possible underlying neurocognitive dysfunction stemming from his brain trauma. It is now understood that he can both receptively and expressively communicate. Treatment Plan This clinician will continue to follow with you throughout the course of this patients rehabilitation treatment, and I will be available to meet with the patients family/support system to facilitate their understanding and the ongoing care of their family member. The goals of neuropsychological intervention shall be both educational and supportive to the family/support system as is deemed clinically appropriate. [facility]: IV:Confused/Agitated-maximal assist Impression This patient suffered a traumatic brain injury secondary to a fall with resulting pathology to the left hemisphere. Diagnosis: (1) Major neurocognitive disorder as late effect of traumatic brain injury with behavioral disturbance Status: Acute Progress Note Narrative Ongoing follow-up of patient, who was seen bedside along with his . Patient was sitting up, appropriate and communicating with a communication board. He was feeding himself. Reports of any agitation throughout the night were minimal, per his , who has proven herself to be an accurate historian. I will continue to follow with you. Shemar Dudley PhD Jun 13, 2016 10:40 am
[2016-06-13] MEDS: POLYETHYLENE GLYCOL 17 GM PKG PO SCH (11:24)
[2016-06-13] MEDS: TIMOLOL MALEATE 0.25% OPHT SOLN 5 ML BTL EACH EYE SCH ×2 (11:25→23:15)
--- NOTE | 2016-06-13 13:17 | HHI.PR ---
Subjective Remarks Family and pulmonology at the bedside. The pt was resting comfortably. No acute concerns. Discussed with nursing. Objective Vitals Vital Signs Date Time Temp Pulse Resp B/P Pulse Ox O2 Delivery O2 Flow Rate FiO2 06/13/16 09:30 96 T-piece 28 06/13/16 08:00 98.7 69 18 125/60 96 06/13/16 06:00 68 06/13/16 04:00 96 06/13/16 04:00 98.9 78 15 128/56 97 06/13/16 02:00 58 06/13/16 00:00 98.9 78 15 128/56 97 06/13/16 00:00 58 06/12/16 22:00 68 06/12/16 20:00 97.9 78 25 140/67 99 06/12/16 20:00 78 06/12/16 20:00 99 T-Piece 5.00 28 Humidified 06/12/16 19:41 98 T-piece 6.00 28 06/12/16 18:00 72 06/12/16 16:00 100 06/12/16 16:00 99.4 100 24 123/56 96 I/O 06/12/16 06/12/16 06/12/16 06/13/16 06/13/16 06/13/16 07:00 15:00 23:00 07:00 15:00 23:00 Intake Total 500 ml 890 ml 568 ml 470 ml Output Total 550 ml 350 ml 0 ml 0 ml Balance -50 ml 540 ml 568 ml 470 ml 0 ml Intake Oral 240 ml 30 ml 0 ml IV Total 0 ml 0 ml 0 ml Tube Feeding 400 ml 450 ml 278 ml 350 ml Other 100 ml 200 ml 260 ml 120 ml Output Urine Total 550 ml 350 ml Tube Feeding Residual Discard 0 ml 0 ml 0 ml # Voids 3 4 # Bowel Movements 1 0 2 0 Result Diagram: 06/13/16 0459 06/11/16 0330 Imaging Last Impressions Chest X-Ray 06/07/16 0000 Signed Impressions: Service Date/Time: Tuesday, June 07, 2016 10:47 - CONCLUSION: Subcutaneous emphysema over the left chest wall. Etiology is not apparent. Solomon Quintero MD FACR Chest CT 06/07/16 0000 Signed Impressions: Service Date/Time: Tuesday, June 07, 2016 12:34 - CONCLUSION: 1. Gastrostomy tube in the left upper quadrant with trace free air and a large amount of subcutaneous emphysema that may be tracking from the gastrostomy tube site. 2. There is no pneumothorax. Solomon Quintero MD FACR Abdomen X-Ray 06/02/16 0000 Signed Impressions: Service Date/Time: Thursday, June 02, 2016 11:13 - CONCLUSION: 1. Dobbhoff tube in the antrum of the stomach Bill Means MD Head CT 05/28/16 0600 Signed Impressions: Service Date/Time: Saturday, May 28, 2016 04:15 - CONCLUSION: Bilateral subdural hematomas becoming less dense today and decreased in size on the left. Subarachnoid and intraventricular hemorrhage again seen. Mild mass effect on the frontal lobes is present. Jv Parikh MD Transcranial Doppler Study Complete 05/18/16 0730 Signed Impressions: Service Date/Time: April 08:12 - CONCLUSION: 1. No evidence of vasospasm Bill Means MD Objective Remarks GENERAL: Elderly gentleman, on TP via trach. HEAD: Clean dry incision/laceration clean. ENT/NECK: Tracheostomy in place. LUNGS: On mech ventilation, Good air movement. No wheezes or crackles. HEART: Regular rate and rhythm, normal S1-S2, no murmur, no JVD. ABDOMEN: Large, soft, no guarding. BS active. Nondistended. Benign. EXTREMITIES: Warm, well-perfused. trace generalized edema. NEUROLOGICAL: Opens eyes, moves extremities to stimulation. Following commands in all 4 extremities. Poor hearing bilaterally. PSYCH: Calm. Procedures Trach PEG Medications and IVs Current Medications Medications (Trade) Dose Ordered Sig/Gus Route Start Time Stop Time Status Last Admin (Lipitor) 20 mg DAILY PO 05/18/16 09:00 06/13/16 08:26 (Timoptic 0.25% Opth Soln) 1 drop BID EACH EYE 05/17/16 21:00 06/13/16 11:25 (NS Flush) 2 ml UNSCH PRN IVF 05/17/16 10:30 (NS Flush) 2 ml BID IVF 05/17/16 21:00 06/12/16 20:36 (Colace) 100 mg BID PRN PO 05/17/16 10:30 2/14/17 08:25 (Folate) 1 mg DAILY PO 05/17/16 10:45 06/13/16 08:25 (Tylenol) 650 mg Q6H PRN PO 05/17/16 10:45 (Zofran Inj) 4 mg Q6H PRN IV 05/17/16 10:45 06/09/16 12:46 Miscellaneous Information 1 Q361D XX 05/17/16 10:45 05/17/16 11:34 (Chlorhexidine 2% Cloth) Taper DAILY@04 TOP 05/18/16 04:00 05/14/17 03:59 06/12/16 03:24 (Chlorhexidine 2% Cloth) 3 pack UNSCH PRN TOP 05/17/16 10:45 (D50w (Vial) Inj) 25 ml UNSCH PRN IV PUSH 05/17/16 11:15 (Glucagon Inj) 1 mg UNSCH PRN OTHER 05/17/16 11:15 Chlorhexidine Gluconate 15 ml 15 ml BID@08,20 MT 05/18/16 20:00 06/12/16 20:36 Potassium Chloride 100 ml @ 50 mls/hr Q2H PRN IV 05/19/16 07:00 (KCl 20 Meq Premix Inj) 100 ml @ 50 mls/hr Q2H PRN IV 05/19/16 07:00 05/26/16 20:04 Potassium Chloride 40 meq 40 meq UNSCH PRN PO/TUBE 05/19/16 07:00 05/25/16 08:19 Potassium Chloride 100 ml @ 25 mls/hr UNSCH PRN IV 05/19/16 07:00 Potassium Chloride 100 ml @ 50 mls/hr Q2H PRN IV 05/19/16 07:00 (Magnesium Sulfate Inj/NS Inj) 100 ml @ 50 mls/hr UNSCH PRN IV 05/19/16 07:00 Magnesium Oxide 800 mg 800 mg UNSCH PRN PO 05/19/16 07:00 (Magnesium Sulfate Inj/NS Inj) 100 ml @ 50 mls/hr UNSCH PRN IV 05/19/16 07:00 05/19/16 13:49 Potassium Phosphate 2000 mg 2,000 mg Q4H PRN PO 05/19/16 07:00 (Sodium Phosphate Inj/NS 250 ml Inj) 250 ml @ 42 mls/hr UNSCH PRN IV 05/19/16 07:00 05/20/16 01:46 (KCl 40 Meq/30 ml Liq) 40 meq UNSCH PRN PO/TUBE 05/19/16 07:00 Potassium Phosphate 2000 mg 2,000 mg UNSCH PRN PO/TUBE 05/19/16 07:00 (Potassium Phosphate Inj/NS 250 ml Inj) 260 ml @ 42 mls/hr UNSCH PRN IV 05/19/16 07:00 (Beneprotein Powder) 1 pack TID G-TUBE 05/20/16 09:00 06/13/16 09:00 (Lactulose Liq) 30 ml Q12H PO 05/21/16 06:00 06/10/16 05:47 (Miralax) 17 gm DAILY PO 05/23/16 10:45 06/13/16 11:24 (Norvasc) 5 mg Q12H PO 05/24/16 09:00 Hold 05/31/16 21:27 (Apresoline) 25 mg Q8HR PO 05/24/16 06:45 06/13/16 05:59 (Apresoline Inj) 10 mg Q4H PRN IV PUSH 05/24/16 06:45 06/10/16 20:11 (Tylenol 650 Mg/ 20 ml Liq) 650 mg Q8H PRN PO 05/30/16 15:00 (Vitamin B1) 100 mg DAILY PO 06/01/16 09:00 06/13/16 08:26 (Reglan Liq) 10 mg Q8HR PO 05/31/16 14:00 06/13/16 05:59 (NovoLIN R SUPPLEMENTAL SCALE) 1 Q6HR SQ 05/31/16 18:00 06/12/16 17:13 (Heparin Inj) 5,000 units Q12HR SQ 05/31/16 21:00 Hold 06/05/16 22:15 (Melatonin) 5 mg HS PO 05/31/16 21:00 06/12/16 20:38 (Free Water) 100 ml Q8HR G-TUBE 06/01/16 14:00 06/13/16 05:59 (Prinivil) 20 mg DAILY PO 06/02/16 09:00 06/13/16 08:26 (Inderal) 20 mg Q6HR PO 06/09/16 12:20 06/13/16 11:05 (Roxicodone Intensol Liq) 5 mg Q4H PRN PO 06/09/16 12:15 (Haldol Inj) 5 mg Q4H PRN IV 06/09/16 12:30 06/11/16 03:28 (Cardura) 2 mg DAILY PO 06/10/16 10:01 06/13/16 08:25 (Levemir Inj) 8 units HS SQ 06/12/16 21:00 06/12/16 20:38 (Levemir Inj) 12 units DAILY SQ 06/13/16 09:00 06/13/16 08:25 (Pepcid) 20 mg BID NG 06/12/16 21:00 06/13/16 08:26 A/P Assessment and Plan Acute traumatic left-sided subdural hemorrhage/ Traumatic subarachnoid bleed/ Small frontal lobe contusion, right side Appreciate neurosurgery consult. - Neurological checks. - PT/ OT/ ST. - continue propranolol to 20mg po q6h. for hypertension/tachycardia and possible cerebral storming. - CM assisting with placement. 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 ENT consulted, cannot do audiometry in hospital. - outpt follow-up with ENT. Respiratory failure S/p trach. Ventilator dependent. S/p full course of ceftriaxone for strep that grew in sputum. - Leave on TP 20/11 as tolerated. - pulmonology assistance appreciated. Consider discontinuing trach when appropriate. Per pulmonology may be another few weeks. - nebs as needed. Diabetes mellitus, type 2 Glucose well controlled 06/13. - continue insulin sliding scale. - increased Levemir to 12 units AM, 8 units HS. HTN Blood pressure well controlled 06/13. - continue lisinopril, doxazosin and propranolol. - Labetalol for a blood pressure greater than 170. FEN S/p PEG placement and tube feeds were initiated. - Per tube pepcid. - Continue goal TFs to 55. - follow with nutrition and speech therapy. Urinary retention Moreno replaced for urinary retention. S/p treatment for UTI. - ordered doxazosin 2mg daily. - Moreno removed 06/12 and pt urinating well. Anemia Unsure of baseline. Has been stable. MCV WNL. - continue to monitor. PPx: Heparin. Discharge Planning Discharged to rehabilitation when bed available. Donny Roque DO Jun 13, 2016 13:17
[2016-06-13] MEDS: MELATONIN 5 MG TAB PO SCH (23:15)
[2016-06-14] VITALS (8 sets, daily range): BP systolic 102–140; BP diastolic 38–72; PULSE 74–82; RESP 20–22; TEMP 96.8–99.5; O2SAT 93–96
[2016-06-14] MEDS: CHLORHEXIDINE GLUCONATE 2 % 1 PACK (2 CLOTHS) TOP SCH (03:35)
[2016-06-14] MEDS: FREE WATER G-TUBE SCH ×3 (05:54→22:00)
[2016-06-14] MEDS: hydrALAZINE HCL 25 MG TAB PO SCH ×3 (05:55→23:57)
[2016-06-14] MEDS: METOCLOPRAMIDE HCL SYRUP 10 MG/10 ML UDC PO SCH ×3 (05:55→23:57)
[2016-06-14] MEDS: PROPRANOLOL HCL 20 MG TAB PO SCH ×3 (05:55→17:39)
[2016-06-14] MEDS: LACTULOSE SYRUP 20 GM/30 ML CUP PO SCH ×2 (05:55→17:39)
[2016-06-14] MEDS: INSULIN NovoLIN REGULAR SUPPLEMENTAL SCALE SQ SCH ×3 (06:00→17:35)
[2016-06-14] MEDS: CHLORHEXIDINE 0.12% (ORAL KIT) 15 ML CUP MT SCH ×2 (08:00→20:00)
[2016-06-14] MEDS: BENEPROTEIN POWDER 1 PACK G-TUBE SCH ×3 (09:46→17:39)
[2016-06-14] MEDS: DOXAZOSIN MESYLATE 4 MG TAB PO SCH (09:46)
[2016-06-14] MEDS: SODIUM CHLORIDE 0.9% FLUSH 5 ML FLUSH IVF SCH (09:46)
[2016-06-14] MEDS: TIMOLOL MALEATE 0.25% OPHT SOLN 5 ML BTL EACH EYE SCH ×2 (09:46→23:58)
[2016-06-14] MEDS: FAMOTIDINE 20 MG TAB NG SCH ×2 (09:46→23:57)
[2016-06-14] MEDS: POLYETHYLENE GLYCOL 17 GM PKG PO SCH (09:47)
[2016-06-14] MEDS: ATORVASTATIN 20 MG TAB PO SCH (09:47)
[2016-06-14] MEDS: FOLIC ACID 1 MG TAB PO SCH (09:47)
[2016-06-14] MEDS: LISINOPRIL 20 MG TAB PO SCH (09:47)
[2016-06-14] MEDS: INSULIN DETEMIR 100 UNITS/ML VIAL SQ SCH ×2 (09:48→23:57)
[2016-06-14] MEDS: THIAMINE HCL 100 MG TAB PO SCH (09:48)
--- NOTE | 2016-06-14 12:03 | HHI.PR ---
Neuropsych Progress Notes/Response to Tx Time with Patient: 15 minutes Premorbid psychological status Premorbid Cognitive, Emotional and Behavioral Status: Stable. The patient is retired from a solid work history and long-term . The patient has no psychiatric difficulties. Substance abuse history is unremarkable. Behavioral Reactions of Patient and Family/Support System: Stable. The patient s family has a clear understanding of the issues inherent in his present medical condition. As expected, the family is experiencing ongoing issues of adjustment given the nature of the injury, and this aspect of recovery will require ongoing monitoring. Emotional/Behavioral Status of Patient and Family/Support System: Stable. Pertinent issues, if appropriate to this patients clinical care, are described in detail above. Maximizing acute care outcome This needs have been met in the form of utilization of a dry erase board to ascertain that his language deficits (receptive and expressive) are minimal and he can communicate his desires. Anticipated Problems Possible underlying neurocognitive dysfunction stemming from his brain trauma. It is now understood that he can both receptively and expressively communicate. Treatment Plan This clinician will continue to follow with you throughout the course of this patients rehabilitation treatment, and I will be available to meet with the patients family/support system to facilitate their understanding and the ongoing care of their family member. The goals of neuropsychological intervention shall be both educational and supportive to the family/support system as is deemed clinically appropriate. Impression This patient suffered a traumatic brain injury secondary to a fall with resulting pathology to the left hemisphere. Diagnosis: (1) Major neurocognitive disorder as late effect of traumatic brain injury with behavioral disturbance Status: Acute Progress Note Narrative Ongoing follow-up of patient. Patient resting comfortably in hospital bed. His was not present. No documentation of ongoing agitation. I will continue to follow. Shemar Dudley PhD Jun 14, 2016 12:03 pm
--- NOTE | 2016-06-14 14:29 | HHI.PR ---
Subjective Remarks The patient was resting in bed comfortably. He woke up when prompted. He did not feel I communicate with his white board today. Discussed with nursing. Objective Vitals Vital Signs Date Time Temp Pulse Resp B/P Pulse Ox O2 Delivery O2 Flow Rate FiO2 06/14/16 13:09 99.1 79 20 121/60 96 06/14/16 09:07 97.3 74 20 102/38 95 06/14/16 04:00 98.3 77 20 110/59 95 06/14/16 00:00 96.8 80 20 119/41 96 06/13/16 21:30 98 T-Piece 5.00 28 Humidified 06/13/16 20:06 99.6 72 18 129/54 97 06/13/16 16:00 98.2 86 20 125/58 95 I/O 06/13/16 06/13/16 06/13/16 06/14/16 06/14/16 06/14/16 07:00 15:00 23:00 07:00 15:00 23:00 Intake Total 470 ml 468 ml Output Total 0 ml 1.0 ml 0 ml Balance 470 ml 0 ml 467.0 ml 0 ml Intake Oral 0 ml IV Total 0 ml Tube Feeding 350 ml 368 ml Other 120 ml 100 ml Stool Total 1 ml Tube Feeding Residual Discard 0 ml 0 ml 0 ml # Voids 4 2 3 1 # Bowel Movements 0 Result Diagram: 06/13/16 0459 06/11/16 0330 Imaging Last Impressions Chest X-Ray 06/07/16 0000 Signed Impressions: Service Date/Time: Tuesday, June 07, 2016 10:47 - CONCLUSION: Subcutaneous emphysema over the left chest wall. Etiology is not apparent. Solomon Quintero MD FACR Chest CT 06/07/16 0000 Signed Impressions: Service Date/Time: Tuesday, June 07, 2016 12:34 - CONCLUSION: 1. Gastrostomy tube in the left upper quadrant with trace free air and a large amount of subcutaneous emphysema that may be tracking from the gastrostomy tube site. 2. There is no pneumothorax. Solomon Quintero MD FACR Abdomen X-Ray 06/02/16 0000 Signed Impressions: Service Date/Time: Thursday, June 02, 2016 11:13 - CONCLUSION: 1. Dobbhoff tube in the antrum of the stomach Bill Means MD Head CT 05/28/16 0600 Signed Impressions: Service Date/Time: Saturday, May 28, 2016 04:15 - CONCLUSION: Bilateral subdural hematomas becoming less dense today and decreased in size on the left. Subarachnoid and intraventricular hemorrhage again seen. Mild mass effect on the frontal lobes is present. Jv Parikh MD Transcranial Doppler Study Complete 05/18/16 0730 Signed Impressions: Service Date/Time: April 08:12 - CONCLUSION: 1. No evidence of vasospasm Bill Means MD Objective Remarks GENERAL: Elderly gentleman, on TP via trach. HEAD: Clean dry incision/laceration clean. ENT/NECK: Tracheostomy in place. LUNGS: On mech ventilation, Good air movement. No wheezes or crackles. HEART: Regular rate and rhythm, normal S1-S2, no murmur, no JVD. ABDOMEN: Large, soft, no guarding. BS active. Nondistended. Benign. EXTREMITIES: Warm, well-perfused. trace generalized edema. NEUROLOGICAL: Opens eyes, moves extremities to stimulation. Following commands in all 4 extremities. Poor hearing bilaterally. PSYCH: Calm. Procedures Trach PEG Medications and IVs Current Medications Medications (Trade) Dose Ordered Sig/Gus Route Start Time Stop Time Status Last Admin (Lipitor) 20 mg DAILY PO 05/18/16 09:00 06/14/16 09:47 (Timoptic 0.25% Opth Soln) 1 drop BID EACH EYE 05/17/16 21:00 06/14/16 09:46 (NS Flush) 2 ml UNSCH PRN IVF 05/17/16 10:30 (NS Flush) 2 ml BID IVF 05/17/16 21:00 06/14/16 09:46 (Colace) 100 mg BID PRN PO 05/17/16 10:30 06/13/16 08:25 (Folate) 1 mg DAILY PO 05/17/16 10:45 06/14/16 09:47 (Tylenol) 650 mg Q6H PRN PO 05/17/16 10:45 (Zofran Inj) 4 mg Q6H PRN IV 05/17/16 10:45 06/09/16 12:46 Miscellaneous Information 1 Q361D XX 05/17/16 10:45 05/17/16 11:34 (Chlorhexidine 2% Cloth) Taper DAILY@04 TOP 05/18/16 04:00 05/14/17 03:59 06/12/16 03:24 (Chlorhexidine 2% Cloth) 3 pack UNSCH PRN TOP 05/17/16 10:45 (D50w (Vial) Inj) 25 ml UNSCH PRN IV PUSH 05/17/16 11:15 (Glucagon Inj) 1 mg UNSCH PRN OTHER 05/17/16 11:15 (Peridex 0.12% Liq) 15 ml BID@08,20 MT 05/18/16 20:00 06/13/16 08:00 (Beneprotein Powder) 1 pack TID G-TUBE 05/20/16 09:00 06/14/16 13:19 (Lactulose Liq) 30 ml Q12H PO 05/21/16 06:00 06/14/16 05:55 (Miralax) 17 gm DAILY PO 05/23/16 10:45 06/14/16 09:47 (Norvasc) 5 mg Q12H PO 05/24/16 09:00 Hold 05/31/16 21:27 (Apresoline) 25 mg Q8HR PO 05/24/16 06:45 06/14/16 13:20 (Apresoline Inj) 10 mg Q4H PRN IV PUSH 05/24/16 06:45 06/10/16 20:11 (Tylenol 650 Mg/ 20 ml Liq) 650 mg Q8H PRN PO 05/30/16 15:00 (Vitamin B1) 100 mg DAILY PO 06/01/16 09:00 06/14/16 09:48 (Reglan Liq) 10 mg Q8HR PO 05/31/16 14:00 06/14/16 13:20 (NovoLIN R SUPPLEMENTAL SCALE) 1 Q6HR SQ 05/31/16 18:00 06/14/16 13:19 (Heparin Inj) 5,000 units Q12HR SQ 05/31/16 21:00 Hold 06/05/16 22:15 (Melatonin) 5 mg HS PO 05/31/16 21:00 06/13/16 23:15 (Free Water) 100 ml Q8HR G-TUBE 06/01/16 14:00 06/14/16 13:19 (Prinivil) 20 mg DAILY PO 06/02/16 09:00 06/14/16 09:47 (Inderal) 20 mg Q6HR PO 06/09/16 12:20 06/14/16 13:19 (Roxicodone Intensol Liq) 5 mg Q4H PRN PO 06/09/16 12:15 (Haldol Inj) 5 mg Q4H PRN IV 06/09/16 12:30 06/11/16 03:28 (Cardura) 2 mg DAILY PO 06/10/16 10:01 06/14/16 09:46 (Levemir Inj) 8 units HS SQ 06/12/16 21:00 06/12/16 20:38 (Levemir Inj) 12 units DAILY SQ 06/13/16 09:00 06/14/16 09:48 (Pepcid) 20 mg BID NG 06/12/16 21:00 06/14/16 09:46 A/P Assessment and Plan Acute traumatic left-sided subdural hemorrhage/ Traumatic subarachnoid bleed/ Small frontal lobe contusion, right side Appreciate neurosurgery consult. - Neurological checks. - PT/ OT/ ST. - continue propranolol to 20mg po q6h. for hypertension/tachycardia and possible cerebral storming. - CM assisting with placement. 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 ENT consulted, cannot do audiometry in hospital. - outpt follow-up with ENT. Respiratory failure S/p trach. Ventilator dependent. S/p full course of ceftriaxone for strep that grew in sputum. On 28% FiO2 06/14. - Leave on TP 20/11 as tolerated. - pulmonology assistance appreciated. Consider discontinuing trach when appropriate. Per pulmonology may be another few weeks. - nebs as needed. Diabetes mellitus, type 2 Glucose relatively well controlled 06/14. - continue insulin sliding scale. - increased Levemir to 12 units AM, 8 units HS. HTN Blood pressure well controlled 06/14. - continue lisinopril, doxazosin and propranolol. - Labetalol for a blood pressure greater than 170. FEN S/p PEG placement and tube feeds were initiated. - Per tube pepcid. - Continue goal TFs to 55. - follow with nutrition and speech therapy. Urinary retention Moreno replaced for urinary retention. S/p treatment for UTI. - ordered doxazosin 2mg daily. - Moreno removed 06/12 and pt urinating well. Anemia Unsure of baseline. Has been stable. MCV WNL. - continue to monitor. PPx: Heparin. Discharge Planning Discharged to rehabilitation when bed available. Donny Roque DO Jun 14, 2016 14:29
[2016-06-15] VITALS (8 sets, daily range): BP systolic 99–138; BP diastolic 55–65; PULSE 68–89; RESP 18–20; TEMP 97.2–99.7; O2SAT 94–96
[2016-06-15] MEDS: MELATONIN 5 MG TAB PO SCH ×2 (00:09→22:23)
[2016-06-15] MEDS: SODIUM CHLORIDE 0.9% FLUSH 5 ML FLUSH IVF SCH ×3 (00:09→21:00)
[2016-06-15] MEDS: PROPRANOLOL HCL 20 MG TAB PO SCH ×4 (00:09→17:41)
[2016-06-15] MEDS: CHLORHEXIDINE GLUCONATE 2 % 1 PACK (2 CLOTHS) TOP SCH (04:00)
[2016-06-15] MEDS: LACTULOSE SYRUP 20 GM/30 ML CUP PO SCH ×2 (05:24→17:41)
[2016-06-15] MEDS: METOCLOPRAMIDE HCL SYRUP 10 MG/10 ML UDC PO SCH ×3 (05:25→22:15)
[2016-06-15] MEDS: INSULIN NovoLIN REGULAR SUPPLEMENTAL SCALE SQ SCH ×4 (05:25→17:41)
[2016-06-15] MEDS: FREE WATER G-TUBE SCH ×3 (05:25→22:00)
[2016-06-15] MEDS: hydrALAZINE HCL 25 MG TAB PO SCH ×3 (05:25→22:15)
[2016-06-15] MEDS: CHLORHEXIDINE 0.12% (ORAL KIT) 15 ML CUP MT SCH ×2 (08:00→20:00)
--- NOTE | 2016-06-15 08:48 | EKG ---
Date Performed: 06/14/2016 Time Performed: 16:04:34 PTAGE: 85 years EKG: Sinus rhythm WITH FIRST DEGREE AV BLOCK WITH OCCASIONAL VENTRICULAR PREMATURE COMPLEXES ABNORMAL ECG NO PREVIOUS TRACING DOCTOR: Jhon Lopes Interpretating Date/Time 06/15/2016 08:43:21
[2016-06-15] MEDS: BENEPROTEIN POWDER 1 PACK G-TUBE SCH ×3 (09:00→17:41)
[2016-06-15] MEDS: TIMOLOL MALEATE 0.25% OPHT SOLN 5 ML BTL EACH EYE SCH ×2 (09:00→21:00)
[2016-06-15] MEDS: POLYETHYLENE GLYCOL 17 GM PKG PO SCH (09:00)
[2016-06-15] MEDS: THIAMINE HCL 100 MG TAB PO SCH (09:57)
[2016-06-15] MEDS: FOLIC ACID 1 MG TAB PO SCH (09:58)
[2016-06-15] MEDS: INSULIN DETEMIR 100 UNITS/ML VIAL SQ SCH ×2 (09:58→22:23)
[2016-06-15] MEDS: ATORVASTATIN 20 MG TAB PO SCH (09:58)
[2016-06-15] MEDS: LISINOPRIL 20 MG TAB PO SCH (09:58)
[2016-06-15] MEDS: FAMOTIDINE 20 MG TAB NG SCH ×2 (09:58→22:15)
[2016-06-15] MEDS: DOXAZOSIN MESYLATE 4 MG TAB PO SCH (09:58)
--- NOTE | 2016-06-15 12:35 | HHI.PR ---
Neuropsych Progress Notes/Response to Tx Contents of Sessions: Adjustment Time with Patient: 30 minutes Premorbid psychological status Premorbid Cognitive, Emotional and Behavioral Status: Stable. The patient is retired from a solid work history and long-term . The patient has no psychiatric difficulties. Substance abuse history is unremarkable. Behavioral Reactions of Patient and Family/Support System: Stable. The patient s family has a clear understanding of the issues inherent in his present medical condition. As expected, the family is experiencing ongoing issues of adjustment given the nature of the injury, and this aspect of recovery will require ongoing monitoring. Emotional/Behavioral Status of Patient and Family/Support System: Stable. Pertinent issues, if appropriate to this patients clinical care, are described in detail above. Maximizing acute care outcome This needs have been met in the form of utilization of a dry erase board to ascertain that his language deficits (receptive and expressive) are minimal and he can communicate his desires. Anticipated Problems Possible underlying neurocognitive dysfunction stemming from his brain trauma. It is now understood that he can both receptively and expressively communicate. Treatment Plan This clinician will continue to follow with you throughout the course of this patients rehabilitation treatment, and I will be available to meet with the patients family/support system to facilitate their understanding and the ongoing care of their family member. The goals of neuropsychological intervention shall be both educational and supportive to the family/support system as is deemed clinically appropriate. [facility] Level: V:Confused-non agitated Impression This patient suffered a traumatic brain injury secondary to a fall with resulting pathology to the left hemisphere. Diagnosis: (1) Major neurocognitive disorder as late effect of traumatic brain injury with behavioral disturbance Status: Acute Progress Note Narrative Ongoing follow-up of patient, who was seen in his hospital room in a chair, along with his . Patient was appropriate, interactive and tracking, and consistently follows simple directions. Reported no issues of pain. He is looking forward to transition to rehabilitation. Discussed ongoing care with his . Until he is discharged I will continue to follow with you. Shemar Dudley PhD Jun 15, 2016 12:34 pm
--- NOTE | 2016-06-15 15:19 | HHI.PR ---
Subjective Remarks The patient was resting comfortably. He didn't feel like communicating through the white board. He had no acute complaints. He said he was sleeping well. He denied any pain. Discussed with nursing. Objective Vitals Vital Signs Date Time Temp Pulse Resp B/P Pulse Ox O2 Delivery O2 Flow Rate FiO2 06/15/16 13:50 74 138/59 06/15/16 12:56 99.4 76 18 114/55 94 06/15/16 10:41 Blow By 6.00 28 T-Piece Humidified 06/15/16 08:09 99.2 81 18 133/61 94 06/15/16 04:00 99.7 80 20 118/56 95 06/15/16 00:00 99.3 89 20 136/63 95 06/14/16 20:00 99.3 82 22 140/72 94 06/14/16 18:28 95 T-piece 6.00 28 06/14/16 17:28 99.5 76 20 120/60 95 I/O 06/14/16 06/14/16 06/14/16 06/15/16 06/15/16 06/15/16 07:00 15:00 23:00 07:00 15:00 23:00 Intake Total 0 ml 0 ml 120 ml Output Total 0 ml 400 ml 200 ml Balance 0 ml -400 ml -200 ml 120 ml Intake Oral 0 ml 0 ml 120 ml Output Urine Total 400 ml 200 ml Tube Feeding Residual Discard 0 ml # Voids 1 2 1 1 1 # Bowel Movements 2 2 1 1 Result Diagram: 06/13/16 0459 06/11/16 0330 Imaging Last Impressions Chest X-Ray 06/07/16 0000 Signed Impressions: Service Date/Time: Tuesday, June 07, 2016 10:47 - CONCLUSION: Subcutaneous emphysema over the left chest wall. Etiology is not apparent. Solomon Quintero MD FACR Chest CT 06/07/16 0000 Signed Impressions: Service Date/Time: Tuesday, June 07, 2016 12:34 - CONCLUSION: 1. Gastrostomy tube in the left upper quadrant with trace free air and a large amount of subcutaneous emphysema that may be tracking from the gastrostomy tube site. 2. There is no pneumothorax. Solomon Quintero MD FACR Abdomen X-Ray 06/02/16 0000 Signed Impressions: Service Date/Time: Thursday, June 02, 2016 11:13 - CONCLUSION: 1. Dobbhoff tube in the antrum of the stomach Bill Means MD Head CT 05/28/16 0600 Signed Impressions: Service Date/Time: Saturday, May 28, 2016 04:15 - CONCLUSION: Bilateral subdural hematomas becoming less dense today and decreased in size on the left. Subarachnoid and intraventricular hemorrhage again seen. Mild mass effect on the frontal lobes is present. Jv Parikh MD Transcranial Doppler Study Complete 05/18/16 0730 Signed Impressions: Service Date/Time: April 08:12 - CONCLUSION: 1. No evidence of vasospasm Bill Means MD Objective Remarks GENERAL: Elderly gentleman, on TP via trach. HEAD: Clean dry incision/laceration clean. ENT/NECK: Tracheostomy in place. LUNGS: On mech ventilation, Good air movement. No wheezes or crackles. HEART: Regular rate and rhythm, normal S1-S2, no murmur, no JVD. ABDOMEN: Large, soft, no guarding. BS active. Nondistended. Benign. EXTREMITIES: Warm, well-perfused. trace generalized edema. NEUROLOGICAL: Opens eyes, moves extremities to stimulation. Following commands in all 4 extremities. Poor hearing bilaterally. PSYCH: Calm. Procedures Trach PEG Medications and IVs Current Medications Medications (Trade) Dose Ordered Sig/Gus Route Start Time Stop Time Status Last Admin (Lipitor) 20 mg DAILY PO 05/18/16 09:00 06/15/16 09:58 (Timoptic 0.25% Opth Soln) 1 drop BID EACH EYE 05/17/16 21:00 06/15/16 09:00 (NS Flush) 2 ml UNSCH PRN IVF 05/17/16 10:30 (NS Flush) 2 ml BID IVF 05/17/16 21:00 06/15/16 09:59 (Colace) 100 mg BID PRN PO 05/17/16 10:30 06/13/16 08:25 (Folate) 1 mg DAILY PO 05/17/16 10:45 06/15/16 09:58 (Tylenol) 650 mg Q6H PRN PO 05/17/16 10:45 (Zofran Inj) 4 mg Q6H PRN IV 05/17/16 10:45 06/09/16 12:46 Miscellaneous Information 1 Q361D XX 05/17/16 10:45 05/17/16 11:34 (Chlorhexidine 2% Cloth) Taper DAILY@04 TOP 05/18/16 04:00 05/14/17 03:59 06/12/16 03:24 (Chlorhexidine 2% Cloth) 3 pack UNSCH PRN TOP 05/17/16 10:45 (D50w (Vial) Inj) 25 ml UNSCH PRN IV PUSH 05/17/16 11:15 (Glucagon Inj) 1 mg UNSCH PRN OTHER 05/17/16 11:15 (Peridex 0.12% Liq) 15 ml BID@08,20 MT 05/18/16 20:00 06/13/16 08:00 (Beneprotein Powder) 1 pack TID G-TUBE 05/20/16 09:00 06/15/16 12:05 (Lactulose Liq) 30 ml Q12H PO 05/21/16 06:00 06/15/16 05:24 (Miralax) 17 gm DAILY PO 05/23/16 10:45 06/14/16 09:47 (Norvasc) 5 mg Q12H PO 05/24/16 09:00 Hold 05/31/16 21:27 (Apresoline) 25 mg Q8HR PO 05/24/16 06:45 06/15/16 14:15 (Apresoline Inj) 10 mg Q4H PRN IV PUSH 05/24/16 06:45 06/10/16 20:11 (Tylenol 650 Mg/ 20 ml Liq) 650 mg Q8H PRN PO 05/30/16 15:00 (Vitamin B1) 100 mg DAILY PO 06/01/16 09:00 06/15/16 09:57 (Reglan Liq) 10 mg Q8HR PO 05/31/16 14:00 06/15/16 14:15 (NovoLIN R SUPPLEMENTAL SCALE) 1 Q6HR SQ 05/31/16 18:00 06/15/16 12:03 (Heparin Inj) 5,000 units Q12HR SQ 05/31/16 21:00 Hold 06/05/16 22:15 (Melatonin) 5 mg HS PO 05/31/16 21:00 06/15/16 00:09 (Free Water) 100 ml Q8HR G-TUBE 06/01/16 14:00 06/15/16 14:00 (Prinivil) 20 mg DAILY PO 06/02/16 09:00 06/15/16 09:58 (Inderal) 20 mg Q6HR PO 06/09/16 12:20 06/15/16 12:03 (Roxicodone Intensol Liq) 5 mg Q4H PRN PO 06/09/16 12:15 (Haldol Inj) 5 mg Q4H PRN IV 06/09/16 12:30 06/11/16 03:28 (Cardura) 2 mg DAILY PO 06/10/16 10:01 06/15/16 09:58 (Levemir Inj) 8 units HS SQ 06/12/16 21:00 06/14/16 23:57 (Levemir Inj) 12 units DAILY SQ 06/13/16 09:00 06/15/16 09:58 (Pepcid) 20 mg BID NG 06/12/16 21:00 06/15/16 09:58 A/P Assessment and Plan Acute traumatic left-sided subdural hemorrhage/ Traumatic subarachnoid bleed/ Small frontal lobe contusion, right side Appreciate neurosurgery consult. - Neurological checks. - PT/ OT/ ST. - continue propranolol 20mg po q6h. for hypertension/tachycardia and possible cerebral storming. - CM assisting with placement. 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 ENT consulted, cannot do audiometry in hospital. - outpt follow-up with ENT. Respiratory failure S/p trach. Ventilator dependent. S/p full course of ceftriaxone for strep that grew in sputum. On 28% FiO2 06/15. - Leave on TP 20/11 as tolerated. - pulmonology assistance appreciated. Consider discontinuing trach when appropriate. Per pulmonology may be another few weeks. - nebs as needed. Diabetes mellitus, type 2 Glucose well controlled 06/15. - continue insulin sliding scale. - increased Levemir to 12 units AM, 8 units HS. HTN Blood pressure well controlled 06/15. - continue lisinopril, doxazosin and propranolol. - Labetalol for a blood pressure greater than 170. FEN S/p PEG placement and tube feeds were initiated. - Per tube pepcid. - Continue goal TFs to 55. - follow with nutrition and speech therapy. Urinary retention Moreno replaced for urinary retention. S/p treatment for UTI. - ordered doxazosin 2mg daily. - Moreno removed 06/12 and pt urinating well. Anemia Unsure of baseline. Has been stable. MCV WNL. - continue to monitor. PPx: Heparin. Discharge Planning Discharged to rehabilitation when bed available. Donny Roque DO Jun 15, 2016 15:19
[2016-06-16] VITALS (10 sets, daily range): BP systolic 78–137; BP diastolic 36–63; PULSE 64–70; RESP 17–19; TEMP 97.7–98.4; O2SAT 94–100
[2016-06-16] MEDS: CHLORHEXIDINE GLUCONATE 2 % 1 PACK (2 CLOTHS) TOP SCH (04:00)
[2016-06-16] MEDS: PROPRANOLOL HCL 20 MG TAB PO SCH ×3 (05:36→11:57)
[2016-06-16] MEDS: hydrALAZINE HCL 25 MG TAB PO SCH ×2 (05:36→14:00)
[2016-06-16] MEDS: LACTULOSE SYRUP 20 GM/30 ML CUP PO SCH ×2 (05:36→17:48)
[2016-06-16] MEDS: METOCLOPRAMIDE HCL SYRUP 10 MG/10 ML UDC PO SCH ×3 (05:36→22:44)
[2016-06-16] MEDS: INSULIN NovoLIN REGULAR SUPPLEMENTAL SCALE SQ SCH ×4 (05:52→18:00)
[2016-06-16] MEDS: FREE WATER G-TUBE SCH ×3 (05:53→22:00)
[2016-06-16] MEDS: CHLORHEXIDINE 0.12% (ORAL KIT) 15 ML CUP MT SCH (08:00)
[2016-06-16] MEDS: THIAMINE HCL 100 MG TAB PO SCH (08:29)
[2016-06-16] MEDS: FAMOTIDINE 20 MG TAB NG SCH ×2 (08:29→22:45)
[2016-06-16] MEDS: FOLIC ACID 1 MG TAB PO SCH (08:29)
[2016-06-16] MEDS: POLYETHYLENE GLYCOL 17 GM PKG PO SCH (08:29)
[2016-06-16] MEDS: SODIUM CHLORIDE 0.9% FLUSH 5 ML FLUSH IVF SCH ×2 (08:29→21:00)
[2016-06-16] MEDS: LISINOPRIL 20 MG TAB PO SCH (08:29)
[2016-06-16] MEDS: BENEPROTEIN POWDER 1 PACK G-TUBE SCH ×3 (08:29→17:48)
[2016-06-16] MEDS: TIMOLOL MALEATE 0.25% OPHT SOLN 5 ML BTL EACH EYE SCH ×2 (08:29→21:00)
[2016-06-16] MEDS: ATORVASTATIN 20 MG TAB PO SCH (08:29)
[2016-06-16] MEDS: DOXAZOSIN MESYLATE 4 MG TAB PO SCH (08:29)
[2016-06-16] MEDS: INSULIN DETEMIR 100 UNITS/ML VIAL SQ SCH (08:39)
--- NOTE | 2016-06-16 12:34 | HHI.PR ---
Neuropsych Progress Notes/Response to Tx Contents of Sessions: Adjustment Time with Patient: 15 minutes Premorbid psychological status Premorbid Cognitive, Emotional and Behavioral Status: Stable. The patient is retired from a solid work history and long-term . The patient has no psychiatric difficulties. Substance abuse history is unremarkable. Behavioral Reactions of Patient and Family/Support System: Stable. The patient s family has a clear understanding of the issues inherent in his present medical condition. As expected, the family is experiencing ongoing issues of adjustment given the nature of the injury, and this aspect of recovery will require ongoing monitoring. Emotional/Behavioral Status of Patient and Family/Support System: Stable. Pertinent issues, if appropriate to this patients clinical care, are described in detail above. Maximizing acute care outcome This needs have been met in the form of utilization of a dry erase board to ascertain that his language deficits (receptive and expressive) are minimal and he can communicate his desires. Anticipated Problems Possible underlying neurocognitive dysfunction stemming from his brain trauma. It is now understood that he can both receptively and expressively communicate. Treatment Plan This clinician will continue to follow with you throughout the course of this patients rehabilitation treatment, and I will be available to meet with the patients family/support system to facilitate their understanding and the ongoing care of their family member. The goals of neuropsychological intervention shall be both educational and supportive to the family/support system as is deemed clinically appropriate. [facility] Level: V:Confused-non agitated Impression This patient suffered a traumatic brain injury secondary to a fall with resulting pathology to the left hemisphere. Diagnosis: (1) Major neurocognitive disorder as late effect of traumatic brain injury with behavioral disturbance Status: Acute Progress Note Narrative Ongoing follow-up of patient, who was seen bedside with his . The patient is doing well, resting comfortably this morning. He no longer appears irritable , follows commands, and is reported to be eager to begin rehabilitative treatments. I provided ongoing neuropsychological support and education to his . It is my understanding that the patient will discharge to a SNF very soon. Until that time, I shall continue to follow with you. Shemar Dudley PhD Jun 16, 2016 12:34 pm
[2016-06-16] MEDS ORDERED: POLYETHYLENE GLYCOL 17 GM PKG PO PRN (13:00)
[2016-06-16] MEDS ORDERED: ENALAPRILAT 1.25 MG/ML VIAL IV PUSH PRN (14:15)
[2016-06-16] MEDS ORDERED: SODIUM CHLORID 0.9% 500 ML INJ 500 ML IV ONE (14:15)
--- NOTE | 2016-06-16 14:22 | HHI.PR ---
Subjective Remarks The patient was resting comfortably in bed. His family was at the bedside and anxious for his transfer to rehabilitation. Nursing reports that the patient's blood pressure has been low. No other acute concerns. Objective Vitals Vital Signs Date Time Temp Pulse Resp B/P Pulse Ox O2 Delivery O2 Flow Rate FiO2 06/16/16 14:04 78/36 06/16/16 12:40 97 T-piece 28 06/16/16 12:05 98.3 67 17 103/44 97 06/16/16 08:26 98.1 67 17 137/63 98 06/16/16 08:11 Blow By 6.00 28 T-Piece Humidified 06/16/16 06:00 98.1 64 17 101/58 95 06/16/16 00:30 98.4 65 19 100/56 94 06/15/16 23:27 99/55 06/15/16 23:00 98.7 68 18 99/55 95 06/15/16 16:00 97.2 75 20 128/65 96 I/O 06/15/16 06/15/16 06/15/16 06/16/16 06/16/16 06/16/16 07:00 15:00 23:00 07:00 15:00 23:00 Intake Total 0 ml 120 ml 0 ml 100 ml Output Total 200 ml 0 ml Balance -200 ml 120 ml 0 ml 100 ml Intake Oral 0 ml 120 ml 0 ml 100 ml Output Urine Total 200 ml 0 ml # Voids 1 1 2 # Bowel Movements 1 1 0 0 Result Diagram: 06/13/16 0459 Imaging Last Impressions Chest X-Ray 06/07/16 0000 Signed Impressions: Service Date/Time: Tuesday, June 07, 2016 10:47 - CONCLUSION: Subcutaneous emphysema over the left chest wall. Etiology is not apparent. Solomon Quintero MD FACR Chest CT 06/07/16 0000 Signed Impressions: Service Date/Time: Tuesday, June 07, 2016 12:34 - CONCLUSION: 1. Gastrostomy tube in the left upper quadrant with trace free air and a large amount of subcutaneous emphysema that may be tracking from the gastrostomy tube site. 2. There is no pneumothorax. Solomon Quintero MD FACR Abdomen X-Ray 06/02/16 0000 Signed Impressions: Service Date/Time: Thursday, June 02, 2016 11:13 - CONCLUSION: 1. Dobbhoff tube in the antrum of the stomach Bill Means MD Head CT 05/28/16 0600 Signed Impressions: Service Date/Time: Saturday, May 28, 2016 04:15 - CONCLUSION: Bilateral subdural hematomas becoming less dense today and decreased in size on the left. Subarachnoid and intraventricular hemorrhage again seen. Mild mass effect on the frontal lobes is present. Jv Parikh MD Transcranial Doppler Study Complete 05/18/16 0730 Signed Impressions: Service Date/Time: April 08:12 - CONCLUSION: 1. No evidence of vasospasm Bill Means MD Objective Remarks GENERAL: Elderly gentleman, on TP via trach. HEAD: Clean dry incision/laceration clean. ENT/NECK: Tracheostomy in place. LUNGS: On mech ventilation, Good air movement. No wheezes or crackles. HEART: Regular rate and rhythm, normal S1-S2, no murmur, no JVD. ABDOMEN: Large, soft, no guarding. BS active. Nondistended. Benign. EXTREMITIES: Warm, well-perfused. trace generalized edema. NEUROLOGICAL: Opens eyes, moves extremities to stimulation. Following commands in all 4 extremities. Poor hearing bilaterally. PSYCH: Calm. Procedures Trach PEG Medications and IVs Current Medications Medications (Trade) Dose Ordered Sig/Gus Route Start Time Stop Time Status Last Admin (Lipitor) 20 mg DAILY PO 05/18/16 09:00 06/16/16 08:29 (Timoptic 0.25% Opth Soln) 1 drop BID EACH EYE 05/17/16 21:00 06/16/16 08:29 (NS Flush) 2 ml UNSCH PRN IVF 05/17/16 10:30 (NS Flush) 2 ml BID IVF 05/17/16 21:00 06/16/16 08:29 (Colace) 100 mg BID PRN PO 05/17/16 10:30 06/13/16 08:25 (Folate) 1 mg DAILY PO 05/17/16 10:45 06/16/16 08:29 (Tylenol) 650 mg Q6H PRN PO 05/17/16 10:45 (Zofran Inj) 4 mg Q6H PRN IV 05/17/16 10:45 06/09/16 12:46 Miscellaneous Information 1 Q361D XX 05/17/16 10:45 05/17/16 11:34 (Chlorhexidine 2% Cloth) Taper DAILY@04 TOP 05/18/16 04:00 05/14/17 03:59 06/16/16 04:00 (Chlorhexidine 2% Cloth) 3 pack UNSCH PRN TOP 05/17/16 10:45 (D50w (Vial) Inj) 25 ml UNSCH PRN IV PUSH 05/17/16 11:15 (Glucagon Inj) 1 mg UNSCH PRN OTHER 05/17/16 11:15 (Peridex 0.12% Liq) 15 ml BID@08,20 MT 05/18/16 20:00 06/15/16 20:00 (Beneprotein Powder) 1 pack TID G-TUBE 05/20/16 09:00 06/16/16 11:58 (Lactulose Liq) 30 ml Q12H PO 05/21/16 06:00 06/16/16 05:36 (Norvasc) 5 mg Q12H PO 05/24/16 09:00 Hold 05/31/16 21:27 (Apresoline) 25 mg Q8HR PO 05/24/16 06:45 06/16/16 05:36 (Apresoline Inj) 10 mg Q4H PRN IV PUSH 05/24/16 06:45 06/10/16 20:11 (Tylenol 650 Mg/ 20 ml Liq) 650 mg Q8H PRN PO 05/30/16 15:00 (Vitamin B1) 100 mg DAILY PO 06/01/16 09:00 06/16/16 08:29 (Reglan Liq) 10 mg Q8HR PO 05/31/16 14:00 06/16/16 05:36 (NovoLIN R SUPPLEMENTAL SCALE) 1 Q6HR SQ 05/31/16 18:00 06/16/16 11:58 (Heparin Inj) 5,000 units Q12HR SQ 05/31/16 21:00 Hold 06/05/16 22:15 (Melatonin) 5 mg HS PO 05/31/16 21:00 06/15/16 22:23 (Free Water) 100 ml Q8HR G-TUBE 06/01/16 14:00 06/16/16 05:53 (Prinivil) 20 mg DAILY PO 06/02/16 09:00 06/16/16 08:29 (Inderal) 20 mg Q6HR PO 06/09/16 12:20 06/16/16 05:36 (Roxicodone Intensol Liq) 5 mg Q4H PRN PO 06/09/16 12:15 (Haldol Inj) 5 mg Q4H PRN IV 06/09/16 12:30 06/11/16 03:28 (Cardura) 2 mg DAILY PO 06/10/16 10:01 06/16/16 08:29 (Levemir Inj) 12 units DAILY SQ 06/13/16 09:00 06/16/16 08:39 (Pepcid) 20 mg BID NG 06/12/16 21:00 06/16/16 08:29 (Levemir Inj) 6 units HS SQ 06/16/16 21:00 Polyethylene Glycol 17 gm 17 gm DAILY PRN PO 06/16/16 13:00 (NS 500 ml Inj) 500 ml @ 500 mls/hr BOLUS ONCE IV 06/16/16 14:15 06/16/16 15:14 UNV A/P Assessment and Plan Acute traumatic left-sided subdural hemorrhage/ Traumatic subarachnoid bleed/ Small frontal lobe contusion, right side Appreciate neurosurgery and neuropsychology consults. - Neurological checks. - PT/ OT/ ST. - CM assisting with placement. Hypotension The pt's SBP was in the 70s 06/16. He is on multiple antihypertensives including propranolol as there was concern for cerebral storming while in the ICU. - hold antihypertensive regimen. - NS bolus 500 ml x 1 and reassess. - resume antihypertensives as allowed. Would start with lisinopril. 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 ENT consulted, cannot do audiometry in hospital. - outpt follow-up with ENT. Respiratory failure S/p trach. Ventilator dependent. S/p full course of ceftriaxone for strep that grew in sputum. On 28% FiO2 06/16. - Leave on TP 20/11 as tolerated. - pulmonology assistance appreciated. Consider discontinuing trach when appropriate. Per pulmonology may be another few weeks. - nebs as needed. Diabetes mellitus, type 2 Glucose well controlled 06/16. - continue insulin sliding scale. - changed Levemir to 12 units AM, 6 units HS. HTN As above, hypotensive 06/16. - hold lisinopril, amlodipine, hydralazine and propranolol. Reintroduce ACEi as tolerated. - Vasotec as needed. FEN S/p PEG placement and tube feeds were initiated. - Per tube pepcid. - Continue goal TFs to 55. - follow with nutrition and speech therapy. Urinary retention Moreno replaced for urinary retention. S/p treatment for UTI. - Moreno removed 06/12 and pt urinating well. - d/c doxazosin. Anemia Unsure of baseline. Has been stable. MCV WNL. - continue to monitor. PPx: Heparin. Discharge Planning Discharged to rehabilitation when blood pressure stable. Donny Roque DO Jun 16, 2016 14:22
--- NOTE | 2016-06-16 14:46 | HHI.PR ---
Subjective Subjective Comments Patient resting comfortably in bed with trach in place. Discussed with nursing. No pain behavior noted and and does not appear to be short of breath. Allergies: Coded Allergies: Contrast Media (Verified Allergy, Unknown, 12/02/14) Review of Systems All other ROS: Unable to obtain Exam I&O / VS 06/15/16 06/15/16 06/16/16 15:00 23:00 07:00 Intake Total 120 ml 0 ml 100 ml Output Total 0 ml Balance 120 ml 0 ml 100 ml Intake Oral 120 ml 0 ml 100 ml Output Urine Total 0 ml # Voids 1 2 # Bowel Movements 1 0 0 Vital Signs Date Time Temp Pulse Resp B/P Pulse Ox O2 Delivery O2 Flow Rate FiO2 06/16/16 14:04 78/36 06/16/16 12:40 97 T-piece 28 06/16/16 12:05 98.3 67 17 103/44 97 06/16/16 08:26 98.1 67 17 137/63 98 06/16/16 08:11 Blow By 6.00 28 T-Piece Humidified 06/16/16 06:00 98.1 64 17 101/58 95 06/16/16 00:30 98.4 65 19 100/56 94 06/15/16 23:27 99/55 06/15/16 23:00 98.7 68 18 99/55 95 06/15/16 16:00 97.2 75 20 128/65 96 General: No acute distress, Other (Trach with T-piece at 6 liters) Cardiovascular: Normal rate, Regular Rhythm Musculoskeletal: Other (SCD's in place) Psychiatric: Cooperative Orientation: unable to asses Self, unable to asses Place, unable to asses Time , unable to asses Situation Neurologic: Pupils (PERRLA), Other (Not following commands to move upper lower extremities but withdrawals to stem) Clonus: Negative Assessment and Plan Diagnosis: (1) Subdural hematoma, acute Assessment 1. Fall out of bed 05/16/15 with traumatic left SDH/SAH and right frontal hemorrhage treated nonsurgically now [place] 3 2. DM type 2 3. History of mild HTN Plan 1. Patient now requires max assist to transfer and ambulate 5 feet with EX lift system and PT. Continue to mobilize using left system 2. OT for ADL's and currently dependent. Providing ROM. 3. ST following for swallow evaluation and tolerating pured diet with thin liquids. No straws to be used. PEG placed 06/06/16. 4. Case management addressing discharge planning and anticipate transfer to alf facility today 5. Will follow as outpatient as appropriate Charity Hernandez MD Jun 16, 2016 14:46
[2016-06-16] MEDS ORDERED: INSULIN DETEMIR 100 UNITS/ML VIAL SQ SCH (21:00)
[2016-06-16] MEDS: MELATONIN 5 MG TAB PO SCH (22:45)
[2016-06-17] VITALS: BP 105/54; PULSE 64; RESP 19; TEMP 98.1; O2SAT 98
[2016-06-17 04:00] VITALS: BP 117/61; PULSE 109; RESP 20; TEMP 97; O2SAT 98
[2016-06-17] MEDS: METOCLOPRAMIDE HCL SYRUP 10 MG/10 ML UDC PO SCH ×2 (05:53→14:14)
[2016-06-17] MEDS: LACTULOSE SYRUP 20 GM/30 ML CUP PO SCH (05:53)
[2016-06-17] MEDS: FREE WATER G-TUBE SCH ×2 (05:54→14:00)
[2016-06-17] MEDS: INSULIN NovoLIN REGULAR SUPPLEMENTAL SCALE SQ SCH ×3 (05:54→12:00)
[2016-06-17 06:44] LABS: HEMATOCRIT 25.6 % (39.0-51.0); MEAN CELL VOLUME 86.9 FL (80.0-100.0); MEAN CORPUSCULAR HEMOGLOBIN 28.7 PG (27.0-34.0); MEAN CORPUSCULAR HGB CONC 33.1 % (32.0-36.0); PLATELET COUNT 235 TH/MM3 (150-450); RED BLOOD COUNT 2.95 MIL/MM3 (4.50-5.90); RED CELL DISTRIBUTION WIDTH 14.6 % (11.6-17.2); REVIEW FLAG FINAL; WHITE BLOOD COUNT 10.3 TH/MM3 (4.0-11.0)
[2016-06-17 07:04] LABS: BICARBONATE 30.5 MEQ/L (21.0-32.0); MAGNESIUM 2.3 MG/DL (1.5-2.5)
[2016-06-17 08:00] VITALS: BP 132/85; PULSE 109; RESP 20; TEMP 98.4; O2SAT 98
[2016-06-17] MEDS: BENEPROTEIN POWDER 1 PACK G-TUBE SCH ×2 (09:00→12:00)
[2016-06-17] MEDS: SODIUM CHLORIDE 0.9% FLUSH 5 ML FLUSH IVF SCH (09:00)
[2016-06-17] MEDS: TIMOLOL MALEATE 0.25% OPHT SOLN 5 ML BTL EACH EYE SCH (09:00)
[2016-06-17] MEDS: FAMOTIDINE 20 MG TAB NG SCH (09:26)
[2016-06-17] MEDS: FOLIC ACID 1 MG TAB PO SCH (09:26)
[2016-06-17] MEDS: THIAMINE HCL 100 MG TAB PO SCH (09:26)
[2016-06-17] MEDS: ATORVASTATIN 20 MG TAB PO SCH (09:26)
[2016-06-17] MEDS: INSULIN DETEMIR 100 UNITS/ML VIAL SQ SCH (09:27)
[2016-06-17 10:20] VITALS: O2SAT 96
[2016-06-17 12:00] VITALS: BP 149/59; PULSE 91; RESP 19; TEMP 98.4; O2SAT 98
[2016-06-17 15:08] VITALS: BP 142/68
[2016-06-17] MEDS ORDERED: LISI-515 PO (15:08)
[2016-06-17] MEDS ORDERED: WATE10P G-TUBE (15:08)
[2016-06-17] MEDS ORDERED: FOLI1TAB4 PO (15:08)
[2016-06-17] MEDS ORDERED: VITA100T2 PO (15:08)
[2016-06-17] MEDS ORDERED: LACT10SO PO (15:08)
[2016-06-17] MEDS ORDERED: LEVEMIR SQ ×2 (15:08)
[2016-06-17] MEDS ORDERED: METO5SOL PO (15:08)
[2016-06-17] MEDS ORDERED: FAMO20TA2 NG (15:08)
[2016-06-17] MEDS ORDERED: OXYC1CON3 PO (15:08)
[2016-06-17] MEDS ORDERED: HEPA10003 SQ (15:13)
--- NOTE | 2016-06-17 15:14 | HHI.DS ---
Discharge Summary Admission Date May 17, 2016 at 10:33 Discharge Date: Jun 17, 2016 Admitting Diagnosis (1) Major neurocognitive disorder as late effect of traumatic brain injury with behavioral disturbance ICD Code: S06.9X9S (2) Acute respiratory failure ICD Code: J96.00 (3) Arthritis ICD Code: M19.90 (4) Hypertension ICD Code: I10 (5) Diabetes type 2, controlled ICD Code: E11.9 (6) Agitation ICD Code: R45.1 (7) Malnutrition ICD Code: E46 (8) Subdural hematoma, acute ICD Code: I62.01 Procedures Trach PEG see below for more info Brief History - From Admission This 85-year-old gentleman fell of bed last night and hit his head. He developed aphasia and confusion pretty rapidly and was seen in the emergency department in [place] with a right facial droop. Subsequent CT scan evaluation confirmed an acute left subdural hemorrhage of approximately 8 mm in width with a associated subarachnoid hemorrhage. Additionally in the frontal lobe on the right side he had a 1 cm area of hemorrhage with surrounding vasogenic edema. There was intraventricular blood as well on the right side. I met him on his arrival to [facility]. What was immediately noticeable was that he was not able to express himself well and that he was not following commands correctly. With gestures he was able to follow commands but not with verbal orders. His review of systems was positive for basically generalized weakness and aphasia. CBC/BMP: 06/17/16 0505 06/17/16 0505 Significant Findings Laboratory Tests Test 06/17/16 05:05 Red Blood Count 2.95 MIL/MM3 (4.50-5.90) Hemoglobin 8.5 GM/DL (13.0-17.0) Hematocrit 25.6 % (39.0-51.0) Blood Urea Nitrogen 22 MG/DL (7-18) Calcium Level 8.3 MG/DL (8.5-10.1) PE at Discharge GENERAL: Elderly gentleman, on TP via trach. HEAD: Clean dry incision/laceration clean. ENT/NECK: Tracheostomy in place. LUNGS: On mech ventilation, Good air movement. No wheezes or crackles. HEART: Regular rate and rhythm, normal S1-S2, no murmur, no JVD. ABDOMEN: Large, soft, no guarding. BS active. Nondistended. Benign. EXTREMITIES: Warm, well-perfused. trace generalized edema. NEUROLOGICAL: Opens eyes, moves extremities to stimulation. Following commands in all 4 extremities. Poor hearing bilaterally. PSYCH: Calm. Transfer Summary Traumatic SDH. 05/17: This 85-year-old gentleman fell of bed last night and hit his head. He developed aphasia and confusion pretty rapidly and was seen in the emergency department in [place] with a right facial droop. Subsequent CT scan evaluation confirmed an acute left subdural hemorrhage of approximately 8 mm in width with a associated subarachnoid hemorrhage. Additionally in the frontal lobe on the right side he had a 1 cm area of hemorrhage with surrounding vasogenic edema. There was intraventricular blood as well on the right side. I met him on his arrival to [facility]. What was immediately noticeable was that he was not able to express himself well and that he was not following commands correctly. With gestures he was able to follow commands but not with verbal orders. 05/18: Deteriorating mental status, nasal trumpet placed for airway control, and will require intubation. 05/19: Ventilator dependent now. Family needs to clarify goals if possible/ practical. 05/20: A little more alert. Breathes well on CPAP. 05/21: Tolerating CPAP trials with good respiratory drive. 05/22: Agitated. Start precedex for attempted weaning trial and possible extubation. 05/23: Attempt weaning trial again today with low dose precedex for control of agitation. 05/24: Extubated yesterday but could not protect his airway, could not cough up secretions. Quickly failed and required re-intubation. 05/25: Will need trach if family wishes to continue with aggressive care. Worsening glucose intolerance. Will start BID levemir 05/26: No improvement in neurological function. Glucose control much improved. The family feels quite strongly about continued aggressive rehab. Therefore we will perform tracheostomy. Risk and benefits presented to and she wished to proceed. 05/27: Tracheostomy performed 05/26 at family request after discussion with Palliative Care service. Brigette placed and we are now working on LTAC/rehab placement. He looks around the room and appears to recognize his family. Weak limb movements/hand grasps. 05/28: Remains on mechanical ventilation via tracheostomy. Start daily C Pap trials and will attempt transition to trach collar if tolerated. 05/29: Awake, on mechanical ventilation via tracheostomy. Tolerated CPAP trial yesterday. We will attempt T piece today. 05/30: Awake, on mechanical ventilation via tracheostomy. Tolerated T piece for 2 hours yesterday. 05/31: off precedex. awake. still failing t-piece for tachypnea. agitated at times. may be storming from cerebral insult. still low grade temps, but cultures have been persistently negative. 06/01: low grade fevers persist. cultures still negative. 06/02: WBC count stable. UO adequate. Follows commands x4 extremities. No fever 06/03: Tolerating TP today 50%. No fever, WBC normal. No acute events reported overnight. Family states that patient unable to hear (from time of fall) 06/04; still seems to have hearing impairment, tolerated TP several hours yesterday, but was apneic on CPAP overnight 06/05: Patient was tachypneic on vent so TP not attempted, Continues to have hearing loss, ENT consulted 06/06: received PEG tube today. Due to sedation TPs not attempted. ENT cannot pursue audiometry in hospital 06/07: tolerating TP today, appears comfortable. No change in hearing status. Sputum culture from 06/05/16 negative 06/08: continues to tolerate TP today. comfortable. denies complaints to me today. wants to get out of bed. 06/09: tolerating TP. in chair today. 06/10: continues to tolerate TP. OOB to chair daily. Objective Objective Vital Signs Date Time Temp Pulse Resp B/P Pulse Ox O2 Delivery O2 Flow Rate FiO2 06/10/16 08:38 96 T-piece 28 06/10/16 06:00 73 06/10/16 04:00 99.3 17 157/69 06/09/16 20:43 5.00 Intake and Output 06/09/16 06/09/16 06/10/16 08:00 16:00 00:00 Intake Total 349 ml 497 ml 395 ml Output Total 1175 ml 200 ml 0 ml Balance -826 ml 297 ml 395 ml Result Diagram: 06/09/16 0345 06/09/16 0345 Imaging Last [address] 05/28/16 0600 Signed Impressions: Service Date/Time: Saturday, May 28, 2016 04:15 - CONCLUSION: Bilateral subdural hematomas becoming less dense today and decreased in size on the left. Subarachnoid and intraventricular hemorrhage again seen. Mild mass effect on the frontal lobes is present. Jv Parikh MD Chest X-Ray 05/27/16 0000 Signed Impressions: Service Date/Time: Friday, May 27, 2016 06:43 - CONCLUSION: Stable appearance of the lungs. Jv Parikh MD Abdomen X-Ray 05/27/16 0000 Signed Impressions: Service Date/Time: Friday, May 27, 2016 19:50 - CONCLUSION: Dobbhoff catheter has been advanced and is now either in the distal stomach or proximal duodenum. Eleazar Solorio MD Abdomen X-Ray 05/27/16 0000 Signed Impressions: Service Date/Time: Friday, May 27, 2016 18:24 - CONCLUSION: Tip of the Dobbhoff catheter is still intrathoracic. Eleazar Solorio MD Objective Remarks PHYSICAL EXAMINATION GENERAL: Elderly gentleman, on TP via trach. . HEAD: Clean dry incision/laceration clean. ENT/NECK: Tracheostomy in place, NGT in place LUNGS: On mech ventilation, Good air movement. No wheezes or crackles. HEART: Regular rate and rhythm, normal S1-S2, no murmur, no JVD. ABDOMEN: Large, soft, no guarding. BS active. Nondistended. Benign. EXTREMITIES: Warm, well-perfused. trace generalized edema. NEUROLOGICAL: Opens eyes, moves extremities to stimulation. Following commands in all 4 extremities. Poor hearing bilaterally Plan A/P Assessment and Plan ASSESSMENT: Acute traumatic left-sided subdural hemorrhage. Traumatic subarachnoid bleed. Small frontal lobe contusion, right side. 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 Mild hypertension. Respiratory Failure, ventilator dependent. UTI - Klebsiella, Enterococcus Bronchitis - Strep PLAN: 1. TP as tolerated. Leave on TP 24/ as tolerated 2. Neurological checks. Family states hearing loss from time of fall. ENT consulted on Sunday06/05/16-cannot do audiometry in hospital 3. Head of bed up 30 degrees. 4. SQH 5000 q12h. SCDs. 5. Labetalol for a blood pressure greater than 170. 6. continue propranolol to 20mg po q6h. for hypertension/tachycardia and possible cerebral storming. 7. Per tube pepcid. 8. Continue goal TFs to 55. s/p PEG tube placement 9. Levemir to 8 units SQ q12h 10. SSI high scale, q6h. 12. Sputum culture -> Strep 05/23, s/p full course of ceftriaxone. 13. s/p tracheostomy. daily TP trials as tolerated 14. PT/OT OOB up to stretcher chair today 15: Cultures 05/29 sputum and 05/30 blood negative to date 16. speech therapy. 17. q48h labs. 18. Mak replaced for urinary retention. ordered doxazosin 2mg daily. will plan for 48h of BPH med and then second trial of mak removal (06/12). - working on placement. Hospital Course 85 years old male transferred from intensive care service for Acute traumatic left-sided subdural hemorrhage/ Traumatic subarachnoid bleed/ Small frontal lobe contusion, right side Appreciate neurosurgery and neuropsychology consults. - Neurological checks. - PT/ OT/ ST. Hypotension The pt's SBP was in the 70s 06/16. He is on multiple antihypertensives including propranolol as there was concern for cerebral storming while in the ICU. - hold antihypertensive regimen. - NS bolus 500 ml x 1 and reassess. - resume antihypertensives as allowed. 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 ENT consulted, cannot do audiometry in hospital. - outpt follow-up with ENT. Respiratory failure S/p trach. Ventilator dependent. S/p full course of ceftriaxone for strep that grew in sputum. On 28% FiO2 06/16. - Leave on TP 20/11 as tolerated. - pulmonology assistance appreciated. Consider discontinuing trach when appropriate. Per pulmonology may be another few weeks. - nebs as needed. Diabetes mellitus, type 2 Glucose well controlled 06/16. - continue insulin sliding scale. - changed Levemir to 12 units AM, 6 units HS. HTN As above, hypotensive 06/16. - hold lisinopril, amlodipine, hydralazine and propranolol. Reintroduce ACEi as tolerated. - Vasotec as needed. FEN S/p PEG placement and tube feeds were initiated. - Per tube pepcid. - Continue goal TFs to 55. - follow with nutrition and speech therapy. Urinary retention Mak replaced for urinary retention. S/p treatment for UTI. - Mak removed 06/12 and pt urinating well. - d/c doxazosin. Anemia no known baseline, outpatient workup Heparin has been held due to the anemia, however hemoglobin is stable we'll resume heparin for DVT prophylaxis [id number] encounter performed with the patient on discharge day, as well as physical exam, summary of hospitalization course and postdischarge plan has been D/W the patient. And his daughter D/W nurse D/W upper caser. Discharge medications reviewed and printed and signed, post discharge follow up visit with PCP and other specialist as well as Brief hospital course and discharge summary has been placed. Pt Condition on Discharge: Fair Discharge Disposition: Discharge to SNF Discharge Time: > 30 minutes Discharge Instructions DIET: Follow Instructions for: On Tube Feeding Speech Therapy-Diet Recommends: Pureed Activities you can perform: See Additionl Instruction Other Activity Instructions: per PT Follow up Referrals: Ear Nose Throat - [address] Canseco Physical Medicine & Rehab - 2 Months with Charity Hernandez MD New Medications: Famotidine (Famotidine) 20 Mg Tab 20 MG NG BID gi #60 TAB Folic Acid (Folate) 1 Mg Tab 1 MG PO DAILY vit #30 TAB Insulin Detemir Inj (Levemir Inj) 1,000 unit/ 10 ML Vial 12 UNITS SQ DAILY dm #30 INJECTION Insulin Detemir Inj (Levemir Inj) 1,000 unit/ 10 ML Vial 6 UNITS SQ HS dm #30 INJECTION Lactulose Liq (Lactulose Liq) 10 Gm/15 Ml Soln 30 ML PO Q12H cms #60 ML Lisinopril (Lisinopril) 20 Mg Tab 20 MG PO DAILY htn #30 TAB Metoclopramide Liq (Metoclopramide Liq) 5 Mg/5 Ml Liq 10 MG PO Q8HR gi #60 ML Oxycodone Liq (Oxycodone Liq) 20 Mg/Ml Conc 5 MG PO Q4H PRN pain 1-7 #25 ML Thiamine (Vitamin B-1) 100 Mg Tab 100 MG PO DAILY vit #30 TAB Water Sterile Inj (Sterile Water For Injection) 10 Ml Inj 100 ML G-TUBE Q8HR . #90 INJECTION Continued Medications: Atorvastatin 20 mg (Atorvastatin 20 mg tab) 20 Mg Tab 20 MG PO DAILY Days 30 TAB Timolol Maleate (Ophth) (Timolol Maleate) 0.25 % Tia 1 DROP EACH EYE BID TIA Lincoln Hopkins MD Jun 17, 2016 15:14
--- NOTE | 2016-06-17 15:17 | HHI.PR ---
Subjective Remarks Laying in bed comfortably, blood pressure improved I discussed with the daughter in length and with the nurse, manual blood pressure was 149/67 Also discussed discharge, patient will be going to rehabilitation in [place] Objective Vitals Vital Signs Date Time Temp Pulse Resp B/P Pulse Ox O2 Delivery O2 Flow Rate FiO2 06/17/16 12:00 98.4 91 19 149/59 98 06/17/16 10:20 96 T-piece 28 06/17/16 09:39 98 Blow By 6.00 28 T-Piece Humidified 06/17/16 08:00 98.4 109 20 132/85 98 06/17/16 04:00 97.0 109 20 117/61 98 06/17/16 00:00 98.1 64 19 105/54 98 06/16/16 22:55 98 T-piece 28 06/16/16 21:00 97.7 65 18 100/56 99 06/16/16 16:08 98.1 70 18 124/55 100 I/O 06/16/16 06/16/16 06/16/16 06/17/16 06/17/16 06/17/16 07:00 15:00 23:00 07:00 15:00 23:00 Intake Total 100 ml 400 ml 100 ml Balance 100 ml 400 ml 100 ml Intake Oral 100 ml 400 ml 100 ml # Voids 2 3 4 # Bowel Movements 0 0 0 Result Diagram: 06/17/16 0505 06/17/16 0505 Objective Remarks GENERAL: This is a frail well-developed elderly patient, in no apparent distress. CARDIOVASCULAR: Regular rate and rhythm without murmurs, gallops, or rubs. RESPIRATORY: fair air entry bilaterally. No wheezes, rales, or rhonchi. trech in place GASTROINTESTINAL: Abdomen soft, non-tender, nondistended. Normal active bowel sounds, Peg in place MUSCULOSKELETAL: Extremities without clubbing, cyanosis, or edema. NEURO: AA. Moves all ext x4 Procedures Trach PEG see below for more info A/P Problem List: (1) Major neurocognitive disorder as late effect of traumatic brain injury with behavioral disturbance ICD Code: S06.9X9S Status: Acute (2) Acute respiratory failure ICD Code: J96.00 Status: Acute (3) Arthritis ICD Code: M19.90 Status: Acute (4) Hypertension ICD Code: I10 Status: Acute (5) Diabetes type 2, controlled ICD Code: E11.9 Status: Acute (6) Agitation ICD Code: R45.1 Status: Acute (7) Malnutrition ICD Code: E46 Status: Acute (8) Subdural hematoma, acute ICD Code: I62.01 Status: Acute Assessment and Plan 06/17: Blood pressure improved, will DC Cardura, continue with lisinopril with holding parameter, discussed with the daughter, nurse, special education case manager, will place , order patient to be discharged to rehabilitation in [place] today or tomorrow once bed available A/P: Acute traumatic left-sided subdural hemorrhage/ Traumatic subarachnoid bleed/ Small frontal lobe contusion, right side Appreciate neurosurgery and neuropsychology consults. - Neurological checks. - PT/ OT/ ST. - CM assisting with placement. Hypotension The pt's SBP was in the 70s 06/16. He is on multiple antihypertensives including propranolol as there was concern for cerebral storming while in the ICU. - hold antihypertensive regimen. - NS bolus 500 ml x 1 and reassess. - resume antihypertensives as allowed. Would start with lisinopril. 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 ENT consulted, cannot do audiometry in hospital. - outpt follow-up with ENT. Respiratory failure S/p trach. Ventilator dependent. S/p full course of ceftriaxone for strep that grew in sputum. On 28% FiO2 06/16. - Leave on TP 20/11 as tolerated. - pulmonology assistance appreciated. Consider discontinuing trach when appropriate. Per pulmonology may be another few weeks. - nebs as needed. Diabetes mellitus, type 2 Glucose well controlled 06/16. - continue insulin sliding scale. - changed Levemir to 12 units AM, 6 units HS. HTN As above, hypotensive 06/16. - hold lisinopril, amlodipine, hydralazine and propranolol. Reintroduce ACEi as tolerated. - Vasotec as needed. FEN S/p PEG placement and tube feeds were initiated. - Per tube pepcid. - Continue goal TFs to 55. - follow with nutrition and speech therapy. Urinary retention Moreno replaced for urinary retention. S/p treatment for UTI. - Moreno removed 06/12 and pt urinating well. - d/c doxazosin. Anemia Unsure of baseline. Has been stable. MCV WNL. - continue to monitor. PPx: Heparin. Lincoln Hopkins MD Jun 17, 2016 15:17
== END 2016-06-17 17:14 | DRG 4 ==
LOC: N03A 08:47 → OBSVTOIN 10:33 → N05A 06-13 19:32
PROVIDERS: ADMIT Hospitalist; ATTEND Hospitalist
PROC: 5A1955Z Respiratory Ventilation, Greater than 96 Consecutive Hours (ICD-10-PCS; 2016-05-18)
PROC: 0BH17EZ Insertion of Endotracheal Airway into Trachea, Via Natural or Artificial Opening (ICD-10-PCS; 2016-05-18)
PROC: 0BH17EZ Insertion of Endotracheal Airway into Trachea, Via Natural or Artificial Opening (ICD-10-PCS; 2016-05-23)
PROC: 0B113F4 Bypass Trachea to Cutaneous with Tracheostomy Device, Percutaneous Approach (ICD-10-PCS; principal; 2016-05-26)
PROC: 0BJ08ZZ Inspection of Tracheobronchial Tree, Via Natural or Artificial Opening Endoscopic (ICD-10-PCS; 2016-05-26)
PROC: 03HY32Z Insertion of Monitoring Device into Upper Artery, Percutaneous Approach (ICD-10-PCS; 2016-05-27)
PROC: 0DH63UZ Insertion of Feeding Device into Stomach, Percutaneous Approach (ICD-10-PCS; 2016-06-06)
DX: S06.5X0A Traumatic subdural hemorrhage without loss of consciousness, initial encounter (principal); G93.6 Cerebral edema; E46 Unspecified protein-calorie malnutrition; I95.9 Hypotension, unspecified; F01.51 Vascular dementia, unspecified severity, with behavioral disturbance; N39.0 Urinary tract infection, site not specified; R13.10 Dysphagia, unspecified; R47.01 Aphasia; B96.1 Klebsiella pneumoniae [K. pneumoniae] as the cause of diseases classified elsewhere; J96.01 Acute respiratory failure with hypoxia; Z99.11 Dependence on respirator [ventilator] status; J98.11 Atelectasis; E11.9 Type 2 diabetes mellitus without complications; S06.6X0A Traumatic subarachnoid hemorrhage without loss of consciousness, initial encounter; I10 Essential (primary) hypertension; R45.1 Restlessness and agitation; J40 Bronchitis, not specified as acute or chronic; R29.810 Facial weakness; H91.90 Unspecified hearing loss, unspecified ear; M19.90 Unspecified osteoarthritis, unspecified site; K29.70 Gastritis, unspecified, without bleeding; D64.9 Anemia, unspecified; W06.XXXA Fall from bed, initial encounter; Y92.009 Unspecified place in unspecified non-institutional (private) residence as the place of occurrence of the external cause; Z68.27 Body mass index [BMI] 27.0-27.9, adult; Z79.4 Long term (current) use of insulin; Z91.041 Radiographic dye allergy status
CPT/HCPCS: 31500; 31600; 31624; 36556; 36600; 70450; 71010; 71250; 74000; 76937; 80048; 80053; 80076; 81001; 82805; 82948; 83605; 83735; 84100; 84132; 84155; 85007; 85025; 85027; 85384; 85610; 87040; 87070; 87077; 87086; 87186; 87205; 87641; 93005; 93886; 94002; 94003; A7521; C9113; C9399; J0131; J0171; J0360; J0461; J0690; J0696; J0744; J1630; J1644; J1815; J1940; J1953; J2060; J2250; J2270; J2405; J2765; J3010; J3411; J3475; J3480; J7030; J7040; J7050

== ENCOUNTER 2016-06-17 19:36 | Observation (INO) | payer MEDICARE, OTHER ==
[~2016-06-17] VITALS: Ht 177.8 cm; Wt 75.0 kg
[~2016-06-17 19:36] MED LIST changes: +AMLO5TAB2 PO; +FAMO20TA2 NG; +FOLI1TAB4 PO; +HEPA10003 SQ; +LACT10SO PO; +LEVEMIR SQ; +LISI-515 PO; +METO5SOL PO; +OXYC1CON3 PO; +VITA100T2 PO; +WATE10P G-TUBE
[2016-06-17 19:41] VITALS: BP 148/69; PULSE 82; RESP 18; TEMP 98.5; O2SAT 94
--- NOTE | 2016-06-17 20:03 | PD ---
HPI Chief Complaint: Medical Clearance Time Seen by Provider: 19:50 Travel History International Travel<30 days: No Contact w/Intl Traveler<30days: No Traveled to known affect area: No History of Present Illness HPI 85-year-old male presents via med 1 after report that the [place] [facility] he is at cannot take him with his trach. I cannot get history from patient and history is limited. 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) Anxiety: No Depression: No Heart Rhythm Problems: No Cancer: No Cardiovascular Problems: Yes High Cholesterol: No Chest Pain: No Congestive Heart Failure: No Cerebrovascular Accident: No Diabetes: Yes Endocrine: Yes (Diabetes) GERD: No Genitourinary: No Hiatal Hernia: No Immune Disorder: Yes Musculoskeletal: Yes Neurologic: Yes Psychiatric: No Reproductive: No Respiratory: No Migraines: No Seizures: No Thyroid Disease: No Ulcer: No Past Surgical History Narrative Surgical per records Abdominal Surgery: No Cardiac Surgery: No Ear Surgery: No Endocrine Surgery: No Eye Surgery: Yes (Cataract) Genitourinary Surgery: No Gynecologic Surgery: No Oral Surgery: No Thoracic Surgery: No Social History Tobacco Use: No (uto) Substance Use: No Allergies-Medications (Allergen,Severity, Reaction): Coded Allergies: Contrast Media (Verified Allergy, Unknown, 06/17/16) Reported Meds & Prescriptions Reported Meds & Active Scripts Active Heparin Sodium (Heparin Sodium (Porcine)) 10,000 Unit/Ml Inj 5,000 Units SQ Q12HR PRN Sterile Water For Injection (Sterile Water) 10 Ml Inj 100 Ml G-TUBE Q8HR Vitamin B-1 (Thiamine HCl) 100 Mg Tab 100 Mg PO DAILY Oxycodone Liq (Oxycodone HCl) 20 Mg/Ml Conc 5 Mg PO Q4H PRN Metoclopramide Liq (Metoclopramide HCl) 5 Mg/5 Ml Liq 10 Mg PO Q8HR Lisinopril 20 Mg Tab 20 Mg PO DAILY Lactulose Liq (Lactulose) 10 Gm/15 Ml Soln 30 Ml PO Q12H Levemir Inj (Insulin Detemir) 1,000 unit/ 10 ML Vial 6 Units SQ HS Levemir Inj (Insulin Detemir) 1,000 unit/ 10 ML Vial 12 Units SQ DAILY Folate (Folic Acid) 1 Mg Tab 1 Mg PO DAILY Famotidine 20 Mg Tab 20 Mg NG BID Reported Amlodipine (Amlodipine Besylate) 5 Mg Tab 5 Mg PO DAILY Timolol Maleate 0.25 % Tia 1 Drop EACH EYE BID Multivitamins (Multiple Vitamin) Cap Lisinopril 40 mg (Lisinopril) 40 Mg Tab 1 Tab PO DAILY Glucophage 500 mg (Metformin HCl) 500 Mg Tab 500 Mg PO DAILY Lantus Solostar Pen (Insulin Glargine) 100 Units/Ml Pen 12 Units SQ BID Atorvastatin 20 mg tab (Atorvastatin Calcium) 20 Mg Tab 20 Mg PO DAILY 30 Days Review of Systems ROS Limitations: Poor Historian Physical Exam Exam Limitations: Poor Historian Narrative GENERAL: Well-nourished, well-developed patient. SKIN: Warm and dry. HEAD: Normocephalic EYES: No injection or drainage. ENT: No nasal drainage noted. NECK: Trach with nasal cannula oxygen noted CARDIOVASCULAR: Regular rate and rhythm RESPIRATORY: No increased effort. No accessory muscle use. NEUROLOGICAL: Eyes open, moves extremities, nonverbal Data Data Last Documented VS Vital Signs Date Time Temp Pulse Resp B/P Pulse Ox O2 Delivery O2 Flow Rate FiO2 06/17/16 19:41 98.5 82 18 148/69 94 Orders Admit Order (Ed Use Only) (06/17/16 19:50) MDM Medical Decision Making Medical Screen Exam Complete: Yes Emergency Medical Condition: Yes Medical Record Reviewed: Yes (past history confirm, recent hospitalization reviewed) Differential Diagnosis placement Narrative Course will readmit to the hospital after discussion with case management as he will not be able to be at the [place] [facility] that accepted him and she can't get a facility to accept him tonight Physician Communication Physician Communication dr matthews agrees to admit Diagnosis Primary Impression: Tracheostomy care Admitting Information Admitting Physician Requests: Observation Savannah Chance MD Jun 17, 2016 20:03
[2016-06-17] MEDS ORDERED: ONDANSETRON HCL 4 MG/2 ML VIAL IVP PRN (20:30)
[2016-06-17] MEDS ORDERED: SODIUM CHLORIDE 0.9% FLUSH 5 ML FLUSH FLUSH PRN (20:30)
[2016-06-17] MEDS ORDERED: oxyCODONE HCL ORAL CONC 20 MG/ML SYRINGE PO PRN (20:30)
[2016-06-17] MEDS ORDERED: NALOXONE HCL 0.4 MG/ML AMP IV PRN (20:30)
[2016-06-17] MEDS ORDERED: ACETAMINOPHEN 325 MG TAB PEG PRN (20:30)
[2016-06-17 20:45] VITALS: O2SAT 97
[2016-06-17] MEDS ORDERED: DEXTROSE 50% IN WATER 50 ML VIAL(D50) IV PUSH PRN (20:45)
[2016-06-17] MEDS ORDERED: GLUCAGON 1 MG/ML VIAL OTHER PRN (20:45)
[2016-06-17] MEDS ORDERED: INSULIN ASPART SUPPLEMENTAL SCALE SQ SCH (21:00)
[2016-06-17] MEDS: FAMOTIDINE 20 MG TAB NG SCH (21:30)
[2016-06-17] MEDS: LACTULOSE SYRUP 20 GM/30 ML CUP PO SCH (21:30)
[2016-06-17] MEDS: FREE WATER G-TUBE SCH (22:00)
[2016-06-17] MEDS: METOCLOPRAMIDE HCL SYRUP 10 MG/10 ML UDC PO SCH (22:00)
[2016-06-17] MEDS: TIMOLOL MALEATE 0.25% OPHT SOLN 5 ML BTL EACH EYE SCH (22:21)
[2016-06-17] MEDS: INSULIN DETEMIR 100 UNITS/ML VIAL SQ SCH (22:22)
[2016-06-17] MEDS: SODIUM CHLORIDE 0.9% FLUSH 5 ML FLUSH FLUSH SCH (22:22)
[2016-06-17 23:32] VITALS: BP 114/57; PULSE 94; RESP 18; O2SAT 97
[2016-06-18] VITALS (31 sets, daily range): BP systolic 109–149; BP diastolic 45–86; PULSE 74–136; RESP 16–26; TEMP 97.8–98.7; O2SAT 91–96
--- NOTE | 2016-06-18 01:24 | HHI.HP ---
[facility] Service [facility] Primary Care Physician Unknown Admission Diagnosis h/o bleed, trach Diagnoses: Chief Complaint: Not able to give complaints Travel History International Travel<30 Days: No Contact w/Intl Traveler <30 Da: No Traveled to Known Affected Are: No History of Present Illness History from ER physician, and review of medical records. Patient himself is a elderly gentleman who suffered from recent traumatic brain injury with subdural hemorrhage. He is currently trach dependent and is hard of hearing. He is not able to talk although he does answer questions by gestures and seems to understand line of questioning. Patient was actually discharged from our hospital yesterday June 17, 2016. His hospitalization records extensively reviewed. According to ER report, patient arrived the rehabilitation facility/group home and was sent straight back to the hospital because the staff there realize that patient has tracheostomy. They stated that there is facility is not equipped to care for trach patients which was why they sent him back to the hospital. While in emergency room, her our ER case management has tried to work with the insurance company and explored options regarding placement of patient into a rehabilitation or group home facility. However she was unable to do so since it is late at night. Patient was therefore referred for hospital admission. In the meantime, patient also pulled out his PEG tube and was unable to be reinserted back. Review of Systems Poor historian. Difficult to obtain review of system. He would answer some questions by gestures although mostly fell asleep through our conversation. Past Family Social History Past Medical History Recent left traumatic subdural hemorrhage Recent episodes of hypotensionthought to be secondary to medications. Will need fine balance between control of BP for subdural hemorrhage and overmedication. 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 Per previous records, patient will likely be trach dependent for next few weeks Recent ventilator associated pneumoniastrepfinish course of ceftriaxone History of diabetes History of urinary retentionwas dependent on Moreno catheter in previous admission. Moreno was removed on June 12, 2016. History of UTI in previous admissionwas treated History of anemia Past Surgical History Cataract surgery Reported Medications Patient's medications listed in EMRreviewed Allergies: Coded Allergies: Contrast Media (Verified Allergy, Unknown, 06/17/16) Family History Unknown Social History None known. Patient was hospitalized here from May 17, 2016 to May. Physical Exam Vital Signs Vital Signs Date Time Temp Pulse Resp B/P Pulse Ox O2 Delivery O2 Flow Rate FiO2 06/17/16 23:32 94 18 114/57 97 Trach Collar 2 06/17/16 20:45 97 Trach Collar 21 06/17/16 20:31 82 18 06/17/16 19:41 98.5 82 18 148/69 94 Physical Exam GENERAL: This is a well-nourished, well-developed patient, in no apparent distress. SKIN: No rashes, ecchymoses or lesions. Cool and dry. HEAD: Atraumatic. Normocephalic. No temporal or scalp tenderness. EYES: No scleral icterus. No injection or drainage. ENT: Nose without bleeding, purulent drainage or septal hematoma. Airway patent. Tracheostomy site clean. NECK: Trachea midline. No JVD CARDIOVASCULAR: Regular rate and rhythm without murmurs, gallops, or rubs. RESPIRATORY: Clear to auscultation. Breath sounds equal bilaterally. No wheezes , rales, or rhonchi. GASTROINTESTINAL: Abdomen soft, non-tender, nondistended. No guarding. MUSCULOSKELETAL: Extremities without clubbing, cyanosis, or edema. No calf tenderness NEUROLOGICAL: Awake, seems alert, not talking. Status post tracheostomy. Laboratory Labs from yesterdayreviewed Assessment and Plan Problem List: (1) peg tube dislodgement Status: Acute (2) Tracheostomy care ICD Code: Z43.0 Status: Acute (3) Major neurocognitive disorder as late effect of traumatic brain injury with behavioral disturbance ICD Code: S06.9X9S Status: Acute Assessment and Plan 85 years old male with recent discharge from hospital yesterday June 17, 2016 to group home and was sent back to the hospital because of lack of facility at the group home for his trach care. Also pulled out PEG tube while in the emergency room. Impression: Unsafe discharge PEG tube dislodgement Hypertension Recent left traumatic subdural hemorrhage Recent episodes of hypotensionthought to be secondary to medications. Will need fine balance between control of BP for subdural hemorrhage and overmedication. 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 Per previous records, patient will likely be trach dependent for next few weeks Recent ventilator associated pneumoniastrepfinish course of ceftriaxone History of diabetes History of urinary retentionwas dependent on Moreno catheter in previous admission. Moreno was removed on June 12, 2016. History of UTI in previous admissionwas treated History of anemia Plan: Reviewed previous admission notes and management plans in detail. Resume medications. However hold off on tube feeding since patient pulled out his PEG tube. Per notes, patient was able to also get a tray and eat as tolerated by mouth. We'll monitor fingersticks and cover with sliding scale coverage. Hold long-acting insulin and oral hypoglycemics. GI consult for PEG tube placement Case management consult for placement Resume rest of his home medications DVT prophylaxisSCDs. Discussed Condition With Patient, ERphysician, ER nurse Rachel Magana MD Jun 18, 2016 01:24
[2016-06-18 07:07] LABS: AUTOMATED NEUTROPHIL # 8.3 TH/MM3 (1.8-7.7); BASOPHIL # 0.1 TH/MM3 (0-0.2); BASOPHIL % 0.7 % (0.0-2.0); EOSINOPHIL # 0.2 TH/MM3 (0-0.4); EOSINOPHIL % 1.6 % (0.0-4.0); HEMATOCRIT 26.1 % (39.0-51.0); HEMO FLAGS DIFF FINAL; LYMPH % 13.2 % (9.0-44.0); LYMPHOCYTE # 1.5 TH/MM3 (1.0-4.8); MEAN CORPUSCULAR HEMOGLOBIN 28.3 PG (27.0-34.0); MONO % 11.6 % (0.0-8.0); NEUT % 72.9 % (16.0-70.0); PLATELET COUNT 270 TH/MM3 (150-450); RED BLOOD COUNT 3.03 MIL/MM3 (4.50-5.90); RED CELL DISTRIBUTION WIDTH 14.7 % (11.6-17.2); WHITE BLOOD COUNT 11.4 TH/MM3 (4.0-11.0)
[2016-06-18] MEDS: METOCLOPRAMIDE HCL SYRUP 10 MG/10 ML UDC PO SCH ×3 (07:10→20:53)
[2016-06-18] MEDS: FREE WATER G-TUBE SCH ×3 (07:11→20:52)
[2016-06-18] MEDS ORDERED: LORazepam 2 MG/ML VIAL IV ONE (08:45)
[2016-06-18] MEDS ORDERED: METOPROLOL TARTRATE 5 MG/5 ML VIAL IV PUSH ONE (08:45)
[2016-06-18] MEDS: FAMOTIDINE 20 MG TAB NG SCH ×2 (09:00→20:52)
[2016-06-18] MEDS: ATORVASTATIN 20 MG TAB PO SCH (09:00)
[2016-06-18] MEDS ORDERED: INSULIN DETEMIR 100 UNITS/ML VIAL SQ SCH (09:00)
[2016-06-18] MEDS: BENEPROTEIN POWDER 1 PACK G-TUBE SCH ×3 (09:00→18:00)
[2016-06-18] MEDS: LACTULOSE SYRUP 20 GM/30 ML CUP PO SCH ×2 (09:00→20:52)
[2016-06-18] MEDS: THIAMINE HCL 100 MG TAB PO SCH (09:00)
[2016-06-18] MEDS: SODIUM CHLORIDE 0.9% FLUSH 5 ML FLUSH FLUSH SCH ×2 (09:27→20:47)
--- NOTE | 2016-06-18 10:12 | PD.CONS ---
HPI History of Present Illness This is a 85 year old male who was recently hospitalized from 05/17/16-06/17/16 for left sided subdural hemorrhage, traumatic subarachnoid bleed, and small frontal lobe contusion. During this hospitalization, he underwent a tracheostomy and gastrostomy tube placement for prolonged respiratory failure. He underwent EGD with PEG tube placement (06/06/16)-----> mild gastritis, gastric antrum, s/p peg. The consulting services project manager at that time recommended Glucerna 1.5 at 50cc/ hr. He was discharged to a nursing care facility yesterday, but sent back to the ER as they did not have anyone to care for him with his trach. GI was consulted for dislodged PEG tube. It is unclear exactly when this was dislodged , but it has already started to close and could not be reinserted and therefore GI has been asked to see the patient about placing a new PEG tube. The patient is nonverbal and unable to provide any history and therefore the history has been obtained from the EMR. The patient is currently tachycardic and tachypneic. His heart rate is tachycardic in the 130's and his RR is 32. His breath sounds are extremely diminished and his sats are 93% on 40% trach collar. Will get CXR and notify primary team. Will plan for EGD with PEG tube placement once his respiratory status improves. (Anita Bernard) PFSH Past Medical History Recent left traumatic subdural hemorrhage Respiratory failure/ventilator dependencecurrently status post tracheostomy. Recent ventilator associated pneumonia, Strep. DM Hx HTN, with recent hypotension. Dysphagia Past Surgical History Cataract surgery Tracheostomy placement EGD with peg tube placement (Anita Bernard) Coded Allergies: Contrast Media (Verified Allergy, Unknown, 06/17/16) Medications Allergies Coded Allergies Type Severity Reaction Last Updated Verified Contrast Media Allergy Unknown 06/17/16 Yes Active Scripts Medications Dose Route/Sig Days Date Category Heparin Sodium (Heparin Sodium (Porcine)) 10,000 Unit/Ml Inj 5,000 Units SQ Q12HR PRN 06/17/16 Rx Sterile Water For Injection (Sterile Water) 10 Ml Inj 100 Ml G-TUBE Q8HR 06/17/16 Rx Vitamin B-1 (Thiamine HCl) 100 Mg Tab 100 Mg PO DAILY 06/17/16 Rx Oxycodone Liq (Oxycodone HCl) 20 Mg/Ml Conc 5 Mg PO Q4H PRN 06/17/16 Rx Metoclopramide Liq (Metoclopramide HCl) 5 Mg/5 Ml Liq 10 Mg PO Q8HR 06/17/16 Rx Lisinopril 20 Mg Tab 20 Mg PO DAILY 06/17/16 Rx Lactulose Liq (Lactulose) 10 Gm/15 Ml Soln 30 Ml PO Q12H 06/17/16 Rx Levemir Inj (Insulin Detemir) 1,000 unit/ 10 ML Vial 6 Units SQ HS 06/17/16 Rx Levemir Inj (Insulin Detemir) 1,000 unit/ 10 ML Vial 12 Units SQ DAILY 06/17/16 Rx Folate (Folic Acid) 1 Mg Tab 1 Mg PO DAILY 06/17/16 Rx Famotidine 20 Mg Tab 20 Mg NG BID 06/17/16 Rx Amlodipine (Amlodipine Besylate) 5 Mg Tab 5 Mg PO DAILY 05/17/16 Reported Timolol Maleate 0.25 % Tia 1 Drop EACH EYE BID 12/02/14 Reported Multivitamins (Multiple Vitamin) Cap 12/02/14 Reported Lisinopril 40 mg (Lisinopril) 40 Mg Tab 1 Tab PO DAILY 12/02/14 Reported Glucophage 500 mg (Metformin HCl) 500 Mg Tab 500 Mg PO DAILY 12/02/14 Reported Lantus Solostar Pen (Insulin Glargine) 100 Units/Ml Pen 12 Units SQ BID 12/02/14 Reported Atorvastatin 20 mg tab (Atorvastatin Calcium) 20 Mg Tab 20 Mg PO DAILY 30 12/02/14 Reported Family History Unable to obtain Social History Unable to obtain (Anita Bernard) Review of Systems ROS Unable to obtain (Anita Bernard) GI Exam Vitals I&O Vital Signs Date Time Temp Pulse Resp B/P Pulse Ox O2 Delivery O2 Flow Rate FiO2 06/18/16 09:35 85 06/18/16 09:00 128 06/18/16 08:00 136 06/18/16 07:43 93 Trach Collar 2.00 06/18/16 07:41 97.8 126 26 139/86 93 06/18/16 07:12 115 06/18/16 06:01 102 06/18/16 05:01 110 06/18/16 04:01 108 06/18/16 03:24 105 06/18/16 03:24 98.2 104 18 109/45 91 06/18/16 02:01 96 06/18/16 01:01 101 06/18/16 00:30 103 18 128/67 96 06/18/16 00:30 94 06/17/16 23:32 94 18 114/57 97 Trach Collar 2 06/17/16 20:45 97 Trach Collar 21 06/17/16 20:31 82 18 06/17/16 19:41 98.5 82 18 148/69 94 I/O 06/17/16 06/17/16 06/17/16 06/18/16 06/18/16 06/18/16 07:00 15:00 23:00 07:00 15:00 23:00 Intake Total 0 ml Output Total 0 ml Balance 0 ml Intake Oral 0 ml Output Stool Total 0 ml # Voids 2 Laboratory Test 06/18/16 06:43 White Blood Count 11.4 TH/MM3 Red Blood Count 3.03 MIL/MM3 Hemoglobin 8.6 GM/DL Hematocrit 26.1 % Mean Corpuscular Volume 86.0 FL Mean Corpuscular Hemoglobin 28.3 PG Mean Corpuscular Hemoglobin 33.0 % Concent Red Cell Distribution Width 14.7 % Platelet Count 270 TH/MM3 Mean Platelet Volume 8.3 FL Neutrophils (%) (Auto) 72.9 % Lymphocytes (%) (Auto) 13.2 % Monocytes (%) (Auto) 11.6 % Eosinophils (%) (Auto) 1.6 % Basophils (%) (Auto) 0.7 % Neutrophils # (Auto) 8.3 TH/MM3 Lymphocytes # (Auto) 1.5 TH/MM3 Monocytes # (Auto) 1.3 TH/MM3 Eosinophils # (Auto) 0.2 TH/MM3 Basophils # (Auto) 0.1 TH/MM3 CBC Comment DIFF FINAL Differential Comment Sodium Level 138 MEQ/L Potassium Level 4.0 MEQ/L Chloride Level 101 MEQ/L Carbon Dioxide Level 30.0 MEQ/L Anion Gap 7 MEQ/L Blood Urea Nitrogen 15 MG/DL Creatinine 0.64 MG/DL Estimat Glomerular Filtration 118 ML/MIN Rate Random Glucose 76 MG/DL Calcium Level 8.3 MG/DL Physical Examination HEENT: Normocephalic; atraumatic; no jaundice. CHEST: Mild resp. distress, tachypneic 32, extremely diminished breath sounds, 40% trach collar, O2 sat 93%. CARDIAC: Regular, tachycardic 130's ABDOMEN: Soft, nondistended, nontender; no hepatosplenomegaly; bowel sounds are present in all four quadrants, healing peg tube site- small amount of redness EXTREMITIES: No clubbing, cyanosis, or edema. MOTOR RUNNER: Confused, nonverbal (Anita Bernard) Assessment and Plan Plan ASSESSMENT: - Dislodged PEG tube. Pt recently hospitalized from 05/17-06/17 for TBI with left sided sdh, traumatic sah, and small frontal lobe contusion and underwent tracheostomy, EGD with PEG tube placement (06/06/16)-----> mild gastritis, gastric antrum, s/p peg. The consulting services project manager at that time recommended Glucerna 1.5 at 50cc/hr. He was discharged yesterday and sent back as they did not have staff to care for the tracheostomy. - Respiratory failure with recent vent. associated pna, now tachypneic with extremely diminished breath sounds. CXR ordered, notified primary. - Tachycardia 130's, likely combination dehydration- peg tube out, not getting fluids at this time and resp. status. Notified primary. - Anemia, normocytic. 8.6/26.1. - Hx DM. Per primary. PLAN: - NPO for now. - CXR - Monitor labs - Will plan for egd with PEG tube placement once respiratory status stabilizes - Supportive care - Further recommendations to follow based on results of above - Pt seen and examined by Dr. Meade and myself and this note is written on her behalf (Anita Bernard) Physician Comments seen, examined agree with above patient will be evaluated by speech pathology in am if needed ngt can be inserted (Arlin Meade MD) Anita Bernard Jun 18, 2016 10:12 Arlin Meade MD Jun 18, 2016 18:35
[2016-06-18] MEDS: FOLIC ACID 1 MG TAB PO SCH (10:32)
[2016-06-18] MEDS: SODIUM CHLOR 0.9% 1000 ML INJ 1,000 ML IV SCH ×2 (10:33→20:53)
[2016-06-18] MEDS: TIMOLOL MALEATE 0.25% OPHT SOLN 5 ML BTL EACH EYE SCH ×2 (10:33→21:35)
--- NOTE | 2016-06-18 10:38 | RADRPT ---
EXAM DATE/TIME: 06/18/2016 10:01 [place] COMPARISON: CT THORAX W/O CONTRAST, June 07, 2016, 12:34. CHEST SINGLE AP, June 07, 2016, 10:47. INDICATIONS : Shortness of breath. MEDICAL HISTORY : Cardiovascular disease. Hypertension. Diabetes mellitus type 2. Renal disease. SURGICAL HISTORY : None. ENCOUNTER: Initial ACUITY: 1 day PAIN SCORE: Non-responsive. LOCATION: Bilateral chest FINDINGS: Single AP view of the chest. Tracheostomy tube remains in place. Left lung base opacity unchanged. Ca rdiomediastinal silhouette within normal limits. No evidence of pleural effusion or pneumothorax. Lety dence of old fractures at the proximal left humerus, left scapula, and left distal clavicle. CONCLUSION: Left lung base opacity likely representing a combination of atelectasis and small pleural effusion unchanged. Rashawn Parker MD on June 18, 2016 at 10:34 Board Certified Radiologist. This report was verified electronically.
--- NOTE | 2016-06-18 11:39 | HHI.PR ---
Addendum to Inpatient Note Additional Information pt has bveen agitated and tachycardic , pullued out his PEG D/W nurse and respiratory >>he will need to change trech plane consult pulmonary for shona israel CM to check on reason for rejecting pt by [facility] lopresor 5 mg iv q6h HR >110 consult GI for PEG replacement ativan 0.5 mg ivx1 for agitation restrain Lincoln Cross MD Jun 18, 2016 11:39
[2016-06-18] MEDS ORDERED: METOPROLOL TARTRATE 5 MG/5 ML VIAL IV PUSH PRN (11:45)
[2016-06-18] MEDS: DEXT 5%-NACL 0.9% 1000 ML INJ 1,000 ML IV SCH (12:59)
--- NOTE | 2016-06-18 13:53 | MB ---
cc: QUE GREY M.D., ARJUN D. MD DATE OF CONSULTATION: 06/18/2016. REASON FOR CONSULTATION: Respiratory failure status post tracheostomy. HISTORY OF PRESENT ILLNESS: Mr. Spann is an 85-year-old male previously hospitalized in April of this year with a subarachnoid bleed requiring intubation, mechanical ventilation and subsequent tracheostomy, stabilized and off ventilatory support and discharged to a half-way facility; however, he was not accepted because of his tracheostomy as well as PEG tube displacement. The patient was readmitted for same. GI as seen the patient and the plan is for replacing his PEG-tube are underway. His tracheostomy seems to be functional at this point. He is in no respiratory distress. The patient is nonverbal. No fever, no chills, no hemoptysis. PAST MEDICAL HISTORY: 1. A traumatic subarachnoid bleed as mentioned above. 2. Recent hospitalization requiring ventilatory support and tracheostomy. 3. History of hypertension. 4. Diabetes. 5. Previous cataract surgery. 6. PEG tube placement. ALLERGIES IV CONTRAST DYE. MEDICATIONS: 1. Metoclopramide. 2. Lisinopril. 3. Lactulose. 4. Levemir. 5. Folate. 6. Amlodipine. 7. Timolol. 8. Glucophage. 9. Atorvastatin. FAMILY HISTORY: Noncontributory. SOCIAL HISTORY: Does not smoke or drink. REVIEW OF SYSTEMS: A twelve-point review of systems is as per the history of present illness and past history, otherwise negative. PHYSICAL EXAMINATION: VITAL SIGNS: Temperature 98, pulse 90, respirations 18, blood pressure 05/19/1961, oxygen saturation 96% on 5 liters oxygen nasal cannula. HEAD, EYES, EARS, NOSE, THROAT: Exam unremarkable. Eyes without icterus. NECK: Without adenopathy, thyroid enlargement, central trachea. CHEST: No dullness to percussion. Clear to auscultation. CARDIAC: PMI distant. S1-S2 audible. No murmur, no rub. ABDOMEN: Lax. Bowel sounds audible. EXTREMITIES: No cyanosis, clubbing or edema. SKIN: Normal. LYMPHATIC: No lymphadenopathy. IMPRESSION: 1. Traumatic subarachnoid bleed. 2. Status post tracheostomy. 3. Diabetes mellitus. 4. Hypertension. PLAN: The patient seems to be doing well from a pulmonary standpoint. His chest x-ray upon presentation shows minor atelectatic change at the right lung base and probably a small pleural effusion. This will be followed. His tracheostomy will be changed and cleaned as needed. GI to see the patient for replacement of his PEG-tube. His prognosis is poor given his multiple medical problems as outlined. He has been seen by Dr. Murguia in the past who will follow up his care. Que Grey MD WWW/LINDSAY /1:18 PM /1:38 PM
[2016-06-18] MEDS: INSULIN DETEMIR 100 UNITS/ML VIAL SQ SCH (20:47)
[2016-06-19] VITALS (29 sets, daily range): BP systolic 137–167; BP diastolic 70–90; PULSE 65–110; RESP 18–20; TEMP 97.8–99.3; O2SAT 92–98
[2016-06-19] MEDS: DEXT 5%-NACL 0.9% 1000 ML INJ 1,000 ML IV SCH ×2 (03:35→21:53)
[2016-06-19] MEDS: FREE WATER G-TUBE SCH ×3 (03:36→21:53)
[2016-06-19] MEDS: METOCLOPRAMIDE HCL SYRUP 10 MG/10 ML UDC PO SCH ×3 (03:37→21:53)
[2016-06-19] MEDS: THIAMINE HCL 100 MG TAB PO SCH (09:00)
[2016-06-19] MEDS: BENEPROTEIN POWDER 1 PACK G-TUBE SCH ×3 (09:00→18:00)
[2016-06-19] MEDS: FAMOTIDINE 20 MG TAB NG SCH ×2 (09:00→21:00)
[2016-06-19] MEDS: LACTULOSE SYRUP 20 GM/30 ML CUP PO SCH ×2 (09:00→21:00)
[2016-06-19] MEDS: SODIUM CHLORIDE 0.9% FLUSH 5 ML FLUSH FLUSH SCH ×2 (09:00→21:52)
[2016-06-19] MEDS: FOLIC ACID 1 MG TAB PO SCH (09:00)
[2016-06-19] MEDS: ATORVASTATIN 20 MG TAB PO SCH (09:00)
[2016-06-19] MEDS: TIMOLOL MALEATE 0.25% OPHT SOLN 5 ML BTL EACH EYE SCH ×2 (10:33→21:52)
--- NOTE | 2016-06-19 11:35 | HHI.GIFU ---
Subjective Remarks Resting in bed. No distress. Nurse reports that patient received tray with TF this am and had coughing with this. ST was in and recommended re-evaluation after trach size changed. Family reports that he was taking small bites of grits and mashed potatoes prior to this admission, but it does not sound like he was eating a full meal. Family would like to wait for speech therapy's reevaluation prior to deciding about PEG tube. (Anita Bernard) Objective Vitals I&O Vital Signs Date Time Temp Pulse Resp B/P Pulse Ox O2 Delivery O2 Flow Rate FiO2 06/19/16 10:03 110 06/19/16 09:40 74 06/19/16 08:40 97 06/19/16 07:46 98.4 101 20 153/71 94 06/19/16 07:46 94 T-Piece 4.00 28 06/19/16 07:30 101 06/19/16 06:00 92 06/19/16 05:00 90 06/19/16 04:00 104 06/19/16 03:46 97 19 137/70 94 06/19/16 03:00 97 06/19/16 02:00 74 06/19/16 01:00 86 06/19/16 00:00 80 06/18/16 23:37 96 16 134/69 95 06/18/16 23:00 102 06/18/16 22:07 96 T-Piece 5.00 28 06/18/16 22:00 96 06/18/16 21:00 90 06/18/16 20:00 74 06/18/16 19:00 98.7 78 16 118/70 96 06/18/16 19:00 89 06/18/16 18:10 96 T-piece 6.00 28 06/18/16 18:05 91 06/18/16 17:00 92 06/18/16 16:20 90 06/18/16 15:56 100 20 149/68 96 06/18/16 15:10 97 06/18/16 14:14 98 06/18/16 13:15 103 06/18/16 12:13 98 06/18/16 12:07 98.3 98 20 126/57 96 06/18/16 12:07 96 T-Piece 5.00 28 I/O 2/06/18/16 06/18/16 06/19/16 06/19/16 06/19/16 07:00 15:00 23:00 07:00 15:00 23:00 Intake Total 0 ml 454 ml 720 ml Output Total 0 ml 300 ml Balance 0 ml 454 ml 420 ml Intake Oral 0 ml IV Total 454 ml 720 ml Output Urine Total 300 ml Stool Total 0 ml 0 ml # Voids 2 1 Imaging Last Impressions Chest X-Ray 06/18/16 0000 Signed Impressions: Service Date/Time: Saturday, June 18, 2016 10:01 - CONCLUSION: Left lung base opacity likely representing a combination of atelectasis and small pleural effusion unchanged. Rashawn Parker MD Physical Exam HEENT: Normocephalic; atraumatic; no jaundice. NECK: Tracheostomy CHEST: Scattered rhonchi, trach collar CARDIAC: RRR ABDOMEN: Soft, nondistended, nontender; no hepatosplenomegaly; bowel sounds are present in all four quadrants. EXTREMITIES: BLE edema. SKIN: Normal; no rash; no jaundice. SLICE PLUG CUTTER OPERATOR: No focal deficits; Lethargic, awake. [place] (Anita Bernard) Assessment and Plan Plan ASSESSMENT: - Dislodged PEG tube. Pt recently hospitalized from 05/17-06/17 for TBI with left sided sdh, traumatic sah, and small frontal lobe contusion and underwent tracheostomy, EGD with PEG tube placement (06/06/16)-----> mild gastritis, gastric antrum, s/p peg. The illuminator at that time recommended Glucerna 1.5 at 50cc/hr. GI was consulted for PEG tube being dislodged. Yesterday, he was having some mild resp. distress and therefore this was not scheduled. He is doing better today clinically. ST was in and saw patient, he had coughing with po intake but wanted to reassess after the trach was changed to see if he still had coughing. He was eating small amounts of po prior to this hospitalization. Family would like to wait for ST recommendations before planning for PEG. Will await their recommendations and asked nurse to call after ST reevaluated. - Respiratory failure with recent vent. associated pna, improved - Tachycardia, improved - Anemia, normocytic. 8.6/26.1 yesterday. - Hx DM. Per primary. PLAN: - NPO for now. - Await ST evaluation - Monitor labs - Supportive care - Further recommendations to follow based on results of above - Likely will need EGD with PEG tube placement, family would like to wait until seen by ST - Pt seen and examined by Dr. Bhat and myself and this note is written on his behalf (Anita Bernard) Physician Comments agree with above note, failed swallow evaluation, plan EGD with PEG in am ( Alexx Bhat MD) Anita Bernard Jun 19, 2016 11:35 Alexx Bhat MD Jun 19, 2016 19:10
--- NOTE | 2016-06-19 13:57 | HHI.PR ---
Subjective Remarks Patient more awake and alert today, his family and the jalousies installer was at the bedside today Is being seen by pulmonology and GI, plan for PEG tube change tomorrow I discussed with the family will need better plan for discharge to rehabilitation and [facility] this time No fever or chills or short of breath or chest pain, PEG tube has been replaced and downsized Objective Vitals Vital Signs Date Time Temp Pulse Resp B/P Pulse Ox O2 Delivery O2 Flow Rate FiO2 06/19/16 13:29 94 T-piece 28 06/19/16 13:04 110 06/19/16 12:19 97 06/19/16 11:00 94 06/19/16 10:03 110 06/19/16 09:40 74 06/19/16 08:40 97 06/19/16 07:46 98.4 101 20 153/71 94 06/19/16 07:46 94 T-Piece 4.00 28 06/19/16 07:30 101 06/19/16 06:00 92 06/19/16 05:00 90 06/19/16 04:00 104 06/19/16 03:46 97 19 137/70 94 06/19/16 03:00 97 06/19/16 02:00 74 06/19/16 01:00 86 06/19/16 00:00 80 06/18/16 23:37 96 16 134/69 95 06/18/16 23:00 102 06/18/16 22:07 96 T-Piece 5.00 28 06/18/16 22:00 96 06/18/16 21:00 90 06/18/16 20:00 74 06/18/16 19:00 98.7 78 16 118/70 96 06/18/16 19:00 89 06/18/16 18:10 96 T-piece 6.00 28 06/18/16 18:05 91 06/18/16 17:00 92 06/18/16 16:20 90 06/18/16 15:56 100 20 149/68 96 06/18/16 15:10 97 06/18/16 14:14 98 I/O 06/18/16 06/18/16 06/18/16 06/19/16 06/19/16 06/19/16 07:00 15:00 23:00 07:00 15:00 23:00 Intake Total 0 ml 454 ml 720 ml Output Total 0 ml 300 ml Balance 0 ml 454 ml 420 ml Intake Oral 0 ml IV Total 454 ml 720 ml Output Urine Total 300 ml Stool Total 0 ml 0 ml # Voids 2 1 Result Diagram: 06/18/1643 06/18/16 0643 Objective Remarks GENERAL: This is a well-nourished, well-developed patient, in no apparent distress. SKIN: No rashes, warm and dry HEAD: Atraumatic. Normocephalic. EYES: Pupils equal round and reactive. Extraocular motions intact. No scleral icterus. ENT: Nose without bleeding, or drainage, Airway patent. NECK: Trachea midline. Supple, trach in place CARDIOVASCULAR: Regular rate and rhythm without murmurs, gallops, or rubs. RESPIRATORY: Fair air entry bilaterally. No wheezes, rales, or rhonchi. GASTROINTESTINAL: Abdomen soft, non-tender, nondistended. Positive bowel sounds MUSCULOSKELETAL: Extremities without clubbing, cyanosis, or edema. Pedal pulses appreciated NEUROLOGICAL: Awake and alert. Moves all extremity. A/P Problem List: (1) peg tube dislodgement Status: Acute (2) Tracheostomy care ICD Code: Z43.0 Status: Acute (3) Major neurocognitive disorder as late effect of traumatic brain injury with behavioral disturbance ICD Code: S06.9X9S Status: Acute Assessment and Plan Unsafe discharge(returned from rehabilitation facility due to not being able to accept trach) PEG tube dislodgement Hypertension Recent left traumatic subdural hemorrhage Recent episodes of hypotensionthought to be secondary to medications. Will need fine balance between control of BP for subdural hemorrhage and overmedication. 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 Per previous records, patient will likely be trach dependent for next few weeks Recent ventilator associated pneumoniastrepfinish course of ceftriaxone History of diabetes mellitus History of urinary retentionwas dependent on Moreno catheter in previous admission. Moreno was removed on June 12, 2016. History of UTI in previous admissionwas treated History of anemia Plan: .Plan For EGD and PEG tube tomorrow Appreciate GI and pulmonary consultation Trach has been downsized Discussed with family, case assembler for arrangement for rehabilitation after done with PEG tube Accu-Chek with sliding scale Hold long-acting insulin and oral hypoglycemics. Resume rest of his home medications DVT prophylaxisSCDs. Lincoln Hopkins MD Jun 19, 2016 13:57
--- NOTE | 2016-06-19 14:45 | EKG ---
Date Performed: 06/18/2016 Time Performed: 07:29:52 PTAGE: 85 years EKG: Sinus tachycardia with frequent PVCs Left axis deviation Poor R wave progression - probable normal variant Anterolateral ST changes suggest myocardial injury/ischemia Abnormal ECG PREVIOUS TRACING : 06/14/2016 16.04 DOCTOR: Yogi Shi Interpretating Date/Time 06/19/2016 14:38:03
[2016-06-19] MEDS: SODIUM CHLOR 0.9% 1000 ML INJ 1,000 ML IV SCH (14:51)
--- NOTE | 2016-06-19 17:21 | HHI.PR ---
Subjective Remarks IC BLEED S/P TRACHEOSTOMY NO SOB Objective Vital Signs Date Time Temp Pulse Resp B/P Pulse Ox O2 Delivery O2 Flow Rate FiO2 06/19/16 16:20 77 06/19/16 15:37 97 T-Piece 4.00 28 06/19/16 15:37 97.8 80 20 150/78 97 06/19/16 15:07 80 06/19/16 14:08 93 06/19/16 13:57 99.3 99 18 167/78 95 06/19/16 13:29 94 T-piece 28 06/19/16 13:04 110 06/19/16 12:19 97 06/19/16 11:00 94 06/19/16 10:03 110 06/19/16 09:40 74 06/19/16 08:40 97 06/19/16 07:46 98.4 101 20 153/71 94 06/19/16 07:46 94 T-Piece 4.00 28 06/19/16 07:30 101 06/19/16 06:00 92 06/19/16 05:00 90 06/19/16 04:00 104 06/19/16 03:46 97 19 137/70 94 06/19/16 03:00 97 06/19/16 02:00 74 06/19/16 01:00 86 06/19/16 00:00 80 06/18/16 23:37 96 16 134/69 95 06/18/16 23:00 102 06/18/16 22:07 96 T-Piece 5.00 28 06/18/16 22:00 96 06/18/16 21:00 90 06/18/16 20:00 74 06/18/16 19:00 98.7 78 16 118/70 96 06/18/16 19:00 89 06/18/16 18:10 96 T-piece 6.00 28 06/18/16 18:05 91 I/O 06/18/16 06/18/16 06/18/16 06/19/16 06/19/16 06/19/16 07:00 15:00 23:00 07:00 15:00 23:00 Intake Total 0 ml 454 ml 720 ml Output Total 0 ml 300 ml Balance 0 ml 454 ml 420 ml Intake Oral 0 ml IV Total 454 ml 720 ml Output Urine Total 300 ml Stool Total 0 ml 0 ml # Voids 2 1 Result Diagram: 06/18/16 0643 06/18/1643 Objective Remarks GENERAL: SKIN: Warm and dry. HEAD: Atraumatic. Normocephalic. EYES: Pupils equal and round. No scleral icterus. No injection or drainage. ENT: No nasal bleeding or discharge. Mucous membranes pink and moist. NECK: Trachea midline. No JVD. CARDIOVASCULAR: Regular rate and rhythm. RESPIRATORY: No accessory muscle use. Clear to auscultation. Breath sounds equal bilaterally. GASTROINTESTINAL: Abdomen soft, non-tender, nondistended. Hepatic and splenic margins not palpable. MUSCULOSKELETAL: Extremities without clubbing, cyanosis, or edema. No obvious deformities. NEUROLOGICAL: Awake and alert. No obvious cranial nerve deficits. Motor grossly within normal limits. Five out of 5 muscle strength in the arms and legs. Normal speech. PSYCHIATRIC: Appropriate mood and affect; insight and judgment normal. Assessment and Plan Assessment and Plan S/P TRACHEOSTOMY NO DISTRESS IC BLEED , RESOLVED PLANTRACH CARE INCREASE ACTIVITY Que Grey MD Jun 19, 2016 17:21
[2016-06-19] MEDS: INSULIN DETEMIR 100 UNITS/ML VIAL SQ SCH (22:09)
[2016-06-20] VITALS (28 sets, daily range): BP systolic 128–164; BP diastolic 62–85; PULSE 72–127; RESP 14–24; TEMP 98.9–99.4; O2SAT 92–96
[2016-06-20] MEDS: SODIUM CHLOR 0.9% 1000 ML INJ 1,000 ML IV SCH (05:09)
[2016-06-20] MEDS: FREE WATER G-TUBE SCH ×3 (06:00→22:00)
[2016-06-20] MEDS: METOCLOPRAMIDE HCL SYRUP 10 MG/10 ML UDC PO SCH ×3 (06:00→22:00)
[2016-06-20] MEDS: TIMOLOL MALEATE 0.25% OPHT SOLN 5 ML BTL EACH EYE SCH ×2 (08:38→21:00)
[2016-06-20] MEDS: FOLIC ACID 1 MG TAB PO SCH (09:00)
[2016-06-20] MEDS: SODIUM CHLORIDE 0.9% FLUSH 5 ML FLUSH FLUSH SCH ×2 (09:00→21:00)
[2016-06-20] MEDS ORDERED: PROT6POW G-TUBE (10:59)
[2016-06-20] MEDS: BENEPROTEIN POWDER 1 PACK G-TUBE SCH ×2 (13:00→18:00)
[2016-06-20] MEDS ORDERED: ceFAZolin INJ 1,000 MG VIAL IV ONE (13:12)
--- NOTE | 2016-06-20 14:23 | HHI.PR ---
Subjective Remarks Patient just had PEG tube inserted Doing well stable, I met earlier with the family in the room, mostly discharged to rehabilitation once arrangement is done and the tube is functional Objective Vitals Vital Signs Date Time Temp Pulse Resp B/P Pulse Ox O2 Delivery O2 Flow Rate FiO2 06/20/16 12:00 16 06/20/16 11:24 99.4 93 18 128/82 92 06/20/16 09:52 92 T-piece 21 06/20/16 09:15 72 06/20/16 08:30 106 06/20/16 07:45 99.4 93 18 128/82 92 06/20/16 07:45 96 T-Piece 5.00 28 06/20/16 07:30 96 06/20/16 07:29 87 06/20/16 07:20 99.4 93 14 128/82 92 06/20/16 07:20 99.4 93 14 128/82 92 06/20/16 06:00 103 06/20/16 05:00 72 06/20/16 04:00 87 06/20/16 03:00 98.9 98 21 164/85 96 06/20/16 03:00 103 06/20/16 01:00 102 06/20/16 00:00 95 06/19/16 23:00 85 06/19/16 23:00 99.0 105 18 149/90 95 06/19/16 22:00 93 06/19/16 21:42 98 T-piece 6.00 28 06/19/16 20:00 91 06/19/16 19:00 99.2 97 20 152/77 92 06/19/16 19:00 104 06/19/16 19:00 92 T-Piece 4.00 28 06/19/16 18:22 99 06/19/16 17:20 79 06/19/16 16:20 77 06/19/16 15:37 97 T-Piece 4.00 28 06/19/16 15:37 97.8 80 20 150/78 97 06/19/16 15:07 80 06/19/16 14:08 93 I/O 06/19/16 06/19/16 06/19/16 06/20/16 06/20/16 06/20/16 07:00 15:00 23:00 07:00 15:00 23:00 Intake Total 720 ml 648 ml 537 ml Output Total 300 ml 250 ml 450 ml 275 ml Balance 420 ml 398 ml 87 ml -275 ml Intake Oral 0 ml IV Total 720 ml 648 ml 537 ml Output Urine Total 300 ml 250 ml 450 ml 275 ml Stool Total 0 ml # Voids 1 2 3 # Bowel Movements 0 Result Diagram: 06/18/16 0643 06/18/16 0643 Objective Remarks GENERAL: This is a well-nourished, well-developed patient, in no apparent distress. SKIN: No rashes, warm and dry HEAD: Atraumatic. Normocephalic. EYES: Pupils equal round and reactive. Extraocular motions intact. No scleral icterus. ENT: Nose without bleeding, or drainage, Airway patent. NECK: Trachea midline. Supple, trach in place CARDIOVASCULAR: Regular rate and rhythm without murmurs, gallops, or rubs. RESPIRATORY: Fair air entry bilaterally. No wheezes, rales, or rhonchi. GASTROINTESTINAL: Abdomen soft, non-tender, nondistended. Positive bowel sounds MUSCULOSKELETAL: Extremities without clubbing, cyanosis, or edema. Pedal pulses appreciated NEUROLOGICAL: Awake and alert. Moves all extremity. A/P Problem List: (1) peg tube dislodgement Status: Acute (2) Tracheostomy care ICD Code: Z43.0 Status: Acute (3) Major neurocognitive disorder as late effect of traumatic brain injury with behavioral disturbance ICD Code: S06.9X9S Status: Acute Assessment and Plan Unsafe discharge(returned from rehabilitation facility due to not being able to accept trach) PEG tube dislodgement Hypertension Recent left traumatic subdural hemorrhage Recent episodes of hypotensionthought to be secondary to medications. Will need fine balance between control of BP for subdural hemorrhage and overmedication. 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 Per previous records, patient will likely be trach dependent for next few weeks Recent ventilator associated pneumoniastrepfinish course of ceftriaxone History of diabetes mellitus History of urinary retentionwas dependent on Moreno catheter in previous admission. Moreno was removed on June 12, 2016. History of UTI in previous admissionwas treated History of anemia Plan: Status post EGD and PEG tube 06/20 Appreciate GI and pulmonary consultation Trach has been downsized Discussed with family, case management assistant for arrangement for rehabilitation after done with PEG tube Accu-Chek with sliding scale Hold long-acting insulin and oral hypoglycemics. Resume rest of his home medications DVT prophylaxisSCDs. Discharge later today to SNF once PEG tube is functional and arrangement is not Discharge Planning today or tomorrow to rehab Lincoln Hopkins MD Jun 20, 2016 14:23
--- NOTE | 2016-06-20 14:24 | HHI.DS ---
Discharge Summary Admission Date Jun 17, 2016 at 19:53 Discharge Date: Jun 21, 2016 Admitting Diagnosis h/o bleed, trach (1) peg tube dislodgement (2) Tracheostomy care ICD Code: Z43.0 (3) Major neurocognitive disorder as late effect of traumatic brain injury with behavioral disturbance ICD Code: S06.9X9S Procedures EGD & PEG tube Brief History - From Admission History from ER physician, and review of medical records. Patient himself is a elderly gentleman who suffered from recent traumatic brain injury with subdural hemorrhage. He is currently trach dependent and is hard of hearing. He is not able to talk although he does answer questions by gestures and seems to understand line of questioning. Patient was actually discharged from our hospital yesterday June 17, 2016. His hospitalization records extensively reviewed. According to ER report, patient arrived the rehabilitation facility/assisted and was sent straight back to the hospital because the staff there realize that patient has tracheostomy. They stated that there is facility is not equipped to care for trach patients which was why they sent him back to the hospital. While in emergency room, her our ER case management has tried to work with the insurance company and explored options regarding placement of patient into a rehabilitation or assisted facility. However she was unable to do so since it is late at night. Patient was therefore referred for hospital admission. In the meantime, patient also pulled out his PEG tube and was unable to be reinserted back. CBC/BMP: 06/18/16 0643 06/18/16 0643 Significant Findings Laboratory Tests Test 06/18/16 06:43 White Blood Count 11.4 TH/MM3 (4.0-11.0) Red Blood Count 3.03 MIL/MM3 (4.50-5.90) Hemoglobin 8.6 GM/DL (13.0-17.0) Hematocrit 26.1 % (39.0-51.0) Neutrophils (%) (Auto) 72.9 % (16.0-70.0) Monocytes (%) (Auto) 11.6 % (0.0-8.0) Neutrophils # (Auto) 8.3 TH/MM3 (1.8-7.7) Monocytes # (Auto) 1.3 TH/MM3 (0-0.9) Calcium Level 8.3 MG/DL (8.5-10.1) PE at Discharge GENERAL: This is a well-nourished, well-developed patient, in no apparent distress. SKIN: No rashes, warm and dry HEAD: Atraumatic. Normocephalic. EYES: Pupils equal round and reactive. Extraocular motions intact. No scleral icterus. ENT: Nose without bleeding, or drainage, Airway patent. NECK: Trachea midline. Supple, trach in place CARDIOVASCULAR: Regular rate and rhythm without murmurs, gallops, or rubs. RESPIRATORY: Fair air entry bilaterally. No wheezes, rales, or rhonchi. GASTROINTESTINAL: Abdomen soft, non-tender, nondistended. Positive bowel sounds MUSCULOSKELETAL: Extremities without clubbing, cyanosis, or edema. Pedal pulses appreciated NEUROLOGICAL: Awake and alert. Moves all extremity. Hospital Course Unsafe discharge(returned from rehabilitation facility due to not being able to accept trach) PEG tube dislodgement Hypertension Recent left traumatic subdural hemorrhage Recent episodes of hypotensionthought to be secondary to medications. Will need fine balance between control of BP for subdural hemorrhage and overmedication. 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 Per previous records, patient will likely be trach dependent for next few weeks Recent ventilator associated pneumoniastrepfinish course of ceftriaxone History of diabetes mellitus History of urinary retentionwas dependent on Moreno catheter in previous admission. Moreno was removed on June 12, 2016. History of UTI in previous admissionwas treated History of anemia Plan: Status post EGD and PEG tube 06/20 Appreciate GI and pulmonary consultation Trach has been downsized Discussed with family, correctional counselor/case manager for arrangement for rehabilitation after done with PEG tube Accu-Chek with sliding scale Hold long-acting insulin and oral hypoglycemics. Resume rest of his home medications DVT prophylaxisSCDs. [id number] encounter performed with the patient on discharge day, as well as physical exam, summary of hospitalization course and postdischarge plan has been D/W the patient. D/W nurse D/W correctional counselor/case manager. Discharge medications reviewed and printed and signed, post discharge follow up visit with PCP and other specialist as well as Brief hospital course and discharge summary has been placed. Pt Condition on Discharge: Stable Discharge Disposition: Discharge to SNF Discharge Time: > 30 minutes Discharge Instructions DIET: Follow Instructions for: On Tube Feeding Activities you can perform: See Additionl Instruction Other Activity Instructions: per PEG tube New Medications: Protein (Beneprotein) 6 Gm Pow 1 PACK G-TUBE TID nutr Days 30 UNITS Continued Medications: Amlodipine (Amlodipine) 5 Mg Tab 5 MG PO DAILY Blood Pressure Management #30 Ref 0 TAB Atorvastatin 20 mg (Atorvastatin 20 mg tab) 20 Mg Tab 20 MG PO DAILY Days 30 TAB Famotidine (Famotidine) 20 Mg Tab 20 MG NG BID gi #60 TAB Folic Acid (Folate) 1 Mg Tab 1 MG PO DAILY vit #30 TAB Heparin Sodium (Porcine) (Heparin Sodium) 10,000 Unit/Ml Inj 5000 UNITS SQ Q12HR PRN dvt proph #20 INJECTION Insulin Detemir Inj (Levemir Inj) 1,000 unit/ 10 ML Vial 12 UNITS SQ DAILY dm #30 INJECTION Insulin Detemir Inj (Levemir Inj) 1,000 unit/ 10 ML Vial 6 UNITS SQ HS dm #30 INJECTION Lactulose Liq (Lactulose Liq) 10 Gm/15 Ml Soln 30 ML PO Q12H cms #60 ML Lisinopril (Lisinopril) 20 Mg Tab 20 MG PO DAILY htn #30 TAB Metformin 500 mg (Glucophage 500 mg) 500 Mg Tab 500 MG PO DAILY TAB Metoclopramide Liq (Metoclopramide Liq) 5 Mg/5 Ml Liq 10 MG PO Q8HR gi #60 ML Multiple Vitamin (Multivitamins) Cap Oxycodone Liq (Oxycodone Liq) 20 Mg/Ml Conc 5 MG PO Q4H PRN pain 1-7 #25 ML Thiamine (Vitamin B-1) 100 Mg Tab 100 MG PO DAILY vit #30 TAB Timolol Maleate (Ophth) (Timolol Maleate) 0.25 % Kanika 1 DROP EACH EYE BID KANIKA Water Sterile Inj (Sterile Water For Injection) 10 Ml Inj 100 ML G-TUBE Q8HR . #90 INJECTION Lincoln Hopkins MD Jun 20, 2016 14:24
[2016-06-20] MEDS ORDERED: PROPOFOL 200 MG/20 ML AMP IV ONE (15:17)
--- NOTE | 2016-06-20 16:42 | HHI.PR ---
Subjective Remarks IC BLEED S/P TRACHEOSTOMY NO SOB Objective Vital Signs Date Time Temp Pulse Resp B/P Pulse Ox O2 Delivery O2 Flow Rate FiO2 06/20/16 16:37 99.1 99 20 141/62 93 06/20/16 16:31 100 06/20/16 15:25 96 06/20/16 14:16 99.4 90 18 161/80 96 06/20/16 14:15 89 06/20/16 13:39 73 16 157/89 96 06/20/16 13:34 72 16 161/67 97 06/20/16 13:27 99.2 70 16 155/69 98 06/20/16 12:00 16 06/20/16 11:24 99.4 93 18 128/82 92 06/20/16 09:52 92 T-piece 21 06/20/16 09:15 72 06/20/16 08:30 106 06/20/16 07:45 99.4 93 18 128/82 92 06/20/16 07:45 96 T-Piece 5.00 06/20/16 07:30 96 06/20/16 07:29 87 06/20/16 07:20 99.4 93 14 128/82 92 06/20/16 07:20 99.4 93 14 128/82 92 06/20/16 06:00 103 06/20/16 05:00 72 06/20/16 04:00 87 06/20/16 03:00 98.9 98 21 164/85 96 06/20/16 03:00 103 06/20/16 01:00 102 06/20/16 00:00 95 06/19/16 23:00 85 06/19/16 23:00 99.0 105 18 149/90 95 06/19/16 22:00 93 06/19/16 21:42 98 T-piece 6.00 28 06/19/16 20:00 91 06/19/16 19:00 99.2 97 20 152/77 92 06/19/16 19:00 104 06/19/16 19:00 92 T-Piece 4.00 06/19/16 18:22 99 06/19/16 17:20 79 I/O 06/19/16 06/19/16 06/19/16 06/20/16 06/20/16 06/20/16 07:00 15:00 23:00 07:00 15:00 23:00 Intake Total 720 ml 648 ml 537 ml 100 ml Output Total 300 ml 250 ml 450 ml 275 ml Balance 420 ml 398 ml 87 ml -175 ml Intake Oral 0 ml IV Total 720 ml 648 ml 537 ml 100 ml Output Urine Total 300 ml 250 ml 450 ml 275 ml Stool Total 0 ml # Voids 1 2 3 # Bowel Movements 0 Result Diagram: 06/18/1643 06/18/16642 Objective Remarks GENERAL: SKIN: Warm and dry. HEAD: Atraumatic. Normocephalic. EYES: Pupils equal and round. No scleral icterus. No injection or drainage. ENT: No nasal bleeding or discharge. Mucous membranes pink and moist. NECK: Trachea midline. No JVD. CARDIOVASCULAR: Regular rate and rhythm. RESPIRATORY: No accessory muscle use. Clear to auscultation. Breath sounds equal bilaterally. GASTROINTESTINAL: Abdomen soft, non-tender, nondistended. Hepatic and splenic margins not palpable. MUSCULOSKELETAL: Extremities without clubbing, cyanosis, or edema. No obvious deformities. NEUROLOGICAL: Awake and alert. No obvious cranial nerve deficits. Motor grossly within normal limits. Five out of 5 muscle strength in the arms and legs. Normal speech. PSYCHIATRIC: Appropriate mood and affect; insight and judgment normal. Assessment and Plan Assessment and Plan S/P TRACHEOSTOMY NO DISTRESS IC BLEED , RESOLVED PLANTRACH CARE INCREASE ACTIVITY Que Grey MD Jun 20, 2016 16:42
[2016-06-20] MEDS: LACTULOSE SYRUP 20 GM/30 ML CUP PO SCH (21:00)
[2016-06-20] MEDS: FAMOTIDINE 20 MG TAB NG SCH (21:00)
[2016-06-20] MEDS: INSULIN DETEMIR 100 UNITS/ML VIAL SQ SCH (21:00)
[2016-06-21] VITALS (27 sets, daily range): BP systolic 124–147; BP diastolic 63–71; PULSE 98–121; RESP 17–22; TEMP 98.9–99.8; O2SAT 94–98
[2016-06-21] MEDS: FREE WATER G-TUBE SCH ×2 (06:00→14:00)
[2016-06-21] MEDS: METOCLOPRAMIDE HCL SYRUP 10 MG/10 ML UDC PO SCH ×2 (06:00→14:12)
[2016-06-21] MEDS: DEXT 5%-NACL 0.9% 1000 ML INJ 1,000 ML IV SCH (06:40)
[2016-06-21] MEDS: ATORVASTATIN 20 MG TAB PO SCH ×3 (09:00→09:33)
[2016-06-21] MEDS: THIAMINE HCL 100 MG TAB PO SCH ×3 (09:00→09:33)
[2016-06-21] MEDS: BENEPROTEIN POWDER 1 PACK G-TUBE SCH ×3 (09:00→18:00)
[2016-06-21] MEDS: FAMOTIDINE 20 MG TAB NG SCH (09:31)
[2016-06-21] MEDS: LACTULOSE SYRUP 20 GM/30 ML CUP PO SCH (09:31)
[2016-06-21] MEDS: SODIUM CHLORIDE 0.9% FLUSH 5 ML FLUSH FLUSH SCH (09:31)
[2016-06-21] MEDS: FOLIC ACID 1 MG TAB PO SCH (09:31)
[2016-06-21] MEDS: TIMOLOL MALEATE 0.25% OPHT SOLN 5 ML BTL EACH EYE SCH (09:32)
[2016-06-21] MEDS: SODIUM CHLOR 0.9% 1000 ML INJ 1,000 ML IV SCH (09:45)
--- NOTE | 2016-06-21 15:23 | HHI.GIFU ---
Subjective Remarks Resting in bed. Tolerating TF. No distress. Objective Vitals I&O Vital Signs Date Time Temp Pulse Resp B/P Pulse Ox O2 Delivery O2 Flow Rate FiO2 06/21/16 14:00 108 06/21/16 13:00 98 06/21/16 12:50 99.5 102 17 140/71 96 06/21/16 12:00 98 06/21/16 11:00 100 06/21/16 10:00 108 06/21/16 09:30 110 06/21/16 09:17 99.4 113 22 124/71 94 06/21/16 09:00 105 06/21/16 08:30 121 06/21/16 08:00 105 06/21/16 07:35 99.8 102 19 129/63 98 06/21/16 07:33 97 T-piece 6.00 28 06/21/16 07:30 105 06/21/16 07:00 96 Trach Collar 5.00 28 06/21/16 07:00 113 06/21/16 06:00 103 06/21/16 05:00 102 06/21/16 04:00 106 06/21/16 03:00 110 06/21/16 02:00 102 06/21/16 01:00 104 06/21/16 00:00 118 06/20/16 23:00 98.9 103 22 135/75 95 06/20/16 23:00 127 06/20/16 22:00 106 06/20/16 21:00 106 06/20/16 20:00 96 06/20/16 19:00 99.1 97 24 156/77 96 06/20/16 19:00 96 Trach Collar 5.00 28 06/20/16 19:00 103 06/20/16 18:08 101 06/20/16 18:04 93 T-piece 6.00 28 06/20/16 17:18 109 06/20/16 17:05 Nasal Cannula 6.00 06/20/16 16:37 99.1 99 20 141/62 93 06/20/16 16:31 100 06/20/16 15:25 96 I/O 06/20/16 06/20/16 06/20/16 06/21/16 06/21/16 06/21/16 07:00 15:00 23:00 07:00 15:00 23:00 Intake Total 537 ml 100 ml 250 ml 0 ml Output Total 450 ml 275 ml 550 ml 1000 ml Balance 87 ml -175 ml -300 ml -1000 ml Intake Oral 0 ml 0 ml IV Total 537 ml 100 ml 250 ml 0 ml Output Urine Total 450 ml 275 ml 550 ml 1000 ml # Voids 3 # Bowel Movements 0 0 Imaging Last Impressions Chest X-Ray 06/18/16 0000 Signed Impressions: Service Date/Time: Saturday, June 18, 2016 10:01 - CONCLUSION: Left lung base opacity likely representing a combination of atelectasis and small pleural effusion unchanged. Rashawn Parker MD Physical Exam HEENT: Normocephalic; atraumatic; no jaundice. NECK: Tracheostomy CHEST: Scattered rhonchi, trach collar CARDIAC: RRR ABDOMEN: Soft, nondistended, nontender; no hepatosplenomegaly; bowel sounds are present in all four quadrants. EXTREMITIES: BLE edema. SKIN: Normal; no rash; no jaundice. HEATER ROOM HELPER: No focal deficits; Lethargic, awake. [facility] Assessment and Plan Plan ASSESSMENT: - Dislodged PEG tube. Pt recently hospitalized from 05/17-06/17 for TBI with left sided sdh, traumatic sah, and small frontal lobe contusion and underwent tracheostomy, EGD with PEG tube placement (06/06/16)-----> mild gastritis, gastric antrum, s/p peg. The lab systems analyst at that time recommended Glucerna 1.5 at 50cc/hr. GI was consulted for PEG tube being dislodged. S/P EGD with peg tube placement (06/20/16)---> normal EGD small ulceration at the stie of previous PEG, retroflexed views revealed no abnormalities. - Respiratory failure with recent vent. associated pna, improved - Tachycardia, improved - Anemia, normocytic. 8.6/26.1. - Hx DM. Per primary. PLAN: - Glucerna 1.5 at 50cc/hr - Cont. ST - GI will sign off, please reconsult as needed - Pt seen and examined by Dr. Bhat and myself and this note is written on his behalf Anita Bernard Jun 21, 2016 15:23
--- NOTE | 2016-06-21 15:45 | HHI.PR ---
Subjective Remarks Patient laying in bed looks comfortable, waiting on acceptance for authorization from insurance company to go to rehabilitation Objective Vitals Vital Signs Date Time Temp Pulse Resp B/P Pulse Ox O2 Delivery O2 Flow Rate FiO2 06/21/16 14:00 108 06/21/16 13:00 98 06/21/16 12:50 99.5 102 17 140/71 96 06/21/16 12:00 98 06/21/16 11:00 100 06/21/16 10:00 108 06/21/16 09:30 110 06/21/16 09:17 99.4 113 22 124/71 94 06/21/16 09:00 105 06/21/16 08:30 121 06/21/16 08:00 105 06/21/16 07:35 99.8 102 19 129/63 98 06/21/16 07:33 97 T-piece 6.00 28 06/21/16 07:30 105 06/21/16 07:00 96 Trach Collar 5.00 28 06/21/16 07:00 113 06/21/16 06:00 103 06/21/16 05:00 102 06/21/16 04:00 106 06/21/16 03:00 110 06/21/16 02:00 102 06/21/16 01:00 104 06/21/16 00:00 118 06/20/16 23:00 98.9 103 22 135/75 95 06/20/16 23:00 127 06/20/16 22:00 106 06/20/16 21:00 106 06/20/16 20:00 96 06/20/16 19:00 99.1 97 24 156/77 96 06/20/16 19:00 96 Trach Collar 5.00 28 06/20/16 19:00 103 06/20/16 18:08 101 06/20/16 18:04 93 T-piece 6.00 28 06/20/16 17:18 109 06/20/16 17:05 Nasal Cannula 6.00 06/20/16 16:37 99.1 99 20 141/62 93 06/20/16 16:31 100 I/O 06/20/16 06/20/16 06/20/16 06/21/16 06/21/16 06/21/16 07:00 15:00 23:00 07:00 15:00 23:00 Intake Total 537 ml 100 ml 250 ml 0 ml Output Total 450 ml 275 ml 550 ml 1000 ml Balance 87 ml -175 ml -300 ml -1000 ml Intake Oral 0 ml 0 ml IV Total 537 ml 100 ml 250 ml 0 ml Output Urine Total 450 ml 275 ml 550 ml 1000 ml # Voids 3 # Bowel Movements 0 0 Result Diagram: 06/18/1643 06/18/16642 Objective Remarks GENERAL: This is a well-nourished, well-developed patient, in no apparent distress. SKIN: No rashes, warm and dry HEAD: Atraumatic. Normocephalic. EYES: Pupils equal round and reactive. Extraocular motions intact. No scleral icterus. ENT: Nose without bleeding, or drainage, Airway patent. NECK: Trachea midline. Supple, trach in place CARDIOVASCULAR: Regular rate and rhythm without murmurs, gallops, or rubs. RESPIRATORY: Fair air entry bilaterally. No wheezes, rales, or rhonchi. GASTROINTESTINAL: Abdomen soft, non-tender, nondistended. Positive bowel sounds MUSCULOSKELETAL: Extremities without clubbing, cyanosis, or edema. Pedal pulses appreciated NEUROLOGICAL: Awake and alert. Moves all extremity. Procedures EGD & PEG tube A/P Problem List: (1) peg tube dislodgement Status: Acute (2) Tracheostomy care ICD Code: Z43.0 Status: Acute (3) Major neurocognitive disorder as late effect of traumatic brain injury with behavioral disturbance ICD Code: S06.9X9S Status: Acute Assessment and Plan Unsafe discharge(returned from rehabilitation facility due to not being able to accept trach) PEG tube dislodgement Hypertension Recent left traumatic subdural hemorrhage Recent episodes of hypotensionthought to be secondary to medications. Will need fine balance between control of BP for subdural hemorrhage and overmedication. 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 Per previous records, patient will likely be trach dependent for next few weeks Recent ventilator associated pneumoniastrepfinish course of ceftriaxone History of diabetes mellitus History of urinary retentionwas dependent on Moreno catheter in previous admission. Moreno was removed on June 12, 2016. History of UTI in previous admissionwas treated History of anemia Plan: Status post EGD and PEG tube 06/20 Appreciate GI and pulmonary consultation Trach has been downsized Discussed with family, vocational case manager for arrangement for rehabilitation after done with PEG tube Accu-Chek with sliding scale Hold long-acting insulin and oral hypoglycemics. Resume rest of his home medications DVT prophylaxisSCDs. Discharge later today to SNF once PEG tube is functional and arrangement is not Discharge Planning Stable to go to rehabilitation once authorization obtained from insurance [facility] Lincoln Hopkins MD Jun 21, 2016 15:45
--- NOTE | 2016-06-21 16:41 | HHI.PR ---
Subjective Remarks IC BLEED S/P TRACHEOSTOMY NO SOB UP IN CHAIR Objective Vital Signs Date Time Temp Pulse Resp B/P Pulse Ox O2 Delivery O2 Flow Rate FiO2 06/21/16 14:00 108 06/21/16 13:00 98 06/21/16 12:50 99.5 102 17 140/71 96 06/21/16 12:00 98 06/21/16 11:00 100 06/21/16 10:00 108 06/21/16 09:30 110 06/21/16 09:17 99.4 113 22 124/71 94 06/21/16 09:00 105 06/21/16 08:30 121 06/21/16 08:00 105 06/21/16 07:35 99.8 102 19 129/63 98 06/21/16 07:33 97 T-piece 6.00 28 06/21/16 07:30 105 06/21/16 07:00 96 Trach Collar 5.00 28 06/21/16 07:00 113 06/21/16 06:00 103 06/21/16 05:00 102 06/21/16 04:00 106 06/21/16 03:00 110 06/21/16 02:00 102 06/21/16 01:00 104 06/21/16 00:00 118 06/20/16 23:00 98.9 103 22 135/75 95 06/20/16 23:00 127 06/20/16 22:00 106 06/20/16 21:00 106 06/20/16 20:00 96 06/20/16 19:00 99.1 97 24 156/77 96 06/20/16 19:00 96 Trach Collar 5.00 28 06/20/16 19:00 103 06/20/16 18:08 101 06/20/16 18:04 93 T-piece 6.00 28 06/20/16 17:18 109 06/20/16 17:05 Nasal Cannula 6.00 I/O 06/20/16 06/20/16 06/20/16 06/21/16 06/21/16 06/21/16 07:00 15:00 23:00 07:00 15:00 23:00 Intake Total 537 ml 100 ml 250 ml 0 ml Output Total 450 ml 275 ml 550 ml 1000 ml Balance 87 ml -175 ml -300 ml -1000 ml Intake Oral 0 ml 0 ml IV Total 537 ml 100 ml 250 ml 0 ml Output Urine Total 450 ml 275 ml 550 ml 1000 ml # Voids 3 # Bowel Movements 0 0 Result Diagram: 06/18/1664206/18/16642 Objective Remarks GENERAL: SKIN: Warm and dry. HEAD: Atraumatic. Normocephalic. EYES: Pupils equal and round. No scleral icterus. No injection or drainage. ENT: No nasal bleeding or discharge. Mucous membranes pink and moist. NECK: Trachea midline. No JVD. CARDIOVASCULAR: Regular rate and rhythm. RESPIRATORY: No accessory muscle use. Clear to auscultation. Breath sounds equal bilaterally. GASTROINTESTINAL: Abdomen soft, non-tender, nondistended. Hepatic and splenic margins not palpable. MUSCULOSKELETAL: Extremities without clubbing, cyanosis, or edema. No obvious deformities. NEUROLOGICAL: Awake and alert. No obvious cranial nerve deficits. Motor grossly within normal limits. Five out of 5 muscle strength in the arms and legs. Normal speech. PSYCHIATRIC: Appropriate mood and affect; insight and judgment normal. Assessment and Plan Assessment and Plan S/P TRACHEOSTOMY NO DISTRESS IC BLEED , RESOLVED PLAN TRACH CARE INCREASE ACTIVITY Que Grey MD Jun 21, 2016 16:41
== END 2016-06-21 19:30 ==
LOC: NEPA 19:36 → NEDA 19:53 → HCIN 06-18 00:31 → HCIS 06-21 09:18
PROVIDERS: ADMIT Hospitalist; ATTEND Hospitalist
DX: Z43.0 Encounter for attention to tracheostomy (principal); Z43.1 Encounter for attention to gastrostomy; M06.9 Rheumatoid arthritis, unspecified; E11.9 Type 2 diabetes mellitus without complications; K29.70 Gastritis, unspecified, without bleeding; E86.0 Dehydration; R06.82 Tachypnea, not elsewhere classified; R13.10 Dysphagia, unspecified; I10 Essential (primary) hypertension; I95.9 Hypotension, unspecified; Z93.1 Gastrostomy status; Z93.0 Tracheostomy status; Z87.820 Personal history of traumatic brain injury
CPT/HCPCS: 00740; 43246; 71010; 80048; 82948; 85025; 92526; 92610; 93005; 99284; A7520; G0378; G8996; G8997; G8998; J0690; J2060; J7030; J7042; 76937; A7521